=== PATIENT | female | born 1975 | race Caucasian/White ===

== ENCOUNTER 2019-02-28 07:06 | Emergency (ER) | payer BC ==
[2019-02-28 07:54] LABS: Urine Blood 1+ (NEG); Urine Glucose NEGATIVE (NEG); Urine Protein NEGATIVE (NEG); Urine Specific Gravity >1.030 (1.005-1.030); Urine pH 5.5 (5.0-7.0)
--- NOTE | 2019-02-28 08:46 | RAD REPORT ---
EXAM DESCRIPTION: RAD - Foot Left 3 View - 02/28/2019 8:09 am CLINICAL HISTORY: Left foot pain, left foot trauma, laceration or wound injury near the calcaneus COMPARISON: None. FINDINGS: No fracture, dislocation or periosteal reaction. No acute or destructive bony process. No air or foreign body in the soft tissues. IMPRESSION: Negative left foot examination.
--- NOTE | 2019-02-28 08:57 | EDPHYS ---
Physician Documentation [facility] Name: Verna Paredes Age: 43 yrs Sex: Female : 1975 Arrival Date: 02/28/2019 Time: 07:08 Bed 14 Private MD: ED Physician Charlie Zamora HPI: 02/28 07:27 This 43 yrs old Female presents to ER via Ambulatory with complaints of Foot jmm Injury. 07:27 The patient presents with an abrasion, an injury, pain. Onset: The symptoms/episode jmm began/occurred acutely, 2 day(s) ago. Modifying factors: The symptoms are alleviated by nothing. the symptoms are aggravated by nothing. Associated signs and symptoms: Pertinent negatives fever. 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 patient denies pain on weight bearing. patient states swelling and bruising has decreased since yesterday. . Historical: - Allergies: 07:22 Cipro; sv - PMHx: 07:22 None; sv - PSHx: 07:22 Tubal ligation; sv - Immunization history:: Adult Immunizations up to date. - Social history:: Smoking status: Patient/guardian denies using tobacco. - Ebola Screening: : No symptoms or risks identified at this time. ROS: 07:27 Constitutional: Negative for fever, chills, and weight loss, Cardiovascular: Negative jmm for chest pain, palpitations, and edema, Respiratory: Negative for shortness of breath, cough, wheezing, and pleuritic chest pain. 07:27 MS/extremity: Positive for injury or acute deformity, ecchymosis. 07:27 Skin: Positive for abrasion(s). 07:27 All other systems are negative. Exam: 07:27 Constitutional: This is a well developed, well nourished patient who is awake, alert, jmm and in no acute distress. Head/Face: atraumatic. Eyes: EOMI, no conjunctival erythema appreciated ENT: Moist Mucus Membranes Neck: Trachea midline, Supple Chest/axilla: Normal chest wall appearance and motion. Cardiovascular: Regular rate and rhythm. No edema appreciated Respiratory: Normal respirations, no respiratory distress appreciated Abdomen/GI: Non distended, soft Back: Normal ROM 07:27 Musculoskeletal/extremity: FROM appreciated to the left ankle, mild tenderness noted to the calcaneal region, compartments are soft, full dorsalis pulse, NVI. 07:27 Skin: abrasions noted to the back of the left heel along with ecchymosis. 07:27 Neuro: Orientation: is normal, Mentation: is normal, Memory: is normal. 07:27 Psych: Behavior/mood is pleasant, cooperative. Vital Signs: 07:22 BP 123 / 78; Pulse 76; Resp 18; Temp 97.9; Pulse Ox 99% ; Weight 103.42 kg; Height 5 sv ft. 6 in. (167.64 cm); 09:00 BP 118 / 77; Pulse 72; Resp 16; Pulse Ox 99% ; sv 07:22 Body Mass Index 36.80 (103.42 kg, 167.64 cm) sv MDM: 07:27 Patient medically screened. [facility] 08:55 Data reviewed: vital signs, nurses notes. Counseling: I had a detailed discussion with marcel the patient and/or guardian regarding: the historical points, exam findings, and any diagnostic results supporting the discharge/admit diagnosis, radiology results, the need for outpatient follow up, to return to the emergency department if symptoms worsen or persist or if there are any questions or concerns that arise at home. ED course: xray negative. patient is advised to follow up with pcp if pain continues and otherwise given strict return precautions. patient understood and agrees with the plan of care. . 02/28 07:27 Order name: Urine Dipstick--Ancillary (enter results); Complete Time: 08:05 md 02/28 07:27 Order name: Urine --Ancillary (enter results); Complete Time: 08:05 md 02/28 07:33 Order name: Foot Left 3 View XRAY; Complete Time: 08:50 [facility] 02/28 08:15 Order name: Wound Care; Complete Time: 08:26 [facility] Administered Medications: No medications were administered Disposition: 03/01 07:06 Co-signature as Attending Physician, Charlie Zamora MD I agree with the assessment and kdr plan of care. Disposition: 02/28/19 08:57 Discharged to Home. Impression: Contusion of left foot, Urinary tract infection, site not specified. - Condition is Stable. - Discharge Instructions: Foot Contusion, Urinary Tract Infection, Adult. - Prescriptions for Bactrim DS 800- 160 mg Oral Tablet - take 1 tablet by ORAL route every 12 hours for 7 days; 14 tablet. - Medication Reconciliation Form, Thank You Letter, Antibiotic Education, Prescription Opioid Use form. - Work release form (02/28/19 14:18). ms - Follow up: Private Physician; When: 2 - 3 days; Reason: Recheck today's complaints, Continuance of care, Re-evaluation by your physician. Signatures: Dispatcher [employer] EDIvon Baires, ALISSA RN sv Charlie Zamora MD MD kdr Mickail, Joel, PA PA [facility] Madeleine Berry ms Corrections: (The following items were deleted from the chart) 02/28 08:59 08:57 02/28/2019 08:57 Discharged to Home. Impression: Contusion of left foot. [facility] Condition is Stable. Forms are Medication Reconciliation Form, Thank You Letter, Antibiotic Education, Prescription Opioid Use. Follow up: Private Physician; When: 2 - 3 days; Reason: Recheck today's complaints, Continuance of care, Re-evaluation by your physician. [facility] 09:23 08:59 02/28/2019 08:57 Discharged to Home. Impression: Contusion of left foot; Urinary sv tract infection, site not specified. Condition is Stable. Discharge Instructions: Foot Contusion. Forms are Medication Reconciliation Form, Thank You Letter, Antibiotic Education, Prescription Opioid Use. Follow up: Private Physician; When: 2 - 3 days; Reason: Recheck today's complaints, Continuance of care, Re-evaluation by your physician. [facility]
--- NOTE | 2019-02-28 08:57 | ER ---
Nurse's Notes [facility] Name: Verna Paredes Age: 43 yrs Sex: Female : 1975 Arrival Date: 02/28/2019 Time: 07:08 Bed 14 Private MD: Diagnosis: Contusion of left foot;Urinary tract infection, site not specified Presentation: 02/28 07:19 Presenting complaint: Patient states: hit the back of her left heel with a metal object sv with her shoe on and it caused an open wound. Incident occurred on Friday. Transition of care: patient was not received from another setting of care. Onset of symptoms was February 26, 2019. Risk Assessment: Do you want to hurt yourself or someone else? Patient reports no desire to harm self or others. Initial Sepsis Screen: Does the patient meet any 2 criteria? No. Patient's initial sepsis screen is negative. Does the patient have a suspected source of infection? Yes: Skin breakdown/wound. Care prior to arrival: None. 07:19 Method Of Arrival: Ambulatory sv 07:19 Acuity: SERA 4 sv Triage Assessment: 07:24 General: Appears in no apparent distress. uncomfortable, well developed, Behavior is sv calm, cooperative, appropriate for age. Pain: Complains of pain in lateral side of left heel and left Achilles. Neuro: Level of Consciousness is awake, alert, obeys commands, Oriented to person, place, time, situation, Moves all extremities. Full function Gait is steady. Respiratory: Respiratory effort is even, unlabored, Respiratory pattern is regular, symmetrical. Derm: Skin is pink, warm \T\ dry. Bruising that is dark purple, on lateral side of left heel and left Achilles. Derm: Wound noted lateral side of left heel. Musculoskeletal: Range of motion: intact in all extremities. Historical: - Allergies: 07:22 Cipro; sv - PMHx: 07:22 None; sv - PSHx: 07:22 Tubal ligation; sv - Immunization history:: Adult Immunizations up to date. - Social history:: Smoking status: Patient/guardian denies using tobacco. - Ebola Screening: : No symptoms or risks identified at this time. Screenin:26 Abuse screen: Denies threats or abuse. Denies injuries from another. Nutritional sv screening: No deficits noted. Tuberculosis screening: No symptoms or risk factors identified. Fall Risk None identified. Assessment: 09:22 Reassessment: Patient appears in no apparent distress at this time. No changes from previously documented assessment. Patient and/or family updated on plan of care and expected duration. Pain level reassessed. Patient is alert, oriented x 3, equal unlabored respirations, skin warm/dry/pink. Vital Signs: 07:22 BP 123 / 78; Pulse 76; Resp 18; Temp 97.9; Pulse Ox 99% ; Weight 103.42 kg; Height 5 sv ft. 6 in. (167.64 cm); 09:00 BP 118 / 77; Pulse 72; Resp 16; Pulse Ox 99% ; sv 07:22 Body Mass Index 36.80 (103.42 kg, 167.64 cm) sv ED Course: 07:08 Patient arrived in ED. rg4 07:11 Ivon Almanzar, ALISSA is Primary Nurse. sv 07:12 Erich Lopez PA is PHCP. [facility] 07:12 Charlie Zamora MD is Attending Physician. [facility] 07:20 Triage completed. sv 07:24 Arm band placed on. sv 07:26 Patient has correct armband on for positive identification. Bed in low position. Call sv light in reach. Door closed. Head of bed elevated. 08:10 Foot Left 3 View XRAY In Process Unspecified. EDMS 08:33 Wound care: to abrasion, was cleaned with with saline and dressed with triple mh5 antibiotic and dressed with waldemar. 08:36 Pulse ox on. NIBP on. mh5 09:22 No provider procedures requiring assistance completed. Patient did not have IV access sv during this emergency room visit. Administered Medications: No medications were administered Outcome: 08:57 Discharge ordered by . [facility] 09:22 Discharged to home ambulatory. sv 09:22 Condition: stable 09:22 Discharge instructions given to patient, Instructed on discharge instructions, follow up and referral plans. medication usage, increase fluids Demonstrated understanding of instructions, follow-up care, medications, Prescriptions given X 1. 09:23 Patient left the ED. sv Signatures: Dispatcher [employer] EDIvon Baires RN RN Erich Lopez PA PA jmm Garcia, Rubi 4 Madeleine Anders [facility]
[2019-02-28 09:53] VITALS: BP 123/78; TEMP 97.9; O2SAT 99
== END 2019-02-28 09:23 | disposition home or self-care (01) ==
LOC: ER 07:06
DX: S90.32XA Contusion of left foot, initial encounter (principal); N39.0 Urinary tract infection, site not specified; W22.8XXA Striking against or struck by other objects, initial encounter; Y93.89 Activity, other specified; Y92.89 Other specified places as the place of occurrence of the external cause; Y99.8 Other external cause status; Z88.1 Allergy status to other antibiotic agents
CPT/HCPCS: 81003; 81025; 99284

== ENCOUNTER 2023-01-17 08:41 | Day surgery (SDC) | payer BC ==
[2023-01-16 14:47] LABS: Urine Specific Gravity/Preg 1.015 (1.005-1.030)
[2023-01-17] MEDS ORDERED: Ringers Lactate 1,000 ML IV ONE (09:11)
[2023-01-17] MEDS ORDERED: LIDOCAINE 1% MPF 5 ML VIAL ONE (10:14)
[2023-01-17] MEDS ORDERED: propofoL 200 MG/20 ML VIAL IV ONE ×2 (10:14)
[2023-01-17 10:50] VITALS: O2SAT 100
[2023-01-17 11:13] VITALS: BP 133/80; TEMP 97.7
--- NOTE | 2023-01-17 13:54 | EKG ---
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
== END 2023-01-17 11:31 | disposition home or self-care (01) ==
LOC: OR 08:41
PROVIDERS: ATTEND Surgery
PROC: 0DBK8ZX Excision of Ascending Colon, Via Natural or Artificial Opening Endoscopic, Diagnostic (ICD-10-PCS; 2023-01-17)
PROC: 0DBN8ZX Excision of Sigmoid Colon, Via Natural or Artificial Opening Endoscopic, Diagnostic (ICD-10-PCS; principal; 2023-01-17 09:45)
DX: Z12.11 Encounter for screening for malignant neoplasm of colon (principal); D12.5 Benign neoplasm of sigmoid colon; K52.9 Noninfective gastroenteritis and colitis, unspecified; K63.89 Other specified diseases of intestine; K64.8 Other hemorrhoids; E66.9 Obesity, unspecified; Z68.34 Body mass index [BMI] 34.0-34.9, adult; Z88.1 Allergy status to other antibiotic agents
CPT/HCPCS: 93005; 80048; 36415; 81025; 88305; 45380; J2704 ×2; J2001; J7120

== ENCOUNTER 2023-01-23 10:27 | Day surgery (SDC) | payer BC ==
[2023-01-23] MEDS ORDERED: Ringers Lactate 1,000 ML IV ONE (10:51)
[2023-01-23] MEDS ORDERED: BUPIVACAINE 0.25% PF 30 ML VIAL ONE (11:01)
[2023-01-23] MEDS ORDERED: LIDOCAINE 2% MPF 5 ML VIAL ONE (11:05)
[2023-01-23] MEDS ORDERED: propofoL 200 MG/20 ML VIAL IV ONE (11:05)
[2023-01-23] MEDS ORDERED: FENTANYL CITR 100 MCG/2 ML ONE ×2 (11:05→15:14)
[2023-01-23] MEDS ORDERED: MIDAZOLAM HCL 2 MG/2 ML INJ ONE (11:05)
[2023-01-23] MEDS ORDERED: ROCURONIUM 50 MG/5 ML VIAL IV ONE (11:05)
[2023-01-23] MEDS ORDERED: HYDROMORPHONE HCL 2 MG/ML inj ONE (11:57)
[2023-01-23] MEDS: CEFAZOLIN SODIUM 2 GM/VIAL ONE ×2 (12:18→12:29)
[2023-01-23] MEDS ORDERED: dexAMETHasone 10 MG/ML VIAL ONE (12:43)
[2023-01-23] MEDS ORDERED: ONDANSETRON 4 MG/2 ML VIAL ONE (12:43)
--- NOTE | 2023-01-23 13:29 | P.OP ---
Preoperative diagnosis: Incarcerated Umbilical Hernia Postoperative diagnosis: Incarcerated Umbilical Hernia Primary procedure: Laparoscopic Umbilical Hernia Repair with mesh Anesthesia: GETA + Local Estimated blood loss: <5cc Specimen: Hernia Contents Findings: ~ 2cm umbilical incarcerated hernia with adipose Complications: None Implants: Bard Ventralite ST mesh 11.4cm, Sorbafix tacks x 45 Transferred to: Recovery Room Condition: Good
[2023-01-23] MEDS ORDERED: GLYCOPYRROLATE 0.2 MG/ML SYR ONE (13:37)
[2023-01-23] MEDS ORDERED: KETOROLAC 30 MG/ML INJ ONE (13:39)
[2023-01-23] MEDS ORDERED: NEOSTIGMINE 1 MG/ML -10 ML VIAL ONE (13:39)
[2023-01-23] MEDS ORDERED: PROMETHAZINE INJ 25 MG/ML AMP ONE (15:14)
[2023-01-23] MEDS ORDERED: HYDROMORPHONE HCL 1 MG/ML INJ ONE (15:14)
[2023-01-23] MEDS ORDERED: HYDROCODONE/APAP 10/325 TAB ONE (15:26)
[2023-01-23 15:59] VITALS: TEMP 97; O2SAT 99
[2023-01-23 16:00] VITALS: BP 151/80
--- NOTE | 2023-01-23 22:17 | OP ---
Date of Procedure: 01/23/2023 Surgeon: Jason Stevens MD, Preoperative Diagnosis: Incarcerated umbilical hernia. Postoperative Diagnosis: Incarcerated umbilical hernia. Procedure Performed: Laparoscopic umbilical hernia repair with mesh. Anesthesia: General endotracheal plus local with 0.25% Marcaine. Estimated Blood Loss: Less than 5 cc. Specimens: Hernia contents which were preperitoneal and omental adipose tissue. Findings: Approximately 2 cm umbilical incarcerated hernia with adipose from the greater omentum. Complication: None. Implants: Bard Ventralight ST mesh with Echo positioning system 11.4 cm round mesh utilized, SorbaFi x absorbable fixation tacks, x45. Disposition: The patient was transferred to the recovery good in good condition. Procedure In Detail: After informed consent was obtained, the patient was brought to the operating r oom, prepped and draped in the usual sterile fashion after adequate anesthesia was achieved. I anest hetized an area of the left upper quadrant down to subcutaneous tissues. A 5 mm 0-degree optical tro car was introduced in the abdomen without evidence of complication. Insufflation was obtained to 15 mmHg at this time. There was no injury to vital structures upon entry into the abdomen. Additional trocar was placed in the left mid abdomen. This was a 12 mm trocar placed under direct vision withou t evidence of complication. At this point, I proceeded to take the omental attachments and hernia co ntents such as they are out of the umbilical incarcerated hernia at this point using a combination of blunt dissection with the LigaSure device. After the omentum was reduced in the preperitoneal posit ion, some additional adipose tissue over the preperitoneal fat remained in the abdominal hernia at th is point. This was removed using a LigaSure device and sent off for pathologic examination. At this point, I brought the Endo Stitch with a 0 V-Loc suture and secured the hernia defect in a running fa shion using the 0 V-Loc suture with good approximation of tissues imbricating the hernia sac. At thi s point, after the hernia defect was closed in its entirety, a 11.4 cm Bard Ventralight mesh was brou ght in, deployed and positioned in the supraumbilical position after a separate stab incision was mira vicki and the deployment balloon system was deployed. At this point, SorbaFix absorbable fixation tack s were used to secure the mesh to the anterior abdominal wall without evidence of complication. The balloon deployment system was then removed, found to be intact on the back table. At this point, a t otal of 45 SorbaFix absorbable fixation tacks were used to secure the mesh to the anterior abdominal wall with good approximation of mesh to the anterior abdominal wall at this point. No hemostatic ana sures were required. The 12 mm trocar site was then closed using a Veronique suture passer wit h 0 Vicryl in interrupted fashion with good approximation of tissues. The abdomen was desufflated un brett direct vision without evidence of complication. The remaining trocars were removed. All skin ed ges were then copiously irrigated and closed with a 4-0 Monocryl in running fashion. Dermabond was p laced over top. The patient tolerated the procedure well without evidence of complication and transf erred to PACU in good condition. All counts were correct at the end of the case. DORCAS/GLORIA Voice ID: [id number] Report ID: [id number]
== END 2023-01-23 16:11 | disposition home or self-care (01) ==
LOC: OR 10:27
PROVIDERS: ATTEND Surgery
PROC: 0WUF4JZ Supplement Abdominal Wall with Synthetic Substitute, Percutaneous Endoscopic Approach (ICD-10-PCS; principal; 2023-01-23 11:45)
DX: K42.0 Umbilical hernia with obstruction, without gangrene (principal)
CPT/HCPCS: 36415; 84703; 88302; C1781; J1100; J1170; J2001; J2250; J2405; J2550; J2704; J2710; J3010; J7120

== ENCOUNTER 2023-02-13 13:11 | Emergency (ER) | payer BC ==
--- OUTSIDE RECORDS SUMMARY | 2023-02-13 13:14 | XMS REPORT | Continuity of Care Document ---
:1975 Author Organization [facility] t Address [address] [place] [address] [address] [place] [address] Care Team Providers Name Role Phone PCP, PATIENT DOES NOT HAVE A Primary Care Physician Unavaila ble RADIOLOGY Attending Clinician Unavailable Radiology Attending Clinician Unavailable Doctor Unassigned, Arnold Attending Clinician Unavailable EDMUND_JUAN_[place]_G Attending Clinician Unavailable Rutledge_L Attending Clinician Unavailable RACHEL AGUILAR Admitting Clinician Unavailable [email or web address]_[place]_G Admitting Clinician Unavailable Rutledge_L Admitting Clinician Unavailable Payers Payer Name Policy Type Policy Number Effective Date Expiration Date S ource [facility] [id number] 2018 00:00:00 [place] [facility] [id number] 2018 00:00:00 [place] Problems This patient has no known problems. Allergies, Adverse Reactions, Alerts Allergy Allergy Status Severity Reaction(s) Onset Inactive Treating Comm ents Source Name Type Date Date Clinician NO KNOWN Drug Active [facility] ALLERGIE Class ity of [facility] Social History Social Habit Start Date Stop Date Quantity Comments Source Gender identity [facility] [place] Sexual orientation [facility] [place] Sex Assigned [birth year] Uni [facility] 00:00:00 00:00:00 Medical Branch Smoking Status Start Date Stop Date Source Tobacco smoking consumption [facility] Branch Medications This patient has no known medications. Procedures Procedure Date / Time Performed Performing Clinician Mary e ASSIGNMENT OF BENEFITS 2022-12-23 13:31:30 Doctor Unassigned, No [facility] Encounters Start End Encounter Admission Attending Care Care Encounter Source Date/Time Date/Time Type Type Clinicians Facility Department ID 2022-12-23 2022-12-23 Outpatient R RADIOLOGY [facility] [id number] Univers 08:32:37 23:59:[address] [facility] 2022-12-23 2022-12-23 Hospital Radiology [facility] [id number] Univers 08:00:00 23:59:00 Encounter [place] [id number] ity of [place] [id number] [place] [facility] [id number] [facility] 800 Branch 2022-12-23 2022-12-23 Orders Doctor KENNEDY [id number] Univers 00:00:00 00:00:00 Only Unassigned, NICOLE [id number] ity of [place] [facility] [id number] Charles [id number] [facility] 009 Branch 2022-08-08 2022-08-08 Outpatient GC_SWHAOMC_ PRIV PRIV [id number] [facility] 00:00:00 00:00:00 Shel[place]_G [id number] [facility] 2022-08-06 2022-08-06 Outpatient PRIV PRIV [id number] [facility] 00:00:00 00:00:00 [id number] Medica l 2022-08-05 2022-08-05 Outpatient PRIV PRIV [id number] [facility] 00:00:00 00:00:00 [id number] Medica l 2022-07-11 2022-07-11 Outpatient Rutledge_L MMG MMG [id number] [place] 00:00:00 00:00:00 [id number] 2022-07-11 2022-07-11 Outpatient PRIV PRIV [id number] [id number] [facility] 00:00:00 00:00:00 [id number] Medica l Results This patient has no known results.
[2023-02-13] MEDS ORDERED: D10W 250 ML IV ONE (13:24)
[2023-02-13 14:36] LABS: Absolute Lymphocytes (CBC) 1.5 K/uL (0.7-4.9); Hematocrit 40.4 % (36.0-45.0); Lymphocytes % 15.7 % (15.3-44.8); MCV 85.8 fL (80-100); Platelets 228 thou/uL (152-406); RBC Red Blood Cell Count 4.71 M/uL (3.86-4.86)
[2023-02-13 14:41] LABS: Specific Gravity 1.025 (1.005-1.030)
[2023-02-13 14:47] LABS: Albumin 3.7 g/dL (3.4-5.0); Potassium 3.7 mEq/L (3.5-5.1); Protein, Total 7.4 g/dL (6.4-8.2)
[2023-02-13 14:52] LABS: Specific Gravity 1.025 (1.005-1.030); Urine Bacteria 20-50 /HPF (<20); Urine Bilirubin NEGATIVE (Negative); Urine Blood Trace (Negative); Urine Clarity Extremely Turbid (Clear); Urine Color Yellow (Yellow); Urine Crystals Unidentified Few /HPF (None Seen); Urine Glucose NEGATIVE (Negative); Urine Mucus 2+ /HPF (None Seen); Urine Protein TRACE (Negative); Urine Urobilinogen Normal (Normal)
--- NOTE | 2023-02-13 15:34 | RAD REPORT ---
EXAM DESCRIPTION: US - Abdomen Exam Limited - 02/13/2023 2:45 pm CLINICAL HISTORY: ABD PAIN COMPARISON: No comparisons TECHNIQUE: Sonographic grayscale and color flow images of the right upper abdominal quadrant were obtained. FINDINGS: The gallbladder demonstrates multiple small layering shadowing stones. No pericholecystic fluid or gallbladder wall thickening. The common bile duct is normal measuring 4 mm. The liver demonstrates diffuse parenchymal hyper attenuation suggesting steatosis. No findings of int rahepatic biliary dilatation. IMPRESSION: Cholelithiasis. No sonographic findings to suggest acute cholecystitis. Diffuse hepatic steatosis.
--- NOTE | 2023-02-13 15:45 | ER ---
Nurse's Notes [facility] Name: Verna Paredes Age: 47 yrs Sex: Female : 1975 Arrival Date: 02/13/2023 Time: 13:11 Bed DIS4 Private MD: Diagnosis: Other cholelithiasis without obstruction;Upper abdominal pain, unspecified Presentation: 02/13 13:45 Coronavirus screen: Vaccine status: Patient reports receiving the 2nd dose of the covid kd3 vaccine. Ebola Screen: No symptoms or risks identified at this time. Initial Sepsis Screen: Does the patient meet any 2 criteria? No. Patient's initial sepsis screen is negative. Does the patient have a suspected source of infection? No. Patient's initial sepsis screen is negative. Risk Assessment: Do you want to hurt yourself or someone else? Patient reports no desire to harm self or others. Onset of symptoms was February 13, 2023. 13:45 Method Of Arrival: Ambulatory kd3 13:45 Acuity: SERA 3 kd3 13:46 Chief complaint: Patient states: I had hernia surgery 3 weeks ago on the and now kd3 my gall bladder is hurting. I feel nauseous, i was told to tell you to let Dr. cisneros know that i was here in the ER. I have pain in my right upper quadrant that started on the 2 of February and the pain has gotten worse since then. Triage Assessment: 13:45 General: Appears uncomfortable, Behavior is calm, cooperative. Pain: Complains of pain kd3 in left upper quadrant. GI: Abdomen is non-distended. Historical: - Allergies: 13:45 Cipro; kd3 - Immunization history:: Adult Immunizations up to date. - Social history:: Smoking status: Patient denies any tobacco usage or history of. Screenin:03 [facility] ED Fall Risk Assessment (Adult) History of falling in the last 3 months, kb3 including since admission No falls in past 3 months (0 pts) Confusion or Disorientation No (0 pts) Intoxicated or Sedated No (0 pts) Impaired Gait No (0 pts) Mobility Assist Device Used No (0 pt) Altered Elimination No (0 pt) Score/Fall Risk Level 0 - 2 = Low Risk Oriented to surroundings. Abuse screen: Denies threats or abuse. Denies injuries from another. Nutritional screening: No deficits noted. Tuberculosis screening: No symptoms or risk factors identified. Assessment: 16:03 General: Appears in no apparent distress. uncomfortable, Behavior is calm, cooperative. kb3 Pain: Complains of pain in right upper quadrant Pain does not radiate. Pain currently is 7 out of 10 on a pain scale. Quality of pain is described as burning, sharp, Also complains of nausea. GI: Bowel sounds present X 4 quads. Abd is soft Abdomen is tender to palpation. Vital Signs: 13:43 Pulse 99; Resp 17; Temp 98.4(O); Pulse Ox 100% ; Weight 96.16 kg; Height 5 ft. 6 in. ; kd3 Pain 7/10; 13:46 BP 134 / 72; kd3 16:06 BP 112 / 77; Pulse 80; Resp 20; Pulse Ox 100% ; Pain 7/10; kb3 13:43 Body Mass Index 34.22 (96.16 kg, 167.64 cm) kd3 13:43 Pain Scale: Adult kd3 16:06 Pain Scale: Adult kb3 ED Course: 13:14 Patient arrived in ED. mr 13:45 Triage completed. kd3 13:45 Arm band placed on right wrist. kd3 13:49 Channing Carballo DO is Attending Physician. ms3 14:30 Inserted saline lock: 20 gauge in left antecubital area, using aseptic technique. kb3 14:46 US Abdomen Limited In Process Unspecified. EDMS 15:44 Jason Stevens MD is Referral Physician. ms3 16:03 Patient has correct armband on for positive identification. Provided Education on: D/C kb3 and follow up. 16:03 No provider procedures requiring assistance completed. IV discontinued, intact, kb3 bleeding controlled, No redness/swelling at site. Pressure dressing applied. Administered Medications: No medications were administered Medication: 16:03 VIS not applicable for this client. kb3 Outcome: 15:45 Discharge ordered by . ms3 16:03 Discharged to home ambulatory, with family, kb3 16:03 Condition: good 16:03 Discharge instructions given to patient, Instructed on discharge instructions, Demonstrated understanding of instructions, follow-up care, medications, 16:07 Patient left the ED. kb3 Signatures: Dispatcher [employer] EDMS Elba Doty, Reg Reg mr Channing Carballo DO DO ms3 Trisha Swann, RN RN kd3 Juany Torres, RN RN kb3
--- NOTE | 2023-02-13 15:45 | EDPHYS ---
Physician Documentation [facility] Name: Verna Paredes Age: 47 yrs Sex: Female : 1975 Arrival Date: 02/13/2023 Time: 13:11 Bed DIS4 Private MD: ED Physician Channing Carballo HPI: 02/13 14:18 This 47 yrs old Female presents to ER via Ambulatory with complaints of Abdominal Pain. ms3 14:18 47-year-old female with no past medical history presents to the emergency department ms3 for right upper quadrant abdominal pain. Patient rates pain a 7/10 describes pain as burning. Patient states pain radiates to her back. Patient denies nausea, vomiting, fevers, chills. Historical: - Allergies: 13:45 Cipro; kd3 - Immunization history:: Adult Immunizations up to date. - Social history:: Smoking status: Patient denies any tobacco usage or history of. ROS: 14:18 Constitutional: Negative for fever, and chills. Neck: Negative for injury, pain, and ms3 swelling, Cardiovascular: Negative for chest pain, and palpitations. Respiratory: Negative for shortness of breath, cough, wheezing, and pleuritic chest pain, Abdomen/GI: Negative for abdominal pain, nausea, vomiting, diarrhea, and constipation, MS/Extremity: Negative for injury and deformity, Skin: Negative for injury, rash, and discoloration, 14:18 All other systems are negative, Exam: 14:18 Constitutional: This is a well developed, well nourished patient who is awake, alert, ms3 and in no acute distress. Head/Face: Normocephalic, atraumatic. Neck: Trachea midline, no cervical lymphadenopathy. Supple, full range of motion without nuchal rigidity, or vertebral point tenderness. No Meningismus. Chest/axilla: Normal chest wall appearance and motion. Nontender with no deformity. Cardiovascular: Regular rate and rhythm with a normal S1 and S2. No gallops, murmurs, or rubs. Normal PMI, no JVD. No pulse deficits. Respiratory: Lungs have equal breath sounds bilaterally, clear to auscultation and percussion. No rales, rhonchi or wheezes noted. No increased work of breathing, no retractions or nasal flaring. 14:18 Abdomen/GI: Inspection: abdomen appears normal, Bowel sounds: normal, Palpation: moderate abdominal tenderness, in the right upper quadrant, Vital Signs: 13:43 Pulse 99; Resp 17; Temp 98.4(O); Pulse Ox 100% ; Weight 96.16 kg; Height 5 ft. 6 in. ; kd3 Pain 7/10; 13:46 BP 134 / 72; kd3 16:06 BP 112 / 77; Pulse 80; Resp 20; Pulse Ox 100% ; Pain 7/10; kb3 13:43 Body Mass Index 34.22 (96.16 kg, 167.64 cm) kd3 13:43 Pain Scale: Adult kd3 16:06 Pain Scale: Adult kb3 MDM: 13:57 Patient medically screened. ms3 14:18 Differential diagnosis: cholecystitis, Cholelithiasis, non-specific abd pain, ms3 pancreatitis. 15:45 Data reviewed: vital signs, nurses notes, and as a result, I will discharge patient. ms3 Consideration of Admission/Observation Escalation of care including admission/observation considered. Ultrasound does not show acute cholecystitis. Management of patient was discussed with the following: Strap Sewer: Discussed case with Dr. Stevens and he will follow-up patient as an outpatient. Counseling: I had a detailed discussion with the patient and/or guardian regarding the historical points, exam findings, and any diagnostic results supporting the discharge/admit diagnosis, lab results, radiology results, the need for outpatient follow up, to return to the emergency department if symptoms worsen or persist or if there are any questions or concerns that arise at home. Special discussion: Based on the patient's Hx, exam, and Dx evaluation, there is no indication for emergent surgery or inpatient Tx. It is understood by the patient/guardian that if the Sx's persist or worsen they need to return immediately for re-evaluation. ED course: Discussed ultrasound, labs with patient. Patient to follow-up Dr. SHRESTHA 7 2 to 3 days. Patient understands and agrees with plan. All questions were answered. Return precautions discussed include worsening symptoms, or any other concerns. 02/13 13:56 Order name: CBC with Diff; Complete Time: 15:05 ms3 02/13 13:56 Order name: CMP; Complete Time: 15:05 ms3 02/13 13:56 Order name: Lipase; Complete Time: 15:05 ms3 02/13 13:56 Order name: Test, Urine; Complete Time: 15:05 ms3 02/13 13:56 Order name: Urinalysis w/ reflexes; Complete Time: 15:05 ms3 02/13 13:56 Order name: US Abdomen Limited; Complete Time: 15:35 ms3 02/13 13:56 Order name: IV Saline Lock; Complete Time: 15:53 ms3 02/13 13:56 Order name: Labs collected and sent; Complete Time: 15:53 ms3 Administered Medications: No medications were administered Disposition Summary: 02/13/23 15:45 Discharge Ordered Notes: Location: Home ms3 Condition: Stable ms3 Diagnosis - Other cholelithiasis without obstruction ms3 - Upper abdominal pain, unspecified ms3 Followup: ms3 - With: Jason Stevens MD - When: 2 - 3 days - Reason: Recheck today's complaints Discharge Instructions: - Discharge Summary Sheet ms3 - Abdominal Pain, Adult ms3 - Cholelithiasis ms3 Forms: - Medication Reconciliation Form ms3 - Thank You Letter ms3 - Antibiotic Education ms3 - Prescription Opioid Use ms3 - Patient Portal Instructions ms3 - Leadership Thank You Letter ms3 Signatures: Dispatcher [employer] Channing Fisher DO DO ms3 Trisha Swann, RN RN kd3
[2023-02-13 16:43] VITALS: BP 112/77; O2SAT 100
== END 2023-02-13 16:07 | disposition home or self-care (01) ==
LOC: ER 13:11
DX: K80.80 Other cholelithiasis without obstruction (principal); Z88.1 Allergy status to other antibiotic agents
CPT/HCPCS: 36415; 76705; 80053; 81001; 81025; 83690; 85025; 99283

== ENCOUNTER 2023-03-03 10:59 | Day surgery (SDC) | payer BC ==
[2023-03-03] MEDS ORDERED: CEFOXITIN SODIUM 1 GM/VIAL ONE (11:26)
[2023-03-03] MEDS ORDERED: Ringers Lactate 1,000 ML IV ONE (11:26)
[2023-03-03] MEDS ORDERED: BUPIVACAINE 0.25% PF 10 ML VIAL ONE (11:39)
[2023-03-03] MEDS ORDERED: MIDAZOLAM HCL 2 MG/2 ML INJ ONE (12:10)
[2023-03-03] MEDS ORDERED: propofoL 200 MG/20 ML VIAL IV ONE (12:17)
[2023-03-03] MEDS ORDERED: ROCURONIUM 50 MG/5 ML VIAL IV ONE (12:18)
[2023-03-03] MEDS ORDERED: FENTANYL CITR 100 MCG/2 ML ONE ×2 (12:18→12:53)
[2023-03-03] MEDS ORDERED: KETOROLAC 30 MG/ML INJ ONE (12:19)
[2023-03-03] MEDS ORDERED: ONDANSETRON 4 MG/2 ML VIAL ONE (12:20)
[2023-03-03] MEDS ORDERED: LIDOCAINE 2% MPF 5 ML VIAL ONE (12:20)
[2023-03-03] MEDS ORDERED: dexAMETHasone 4 MG/ML VIAL ONE (12:20)
--- NOTE | 2023-03-03 13:01 | P.OP ---
Preoperative diagnosis: Cholecystitis Postoperative diagnosis: Cholecystitis Primary procedure: Laparoscopic Cholecystectomy with ICG Anesthesia: GETA + Local Estimated blood loss: <5cc Specimen: Gallbladder Findings: Enlarged Gallbladder Complications: None Transferred to: Recovery Room Condition: Good
[2023-03-03] MEDS ORDERED: GLYCOPYRROLATE 0.2 MG/ML SYR ONE ×2 (13:21)
[2023-03-03] MEDS ORDERED: NEOSTIGMINE 1 MG/ML -10 ML VIAL ONE ×2 (13:21)
[2023-03-03 13:29] VITALS: O2SAT 100
[2023-03-03] MEDS: FENTANYL CITR 100 MCG/2 ML ONE ×5 (13:34→13:49)
[2023-03-03] MEDS: HYDROMORPHONE HCL 1 MG/ML INJ ONE ×4 (13:54→14:19)
[2023-03-03] MEDS ORDERED: HYDROMORPHONE HCL 1 MG/ML INJ ONE (14:39)
[2023-03-03] MEDS ORDERED: TRAMADOL HCL 50 MG TAB ONE (15:26)
[2023-03-03 16:00] VITALS: BP 125/70; TEMP 97
--- NOTE | 2023-03-03 19:39 | OP ---
Date of Procedure: 03/03/2023 Surgeon: Jason Stevens MD, Preoperative Diagnosis: Cholecystitis. Postoperative Diagnosis: Cholecystitis. Procedure Performed: Laparoscopic cholecystectomy with indocyanine green cholangiography. Anesthesia: General endotracheal plus local with 0.25% Marcaine. Estimated Blood Loss: 5 mL. Specimens: Gallbladder. Findings: Enlarged gallbladder. Complications: None. Disposition: The patient was transferred to the recovery room in good condition. Procedure In Detail: After informed consent was obtained, the patient was brought to the operating r oom, prepped and draped in the usual sterile fashion. After adequate anesthesia was achieved, I anes thetized the area in the supraumbilical position down to subcutaneous tissues. I then placed a 5 mm 0-degree optical trocar in the abdomen without evidence of complication. Insufflation was obtained t o 15 mmHg at this time. There was no injury to vital structures in the abdomen. Two additional troc ars were placed, 1 in the epigastrium, 1 in the right upper quadrant. Both of these were similarly a nesthetized and sharply incised. A 5 mm trocar was placed under direct visualization without evidenc e of complication. The umbilical trocar was then upsized to a 12 mm under direct visualization witho ut evidence of complication. The patient was positioned head up, right-side up position. Ratcheted grasper was used to grasp the patient's gallbladder, placed it toward the patient's right shoulder. Dissection continued down to the Veroinca pouch of the gallbladder. The gallbladder is quite large w ith a stone entrapped in the neck of the gallbladder and dissected it circumferentially down around t he cystic duct and skeletonized 2 structures and then identified both cystic duct and cystic artery. Critical view of safety was obtained at this point. Indocyanine green cholangiography was performed at this point confirming the cyst at common duct confluence to the safe distance away from the propo sed clips. I then placed double titanium clips on the proximal side and singly on the distal side of both cystic duct and cystic artery, ligated the 2 structures using Endo Isa. I then removed the gallbladder hepatic fossa using electrocautery without evidence of complication, placed the gallbladd er in EndoCatch bag, removed through the umbilical trocar and sent off for pathologic examination. A t this point, the abdomen was re-insufflated. At this point, I performed indocyanine green cholangio graphy one last time. There was no leakage of bile at this point, the clips were found to be in good anatomic position without any hemostatic measures required. At this point, the remaining effluent w as suctioned out after completely cleansing the abdomen in the right upper quadrant. The patient was positioned back in neutral position. The remaining effluent was suctioned out. I then closed the s upraumbilical site with a Abdi-Ayla suture passer with an 0 Vicryl in an interrupted fashion wi th good approximation of tissues. The abdomen was completely desufflated under direct vision without evidence of complication. All skin incisions were then copiously irrigated and closed with a 4-0 Mo nocryl fashion. Dermabond was placed over top. The patient tolerated the procedure without evidence of complication, and was transferred to PACU in good condition. All counts were correct at the end of the case. DORCAS/GLORIA Voice ID: [id number] Report ID: [id number]
== END 2023-03-03 15:41 | disposition home or self-care (01) ==
LOC: OR 10:59
PROVIDERS: ATTEND Surgery
PROC: BF50200 Other Imaging of Bile Ducts using Fluorescing Agent, Indocyanine Green Dye, Intraoperative (ICD-10-PCS; 2023-03-03)
PROC: 0FT44ZZ Resection of Gallbladder, Percutaneous Endoscopic Approach (ICD-10-PCS; principal; 2023-03-03 12:45)
DX: K80.10 Calculus of gallbladder with chronic cholecystitis without obstruction (principal); R10.84 Generalized abdominal pain; K63.89 Other specified diseases of intestine
CPT/HCPCS: 88304; 47563; J2704; J1100; J2710 ×2; J2001; J2250; J3010 ×3; J1170 ×3; J0694; J2405; J7120

== ENCOUNTER 2023-03-19 12:03 | Emergency (ER) | payer BC ==
--- OUTSIDE RECORDS SUMMARY | 2023-03-19 12:08 | XMS REPORT | Continuity of Care Document ---
Author Name Unknown Address [address] [facility] [address] [place] [id number] [facility] thconnect Address [address] [facility] [place] [address] Care Team Providers Care X Ray Developer Name Role Phone PCP, PATIENT DOES NOT HAVE A Primary Care Physic zeinab Unavailable RADIOLOGY Attending Clinician Unavailable Radiology Attending Clinician Unavailable Doctor Unassigned, [place] Attending Clinician U navailable [email or web address]_G Attending Clinician Unavail able Rutledge_L Attending Clinician Unavailable RACHEL AGUILAR Admitting Clinician Unavailabl e [email or web address]_G Admitting Clinician Unavail able Rutledge_L Admitting Clinician Unavailable Payers Payer Name Policy Type Policy Number Effective Date Expirati on Date Source [facility] [id number] 2018 00:00:00 [place] [id number] 2018 00:00:00 Allergies, Adverse Reactions, Alerts Allergy Name Allergy Type Status Severity Reaction(s) Onset Date Inactive Date Treating Clinician Comments Source NO KNOWN ALLERGIE S Drug Class Active [facility] Social History Social Habit Start Date Stop Date Quantity Comments Source Gender identity [facility] At 1975 00:00:00 1975 00:00:00 [facility] Smoking Status Start Date Stop Date Source Tobacco smoking consumption unknown [facility] Procedures Procedure Date / Time Performed Performing Clinicia n Source ASSIGNMENT OF BENEFITS 2022-12-23 13:31:30 Docto r Unassigned, Haynes [facility] Encounters Start Date/Time End Date/Time Encounter Type Admission Type Attending [facility] Care Facility Care Department Encounter ID Source 2022-12-23 08:32:37 2022-12-23 23:59:00 Outpatient R RADIOLOGY [facility] [id number] [facility] 2022-12-23 08:00:00 2022-12-23 23:59:00 Hospital Encounter Radiology [facility] [id number] [facility] 2022-12-23 00:00:00 2022-12-23 00:00:00 Orders Only Doctor Unassigned, Haynes [facility] [id number] [facility] 2022-08-08 00:00:00 2022-08-08 00:00:00 Outpatient [facility] [place]_G PRIV PRIV [id number] [facility] 2022-08-06 00:00:00 2022-08-06 00:00:00 Outpatient PRIV PRIV [id number] [facility] 2022-08-05 00:00:00 2022-08-05 00:00:00 Outpatient PRIV PRIV [id number] [facility] 2022-07-11 00:00:00 2022-07-11 00:00:00 Outpatient Rutledge_L MMG MMG [id number] [facility] 2022-07-11 00:00:00 2022-07-11 00:00:00 Outpatient PRIV PRIV [id number] [facility]
--- NOTE | 2023-03-19 13:45 | ER ---
Nurse's Notes [facility] Name: Verna Paredes Age: 47 yrs Sex: Female : 1975 Arrival Date: 03/19/2023 Time: 12:03 Bed 11 Private MD: Diagnosis: Constipation Presentation: 03/19 12:09 Chief complaint: Patient states: No BM for 6 days. Miralax and benefiber not helping. ll1 N/V this AM. No fever. Had gallbladder removed 03/03 here. Coronavirus screen: Vaccine status: Patient reports receiving the 2nd dose of the covid vaccine. Client denies travel out of the [place] in the last 14 days. At this time, the client does not indicate any symptoms associated with coronavirus-19. Ebola Screen: Patient denies travel to an Ebola-affected area in the 21 days before illness onset. Initial Sepsis Screen: Does the patient meet any 2 criteria? No. Patient's initial sepsis screen is negative. Does the patient have a suspected source of infection? Yes: Acute abdominal pain. Risk Assessment: Do you want to hurt yourself or someone else? Patient reports no desire to harm self or others. Onset of symptoms was March 13, 2023. 12:09 Method Of Arrival: Ambulatory ll1 12:09 Acuity: SERA 3 ll1 Triage Assessment: 12:11 General: Appears uncomfortable, Behavior is calm, cooperative, appropriate for age. ll1 Pain: Complains of pain in abdomen. GI: Abdomen is round distended, Reports lower abdominal pain, upper abdominal pain, bloating, constipation, nausea, vomiting. 12:26 EENT: No deficits noted. No signs and/or symptoms were reported regarding the EENT tl4 system. Neuro: No deficits noted. Cardiovascular: No deficits noted. Respiratory: No deficits noted. : No deficits noted. No signs and/or symptoms were reported regarding the genitourinary system. 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 - Social history:: Smoking status: Patient denies any tobacco usage or history of. Screenin:34 [facility] ED Fall Risk Assessment (Adult) History of falling in the last 3 months, tl4 including since admission No falls in past 3 months (0 pts) Confusion or Disorientation No (0 pts) Intoxicated or Sedated No (0 pts) Impaired Gait No (0 pts) Mobility Assist Device Used No (0 pt) Altered Elimination Yes (1 pt) Score/Fall Risk Level 0 - 2 = Low Risk Oriented to surroundings, Maintained a safe environment, Hourly rounding (assess needs \T\ fall precautionary measures) done, Used ambulatory aids as needed (educated on \T\ assisted with), Used gait belt as appropriate. Abuse screen: Denies threats or abuse. Denies injuries from another. Nutritional screening: No deficits noted. Tuberculosis screening: No symptoms or risk factors identified. Assessment: 12:33 Reassessment: No changes from previously documented assessment. Patient and/or family tl4 updated on plan of care and expected duration. Pain level reassessed. 12:35 GI: Bowel sounds hypoactive in right upper quadrant, left upper quadrant, right lower tl4 quadrant and left lower quadrant Firm, non-tender. 13:45 Reassessment: Pt had large bowel movement. Dr Carballo aware. Patient states feeling tl4 better. Patient states symptoms have improved. Vital Signs: 12:09 BP 144 / 82; Pulse 77; Resp 16; Temp 97.8; Pulse Ox 100% ; Weight 97.52 kg; Height 5 ll1 ft. 6 in. ; Pain 6/10; 12:33 BP 158 / 83; Pulse 83; Resp 18; Pulse Ox 99% on R/A; Pain 8/10; tl4 13:01 BP 136 / 82; Pulse 71; Resp 18; Pulse Ox 100% on R/A; tl4 13:59 BP 135 / 95; Pulse 71; Resp 18; Pulse Ox 100% ; Pain 3/10; tl4 12:09 Body Mass Index 34.70 (97.52 kg, 167.64 cm) ll1 12:09 Pain Scale: Adult ll1 12:33 Pain Scale: Adult tl4 13:59 Pain Scale: Adult tl4 Jose Coma Score: 12:33 Eye Response: spontaneous(4). Motor Response: obeys commands(6). Verbal Response: tl4 oriented(5). Total: 15. ED Course: 12:05 Patient arrived in ED. mg5 12:11 Triage completed. ll1 12:11 Arm band placed on. ll1 12:15 Patient placed in an exam room, on a stretcher. ll1 12:18 Channing Carballo DO is Attending Physician. ms3 12:25 Jas Swanson is Primary Nurse. tl4 12:35 No provider procedures requiring assistance completed. tl4 12:36 Patient has correct armband on for positive identification. Bed in low position. Call tl4 light in reach. Side rails up X 1. Adult w/ patient. Provided Education on: ED process. Door closed. Moved to private room. Verbal reassurance given. 13:43 Jason Stevens MD is Referral Physician. ms3 14:00 Patient did not have IV access during this emergency room visit. tl4 Administered Medications: 13:10 Drug: soap suds darwin 1 units [place] once Route: [place]; tl4 13:47 Follow up: Response: Marked relief of symptoms tl4 Medication: 12:37 VIS not applicable for this client. tl4 Outcome: 13:44 Discharge ordered by . ms3 14:00 Discharged to home ambulatory, with significant other, tl4 14:00 Condition: good 14:00 Discharge instructions given to patient, Instructed on discharge instructions, follow up and referral plans. 14:01 Patient left the ED. tl4 Signatures: Darby Shi RN RN ll1 Channing Carballo DO DO ms3 Farida Nice mg5 Jas Swanson tl4 Corrections: (The following items were deleted from the chart) 13:59 12:33 BP 158 / 83; Pulse 83bpm; Resp 18bpm; Pulse Ox 99% RA; Pain 5/10, Adult; tl4 tl4
--- NOTE | 2023-03-19 13:45 | EDPHYS ---
Physician Documentation [facility] Name: Verna Paredes Age: 47 yrs Sex: Female : 1975 Arrival Date: 03/19/2023 Time: 12:03 Bed 11 Private MD: ED Physician Channing Carballo HPI: 03/19 12:39 This 47 yrs old Female presents to ER via Ambulatory with complaints of Constipation. ms3 12:39 47-year-old female with no past medical history presents to the emergency department ms3 for constipation for 6 days. Patient states she has been taking MiraLAX and Benefiber without relief. Patient states her lower abdomen is a 6/10 and a pressure feeling as if she needs to go the restroom. Patient denies fevers or chills. Patient endorses nausea and vomiting this morning.. 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 - Social history:: Smoking status: Patient denies any tobacco usage or history of. ROS: 12:39 Constitutional: Negative for fever, and chills. Neck: Negative for injury, pain, and ms3 swelling, Cardiovascular: Negative for chest pain, and palpitations. Respiratory: Negative for shortness of breath, cough, wheezing, and pleuritic chest pain, 12:39 Abdomen/GI: Positive for abdominal pain, nausea and vomiting, constipation, Negative for diarrhea, 12:39 All other systems are negative, Exam: 12:39 Constitutional: This is a well developed, well nourished patient who is awake, alert, ms3 and in no acute distress. Head/Face: Normocephalic, atraumatic. Chest/axilla: Normal chest wall appearance and motion. Nontender with no deformity. Cardiovascular: Regular rate and rhythm with a normal S1 and S2. No gallops, murmurs, or rubs. Normal PMI, no JVD. No pulse deficits. Respiratory: Lungs have equal breath sounds bilaterally, clear to auscultation and percussion. No rales, rhonchi or wheezes noted. No increased work of breathing, no retractions or nasal flaring. 12:39 Respiratory: 12:39 Abdomen/GI: Inspection: abdomen appears normal, Bowel sounds: normal, Palpation: abdomen is soft and non-tender, Vital Signs: 12:09 BP 144 / 82; Pulse 77; Resp 16; Temp 97.8; Pulse Ox 100% ; Weight 97.52 kg; Height 5 ll1 ft. 6 in. ; Pain 6/10; 12:33 BP 158 / 83; Pulse 83; Resp 18; Pulse Ox 99% on R/A; Pain 8/10; tl4 13:01 BP 136 / 82; Pulse 71; Resp 18; Pulse Ox 100% on R/A; tl4 13:59 BP 135 / 95; Pulse 71; Resp 18; Pulse Ox 100% ; Pain 3/10; tl4 12:09 Body Mass Index 34.70 (97.52 kg, 167.64 cm) ll1 12:09 Pain Scale: Adult ll1 12:33 Pain Scale: Adult tl4 13:59 Pain Scale: Adult tl4 [place] Coma Score: 12:33 Eye Response: spontaneous(4). Motor Response: obeys commands(6). Verbal Response: tl4 oriented(5). Total: 15. MDM: 12:38 Patient medically screened. ms3 12:39 Differential diagnosis: Nonspecific abd pain, Constipation. ms3 13:44 Data reviewed: vital signs, nurses notes, and as a result, I will discharge patient. ms3 Historians other than the Patient: Spouse/Significant Other: Patient's . Counseling: I had a detailed discussion with the patient and/or guardian regarding the historical points, exam findings, and any diagnostic results supporting the discharge/admit diagnosis, the need for outpatient follow up, to return to the emergency department if symptoms worsen or persist or if there are any questions or concerns that arise at home. Special discussion: I discussed with the patient/guardian in detail that at this point there is no indication for admission to the hospital. It is understood, however, that if the symptoms persist or worsen the patient needs to return immediately for re-evaluation. ED course: Patient improved after large bowel movement. Patient to follow-up with Dr. Stevens of in 2 to 3 days. Patient understands and agrees with plan. All questions were answered. Return precautions discussed include worsening symptoms, or any other concerns.. Administered Medications: 13:10 Drug: soap suds darwin 1 units [place] once Route: [place]; tl4 13:47 Follow up: Response: Marked relief of symptoms tl4 Disposition Summary: 03/19/23 13:44 Discharge Ordered Notes: Location: Home ms3 Condition: Stable ms3 Diagnosis - Constipation ms3 Followup: ms3 - With: Jason Stevens MD - When: 2 - 3 days - Reason: Recheck today's complaints Discharge Instructions: - Discharge Summary Sheet ms3 - Constipation, Adult ms3 - Constipation, Adult, [id number] ms3 - How to Prevent Constipation After Surgery ms3 Forms: - Medication Reconciliation Form ms3 - Thank You Letter ms3 - Antibiotic Education ms3 - Prescription Opioid Use ms3 - Patient Portal Instructions ms3 - Leadership Thank You Letter ms3 Signatures: Darby Shi RN RN ll1 Channing Carballo DO DO ms3 Jas Swanson tl4
[2023-03-19 15:57] VITALS: TEMP 97.8
[2023-03-19 16:04] VITALS: O2SAT 100
[2023-03-19 16:10] VITALS: BP 135/95
== END 2023-03-19 14:01 | disposition home or self-care (01) ==
LOC: ER 12:03
DX: K59.00 Constipation, unspecified (principal); Z88.1 Allergy status to other antibiotic agents; Z88.5 Allergy status to narcotic agent

== ENCOUNTER 2023-03-21 18:11 | Emergency (ER) | payer BC ==
--- OUTSIDE RECORDS SUMMARY | 2023-03-21 18:14 | XMS REPORT | Continuity of Care Document ---
Author Name Unknown Address [address] [facility] [address]. [address] [id number] [facility] thconnect Address 1200 [facility]. [address] [place] [address] Care Team Providers Care Programming Director Name Role Phone PCP, PATIENT DOES NOT HAVE A Primary Care Physic zeinab Unavailable RADIOLOGY Attending Clinician Unavailable Radiology Attending Clinician Unavailable Doctor Unassigned, [place] Attending Clinician U navailable [facility]G Attending Clinician Unavail able [place]_L Attending Clinician Unavailable RACHEL AGUILAR Admitting Clinician Unavailabl e [facility]G Admitting Clinician Unavail able [place]_L Admitting Clinician Unavailable Payers Payer Name Policy Type Policy Number Effective Date Expirati on Date Source [facility] [id number] 2018 00:00:00 [place] [id number] 2018 00:00:00 Allergies, Adverse Reactions, Alerts Allergy Name Allergy Type Status Severity Reaction(s) Onset Date Inactive Date Treating Clinician Comments Source NO KNOWN ALLERGIE S Drug Class Active [facility] Social History Social Habit Start Date Stop Date Quantity Comments Source Gender identity [facility] Sexual orientation [facility] Sex Assigned At 1975 00:00:00 1975 00[birth year]00:00 [facility] Smoking Status Start Date Stop Date Source Tobacco smoking consumption unknown [facility] Procedures Procedure Date / Time Performed Performing Clinicia n Source ASSIGNMENT OF BENEFITS 2022-12-23 13:31:30 Docto r Unassigned, [facility] Encounters Start Date/Time End Date/Time Encounter Type Admission Type Attending [facility] Care Facility Care Department Encounter ID Source 2022-12-23 08:32:37 2022-12-23 23:59:00 Outpatient R RADIOLOGY [facility] [id number] [facility] 2022-12-23 08:00:00 2022-12-23 23:59:00 Hospital Encounter Radiology [facility] [id number] [facility] 2022-12-23 00:00:00 2022-12-23 00:00:00 Orders Only Doctor Unassigned, [facility] [id number] [facility] 2022-08-08 00:00:00 2022-08-08 00:00:00 Outpatient [facility] [place]G PRIV PRIV [id number] [facility] 2022-08-06 00:00:00 2022-08-06 00:00:00 Outpatient PRIV PRIV [id number] [facility] 2022-08-05 00:00:00 2022-08-05 00:00:00 Outpatient PRIV PRIV [id number] [facility] 2022-07-11 00:00:00 2022-07-11 00:00:00 Outpatient PRIV PRIV [id number] [facility] 2022-07-11 00:00:00 2022-07-11 00:00:00 Outpatient [place]_L MMG MMG [id number] [facility]
[2023-03-21] MEDS ORDERED: NA CHLORIDE 0.9% 1,000 ML ONE (18:50)
[2023-03-21] MEDS ORDERED: KETOROLAC 30 MG/ML INJ ONE (18:50)
[2023-03-21] MEDS ORDERED: FAMOTIDINE 20 MG/2 ML VIAL IV ONE (18:50)
[2023-03-21] MEDS ORDERED: ONDANSETRON 4 MG/2 ML VIAL ONE (18:50)
[2023-03-21 19:21] LABS: Specific Gravity 1.013 (1.005-1.030)
[2023-03-21 19:25] LABS: Specific Gravity 1.013 (1.005-1.030); Urine Bacteria <20 /HPF (<20); Urine Bilirubin NEGATIVE (Negative); Urine Blood 3+ (OVER) (Negative); Urine Clarity Extremely Turbid (Clear); Urine Color Light-Brown (Yellow); Urine Glucose NEGATIVE (Negative); Urine Protein TRACE (Negative); Urine RBC >50 /HPF (None Seen); Urine Urobilinogen Normal (Normal)
[2023-03-21 19:36] LABS: Albumin 3.4 g/dL (3.4-5.0); Bilirubin Total 0.6 mg/dL (0.2-1.0); Potassium 3.7 mEq/L (3.5-5.1); Protein, Total 7.4 g/dL (6.4-8.2)
[2023-03-21 19:53] LABS: Absolute Lymphocytes (CBC) 2.3 K/uL (0.7-4.9); Hematocrit 35.8 % (36.0-45.0); Lymphocytes % 23.5 % (15.3-44.8); MCV 86.7 fL (80-100); Platelets 192 thou/uL (152-406); RBC Red Blood Cell Count 4.13 M/uL (3.86-4.86)
--- NOTE | 2023-03-21 20:36 | RAD REPORT ---
EXAM DESCRIPTION: CT - Abdomen Pelvis W Contrast - 03/21/2023 7:52 pm CLINICAL HISTORY: Abdominal pain COMPARISON: none. TECHNIQUE: Computed axial tomography of the abdomen pelvis was obtained. 100 cc Isovue-300 was admin istered intravenously. Oral contrast was not requested which limits evaluation of bowel and appendix All CT scans are performed using dose optimization technique as appropriate and may include automated exposure control or mA/KV adjustment according to patient size. FINDINGS: The liver, spleen, pancreas, adrenal and kidneys appear unremarkable. There is no evidence of diverticulitis. Cholecystectomy. No fluid collection within the gallbladder fossa. Abnormal appendix is not seen. No adnexal mass IMPRESSION: No acute abnormality is displayed.
[2023-03-21] MEDS ORDERED: CEFTRIAXONE 1000 MG/VIAL ONE (21:02)
[2023-03-21] MEDS ORDERED: NA CHLORIDE 0.9% 100 ML ONE (21:02)
--- NOTE | 2023-03-21 21:21 | ER ---
Nurse's Notes [facility] Name: Verna Paredes Age: 47 yrs Sex: Female : 1975 Arrival Date: 03/21/2023 Time: 18:11 Bed 9 Private MD: Diagnosis: Abdominal pain, unspecified;UTI/ Urinary tract infection, site not specified Presentation: 03/21 18:30 Chief complaint: Intermittent sharp right sided abdominal pain x 5 days. Had hb cholecystectomy on 03/[address] Stevens. Coronavirus screen: At this time, the client does not indicate any symptoms associated with coronavirus-19. Ebola Screen: No symptoms or risks identified at this time. Initial Sepsis Screen: Does the patient meet any 2 criteria? No. Patient's initial sepsis screen is negative. Does the patient have a suspected source of infection? No. Patient's initial sepsis screen is negative. Risk Assessment: Do you want to hurt yourself or someone else? Patient reports no desire to harm self or others. Onset of symptoms was March 17, 2023. 18:30 Method Of Arrival: Ambulatory 18:30 Acuity: SERA 3 hb Triage Assessment: 21:27 General: Appears in no apparent distress. comfortable, Behavior is calm, cooperative, bp appropriate for age. Pain: Denies pain. GI: Abdomen is obese. Historical: - Allergies: 18:32 Cipro; hb 18:32 HYDROCODONE; hb - PSHx: 18:32 Cholecystectomy; hernia repair; hb - Immunization history:: Adult Immunizations up to date. - Social history:: Smoking status: Patient denies any tobacco usage or history of. Screenin:26 [facility] ED Fall Risk Assessment (Adult) History of falling in the last 3 months, bp including since admission No falls in past 3 months (0 pts). Abuse screen: Denies threats or abuse. Denies injuries from another. Nutritional screening: No deficits noted. Tuberculosis screening: No symptoms or risk factors identified. Vital Signs: 18:30 BP 152 / 73; Pulse 65; Resp 16; Temp 97.2; Pulse Ox 100% on R/A; Weight 97.07 kg; hb Height 5 ft. 6 in. ; Pain 8/10; 18:30 Body Mass Index 34.54 (97.07 kg, 167.64 cm) hb 18:30 Pain Scale: Adult ED Course: 18:14 Patient arrived in ED. ts1 18:15 Eric Arauz PA is PHCP. cp 18:15 Corey Dickey MD is Attending Physician. cp 18:32 Triage completed. hb 18:32 Arm band placed on. hb 18:37 Tom Acosta, RN is Primary Nurse. bp 19:09 Inserted saline lock: 22 gauge in right antecubital area, using aseptic technique. bp Blood collected. 19:54 CT Abd/Pelvis - IV Contrast Only In Process Unspecified. EDMS 21:26 Patient has correct armband on for positive identification. bp 21:26 No provider procedures requiring assistance completed. IV discontinued, intact, bp bleeding controlled, No redness/swelling at site. Pressure dressing applied. Administered Medications: 19:09 Drug: NS 0.9% IV 1000 ml IV at 1 bolus Per protocol; 1000 mL bolus Route: IV; Rate: 1 bp bolus; Site: right antecubital; 21:28 Follow up: IV Status: Completed infusion; IV Intake: 1000ml bp 19:09 Drug: Famotidine IVP 20 mg IVP once; dilute with 10 mL 0.9% NaCl; give over 2 minutes bp Route: IVP; Site: right antecubital; 21:28 Follow up: Response: No adverse reaction bp 19:09 Drug: TORadol - Ketorolac IVP 15 mg IVP once Route: IVP; Site: right antecubital; bp 21:28 Follow up: Response: No adverse reaction bp 19:09 Drug: Ondansetron IVP 4 mg IVP once; over 2 minutes Route: IVP; Site: right antecubital;bp 21:28 Follow up: Response: No adverse reaction bp 21:10 Drug: Rocephin IV 1 grams IV at calculated rate once; Given slow IV push per pharmacy bp instructions Route: IV; Rate: calculated rate; Site: right antecubital; 21:27 Follow up: IV Status: Completed infusion; IV Intake: 1000ml bp Intake: 21:27 IV: 1000ml; Total: 1000ml. bp 21:28 IV: 1000ml; Total: 2000ml. bp Outcome: 21:21 Discharge ordered by MD. cp 21:26 Discharged to home ambulatory, with family, bp 21:26 Condition: good 21:26 Discharge instructions given to patient, Instructed on discharge instructions, follow up and referral plans. medication usage, Demonstrated understanding of instructions, follow-up care, medications, Prescriptions given X 3, 21:28 Patient left the ED. bp Signatures: Dispatcher [employer] EDMS Eric Arauz PA PA cp Baxter, Heather, RN RN Tom Fletcher RN RN bp Bethanie Jimenez, PAS PAS ts1
--- NOTE | 2023-03-21 21:21 | EDPHYS ---
Physician Documentation [facility] Name: Verna Paredes Age: 47 yrs Sex: Female : 1975 Arrival Date: 03/21/2023 Time: 18:11 Bed 9 Private MD: ED Physician Corey Dickey HPI: 03/21 19:00 This 47 yrs old Female presents to ER via Ambulatory with complaints of Abdominal Pain. cp 19:00 The patient presents with abdominal pain right mid abdomen. Onset: The symptoms/episode cp began/occurred this past Friday. Associated signs and symptoms: Pertinent positives: nausea, Pertinent negatives: chest pain, constipation, diarrhea, fever, vomiting. The symptoms are described as waxing/waning. Severity of pain: in the emergency department the pain is unchanged. 19:00 Patient reports cholecystectomy performed 03-03-[address]. cp Historical: - Allergies: 18:32 Cipro; hb 18:32 HYDROCODONE; hb - PSHx: 18:32 Cholecystectomy; hernia repair; hb - Immunization history:: Adult Immunizations up to date. - Social history:: Smoking status: Patient denies any tobacco usage or history of. ROS: 19:05 Constitutional: Negative for body aches, chills, fever, poor PO intake, cp 19:05 Eyes: Negative for injury, pain, redness, and discharge, cp 19:05 ENT: Negative for drainage from ear(s), ear pain, sore throat, difficulty swallowing, difficulty handling secretions, 19:05 Cardiovascular: Negative for chest pain, palpitations, 19:05 Respiratory: Negative for cough, shortness of breath, wheezing, 19:05 Abdomen/GI: Positive for abdominal pain, nausea, Negative for vomiting, diarrhea, constipation, 19:05 Neuro: Negative for altered mental status, dizziness, headache, weakness, 19:05 All other systems are negative, Exam: 19:15 Head/Face: Normocephalic, atraumatic. cp 19:15 Constitutional: The patient appears in no acute distress, alert, awake, non-diaphoretic, non-toxic, well developed, well nourished, uncomfortable, overweight 19:15 Eyes: Periorbital structures: appear normal, Conjunctiva: normal, no exudate, no injection, Sclera: no appreciated abnormality, Lids and lashes: appear normal, bilaterally, 19:15 ENT: External ear(s): are unremarkable, Nose: is normal, Mouth: Lips: moist, Oral mucosa: pink and intact, moist, Posterior pharynx: is normal, airway is patent, no erythema, no exudate, 19:15 Chest/axilla: Inspection: normal, 19:15 Cardiovascular: Rate: normal, Rhythm: regular, 19:15 Respiratory: the patient does not display signs of respiratory distress, Respirations: normal, no use of accessory muscles, no retractions, labored breathing, is not present, Breath sounds: are clear throughout, no decreased breath sounds, no stridor, no wheezing, 19:15 Abdomen/GI: Inspection: abdomen appears normal, Bowel sounds: active, all quadrants, Palpation: soft, in all quadrants, moderate abdominal tenderness, in the mid right side of abdomen, rebound tenderness, is not appreciated, involuntary guarding, is not appreciated, 19:15 Back: CVA tenderness, is absent, 19:15 Skin: cellulitis, is not appreciated, no rash present. Vital Signs: 18:30 BP 152 / 73; Pulse 65; Resp 16; Temp 97.2; Pulse Ox 100% on R/A; Weight 97.07 kg; hb Height 5 ft. 6 in. ; Pain 8/10; 18:30 Body Mass Index 34.54 (97.07 kg, 167.64 cm) hb 18:30 Pain Scale: Adult hb MDM: 18:41 Patient medically screened. 19:20 Differential diagnosis: appendicitis, bowel obstruction, gastritis, non-specific abd cp pain, pancreatitis, Pyelonephritis, Ureterolithiasis, urinary tract infection. 21:20 Data reviewed: vital signs, nurses notes, lab test result(s), radiologic studies, CT cp scan. 21:20 I considered the following discharge prescriptions or medication management in the emergency department Medications were administered in the Emergency Department. See MAR. Counseling: I had a detailed discussion with the patient and/or guardian regarding the historical points, exam findings, and any diagnostic results supporting the discharge/admit diagnosis, lab results, radiology results, to return to the emergency department if symptoms worsen or persist or if there are any questions or concerns that arise at home. Response to treatment: the patient's symptoms have mildly improved after treatment, and as a result, I will discharge patient. Special discussion: Based on the patient's Hx, exam, and Dx evaluation, there is no indication for emergent surgery or inpatient Tx. It is understood by the patient/guardian that if the Sx's persist or worsen they need to return immediately for re-evaluation. 03/21 18:44 Order name: CBC with Diff; Complete Time: 20:47 cp 03/21 20:48 Interpretation: Normal except: HCT 35.8. cp 03/21 18:44 Order name: CMP; Complete Time: 20:47 cp 03/21 18:44 Order name: Lipase; Complete Time: 20:48 cp 03/21 18:44 Order name: Test, Urine; Complete Time: 20:48 cp 03/21 18:44 Order name: Urinalysis w/ reflexes; Complete Time: 20:48 cp 03/21 19:29 Order name: Urine Culture EDMS 03/21 19:27 Order name: CT Abd/Pelvis - IV Contrast Only; Complete Time: 20:48 cp 03/21 18:44 Order name: IV Saline Lock; Complete Time: 19:09 cp 03/21 18:44 Order name: Labs collected and sent; Complete Time: 19:09 cp 03/21 19:33 Order name: Misc. Order: recollect CBC; Complete Time: 19:37 km8 Administered Medications: 19:09 Drug: NS 0.9% IV 1000 ml IV at 1 bolus Per protocol; 1000 mL bolus Route: IV; Rate: 1 bp bolus; Site: right antecubital; 21:28 Follow up: IV Status: Completed infusion; IV Intake: 1000ml bp 19:09 Drug: Famotidine IVP 20 mg IVP once; dilute with 10 mL 0.9% NaCl; give over 2 minutes bp Route: IVP; Site: right antecubital; 21:28 Follow up: Response: No adverse reaction bp 19:09 Drug: TORadol - Ketorolac IVP 15 mg IVP once Route: IVP; Site: right antecubital; bp 21:28 Follow up: Response: No adverse reaction bp 19:09 Drug: Ondansetron IVP 4 mg IVP once; over 2 minutes Route: IVP; Site: right antecubital;bp 21:28 Follow up: Response: No adverse reaction bp 21:10 Drug: Rocephin IV 1 grams IV at calculated rate once; Given slow IV push per pharmacy bp instructions Route: IV; Rate: calculated rate; Site: right antecubital; 21:27 Follow up: IV Status: Completed infusion; IV Intake: 1000ml bp Disposition Summary: 03/21/23 21:21 Discharge Ordered Notes: Location: Home cp Problem: new cp Symptoms: have improved cp Condition: Stable cp Diagnosis - Abdominal pain, unspecified cp - UTI/ Urinary tract infection, site not specified cp Followup: cp - With: Private Physician - When: 2 - 3 days - Reason: Recheck today's complaints Discharge Instructions: - Discharge Summary Sheet cp - Abdominal Pain, Adult cp - Urinary Tract Infection, Adult cp Forms: - Medication Reconciliation Form cp - Thank You Letter cp - Antibiotic Education cp - Prescription Opioid Use cp - Patient Portal Instructions cp - Leadership Thank You Letter cp Prescriptions: - Ibuprofen 800 mg Oral Tablet - take 1 tablet ORAL route every 8 hours As needed take with food; 30 tablet; cp Refills: 0, Product Selection Permitted - Zofran 4 mg Oral Tablet - take 1 tablet ORAL route every 12 hours As needed; 20 tablet; Refills: 0, cp Product Selection Permitted - Macrobid 100 mg Oral Capsule - take 1 capsule ORAL route every 12 hours for 7 days; 14 capsule; Refills: 0, cp Product Selection Permitted Signatures: Dispatcher [employer] EDEric Funez PA PA cp Joan Menendez, RN RN Tom Fletcher, RN RN bp Glo Cameron RN RN km8
[2023-03-22 00:36] VITALS: BP 152/73; TEMP 97.2; O2SAT 100
== END 2023-03-21 21:28 | disposition home or self-care (01) ==
LOC: ER 18:11
DX: N39.0 Urinary tract infection, site not specified (principal); Z88.1 Allergy status to other antibiotic agents; Z88.5 Allergy status to narcotic agent
CPT/HCPCS: 96365; 96361; 87088; 85025; 81001; 87086; 36415; 81025; 83690; 80053; 74177; 96375; 99284; Q9967; J2405; J7030; J0696

== ENCOUNTER → 2023-03-30 | Emergency (ER) | payer BC ==
[~2023-03-30] MED LIST: DIPHENHYDRAMINE 50 MG/ML VIAL ONE; FAMOTIDINE 20 MG/2 ML VIAL IV ONE; NA CHLORIDE 0.9% 1,000 ML ONE
--- OUTSIDE RECORDS SUMMARY | 2023-03-30 17:25 | XMS REPORT | Continuity of Care Document ---
Author Name Unknown Address 1200 [facility] [address]. [address] [id number] [facility] thconnect Address 1200 [facility]. 1 [address] [place] [address] Care Team Providers Care Rn Clinical Resource Name Role Phone PCP, PATIENT DOES NOT HAVE A Primary Care Physic zeinab Unavailable RADIOLOGY Attending Clinician Unavailable Radiology Attending Clinician Unavailable Doctor Unassigned, [place] Attending Clinician U navailable [facility]G Attending Clinician Unavail able [place]_L Attending Clinician Unavailable RACHEL AGUILAR Admitting Clinician Unavailabl e [facility]_G Admitting Clinician Unavail able [place]_L Admitting Clinician Unavailable Payers Payer Name Policy Type Policy Number Effective Date Expirati on Date Source [facility] [id number] 2018 00:00:00 [place] [id number] 2018 00:00:00 Allergies, Adverse Reactions, Alerts Allergy Name Allergy Type Status Severity Reaction(s) Onset Date Inactive Date Treating Clinician Comments Source NO KNOWN ALLERGIE S Drug Class Active [facility] Social History Social Habit Start Date Stop Date Quantity Comments Source Gender identity [facility] Sex Assigned At 1975 00:00:00 1975 00[birth year]00:00 [facility] Smoking Status Start Date Stop Date Source Tobacco smoking consumption unknown [facility] Procedures Procedure Date / Time Performed Performing Clinicia n Source ASSIGNMENT OF BENEFITS 2022-12-23 13:31:30 Docto r Unassigned, Jean Lafitte [facility] Encounters Start Date/Time End Date/Time Encounter Type Admission Type Attending [facility] Care Department Encounter ID Source 2022-12-23 08:32:37 2022-12-23 23:59:00 Outpatient R RADIOLOGY [facility] [id number] [facility] 2022-12-23 08:00:00 2022-12-23 23:59:00 Hospital Encounter Radiology [facility] [id number] [facility] 2022-12-23 00:00:00 2022-12-23 00:00:00 Orders Only Doctor Unassigned, Jean Lafitte [facility] [id number] [facility] 2022-08-08 00:00:00 2022-08-08 00:00:00 Outpatient [facility]_ [place]_G PRIV PRIV [id number] [facility] 2022-08-06 00:00:00 2022-08-06 00:00:00 Outpatient PRIV PRIV [id number] [facility] 2022-08-05 00:00:00 2022-08-05 00:00:00 Outpatient PRIV PRIV [id number] [facility] 2022-07-11 00:00:00 2022-07-11 00:00:00 Outpatient [place]_L MMG MMG [id number] [facility] 2022-07-11 00:00:00 2022-07-11 00:00:00 Outpatient PRIV PRIV [id number] [facility]
[2023-03-30 20:04] LABS: SARS-CoV-2 Antigen Rapid Res Negative (Negative)
--- NOTE | 2023-03-30 20:15 | ER ---
Nurse's Notes [facility] Name: Verna Paredes Age: 47 yrs Sex: Female : 1975 Arrival Date: 03/30/2023 Time: 17:23 Bed 11 Private MD: Diagnosis: Drug rash Presentation: 03/30 17:45 Chief complaint: Patient states: STATES THINKS IS HAVING AN ALLERGIC REACTION TO db PREDNISONE. STARTED MEDICATION ON FRIDAY. FEELS HOT AND HAS REDNESS ON TORSO AND FACE. DENIES DIFFICULTY BREATHING. Coronavirus screen: Vaccine status: Patient reports receiving the 2nd dose of the covid vaccine. Client denies travel out of the [place] in the last 14 days. At this time, the client does not indicate any symptoms associated with coronavirus-19. Ebola Screen: Patient negative for fever greater than or equal to 101.5 degrees Fahrenheit, and additional compatible Ebola Virus Disease symptoms Patient denies exposure to infectious person. Patient denies travel to an Ebola-affected area in the 21 days before illness onset. No symptoms or risks identified at this time. Onset: The symptoms/episode began/occurred gradually, yesterday. Anaphylaxis evaluation, no signs or symptoms of anaphylaxis were noted. Initial Sepsis Screen: Does the patient meet any 2 criteria? No. Patient's initial sepsis screen is negative. Does the patient have a suspected source of infection? No. Patient's initial sepsis screen is negative. Risk Assessment: Do you want to hurt yourself or someone else? Patient reports no desire to harm self or others. Onset of symptoms was March 29, 2023. 17:45 Method Of Arrival: Ambulatory db 17:45 Acuity: SERA 3 db Triage Assessment: 17:47 General: Appears in no apparent distress. comfortable, Behavior is calm, cooperative. db Pain: Complains of pain in face, back, chest and abdomen. Neuro: Level of Consciousness is awake, alert, obeys commands, Oriented to person, place, time, situation. Respiratory: Airway is patent Respiratory effort is even, unlabored, Respiratory pattern is regular, symmetrical. Derm: Rash noted that is red. Historical: - Allergies: 17:47 Cipro; db 17:47 HYDROCODONE; db - PSHx: 17:47 Cholecystectomy; hernia repair; db - Immunization history:: Client reports receiving the 2nd dose of the Covid vaccine. - Social history:: Smoking status: Patient denies any tobacco usage or history of. Screenin:25 [facility] ED Fall Risk Assessment (Adult) History of falling in the last 3 months, ko1 including since admission No falls in past 3 months (0 pts). Abuse screen: Denies threats or abuse. Denies injuries from another. Nutritional screening: No deficits noted. Tuberculosis screening: No symptoms or risk factors identified. Assessment: 20:25 Respiratory: Airway is patent Breath sounds are clear bilaterally. ko1 Vital Signs: 17:45 BP 141 / 94; Pulse 71; Resp 16; Temp 97.7; Pulse Ox 100% ; Weight 94.8 kg; Height 5 ft. db 6 in. ; Pain 8/10; 17:45 Body Mass Index 33.73 (94.80 kg, 167.64 cm) db 17:45 Pain Scale: Adult db ED Course: 17:25 Patient arrived in ED. mr 17:27 Chyna Narayanan PA-C is PHCP. sb4 17:[address] MD is Attending Physician. sb4 17:47 Triage completed. db 17:48 Arm band placed on Patient placed in an exam room. db 20:25 Patient has correct armband on for positive identification. Provided Education on: na. ko1 20:25 No provider procedures requiring assistance completed. IV discontinued, intact, ko1 bleeding controlled, No redness/swelling at site. Pressure dressing applied. Administered Medications: 19:46 Drug: diphenhydrAMINE IVP 25 mg IVP once Route: IVP; Site: right antecubital; jb4 19:46 Drug: Famotidine IVP 20 mg IVP once; dilute with 10 mL 0.9% NaCl; give over 2 minutes jb4 Route: IVP; Site: right antecubital; 19:46 Drug: NS 0.9% IV 1000 ml IV at 1 bolus Per protocol; 1000 mL bolus Route: IV; Rate: 1 jb4 bolus; Site: right antecubital; Medication: 20:25 VIS not applicable for this client. ko1 Outcome: 20:15 Discharge ordered by . sb4 20:25 Discharged to home ambulatory, ko1 20:25 Condition: stable 20:25 Discharge instructions given to patient, Instructed on discharge instructions, follow up and referral plans. medication usage, Demonstrated understanding of instructions, follow-up care, medications, Prescriptions given X 2, 20:27 Patient left the ED. ko1 Signatures: Elba Doty, Jose Garcia mr Brody García RN RN jb4 Waleska Medina RN RN ko1 Alice Carpenter, RN RN Chyna Osuna, PA-C PA-Curtis sb4
--- NOTE | 2023-03-30 20:15 | EDPHYS ---
Physician Documentation [facility] Name: Verna Paredes Age: 47 yrs Sex: Female : 1975 Arrival Date: 03/30/2023 Time: 17:23 Bed 11 Private MD: ED Physician Alexis Street HPI: 03/30 18:18 This 47 yrs old Female presents to ER via Ambulatory with complaints of Allergic sb4 Reaction, Rash. 18:18 patient states that she was started on prednisone 3 days ago to help with intestinal sb4 inflammation. states that she has had prednisone in the past without any issues. states that since she started on it, she has been feeling a little ill. says today she developed a rash on her face and torso, feels like her body is on fire. denies any throat swelling, shortness of breath, fevers. Historical: - Allergies: 17:47 Cipro; db 17:47 HYDROCODONE; db - PSHx: 17:47 Cholecystectomy; hernia repair; db - Immunization history:: Client reports receiving the 2nd dose of the Covid vaccine. - Social history:: Smoking status: Patient denies any tobacco usage or history of. ROS: 18:18 Constitutional: Negative for fever, chills, and weight loss, sb4 18:18 Skin: Positive for rash, 18:18 All other systems are negative, Exam: 18:18 Constitutional: This is a well developed, well nourished patient who is awake, alert, sb4 and in no acute distress. Head/Face: Normocephalic, atraumatic. Eyes: Extra-ocular motions intact. Periorbital areas with no swelling, redness, or edema. ENT: Mucous membranes moist. Cardiovascular: Regular rate and rhythm with a normal S1 and S2. Respiratory: Lungs have equal breath sounds bilaterally, clear to auscultation and percussion. No rales, rhonchi or wheezes noted. No increased work of breathing, no retractions or nasal flaring. Abdomen/GI: Soft, non-tender, no distension. MS/ Extremity: Pulses equal, no cyanosis. Neurovascular intact. Full, normal range of motion. Neuro: Awake and alert, GCS 15, oriented to person, place, time, and situation. Motor strength 5/5 in all extremities. Sensory grossly intact. 18:18 Skin: Appearance: Temperature: warm, drug rash, on the chest and face, Vital Signs: 17:45 BP 141 / 94; Pulse 71; Resp 16; Temp 97.7; Pulse Ox 100% ; Weight 94.8 kg; Height 5 ft. db 6 in. ; Pain 8/10; 17:45 Body Mass Index 33.73 (94.80 kg, 167.64 cm) db 17:45 Pain Scale: Adult db MDM: 17:30 Patient medically screened. sb4 18:18 Differential diagnosis: urticaria, drug reaction, covid, flu, dermatitis. sb4 20:14 Data reviewed: vital signs, nurses notes, lab test result(s), and as a result, I will sb4 discharge patient. Counseling: I had a detailed discussion with the patient and/or guardian regarding the historical points, exam findings, and any diagnostic results supporting the discharge/admit diagnosis, lab results, to return to the emergency department if symptoms worsen or persist or if there are any questions or concerns that arise at home. 03/30 18:05 Order name: SARS RAPID; Complete Time: 20:06 sb4 03/30 18:05 Order name: Flu; Complete Time: 20:06 sb4 03/30 18:05 Order name: IV Start; Complete Time: 19:56 sb4 Administered Medications: 19:46 Drug: diphenhydrAMINE IVP 25 mg IVP once Route: IVP; Site: right antecubital; jb4 19:46 Drug: Famotidine IVP 20 mg IVP once; dilute with 10 mL 0.9% NaCl; give over 2 minutes jb4 Route: IVP; Site: right antecubital; 19:46 Drug: NS 0.9% IV 1000 ml IV at 1 bolus Per protocol; 1000 mL bolus Route: IV; Rate: 1 jb4 bolus; Site: right antecubital; Disposition: 03/31 07:07 Co-signature as Attending Physician, Alexis Street MD I reviewed the patient's care rt provided by the Advanced Practice Provider and agree with the diagnosis and treatment plan. Disposition Summary: 03/30/23 20:15 Discharge Ordered Notes: Location: Home sb4 Problem: new sb4 Symptoms: have improved sb4 Condition: Stable sb4 Diagnosis - Drug rash sb4 Followup: sb4 - With: Emergency Department - When: As needed - Reason: Trouble breathing, Worsening of condition Discharge Instructions: - Discharge Summary Sheet sb4 - Drug Rash sb4 Forms: - Medication Reconciliation Form sb4 - Thank You Letter sb4 - Antibiotic Education sb4 - Prescription Opioid Use sb4 - Patient Portal Instructions sb4 - Leadership Thank You Letter sb4 Prescriptions: - diphenhydramine HCl 25 mg Oral capsule - take 1 capsule ORAL route every 4 to 6 hours as needed for allergy symptoms; 15 sb4 capsule; Refills: 0, Product Selection Permitted - Pepcid 20 mg Oral Tablet - take 1 tablet ORAL route every 12 hours for 5 days; 10 tablet; Refills: 0, sb4 Product Selection Permitted Signatures: Dispatcher [employer] EDBrody Downs RN RN jb4 Alice Carpenter RN RN Chyna Osuna PA-C PA-C sb4 Alexis Street MD MD rt
[2023-03-30 22:02] VITALS: BP 141/94; TEMP 97.7; O2SAT 100
== END ==
LOC: ER 17:23
DX: L27.0 Generalized skin eruption due to drugs and medicaments taken internally (principal); Z11.52 Encounter for screening for COVID-19; Z88.1 Allergy status to other antibiotic agents; Z88.5 Allergy status to narcotic agent
CPT/HCPCS: 36415; 87804 ×2; 96375; 96374; 99284; 87811; J1200; J7030

== ENCOUNTER → 2023-04-03 | Emergency (ER) | payer BC ==
[~2023-04-03] MED LIST changes: -DIPHENHYDRAMINE 50 MG/ML VIAL ONE; -FAMOTIDINE 20 MG/2 ML VIAL IV ONE; -NA CHLORIDE 0.9% 1,000 ML ONE; +ONDANSETRON 4 MG/2 ML VIAL ONE
--- OUTSIDE RECORDS SUMMARY | 2023-04-03 16:27 | XMS REPORT | Continuity of Care Document ---
Author Name Unknown Address [address] [facility] [address] [id number] [facility] thconnect Address [address] [facility]. [address] [place] [address] Care Team Providers Care Finish Filer Name Role Phone PCP, PATIENT DOES NOT HAVE A Primary Care Physic zeinab Unavailable RADIOLOGY Attending Clinician Unavailable Radiology Attending Clinician Unavailable Doctor Unassigned, [place] Attending Clinician U navailable [facility]G Attending Clinician Unavail able [place]_L Attending Clinician Unavailable RACHEL AGUILAR Admitting Clinician Unavailabl e [facility]G Admitting Clinician Unavail able [place]_L Admitting Clinician Unavailable Payers Payer Name Policy Type Policy Number Effective Date Expirati on Date Source [facility] [id number] 2018 00:00:00 [place] [id number] 2018 00:00:00 Allergies, Adverse Reactions, Alerts Allergy Name Allergy Type Status Severity Reaction(s) Onset Date Inactive Date Treating Clinician Comments Source NO KNOWN ALLERGIE S Drug Class Active [facility] Social History Social Habit Start Date Stop Date Quantity Comments Source Gender identity [facility] Sex Ass[facility] At 1975 00:[facility]:00 1975 00:00:00 [facility] Smoking Status Start Date Stop Date Source Tobacco smoking consumption unknown [facility] Procedures Procedure Date / Time Performed Performing Clinicia n Source ASSIGNMENT OF BENEFITS 2022-12-23 13:31:30 Docto r Unassigned, [place] [facility] Encounters Start Date/Time End Date/Time Encounter Type Admission Type Attending [facility] Care Facility Care Department Encounter ID Source 2022-12-23 08:32:37 2022-12-23 23:59:00 Outpatient R RADIOLOGY [facility] [id number] [facility] 2022-12-23 08:00:00 2022-12-23 23:59:00 Hospital Encounter Radiology [facility] [id number] [facility] 2022-12-23 00:00:00 2022-12-23 00:00:00 Orders Only Doctor Unassigned, [place] [facility] [id number] [facility] 2022-08-08 00:00:00 2022-08-08 00:00:00 Outpatient [facility]_ Dianaton_G PRIV PRIV [id number] [facility] 2022-08-06 00:00:00 2022-08-06 00:00:00 Outpatient PRIV PRIV [id number] [facility] 2022-08-05 00:00:00 2022-08-05 00:00:00 Outpatient PRIV PRIV [id number] [facility] 2022-07-11 00:00:00 2022-07-11 00:00:00 Outpatient Rutledge_L MMG MMG [id number] [facility] 2022-07-11 00:00:00 2022-07-11 00:00:00 Outpatient PRIV PRIV [id number] [facility]
[2023-04-03 17:13] LABS: Absolute Lymphocytes (CBC) 2.3 K/uL (0.7-4.9); Hematocrit 41.9 % (36.0-45.0); Lymphocytes % 20.5 % (15.3-44.8); MCV 87.1 fL (80-100); Platelets 222 thou/uL (152-406); RBC Red Blood Cell Count 4.81 M/uL (3.86-4.86)
[2023-04-03 17:31] LABS: Albumin 3.4 g/dL (3.4-5.0); Bilirubin Total 0.9 mg/dL (0.2-1.0); Potassium 3.9 mEq/L (3.5-5.1); Protein, Total 6.9 g/dL (6.4-8.2)
[2023-04-03 18:31] LABS: SARS-CoV-2 Antigen Rapid Res Negative (Negative)
--- NOTE | 2023-04-03 18:31 | RAD REPORT ---
EXAM DESCRIPTION: CTAbdomen Pelvis W Contrast - 04/03/2023 6:22 pm CLINICAL HISTORY: ABD PAIN COMPARISON: Abdomen Pelvis W Contrast dated 03/21/2023 TECHNIQUE: CT of the abdomen and pelvis was performed. All CT scans are performed using dose optimization technique as appropriate and may include automated exposure control or mA/KV adjustment according to patient size. FINDINGS: Lower chest: No acute abnormality. Liver: Hepatic steatosis Biliary: No biliary ductal dilatation. Cholecystectomy. Stomach: No significant focal abnormality. Duodenum: No significant focal abnormality. Pancreas: No significant abnormality. Spleen: No significant abnormality. Adrenal: No suspicious lesions. Kidney/ureter: No hydronephrosis. No renal calculi. Retroperitoneum: No retroperitoneal adenopathy. Vascular: No aneurysm. Bowel: No significant focal abnormality. Normal appendix. Peritoneum: No ascites or free air. Bladder: Grossly unremarkable. Reproductive: No adnexal masses. Bones: No acute fracture. Moderate disc height loss at L4-5 and L5-S1. Other: n/a IMPRESSION: No acute intra-abdominal or pelvic finding. Normal appendix.
--- NOTE | 2023-04-03 19:12 | ER ---
Nurse's Notes [facility] Name: Verna Paredes Age: 47 yrs Sex: Female : 1975 Arrival Date: 04/03/2023 Time: 16:24 Bed 11 Private MD: Diagnosis: Abdominal pain, Generalized Presentation: 04/03 16:42 Chief complaint: Patient states: ABDOMINAL PAIN ONSET 03/16. PT STATES THAT THE PAIN IS cm10 INTERMITTENT. PT REPORTS VOMITING YESTERDAY AND FEVER. Coronavirus screen: Vaccine status: Patient reports receiving the 2nd dose of the covid vaccine. Client denies travel out of the [place] in the last 14 days. Ebola Screen: Patient denies travel to an Ebola-affected area in the 21 days before illness onset. No symptoms or risks identified at this time. Initial Sepsis Screen: Does the patient meet any 2 criteria? No. Patient's initial sepsis screen is negative. Does the patient have a suspected source of infection? No. Patient's initial sepsis screen is negative. Risk Assessment: Do you want to hurt yourself or someone else? Patient reports no desire to harm self or others. Onset of symptoms was April 03, 2023. 16:42 Method Of Arrival: Ambulatory cm10 16:42 Acuity: SERA 3 cm10 Historical: - Allergies: 16:41 Cipro; cm10 16:41 HYDROCODONE; cm10 16:41 Prednisone; cm10 - PMHx: 16:41 None; cm10 - PSHx: 16:41 Cholecystectomy; hernia repair; cm10 - Immunization history:: Adult Immunizations unknown. - Social history:: Smoking status: Patient denies any tobacco usage or history of. Screenin:22 [facility] ED Fall Risk Assessment (Adult) Score/Fall Risk Level 0 - 2 = Low Risk hb Oriented to surroundings, Maintained a safe environment, Educated pt \T\ family on fall prevention, incl call for assistance when getting out of bed. Abuse screen: Denies threats or abuse. Denies injuries from another. Nutritional screening: No deficits noted. Tuberculosis screening: No symptoms or risk factors identified. Assessment: 16:50 General: Appears in no apparent distress. uncomfortable, Behavior is calm, cooperative. hb Pain: Pain currently is 8 out of 10 on a pain scale. Neuro: Level of Consciousness is awake, alert, obeys commands, Oriented to person, place, time, situation. Cardiovascular: Patient's skin is warm and dry. Respiratory: Respiratory effort is even, unlabored, Respiratory pattern is regular, symmetrical. GI: Reports lower abdominal pain, upper abdominal pain, nausea. : No signs and/or symptoms were reported regarding the genitourinary system. EENT: No signs and/or symptoms were reported regarding the EENT system. Derm: Skin is pink, warm \T\ dry. Musculoskeletal: No signs and/or symptoms reported regarding the musculoskeletal system. Vital Signs: 16:42 BP 104 / 83; Pulse 91; Resp 18; Temp 97.9; Pulse Ox 100% on R/A; Weight 95.71 kg (R); cm10 Height 5 ft. 6 in. (R); Pain 8/10; 18:05 BP 122 / 83; Pulse 90; Resp 18; Pulse Ox 100% on R/A; tl4 19:33 BP 123 / 63; Pulse 88; Resp 18; Pulse Ox 98% ; Pain 1/10; tl4 16:42 Body Mass Index 34.06 (95.71 kg, 167.64 cm) cm10 16:42 Pain Scale: Adult cm10 19:33 Pain Scale: Adult tl4 ED Course: 16:28 Patient arrived in ED. ae5 16:30 Charlie Zamora MD is Attending Physician. kdr 16:41 Maria Isabel Anders, ALISSA is Primary Nurse. cm10 16:43 Triage completed. cm10 16:43 Arm band placed on Patient placed in an exam room, on a stretcher. cm10 17:02 Patient has correct armband on for positive identification. Provided Education on: hb tests, result times. 17:02 No provider procedures requiring assistance completed. hb 17:04 Inserted saline lock: 20 gauge in right antecubital area, using aseptic technique. hb Blood collected. 17:05 CBC with Diff Sent. hb 17:05 CMP Sent. hb 17:05 Lipase Sent. hb 17:54 Jas Swanson is Primary Nurse. tl4 18:07 Chyna Narayanan PA-C is PHCP. sb4 18:16 Flu Sent. tl4 18:16 SARS RAPID Sent. tl4 18:24 CT Abd/Pelvis - IV Contrast Only In Process Unspecified. EDMS 19:10 Jason Stevens MD is Referral Physician. sb4 19:25 IV discontinued, intact, bleeding controlled, No redness/swelling at site. Pressure tl4 dressing applied. Administered Medications: 17:11 Drug: Ondansetron IVP 4 mg IVP once; over 2 minutes Route: IVP; Site: right antecubital;hb 17:54 Follow up: Response: Nausea is decreased tl4 Medication: 17:23 VIS not applicable for this client. hb Outcome: 19:11 Discharge ordered by . sb4 19:25 Discharged to home ambulatory, tl4 19:25 Condition: stable 19:25 Discharge instructions given to patient, Instructed on discharge instructions, follow up and referral plans. medication usage, Demonstrated understanding of instructions, follow-up care, medications, 19:34 Patient left the ED. tl4 Signatures: Dispatcher [employer] EDMS Charlie Zamora MD MD kdr Baxter, Heather RN RN Chyna Alexander, PA-C PA-C sb4 Maria Isabel Anders RN RN cm10 Logluis, Jas tl4 Lori Berrios ae5
--- NOTE | 2023-04-03 19:12 | EDPHYS ---
Physician Documentation [facility] Name: Verna Paredes Age: 47 yrs Sex: Female : 1975 Arrival Date: 04/03/2023 Time: 16:24 Bed 11 Private MD: ED Physician Charlie Zamora HPI: 04/04 00:09 This 47 yrs old Female presents to ER via Ambulatory with complaints of Abdominal Pain. sb4 00:09 The patient presents with abdominal pain in the epigastric area. Onset: The sb4 symptoms/episode began/occurred today. The symptoms do not radiate. Associated signs and symptoms: Pertinent positives: nausea and vomiting. The patient has experienced similar episodes in the past, a few times. The patient has been recently seen at the [facility] Emergency Department, this week. Historical: - Allergies: 04/03 16:41 Cipro; cm10 16:41 HYDROCODONE; cm10 16:41 Prednisone; cm10 - PMHx: 16:41 None; cm10 - PSHx: 16:41 Cholecystectomy; hernia repair; cm10 - Immunization history:: Adult Immunizations unknown. - Social history:: Smoking status: Patient denies any tobacco usage or history of. ROS: 04/04 00:09 Constitutional: Negative for fever, chills, and weight loss, sb4 Abdomen/GI: Positive for abdominal pain, nausea and vomiting, All other systems are negative, Exam: 00:09 Constitutional: This is a well developed, well nourished patient who is awake, alert, sb4 and in no acute distress. Head/Face: Normocephalic, atraumatic. Eyes: Extra-ocular motions intact. Periorbital areas with no swelling, redness, or edema. ENT: Mucous membranes moist. Cardiovascular: Regular rate and rhythm with a normal S1 and S2. Respiratory: Lungs have equal breath sounds bilaterally, clear to auscultation and percussion. No rales, rhonchi or wheezes noted. No increased work of breathing, no retractions or nasal flaring. Abdomen/GI: Soft, non-tender, no distension. Skin: Warm, dry with normal turgor. Normal color with no rashes, no lesions, and no evidence of cellulitis. MS/ Extremity: Pulses equal, no cyanosis. Neurovascular intact. Full, normal range of motion. Neuro: Awake and alert, GCS 15, oriented to person, place, time, and situation. Motor strength 5/5 in all extremities. Sensory grossly intact. Vital Signs: 04/03 16:42 BP 104 / 83; Pulse 91; Resp 18; Temp 97.9; Pulse Ox 100% on R/A; Weight 95.71 kg (R); cm10 Height 5 ft. 6 in. (R); Pain 8/10; 18:05 BP 122 / 83; Pulse 90; Resp 18; Pulse Ox 100% on R/A; tl4 19:33 BP 123 / 63; Pulse 88; Resp 18; Pulse Ox 98% ; Pain 1/10; tl4 16:42 Body Mass Index 34.06 (95.71 kg, 167.64 cm) cm10 16:42 Pain Scale: Adult cm10 19:33 Pain Scale: Adult tl4 MDM: 18:07 Patient medically screened. sb4 04/04 00:09 Differential diagnosis: covid, flu, SBO, pancreatitis, gastritis, gastroenteritis. Data sb4 reviewed: vital signs, nurses notes, lab test result(s), radiologic studies, I have discussed the patient's presentation/case with the attending Emergency Department Physician; and as a result, I will discharge patient. Counseling: I had a detailed discussion with the patient and/or guardian regarding the historical points, exam findings, and any diagnostic results supporting the discharge/admit diagnosis, lab results, radiology results, the need for outpatient follow up, a flight dynamicist, to return to the emergency department if symptoms worsen or persist or if there are any questions or concerns that arise at home. 04/03 16:48 Order name: CBC with Diff; Complete Time: 17:56 [facility] 04/03 16:48 Order name: CMP; Complete Time: 17:56 [facility] 04/03 16:48 Order name: Lipase; Complete Time: 17:56 [facility] 04/03 18:07 Order name: SARS RAPID; Complete Time: 18:35 [facility] 04/03 18:07 Order name: Flu; Complete Time: 18:50 [facility] 04/03 17:56 Order name: CT Abd/Pelvis - IV Contrast Only; Complete Time: 18:35 [facility] 04/03 16:48 Order name: IV Saline Lock; Complete Time: 17:05 [facility] 04/03 16:48 Order name: Labs collected and sent; Complete Time: 17:05 kdr Administered Medications: 04/03 17:11 Drug: Ondansetron IVP 4 mg IVP once; over 2 minutes Route: IVP; Site: right antecubital;hb 17:54 Follow up: Response: Nausea is decreased tl4 Disposition: 04/04 09:09 Co-signature as Attending Physician, Charlie Zamora MD I agree with the assessment and kdr plan of care. Disposition Summary: 04/03/23 19:11 Discharge Ordered Notes: Location: Home sb4 Problem: an ongoing problem sb4 Symptoms: have improved sb4 Condition: Stable sb4 Diagnosis - Abdominal pain, Generalized sb4 Followup: sb4 - With: Jason Stevens MD - When: As needed - Reason: Further diagnostic work-up, Recheck today's complaints, Re-evaluation by your physician Discharge Instructions: - Discharge Summary Sheet sb4 - Abdominal Pain, Adult sb4 Forms: - Medication Reconciliation Form sb4 - Thank You Letter sb4 - Antibiotic Education sb4 - Prescription Opioid Use sb4 - Patient Portal Instructions sb4 - Leadership Thank You Letter sb4 Prescriptions: - Reglan 10 mg Oral Tablet - take 1 tablet ORAL route every 6 hours take 30 minutes before meals and at sb4 bedtime; 20 tablet; Refills: 0, Product Selection Permitted - dicyclomine 20 mg Oral tablet - take 1 tablet ORAL route 3 times per day; 20 tablet; Refills: 0, Product sb4 Selection Permitted Signatures: Dispatcher [employer] Charlie Reid MD MD kdr Joan Menendez RN RN hb Brown, Sophia, PA-C PA-C sb4 Maria Isabel Anders RN RN cm10 Jas Swanson tl4
[2023-04-03 21:47] VITALS: TEMP 97.9
[2023-04-03 22:07] VITALS: BP 123/63; O2SAT 98
== END ==
LOC: ER 16:24
DX: R10.84 Generalized abdominal pain (principal); R11.2 Nausea with vomiting, unspecified; Z11.52 Encounter for screening for COVID-19; Z88.1 Allergy status to other antibiotic agents; Z88.5 Allergy status to narcotic agent; Z88.8 Allergy status to other drugs, medicaments and biological substances
CPT/HCPCS: 85025; 36415; 83690; 80053; 87804 ×2; 74177; 96374; 99284; 87811; Q9967; J2405

== ENCOUNTER 2023-04-18 09:58 | Day surgery (SDC) | payer BC ==
[2023-04-17 15:09] LABS: Specific Gravity 1.026 (1.005-1.030)
[2023-04-18] MEDS ORDERED: Ringers Lactate 1,000 ML IV ONE (10:09)
[2023-04-18] MEDS ORDERED: EPINEPHRINE 1 MG/ML VIAL ONE (11:14)
[2023-04-18] MEDS ORDERED: propofoL 200 MG/20 ML VIAL IV ONE (13:57)
[2023-04-18] MEDS ORDERED: LIDOCAINE 1% MPF 5 ML VIAL ONE (13:57)
[2023-04-18] MEDS ORDERED: EPHEDRINE SULF 50 MG/ML VIAL ONE (13:58)
[2023-04-18 15:18] VITALS: BP 113/80; TEMP 98.1; O2SAT 98
== END 2023-04-18 15:00 | disposition home or self-care (01) ==
LOC: OR 09:58
PROVIDERS: ATTEND Surgery
PROC: 0DB68ZX Excision of Stomach, Via Natural or Artificial Opening Endoscopic, Diagnostic (ICD-10-PCS; 2023-04-18)
PROC: 0DB98ZX Excision of Duodenum, Via Natural or Artificial Opening Endoscopic, Diagnostic (ICD-10-PCS; principal; 2023-04-18 11:15)
DX: R10.13 Epigastric pain (principal); R11.2 Nausea with vomiting, unspecified; K29.50 Unspecified chronic gastritis without bleeding
CPT/HCPCS: 81025; 88305; 43239; J2704; J2001; J7120; J0171

== ENCOUNTER → 2023-04-20 | Emergency (ER) | payer BC ==
[~2023-04-20] MED LIST changes: +FAMOTIDINE 20 MG/2 ML VIAL IV ONE; +KETOROLAC 30 MG/ML INJ ONE; +NA CHLORIDE 0.9% 1,000 ML ONE
--- OUTSIDE RECORDS SUMMARY | 2023-04-20 17:32 | XMS REPORT | Continuity of Care Document ---
Author Name Unknown Address [address] [facility] [address] [id number] [facility] thconnect Address [address] [facility] [address] [place] [address] Care Team Providers Care Business Strategist Name Role Phone PCP, PATIENT DOES NOT HAVE A Primary Care Physic zeinab Unavailable RADIOLOGY Attending Clinician Unavailable Radiology Attending Clinician Unavailable Doctor Unassigned, [place] Attending Clinician U navailable [facility]G Attending Clinician Unavail able [place]_L Attending Clinician Unavailable RACHEL AGUILAR Admitting Clinician Unavailabl e [facility]_G Admitting Clinician Unavail able [place]_L Admitting Clinician Unavailable Payers Payer Name Policy Type Policy Number Effective Date Expirati on Date Source [facility] [id number] 2018 00:00:00 [place] [id number] 2018 00:00:00 Allergies, Adverse Reactions, Alerts Allergy Name Allergy Type Status Severity Reaction(s) Onset Date Inactive Date Treating Clinician Comments Source NO KNOWN ALLERGIE S Drug Class Active [facility] Social History Social Habit Start Date Stop Date Quantity Comments Source Gender identity [facility] Sex Ass[facility] At 1975 00:00:00 1975 00[birth year]00:00 [facility] Smoking Status Start Date Stop Date Source Tobacco smoking consumption unknown [facility] Procedures Procedure Date / Time Performed Performing Clinicia n Source ASSIGNMENT OF BENEFITS 2022-12-23 13:31:30 Docto r Unassigned, [place] [facility] Encounters Start Date/Time End Date/Time Encounter Type Admission Type Attending [facility] Care Facility Care Department Encounter ID Source 2022-12-23 08:32:37 2022-12-23 23:59:00 Outpatient R RADIOLOGY [facility] [id number] [facility] 2022-12-23 08:00:00 2022-12-23 23:59:00 Hospital Encounter Radiology [facility] [id number] [facility] 2022-12-23 00:00:00 2022-12-23 00:00:00 Orders Only Doctor Unassigned, [facility] [facility] [id number] [facility] 2022-08-08 00:00:00 2022-08-08 00:00:00 Outpatient [facility]_ Dianaton_G PRIV PRIV [id number] [facility] 2022-08-06 00:00:00 2022-08-06 00:00:00 Outpatient PRIV PRIV [id number] [facility] 2022-08-05 00:00:00 2022-08-05 00:00:00 Outpatient PRIV PRIV [id number] [facility] 2022-07-11 00:00:00 2022-07-11 00:00:00 Outpatient Rutledge_L MMG MMG [id number] [facility] 2022-07-11 00:00:00 2022-07-11 00:00:00 Outpatient PRIV PRIV [id number] [facility]
[2023-04-20 18:39] LABS: Absolute Lymphocytes (CBC) 1.9 K/uL (0.7-4.9); Hematocrit 39.2 % (36.0-45.0); Lymphocytes % 21.9 % (15.3-44.8); MCV 86.5 fL (80-100); MPV 9.9 fL (7.6-11.3); Platelets 234 thou/uL (152-406); RBC Red Blood Cell Count 4.53 M/uL (3.86-4.86)
[2023-04-20 18:42] LABS: Specific Gravity 1.014 (1.005-1.030)
[2023-04-20 18:43] LABS: Specific Gravity 1.014 (1.005-1.030); Urine Bacteria <20 /HPF (<20); Urine Bilirubin NEGATIVE (Negative); Urine Blood 3+ (OVER) (Negative); Urine Clarity Turbid (Clear); Urine Color Light-Yellow (Yellow); Urine Glucose NEGATIVE (Negative); Urine Mucus Slight /HPF (None Seen); Urine Protein NEGATIVE (Negative); Urine RBC >50 /HPF (None Seen); Urine Urobilinogen Normal (Normal)
[2023-04-20 18:57] LABS: Albumin 3.6 g/dL (3.4-5.0); Bilirubin Total 0.8 mg/dL (0.2-1.0); Potassium 3.5 mEq/L (3.5-5.1); Protein, Total 7.5 g/dL (6.4-8.2)
--- NOTE | 2023-04-20 19:56 | RAD REPORT ---
EXAM DESCRIPTION: CTAbdomen Pelvis W Contrast - 04/20/2023 7:29 pm CLINICAL HISTORY: Abdominal pain. ABD PAIN COMPARISON: <Comparisons> TECHNIQUE: Biphasic CT imaging of the abdomen and pelvis was performed with 100 ml non-ionic IV cont rast. All CT scans are performed using dose optimization technique as appropriate and may include automated exposure control or mA/KV adjustment according to patient size. FINDINGS: The lung bases are clear.Cholecystectomy clips. The liver, spleen, pancreas, adrenal glands and kidneys are within normal limits. No bowel obstruction, free air, free fluid or abscess. The appendix is normal. No evidence of signi ficant lymphadenopathy. No suspicious bony findings. IMPRESSION: No acute intra-abdominal or pelvic finding.
--- NOTE | 2023-04-20 20:51 | EDPHYS ---
Physician Documentation [facility] Name: Verna Paredes Age: 47 yrs Sex: Female : 1975 Arrival Date: 04/20/2023 Time: 17:30 Bed 15 Private MD: Eric Maher HPI: 04/20 17:55 This 47 yrs old Female presents to ER via Ambulatory with complaints of Abdominal Pain, cp Bloody Stools, Nausea. 17:55 The patient presents with abdominal pain mid abdomen. cp 17:55 Onset: The symptoms/episode began/occurred 6 week(s) ago, and became worse today. cp 17:55 The symptoms do not radiate. Associated signs and symptoms: Pertinent negatives: chest cp pain, constipation, fever, shortness of breath, vomiting. The symptoms are described as stabbing. Severity of pain: in the emergency department the pain is unchanged despite home interventions. 17:55 Patient reports endoscopy done by DR Stevens on 04-18-2023 with biopsies, awaiting cp results. Noticed small amount red blood in stool with bowel movement today. Historical: - Allergies: 17:45 Cipro; hb 17:45 HYDROCODONE; hb 17:45 Prednisone; hb - Home Meds: 17:45 Pepcid AC Oral [Active]; hb - PSHx: 17:45 Cholecystectomy; hernia repair; hb - Immunization history:: Adult Immunizations up to date, Client reports receiving the 2nd dose of the Covid vaccine, Flu vaccine is not up to date. - Social history:: Smoking status: Patient denies any tobacco usage or history of. ROS: 18:00 Constitutional: Negative for body aches, chills, fever, poor PO intake, cp 18:00 Eyes: Negative for injury, pain, redness, and discharge, cp 18:00 ENT: Negative for drainage from ear(s), ear pain, sore throat, difficulty swallowing, difficulty handling secretions, 18:00 Cardiovascular: Negative for chest pain, palpitations, 18:00 Respiratory: Negative for cough, shortness of breath, wheezing, 18:00 Abdomen/GI: Positive for abdominal pain, nausea, rectal bleeding, Negative for vomiting, diarrhea, 18:00 Neuro: Negative for altered mental status, dizziness, headache, syncope, weakness, 18:00 All other systems are negative, Exam: 18:05 Constitutional: The patient appears in no acute distress, alert, awake, cp non-diaphoretic, non-toxic, well developed, well nourished, obese, 18:05 Head/Face: Normocephalic, atraumatic. cp 18:05 Eyes: Periorbital structures: appear normal, Conjunctiva: normal, no exudate, no injection, Sclera: no appreciated abnormality, Lids and lashes: appear normal, bilaterally, 18:05 ENT: External ear(s): are unremarkable, Nose: is normal, Mouth: Lips: moist, Oral mucosa: pink and intact, moist, Posterior pharynx: is normal, airway is patent, no erythema, no exudate, 18:05 Chest/axilla: Inspection: normal, 18:05 Cardiovascular: Rate: normal, Rhythm: regular, 18:05 Respiratory: the patient does not display signs of respiratory distress, Respirations: normal, no use of accessory muscles, no retractions, labored breathing, is not present, Breath sounds: are clear throughout, no decreased breath sounds, rhonchi, no stridor, no wheezing, 18:05 Abdomen/GI: Inspection: abdomen appears normal, Bowel sounds: active, all quadrants, Palpation: soft, in all quadrants, moderate abdominal tenderness, in the mid abdomen, rebound tenderness, is not appreciated, involuntary guarding, is not appreciated, 18:05 Back: CVA tenderness, is absent, Vital Signs: 17:43 BP 150 / 77; Pulse 66; Resp 16; Temp 98.2(O); Pulse Ox 100% on R/A; Weight 92.99 kg; hb Height 5 ft. 6 in. ; Pain 8/10; 20:41 BP 146 / 86; Pulse 70; Resp 17; Temp 98; Pulse Ox 98% ; rv 17:43 Body Mass Index 33.09 (92.99 kg, 167.64 cm) hb 17:43 Pain Scale: Adult hb Edgar Coma Score: 20:41 Eye Response: spontaneous(4). Motor Response: obeys commands(6). Verbal Response: rv oriented(5). Total: 15. MDM: 17:39 Patient medically screened. cp 18:00 Differential diagnosis: bowel obstruction, diverticulitis, gastritis, non-specific abd cp pain, Peptic Ulcer Disease, Perf. Duodenal Ulcer, Perf. Gastric Ulcer, Peritonitis, Pyelonephritis, Ureterolithiasis, urinary tract infection. 20:50 Data reviewed: vital signs, nurses notes, lab test result(s), radiologic studies, CT cp scan, and as a result, I will discharge patient. 20:50 I considered the following discharge prescriptions or medication management in the emergency department Medications were administered in the Emergency Department. See MAR. Counseling: I had a detailed discussion with the patient and/or guardian regarding the historical points, exam findings, and any diagnostic results supporting the discharge/admit diagnosis, lab results, radiology results, the need for outpatient follow up, a resource paraprofessional, to return to the emergency department if symptoms worsen or persist or if there are any questions or concerns that arise at home. Special discussion: Based on the patient's history, exam, and Dx evaluation, there is no indication for emergent intervention or inpatient Tx. It is understood by the patient/guardian that if the Sx's persist or worsen they need to return immediately for re-evaluation. 04/20 17:50 Order name: CBC with Diff; Complete Time: 19:03 cp 04/20 17:50 Order name: CMP; Complete Time: 19:03 cp 04/20 17:50 Order name: Lipase; Complete Time: 19:03 cp 04/20 17:50 Order name: Test, Urine; Complete Time: 19:03 cp 04/20 17:50 Order name: Urinalysis w/ reflexes; Complete Time: 19:03 cp 04/20 19:03 Order name: CT Abd/Pelvis - IV Contrast Only; Complete Time: 20:28 cp 04/20 17:50 Order name: IV Saline Lock; Complete Time: 18:25 cp 04/20 17:50 Order name: Labs collected and sent; Complete Time: 18:25 cp Administered Medications: 18:30 Drug: NS 0.9% IV 1000 ml IV at 1 bolus Per protocol; 1000 mL bolus Route: IV; Rate: 1 bp bolus; Site: right antecubital; 20:42 Follow up: IV Status: Completed infusion; IV Intake: 1000ml rv 18:30 Drug: Famotidine IVP 20 mg IVP once; dilute with 10 mL 0.9% NaCl; give over 2 minutes bp Route: IVP; Site: right antecubital; 20:42 Follow up: Response: No adverse reaction rv 18:30 Drug: TORadol - Ketorolac IVP 15 mg IVP once Route: IVP; Site: right antecubital; bp 20:43 Follow up: Response: No adverse reaction rv 18:30 Drug: Ondansetron IVP 4 mg IVP once; over 2 minutes Route: IVP; Site: right antecubital;bp 20:42 Follow up: Response: No adverse reaction rv 20:30 Not Given (Patient Refused): [id number] mg IM once rv Disposition Summary: 04/20/23 20:50 Discharge Ordered Notes: Location: Home cp Problem: an ongoing problem cp Symptoms: have improved cp Condition: Stable cp Diagnosis - Abdominal pain, unspecified cp - Nausea cp - Diarrhea, unspecified cp Followup: cp - With: Private Physician - When: 2 - 3 days - Reason: Worsening of condition Discharge Instructions: - Discharge Summary Sheet cp - Abdominal Pain, Adult cp - Food Choices to Help Relieve Diarrhea, Adult cp - Diarrhea, Adult cp - Nausea, Adult cp Forms: - Medication Reconciliation Form cp - Thank You Letter cp - Antibiotic Education cp - Prescription Opioid Use cp - Patient Portal Instructions cp - Leadership Thank You Letter cp Prescriptions: - dicyclomine 20 mg Oral tablet - take 1 tablet ORAL route 4 times per day; 30 tablet; Refills: 0, Product cp Selection Permitted Signatures: Dispatcher [employer] EDMS Eric Arauz PA PA cp Joan Menendez, RN RN Tom Acosta RN RN bp Davonte Cali RN rv Corrections: (The following items were deleted from the chart) 04/21 19:32 04/20 17:55 Onset: The symptoms/episode began/occurred today, cp cp
--- NOTE | 2023-04-20 20:51 | ER ---
Nurse's Notes [facility] Name: Verna Paredes Age: 47 yrs Sex: Female : 1975 Arrival Date: 04/20/2023 Time: 17:30 Bed 15 Private MD: Diagnosis: Abdominal pain, unspecified;Nausea;Diarrhea, unspecified Presentation: 04/20 17:43 Chief complaint: Upper abdominal pain and nausea x 6 weeks. Had endoscopy by Dr. dahlia Stevens 04/18, diagnosed with gastritis and started on Pepcid AC, feeling worse today. Also reports blood in stool since yesterday, not sure if from her menses or actually in the stool. Coronavirus screen: At this time, the client does not indicate any symptoms associated with coronavirus-19. Ebola Screen: No symptoms or risks identified at this time. Initial Sepsis Screen: Does the patient meet any 2 criteria? No. Patient's initial sepsis screen is negative. Does the patient have a suspected source of infection? No. Patient's initial sepsis screen is negative. Risk Assessment: Do you want to hurt yourself or someone else? Patient reports no desire to harm self or others. Onset of symptoms was March 2024. 17:43 Method Of Arrival: Ambulatory 17:43 Acuity: SERA 3 hb Triage Assessment: 18:00 General: Appears in no apparent distress. Behavior is calm, cooperative, appropriate bp for age. Pain: Complains of pain in abdomen. GI: Reports upper abdominal pain, nausea. Historical: - Allergies: 17:45 Cipro; hb 17:45 HYDROCODONE; hb 17:45 Prednisone; hb - Home Meds: 17:45 Pepcid AC Oral [Active]; hb - PSHx: 17:45 Cholecystectomy; hernia repair; hb - Immunization history:: Adult Immunizations up to date, Client reports receiving the 2nd dose of the Covid vaccine, Flu vaccine is not up to date. - Social history:: Smoking status: Patient denies any tobacco usage or history of. Screenin:37 [facility] ED Fall Risk Assessment (Adult) History of falling in the last 3 months, bp including since admission No falls in past 3 months (0 pts). Abuse screen: Denies threats or abuse. Denies injuries from another. Nutritional screening: No deficits noted. Tuberculosis screening: No symptoms or risk factors identified. Assessment: 18:00 General: SEE TRIAGE NOTE. bp 20:42 GI: Bowel sounds present X 4 quads. Abd is soft and non tender X 4 quads. rv Vital Signs: 17:43 BP 150 / 77; Pulse 66; Resp 16; Temp 98.2(O); Pulse Ox 100% on R/A; Weight 92.99 kg; hb Height 5 ft. 6 in. ; Pain 8/10; 20:41 BP 146 / 86; Pulse 70; Resp 17; Temp 98; Pulse Ox 98% ; rv 17:43 Body Mass Index 33.09 (92.99 kg, 167.64 cm) hb 17:43 Pain Scale: Adult hb Jose Coma Score: 20:41 Eye Response: spontaneous(4). Motor Response: obeys commands(6). Verbal Response: rv oriented(5). Total: 15. ED Course: 17:32 Patient arrived in ED. ts1 17:38 Eric Arauz PA is PHCP. cp 17:38 Eric Varela MD is Attending Physician. cp 17:41 Tom Acosta, ALISSA is Primary Nurse. bp 17:45 Triage completed. hb 17:46 Arm band placed on. hb 18:30 Inserted saline lock: 20 gauge in right antecubital area, using aseptic technique. bp Blood collected. 18:37 Patient has correct armband on for positive identification. bp 19:31 CT Abd/Pelvis - IV Contrast Only In Process Unspecified. EDMS 20:42 No provider procedures requiring assistance completed. IV discontinued, intact, rv bleeding controlled, No redness/swelling at site. Pressure dressing applied. Administered Medications: 18:30 Drug: NS 0.9% IV 1000 ml IV at 1 bolus Per protocol; 1000 mL bolus Route: IV; Rate: 1 bp bolus; Site: right antecubital; 20:42 Follow up: IV Status: Completed infusion; IV Intake: 1000ml rv 18:30 Drug: Famotidine IVP 20 mg IVP once; dilute with 10 mL 0.9% NaCl; give over 2 minutes bp Route: IVP; Site: right antecubital; 20:42 Follow up: Response: No adverse reaction rv 18:30 Drug: TORadol - Ketorolac IVP 15 mg IVP once Route: IVP; Site: right antecubital; bp 20:43 Follow up: Response: No adverse reaction rv 18:30 Drug: Ondansetron IVP 4 mg IVP once; over 2 minutes Route: IVP; Site: right antecubital;bp 20:42 Follow up: Response: No adverse reaction rv 20:30 Not Given (Patient Refused): [id number] mg IM once rv Medication: 20:42 VIS not applicable for this client. rv Intake: 20:42 IV: 1000ml; Total: 1000ml. rv Outcome: 20:50 Discharge ordered by MD. cp 20:59 Discharged to home ambulatory, rv 20:59 Condition: good 20:59 Discharge instructions given to patient, Instructed on discharge instructions, follow up and referral plans. medication usage, Demonstrated understanding of instructions, follow-up care, medications, Prescriptions given X 1, 21:00 Patient left the ED. rv Signatures: Dispatcher [employer] EDMS Eric Arauz PA PA cp Baxter, Heather, RN RN hb Peltier, Brian, RN RN Davonte Zamarripa RN RN rv Bethanie Jimenez PAS PAS ts1 Corrections: (The following items were deleted from the chart) 18:37 18:37 Inserted saline lock: 20 gauge in right antecubital area, using aseptic bp technique. Blood collected. bp
[2023-04-20 22:04] VITALS: BP 146/86; TEMP 98; O2SAT 98
== END ==
LOC: ER 17:30
DX: R10.9 Unspecified abdominal pain (principal); R11.0 Nausea; R19.7 Diarrhea, unspecified; Z98.890 Other specified postprocedural states; Z88.1 Allergy status to other antibiotic agents; Z88.5 Allergy status to narcotic agent; Z88.8 Allergy status to other drugs, medicaments and biological substances
CPT/HCPCS: 96361; 85025; 81001; 36415; 81025; 83690; 80053; 74177; 96375; 96374; 99284; Q9967; J2405; J7030

== ENCOUNTER → 2023-05-06 | Emergency (ER) | payer BC ==
[~2023-05-06] MED LIST changes: -FAMOTIDINE 20 MG/2 ML VIAL IV ONE
--- OUTSIDE RECORDS SUMMARY | 2023-05-06 17:28 | XMS REPORT | Continuity of Care Document ---
Author Name Unknown Address [address] [facility] [address] [place] [id number] [facility] thconnect Address [address] [facility] [place] [address] Care Team Providers Care Electronic Science Teacher Name Role Phone PCP, PATIENT DOES NOT HAVE A Primary Care Physic zeinab Unavailable RADIOLOGY Attending Clinician Unavailable Radiology Attending Clinician Unavailable Doctor Unassigned, Artesian Attending Clinician U navailable [facility] Attending Clinician Unavail able [place]_L Attending Clinician Unavailable RACHEL AGUILAR Admitting Clinician Unavailabl e [facility] Admitting Clinician Unavail able [place]_L Admitting Clinician Unavailable Payers Payer Name Policy Type Policy Number Effective Date Expirati on Date Source [facility] [id number] 2018 00:00:00 [place] [id number] 2018 00:00:00 Allergies, Adverse Reactions, Alerts Allergy Name Allergy Type Status Severity Reaction(s) Onset Date Inactive Date Treating Clinician Comments Source NO KNOWN ALLERGIE S Drug Class Active [facility] Social History Social Habit Start Date Stop Date Quantity Comments Source Gender identity [facility] Sexual [facility] Sex Assigned At 1975 00:00:00 1975 00:00:00 [facility] Smoking Status Start Date Stop Date Source Tobacco smoking consumption unknown [facility] Procedures Procedure Date / Time Performed Performing Clinicia n Source ASSIGNMENT OF BENEFITS 2022-12-23 13:31:30 Docto r Unassigned, Artesian [facility] Encounters Start Date/Time End Date/Time Encounter Type Admission Type Attending [facility] Care Facility Care Department Encounter ID Source 2022-12-23 08:32:37 2022-12-23 23:59:00 Outpatient R RADIOLOGY [facility] [id number] [facility] 2022-12-23 08:00:00 2022-12-23 23:59:[address] [facility] [id number] [facility] 2022-12-23 00:00:00 2022-12-23 00:00:00 Orders Only Doctor Unassigned, Artesian [facility] [id number] [facility] 2022-08-08 00:00:00 2022-08-08 00:00:00 Outpatient [facility] [place] PRIV PRIV [id number] [facility] 2022-08-06 00:00:00 2022-08-06 00:00:00 Outpatient PRIV PRIV [id number] [facility] 2022-08-05 00:00:00 2022-08-05 00:00:00 Outpatient PRIV PRIV [id number] [facility] 2022-07-11 00:00:00 2022-07-11 00:00:00 Outpatient PRIV PRIV [id number] [facility] 2022-07-11 00:00:00 2022-07-11 00:00:00 Outpatient [place] MMG [id number] [facility]
[2023-05-06 19:25] LABS: Absolute Lymphocytes (CBC) 2.2 K/uL (0.7-4.9); Hematocrit 39.5 % (36.0-45.0); Lymphocytes % 23.3 % (15.3-44.8); MCV 86.6 fL (80-100); MPV 9.4 fL (7.6-11.3); Platelets 248 thou/uL (152-406); RBC Red Blood Cell Count 4.56 M/uL (3.86-4.86)
[2023-05-06 19:41] LABS: Albumin 3.7 g/dL (3.4-5.0); Bilirubin Total 0.8 mg/dL (0.2-1.0); Protein, Total 7.5 g/dL (6.4-8.2)
[2023-05-06 19:43] LABS: Potassium 4.2 mEq/L (3.5-5.1)
--- NOTE | 2023-05-06 20:40 | RAD REPORT ---
EXAM DESCRIPTION: CTAbdomen Pelvis W Contrast - 05/06/2023 8:27 pm CLINICAL HISTORY: Abdominal pain. ABD PAIN COMPARISON: Abdomen Pelvis W Contrast dated 04/20/2023; Abdomen Pelvis W Contrast dated 3; Abdomen Pelvis W Contrast dated 03/21/2023 TECHNIQUE: Biphasic CT imaging of the abdomen and pelvis was performed with 100 ml non-ionic IV cont rast. All CT scans are performed using dose optimization technique as appropriate and may include automated exposure control or mA/KV adjustment according to patient size. FINDINGS: The lung bases are clear. The liver demonstrates diffuse fatty infiltration. Cholecystectomy. Spleen, pancreas, adrenal glands and kidneys are within normal limits. No bowel obstruction, free air, free fluid or abscess. Mild sigmoid diverticulosis coli without diver ticulitis. The appendix is normal. No evidence of significant lymphadenopathy. No suspicious bony findings. IMPRESSION: No acute intra-abdominal or pelvic finding.
--- NOTE | 2023-05-06 21:16 | ER ---
Nurse's Notes [facility] Name: Verna Paredes Age: 47 yrs Sex: Female : 1975 Arrival Date: 05/06/2023 Time: 17:26 Bed 6 Private MD: Diagnosis: Abdominal pain, Generalized Presentation: 05/06 17:53 Chief complaint: Patient states: Pt c/o "bad flare up" of ulcerative colitis from tl4 approx 1 hour after eating cashews yesterday. Pt c/o diffuse abdominal pain, nausea. Coronavirus screen: At this time, the client does not indicate any symptoms associated with coronavirus-19. Ebola Screen: No symptoms or risks identified at this time. Initial Sepsis Screen: Does the patient meet any 2 criteria? No. Patient's initial sepsis screen is negative. Does the patient have a suspected source of infection? No. Patient's initial sepsis screen is negative. Risk Assessment: Do you want to hurt yourself or someone else? Patient reports no desire to harm self or others. Onset of symptoms was May 05, 2023. 17:53 Method Of Arrival: Ambulatory tl4 17:53 Acuity: SERA 3 tl4 Triage Assessment: 17:57 General: Appears uncomfortable, Behavior is calm, cooperative. Pain: Complains of pain tl4 in abdomen. EENT: No deficits noted. No signs and/or symptoms were reported regarding the EENT system. Neuro: No deficits noted. Cardiovascular: No deficits noted. Denies chest pain, diaphoresis, fatigue, lightheadedness, palpitations. Respiratory: No deficits noted. Denies cough, shortness of breath. GI: Reports lower abdominal pain, upper abdominal pain. : No deficits noted. No signs and/or symptoms were reported regarding the genitourinary system. Derm: No deficits noted. No signs and/or symptoms reported regarding the dermatologic system. Historical: - Allergies: 17:56 Cipro; tl4 17:56 HYDROCODONE; tl4 17:56 Prednisone; tl4 - Home Meds: 17:56 Pepcid AC Oral [Active]; tl4 - PMHx: 17:56 Ulcertive colitis; tl4 - PSHx: 17:56 Cholecystectomy; hernia repair; tl4 - Immunization history:: Adult Immunizations unknown. - Social history:: Smoking status: Patient denies any tobacco usage or history of. Screenin:20 [facility] ED Fall Risk Assessment (Adult) History of falling in the last 3 months, tm6 including since admission No falls in past 3 months (0 pts). Abuse screen: Denies threats or abuse. Denies injuries from another. Abuse screen: Denies threats or abuse. Denies injuries from another. Nutritional screening: No deficits noted. Tuberculosis screening: No symptoms or risk factors identified. Assessment: 19:20 General: Appears in no apparent distress. Behavior is calm, cooperative. Pain: tm6 Complains of pain in abdomen Pain currently is 7 out of 10 on a pain scale. Neuro: Level of Consciousness is awake, alert, obeys commands, Oriented to person, place, time, situation. GI: Bowel sounds present X 4 quads. Abdomen is tender to palpation X 4 quads. 20:46 Reassessment: Patient appears in no apparent distress at this time. tm6 Vital Signs: 17:53 BP 129 / 87; Pulse 82; Resp 16; Temp 98(O); Pulse Ox 100% on R/A; Weight 94.35 kg; tl4 Height 5 ft. 6 in. ; Pain 10/10; 19:19 BP 127 / 71; Pulse 74; Pulse Ox 100% on R/A; Pain 7/10; tm6 20:46 BP 125 / 70; Pulse 89; Pulse Ox 100% on R/A; tm6 20:50 BP 125 / 70; Pulse 85; Resp 16 S; Pulse Ox 99% on R/A; as6 17:53 Body Mass Index 33.57 (94.35 kg, 167.64 cm) tl4 17:53 Pain Scale: Adult tl4 19:19 Pain Scale: Adult tm6 ED Course: 17:27 Patient arrived in ED. ra3 17:46 Azra Salguero FNP-C is PHCP. kb 17:46 Eric Varela MD is Attending Physician. kb 17:56 Triage completed. tl4 17:58 Arm band placed on right wrist. tl4 19:20 Patient has correct armband on for positive identification. Bed in low position. Call tm6 light in reach. Provided Education on: plan of care. Client placed on continuous cardiac and pulse oximetry monitoring. NIBP monitoring applied. 19:20 No provider procedures requiring assistance completed. Missed attempt(s): 22 gauge in tm6 left antecubital area. 19:29 Raul Cronin, RN is Primary Nurse. as6 19:30 Inserted saline lock: 20 gauge in right antecubital area, using aseptic technique. as6 Blood collected. 20:28 CT Abd/Pelvis - IV Contrast Only In Process Unspecified. EDMS 21:21 IV discontinued, intact, bleeding controlled, No redness/swelling at site. Pressure as6 dressing applied. Administered Medications: 20:47 Drug: Ondansetron IVP 4 mg IVP once; over 2 minutes Route: IVP; Site: right antecubital;as6 21:20 Follow up: Response: No adverse reaction as6 20:47 Not Given (Patient Refused): [id number] mg IVP once as6 20:48 Drug: NS 0.9% IV 1000 ml IV at 1000 ml once Route: IV; Rate: 1000 ml; Site: right as6 antecubital; 21:19 Follow up: Response: No adverse reaction; IV Status: Completed infusion; IV Intake: as6 1000ml Medication: 19:20 VIS not applicable for this client. tm6 Intake: 21:19 IV: 1000ml; Total: 1000ml. as6 Outcome: 21:15 Discharge ordered by . kb 21:20 Discharged to home ambulatory, as6 21:20 Condition: stable 21:21 Discharge instructions given to patient, Instructed on discharge instructions, follow as6 up and referral plans. Demonstrated understanding of instructions, follow-up care, 21:21 Patient left the ED. as6 Signatures: Dispatcher [employer] EDSD Azra Salguero, TERRITORY SALES EXECUTIVE-C TERRITORY SALES EXECUTIVE-Ckb Raul Cronin RN RN as6 Yobani French RN RN tm6 Logluis, Jas tl4 Maribel Siddiqui ra3 Corrections: (The following items were deleted from the chart) 17:57 17:56 PMHx: Ulcerative colitis (hernia repair); tl4 tl4
--- NOTE | 2023-05-06 21:16 | EDPHYS ---
Physician Documentation [facility] Name: Verna Paredes Age: 47 yrs Sex: Female : 1975 Arrival Date: 05/06/2023 Time: 17:26 Bed 6 Private MD: TANI Physician Eric Varela HPI: 05/06 22:11 This 47 yrs old Female presents to ER via Ambulatory with complaints of Abdominal Pain, kb Nausea. 22:11 Patient is a 47-year-old female with a history of ulcerative colitis who reports kb abdominal pain that started yesterday and has not had any better. Reports nausea. Denies vomiting, diarrhea, constipation, fever.. Historical: - Allergies: 17:56 Cipro; tl4 17:56 HYDROCODONE; tl4 17:56 Prednisone; tl4 - Home Meds: 17:56 Pepcid AC Oral [Active]; tl4 - PMHx: 17:56 Ulcertive colitis; tl4 - PSHx: 17:56 Cholecystectomy; hernia repair; tl4 - Immunization history:: Adult Immunizations unknown. - Social history:: Smoking status: Patient denies any tobacco usage or history of. ROS: 22:12 Constitutional: Negative for fever, chills, and weight loss, kb 22:12 Abdomen/GI: Positive for abdominal pain, nausea, 22:12 All other systems are negative, Exam: 22:12 Constitutional: This is a well developed, well nourished patient who is awake, alert, kb and in no acute distress. Head/Face: Normocephalic, atraumatic. ENT: Moist Mucous membranes Cardiovascular: Regular rate Respiratory: Respirations even and unlabored. No increased work of breathing. Talking in full sentences Skin: Warm, dry with normal turgor. Normal color. MS/ Extremity: Pulses equal, no cyanosis. Neurovascular intact. Full, normal range of motion. Neuro: Awake and alert, GCS 15, oriented to person, place, time, and situation. Moves all extremities. Normal gait. 22:12 Abdomen/GI: Inspection: abdomen appears normal, Bowel sounds: normal, Palpation: soft, in all quadrants, mild abdominal tenderness, in all quadrants, Vital Signs: 17:53 BP 129 / 87; Pulse 82; Resp 16; Temp 98(O); Pulse Ox 100% on R/A; Weight 94.35 kg; tl4 Height 5 ft. 6 in. ; Pain 10/10; 19:19 BP 127 / 71; Pulse 74; Pulse Ox 100% on R/A; Pain 7/10; tm6 20:46 BP 125 / 70; Pulse 89; Pulse Ox 100% on R/A; tm6 20:50 BP 125 / 70; Pulse 85; Resp 16 S; Pulse Ox 99% on R/A; as6 17:53 Body Mass Index 33.57 (94.35 kg, 167.64 cm) tl4 17:53 Pain Scale: Adult tl4 19:19 Pain Scale: Adult tm6 MDM: 17:46 Patient medically screened. kb 22:11 Differential diagnosis: bowel obstruction, diverticulitis, gastritis, non-specific abd kb pain. Data reviewed: vital signs, nurses notes. Counseling: I had a detailed discussion with the patient and/or guardian regarding the historical points, exam findings, and any diagnostic results supporting the discharge/admit diagnosis, lab results, radiology results, the need for outpatient follow up, a associate technician, to return to the emergency department if symptoms worsen or persist or if there are any questions or concerns that arise at home. 05/06 17:55 Order name: CBC with Diff; Complete Time: 19:32 kb 05/06 17:55 Order name: CMP; Complete Time: 19:44 kb 05/06 17:55 Order name: Lipase; Complete Time: 19:44 kb 05/06 17:55 Order name: CT Abd/Pelvis - IV Contrast Only; Complete Time: 20:42 kb 05/06 17:55 Order name: IV Saline Lock; Complete Time: 19:30 kb 05/06 17:55 Order name: Labs collected and sent; Complete Time: 19:19 kb Administered Medications: 20:47 Drug: Ondansetron IVP 4 mg IVP once; over 2 minutes Route: IVP; Site: right antecubital;as6 21:20 Follow up: Response: No adverse reaction as6 20:47 Not Given (Patient Refused): [id number] mg IVP once as6 20:48 Drug: NS 0.9% IV 1000 ml IV at 1000 ml once Route: IV; Rate: 1000 ml; Site: right as6 antecubital; 21:19 Follow up: Response: No adverse reaction; IV Status: Completed infusion; IV Intake: as6 1000ml Disposition Summary: 05/06/23 21:15 Discharge Ordered Notes: Location: Home kb Condition: Stable kb Diagnosis - Abdominal pain, Generalized kb Followup: kb - With: Emergency Department - When: As needed - Reason: Worsening of condition Followup: kb - With: Private Physician - When: 2 - 3 days - Reason: Recheck today's complaints, Continuance of care, Re-evaluation by your physician Discharge Instructions: - Discharge Summary Sheet kb - Abdominal Pain, Adult, [id number] kb Forms: - Medication Reconciliation Form kb - Thank You Letter kb - Antibiotic Education kb - Prescription Opioid Use kb - Patient Portal Instructions kb - Leadership Thank You Letter kb Signatures: Dispatcher [employer] Azra Regalado, PRESS BRAKE OPERATOR-C ANGELICA-Raul Montes RN RN as6 Jas Swanson tl4 Corrections: (The following items were deleted from the chart) 17:57 17:56 PMHx: Ulcerative colitis (hernia repair); tl4 tl4
[2023-05-07 09:12] VITALS: TEMP 98
[2023-05-07 09:30] VITALS: BP 125/70; O2SAT 99
== END ==
LOC: ER 17:26
DX: R10.84 Generalized abdominal pain (principal); Z88.1 Allergy status to other antibiotic agents; Z88.5 Allergy status to narcotic agent; Z88.8 Allergy status to other drugs, medicaments and biological substances
CPT/HCPCS: 85025; 36415; 83690; 80053; 74177; Q9967; J2405; J7030

== ENCOUNTER → 2023-05-13 | Emergency (ER) | payer BC ==
--- OUTSIDE RECORDS SUMMARY | 2023-05-13 21:45 | XMS REPORT | Continuity of Care Document ---
Author Name Unknown Address [address] [place] [address] [facility] thconnect Address [address] [place] [address] Care Team Providers Care Employee Health Nurse Name Role Phone PCP, PATIENT DOES NOT HAVE A Primary Care Physic zeinab Unavailable Ferguson_Robin Attending Clinician Unavailable RADIOLOGY Attending Clinician Unavailable Radiology Attending Clinician Unavailable Doctor Unassigned, [place] Attending Clinician U navailable [facility]_G Attending Clinician Unavail able [place]_L Attending Clinician Unavailable Ferguson_Robin Admitting Clinician Unavailable RACHEL AGUILAR Admitting Clinician Unavailabl e [facility]_G Admitting Clinician Unavail able Rutledge_L Admitting Clinician Unavailable Payers Payer Name Policy Type Policy Number Effective Date Expirati on Date Source [place] [id number] 2018 00:00:00 [facility] [id number] 2018 00:00:00 [facility] [facility] [id number] 2018 00:00:00 Allergies, Adverse Reactions, Alerts Allergy Name Allergy Type Status Severity Reaction(s) Onset Date Inactive Date Treating Clinician Comments Source NO KNOWN ALLERGIE S Drug Class Active [facility] Social History Social Habit Start Date Stop Date Quantity Comments Source Gender identity [facility] 1975 [facility] 1975 [facility]00 [facility] Smoking Status Start Date Stop Date Source Tobacco smoking consumption unknown [facility] Procedures Procedure Date / Time Performed Performing Clinicia n Source ASSIGNMENT OF BENEFITS 2022-12-23 13:31:30 Docto r Unassigned, [place] [facility] Encounters Start Date/Time End Date/Time Encounter Type Admission Type Attending Clinicians Care Facility Care Department Encounter ID Source 2023-05-12 14:02:02 Outpatient [facility] [id number] [facility] 2023-05-13 00:00:00 2023-05-13 00:00:00 Outpatient Ferguson_Ro dali [facility] [id number] [facility] 2022-12-23 08:32:37 2022-12-23 23:59:00 Outpatient R RADIOLOGY [facility] [id number] [facility] 2022-12-23 08:00:00 2022-12-23 23:59:00 Hospital Encounter Radiology [facility] [id number] [facility] 2022-12-23 00:00:00 2022-12-23 00:00:00 Orders Only Doctor Unassigned, [place] [facility] [id number] [facility] 2022-08-08 00:00:00 2022-08-08 00:00:00 Outpatient [facility]_ Tej_G PRIV PRIV [id number] [facility] 2022-08-06 00:00:00 2022-08-06 00:00:00 Outpatient PRIV PRIV [id number] [facility] 2022-08-05 00:00:00 2022-08-05 00:00:00 Outpatient PRIV PRIV [id number] [facility] 2022-07-11 00:00:00 2022-07-11 00:00:00 [place] [id number] [facility] 2022-07-11 00:00:00 2022-07-11 00:00:00 Outpatient [facility] [id number] [facility]
--- NOTE | 2023-05-13 22:29 | RAD REPORT ---
EXAM DESCRIPTION: CT - Abdomen Pelvis Wo Contrast - 05/13/2023 10:20 pm CLINICAL HISTORY: Abdominal pain. ABD PAIN COMPARISON: Abdomen Pelvis W Contrast dated 05/06/2023 TECHNIQUE: CT imaging of the abdomen and pelvis was performed without contrast. Solid organ, bowel a nd vascular assessment is limited due to lack of IV and oral contrast. All CT scans are performed using dose optimization technique as appropriate and may include automated exposure control or mA/KV adjustment according to patient size. FINDINGS: The lower lung buenrostro are clear.Cholecystectomy clips. The liver, spleen, pancreas, adrenal glands and kidneys are within normal limits for a limited non-co ntrast examination. No bowel obstruction, free air, free fluid or abscess. Normal appendix. Mild lower lumbar spondylosis. IMPRESSION: No acute intra-abdominal or pelvic findings. A limited non-contrast examination was performed as detailed.
--- NOTE | 2023-05-14 00:59 | EDPHYS ---
Physician Documentation [facility] Name: Verna Paredes Age: 47 yrs Sex: Female : 1975 Arrival Date: 05/13/2023 Time: 21:43 Bed IW10 Private MD: ED Physician Jose Peterson HPI: 05/13 23:06 This 47 yrs old Female presents to ER via Ambulatory with complaints of Abdominal Pain. kb 23:06 Pt is a 47 year old female who presents for abd pain that started a week ago, but has kb worsened over the last 2 days and has localized to umbilical area. Reports nausea. Denies vomiting, diarrhea and fever. SERVICE WRITER: 21:56 LMP 04/18/2023, unknown ap3 Historical: - Allergies: 21:55 Cipro; ap3 21:55 HYDROCODONE; ap3 21:55 Prednisone; ap3 - PMHx: 21:55 ulcertive colitis; ap3 - PSHx: 21:55 Cholecystectomy; hernia repair; ap3 - Immunization history:: Client reports receiving the 2nd dose of the Covid vaccine, Flu vaccine is not up to date. - Social history:: Smoking status: Patient denies any tobacco usage or history of. ROS: 23:06 Constitutional: Negative for fever, chills, and weight loss, kb 23:06 Abdomen/GI: Positive for abdominal pain, nausea, 23:06 All other systems are negative, Exam: 23:06 Constitutional: This is a well developed, well nourished patient who is awake, alert, kb and in no acute distress. Head/Face: Normocephalic, atraumatic. ENT: Moist Mucous membranes Cardiovascular: Regular rate Respiratory: Respirations even and unlabored. No increased work of breathing. Talking in full sentences Skin: Warm, dry with normal turgor. Normal color. MS/ Extremity: Pulses equal, no cyanosis. Neurovascular intact. Full, normal range of motion. Neuro: Awake and alert, GCS 15, oriented to person, place, time, and situation. Moves all extremities. Normal gait. 23:06 Abdomen/GI: Inspection: abdomen appears normal, Bowel sounds: normal, Palpation: soft, in all quadrants, mild abdominal tenderness, in the umbilical area, Vital Signs: 21:55 Pulse 74; Resp 17; Temp 97.8; Pulse Ox 100% ; Weight 94.35 kg; Height 5 ft. 6 in. ; ap3 Pain 9/10; 21:55 Body Mass Index 33.57 (94.35 kg, 167.64 cm) ap3 21:55 Pain Scale: Adult ap3 MDM: 21:49 Patient medically screened. 23:07 Data reviewed: vital signs, nurses notes. 05/14 00:58 Differential diagnosis: bowel obstruction, non-specific abd pain. ED course: pt elected kb to leave from lobby prior to labs being drawn. . 05/13 21:54 Order name: CBC with Diff 05/13 21:54 Order name: CMP 05/13 21:54 Order name: Lipase kb 05/13 21:54 Order name: Urinalysis w/ reflexes kb 05/13 21:57 Order name: CT Abd/Pelvis - Without Contrast; Complete Time: 22:32 kb 05/13 21:54 Order name: IV Saline Lock 05/13 21:54 Order name: Labs collected and sent Administered Medications: 03:41 Not Given (patient discharged): ns 0.9% 1000 ml IV at 1000 ml once pf1 03:41 Not Given (discharge): ondansetron 4 mg IVP once; over 2 minutes pf1 Disposition: 03:28 Co-signature as Attending Physician, Jose Peterson MD I agree with the assessment sp4 and plan of care. I reviewed the patient's care provided by the Advanced Practice Provider and agree with the diagnosis and treatment plan. Disposition Summary: 05/14/23 00:59 Discharge Ordered Notes: Location: Home Condition: Stable Diagnosis - Abdominal pain, Generalized kb Followup: kb - With: Emergency Department - When: As needed - Reason: Worsening of condition Followup: kb - With: Private Physician - When: 2 - 3 days - Reason: Recheck today's complaints, Continuance of care, Re-evaluation by your physician Forms: - Medication Reconciliation Form kb - Thank You Letter kb - Antibiotic Education kb - Prescription Opioid Use kb - Patient Portal Instructions kb - Leadership Thank You Letter kb Signatures: Dispatcher [employer] EDAzra Hanks FNP-C FNP-Ckb Prokisch, Amanda, RN RN ap3 Jose Peterson MD MD sp4 Villela, Emely RN pf1
--- NOTE | 2023-05-14 00:59 | ER ---
Nurse's Notes [facility] Name: Verna Paredes Age: 47 yrs Sex: Female : 1975 Arrival Date: 05/13/2023 Time: 21:43 Bed IW10 Private MD: Diagnosis: Abdominal pain, Generalized Presentation: 05/13 21:55 Chief complaint: Patient states: she has abdominal pain that started a few days ago. ap3 patient rates her pain as a 9/10 on the pain scale at this time. Coronavirus screen: At this time, the client does not indicate any symptoms associated with coronavirus-19. Ebola Screen: No symptoms or risks identified at this time. Initial Sepsis Screen: Does the patient meet any 2 criteria? No. Patient's initial sepsis screen is negative. Does the patient have a suspected source of infection? No. Patient's initial sepsis screen is negative. Risk Assessment: Do you want to hurt yourself or someone else? Patient reports no desire to harm self or others. Onset of symptoms is unknown. 21:55 Method Of Arrival: Ambulatory ap3 21:55 Acuity: SERA 3 ap3 Triage Assessment: 21:56 General: Appears uncomfortable, Behavior is calm, cooperative, appropriate for age. ap3 Pain: Complains of pain in umbilical area. Neuro: Level of Consciousness is awake, alert, obeys commands, Oriented to person, place, time, situation, Appropriate for age. Cardiovascular: Patient's skin is warm and dry. Respiratory: Airway is patent Respiratory effort is even, unlabored, Respiratory pattern is regular, symmetrical. GI: Reports upper abdominal pain, nausea. VP: 21:56 LMP 04/18/2023, unknown ap3 Historical: - Allergies: 21:55 Cipro; ap3 21:55 HYDROCODONE; ap3 21:55 Prednisone; ap3 - PMHx: 21:55 ulcertive colitis; ap3 - PSHx: 21:55 Cholecystectomy; hernia repair; ap3 - Immunization history:: Client reports receiving the 2nd dose of the Covid vaccine, Flu vaccine is not up to date. - Social history:: Smoking status: Patient denies any tobacco usage or history of. Screenin:56 [facility] ED Fall Risk Assessment (Adult) History of falling in the last 3 months, ap3 including since admission No falls in past 3 months (0 pts). Abuse screen: Denies threats or abuse. Nutritional screening: No deficits noted. Tuberculosis screening: No symptoms or risk factors identified. Vital Signs: 21:55 Pulse 74; Resp 17; Temp 97.8; Pulse Ox 100% ; Weight 94.35 kg; Height 5 ft. 6 in. ; ap3 Pain 9/10; 21:55 Body Mass Index 33.57 (94.35 kg, 167.64 cm) ap3 21:55 Pain Scale: Adult ap3 ED Course: 21:46 Patient arrived in ED. jj6 21:48 Azra Salguero FNP-C is PHCP. kb 21:48 Jose Peterson MD is Attending Physician. kb 21:55 Triage completed. ap3 21:56 Arm band placed on right wrist. ap3 22:21 CT Abd/Pelvis - Without Contrast In Process Unspecified. EDMS Administered Medications: 0207 03:41 Not Given (patient discharged): ns 0.9% 1000 ml IV at 1000 ml once pf1 03:41 Not Given (discharge): ondansetron 4 mg IVP once; over 2 minutes pf1 Outcome: 00:59 Discharge ordered by MD. kb 01:10 Discharged to home ambulatory, pf1 01:10 Condition: improved pf1 01:10 Discharge instructions given to patient, Instructed on discharge instructions, follow up and referral plans. Demonstrated understanding of instructions, follow-up care, 03:43 Patient left the ED. pf1 Signatures: Dispatcher [employer] EDMS Azra Salguero FNP-C FNP-Ckb Prokisch, Amanda RN RN ap3 Shannan Farooq jj6 Emely Villela, RN RN pf1
== END ==
LOC: ER 21:43
DX: R10.84 Generalized abdominal pain (principal); Z88.1 Allergy status to other antibiotic agents; Z88.5 Allergy status to narcotic agent; Z88.8 Allergy status to other drugs, medicaments and biological substances
CPT/HCPCS: 74176

== ENCOUNTER → 2023-05-25 | Emergency (ER) | payer BC ==
--- OUTSIDE RECORDS SUMMARY | 2023-05-25 16:32 | XMS REPORT | Continuity of Care Document ---
Author Name Unknown Address [address] [facility] [place] [address] [facility] Address [address] [facility] [address] [place] [address] Care Team Providers Care [address] Magistrate Name Role Phone PCP, PATIENT DOES NOT HAVE A Primary Care Physic zeinab Unavailable Ferguson_Renatoin Attending Clinician Unavailable RADIOLOGY Attending Clinician Unavailable Radiology Attending Clinician Unavailable Doctor Unassigned, [place] Attending Clinician U navailable GC_[facility]_[place]_G Attending Clinician Unavail able Rutledge_L Attending Clinician Unavailable Ferpaton_Robin Admitting Clinician Unavailable RACHEL AGUILAR Admitting Clinician Unavailabl e GC_[facility]_[place]_G Admitting Clinician Unavail able Rutledge_L Admitting Clinician Unavailable Payers Payer Name Policy Type Policy Number Effective Date Expirati on Date Source [place] [id number] 2018 00:00:00 [facility] [id number] 2018 00:00:00 [facility] ([facility] [id number] 2018 00:00:00 Problems Condition Name Condition Details Condition Category Status Onset Date Resolution Date Last Treatment Date Treating Clinician Comments Source [id number] Microscopi c hematuria Problem [facility] [id number] Umbilical pain Problem [facility] [id number] Medical history non-contri butory Problem [facility] Allergies, Adverse Reactions, Alerts Allergy Name Allergy Type Status Severity Reaction(s) Onset Date Inactive Date Treating Clinician Comments Source ciproflo xacin ciproflo xacin Active rash [facility] 67 Drug allergy Active Unknown [facility] 7309 Drug allergy Active Unknown [facility] Cipro Allergy to substanc e Active [facility] Hydrocod one Allergy to substanc e Active [facility] NO KNOWN ALLERGIE S Drug Class Active [facility] Predniso ne Allergy to substanc e Active [facility] Social History Social Habit Start Date Stop Date Quantity Comments Source History of Tobacco Use [facility] Sex Assigned At [facility] Gender identity [facility] Sexual orientation U [facility] Smoking Status Start Date Stop Date Source Tobacco smoking consumption unknown [facility] Never Smoker [facility] Medications Ordered Medication Name Filled Medication Name Start Date Stop Date Current Medication? Ordering Clinician Indication Dosage Frequency Signature (SIG) Comments Components Source dicyclomine 20 mg tablet Take 1 tablet 4 times a day by oral route as needed. dicyclomine 20 mg tablet Take 1 tablet 4 times a day by oral route as needed. No 1 QID dicyclomin e 20 mg tablet Take 1 tablet 4 times a day by oral route as needed. [facility] mesalamine 1.2 gram tablet,dorita yed release Take 4 tablets every day by oral route for 30 days. mesalamine 1.2 gram tablet,dorita yed release Take 4 tablets every day by oral route for 30 days. No 4 Q1D mesalamine 1.2 gram tablet,del ayed release Take 4 tablets every day by oral route for 30 days. [facility] Mesalamine 1.2 GM Mesalamine 1.2 GM No 2{table ts_with _a_meal } QD Mesalamine 1.2 GM Probiotic 250 MG Probiotic 250 MG No Probiotic 250 MG Mesalamine 1.2 GM Mesalamine 1.2 GM No 2{table ts_with _a_meal } QD Mesalamine 1.2 GM Probiotic 250 MG Probiotic 250 MG No Probiotic 250 MG Vital Signs Vital Name Observation Time Observation Value Comments S ource BP Diastolic 2023-05-16 00:00:00 81 mm[Hg] [facility] Body Weight 2023-05-16 00:00:00 207 [lb_av] [facility] Height 2023-05-16 00:00:00 66 [facility]in_i] [facility] BP Systolic 2023-05-16 00:00:00 142 mm[Hg] Segalbrea petersen [facility] BMI (Body Mass Index) 2023-05-16 00:00:00 33.4 kg/m2 [facility] height 2023-05-12 14:15:00 66 [in_i] [facility] weight 2023-05-12 14:15:00 211.6 [lb_av] Co mmon [facility] temperature 2023-05-12 14:15:00 97.6 [degF] Com mon [facility] bmi 2023-05-12 14:15:00 34.15 kg/m2 Comm on [facility] oximetry 2023-05-12 14:15:00 99 % [facility] respiratory rate 2023-05-12 14:15:00 18 /min [facility] blood pressure systolic 2023-05-12 14:15:00 134 mm[Hg] [facility] blood pressure diastolic 2023-05-12 14:15:00 63 mm[Hg] [facility] Procedures Procedure Date / Time Performed Performing Clinician Source PVR 2023-05-12 00:00:00 [facility] Esophagogastroduodenoscopy 2023-04-07 00:00:00 [place] [facility] Cholecystectomy 2023-03-03 00:00:00 [facility] alessandro [facility] Repair of Umbilical Hernia 2023-01-23 00:00:00 [facility] Colonoscopy 2023-01-17 00:00:00 Dharagamaliel guidry [facility] ASSIGNMENT OF BENEFITS 2022-12-23 13:31:30 Docto r Unassigned, [place] [facility] Plan of Care Planned Activity Planned Date Details Comments Source Diagnostic Test Pending 2023-05-16 00:00:00 calprotectin, stool [code = calprotectin, stool] [facility] Diagnostic Test Pending 2023-05-16 00:00:00 inflammatory bowel disease Ab panel, serum [code = inflammatory bowel disease Ab panel, serum] [facility] Diagnostic Test Pending 2023-05-16 00:00:00 urinalysis, dipstick, reflex micro [code = urinalysis, dipstick, reflex micro] [facility] Future Appointment 2023-06-13 09:00:00 Mendoza Shepherd, [address]; , [place] [address] [facility] Program Encounters Start Date/Time End Date/Time Encounter Type Admission Type Attending [facility] Care Department Encounter ID Source 2023-05-12 14:02:02 [facility] [id number] [facility] 2023-05-16 00:00:00 2023-05-16 00:00:00 Outpatient Philly mcnally [facility] [id number] [facility] 2023-05-16 00:00:00 2023-05-16 00:00:00 Mendoza Shepherd MD: [address], [place] [address] , Ph. [facility] [id number] [facility] 2023-05-14 00:00:00 2023-05-14 00:00:00 (TEL) [facility] [id number] [facility] 2023-05-13 00:00:00 2023-05-13 00:00:00 Outpatient Ferguson_Ro dali [facility] [id number] [facility] Program 2023-05-12 00:00:00 2023-05-12 00:00:00 OFFICE VISIT NEW PT LEVEL 3 STLMLC STLMLC [id number] [facility] 2022-12-23 08:32:37 2022-12-23 23:59:00 Outpatient R RADIOLOGY [facility] [id number] [facility] 2022-12-23 08:00:00 2022-12-23 23:59:00 Hospital Encounter Radiology [facility] [id number] [facility] 2022-12-23 00:00:00 2022-12-23 00:00:00 Orders Only Doctor Unassigned, [place] [facility] [id number]..[id number] [facility] 2022-08-08 00:00:00 2022-08-08 00:00:00 Outpatient GC_[facility]_ Tej_G PRIV PRIV [id number] [facility] 2022-08-06 00:00:00 2022-08-06 00:00:00 Outpatient PRIV PRIV [id number] [facility] 2022-08-05 00:00:00 2022-08-05 00:00:00 Outpatient PRIV PRIV [id number] [facility] 2022-07-11 00:00:00 2022-07-11 00:00:00 Outpatient PRIV PRIV [id number] [facility] 2022-07-11 00:00:00 2022-07-11 00:00:00 Outpatient Rutledge_L MMG MMG [id number]
--- NOTE | 2023-05-25 17:51 | RAD REPORT ---
EXAM DESCRIPTION: US - Extremity Nonvascular Complete - 05/25/2023 5:41 pm CLINICAL HISTORY: breast lump, r/o abscess;Pain COMPARISON: Follow Up [facility] dated 05/21/2023 FINDINGS: Focused ultrasound in the left upper chest wall. A small anechoic lesion measuring 5 x 4 m illimeters is noted consistent with a small cyst. No abscess identified. IMPRESSION: No abscess identified at the area of concern.
--- NOTE | 2023-05-25 17:55 | ER ---
Nurse's Notes [facility] Name: Verna Paredes Age: 47 yrs Sex: Female : 1975 Arrival Date: 05/25/2023 Time: 16:29 Bed IW1 Private MD: Diagnosis: Localized swelling, mass and lump, trunk-Left breast Presentation: 05/25 16:41 Chief complaint: Patient states: breast lump on left that is painful. Coronavirus ko1 screen: At this time, the client does not indicate any symptoms associated with coronavirus-19. Ebola Screen: No symptoms or risks identified at this time. Initial Sepsis Screen: Does the patient meet any 2 criteria? No. Patient's initial sepsis screen is negative. Does the patient have a suspected source of infection? No. Patient's initial sepsis screen is negative. Risk Assessment: Do you want to hurt yourself or someone else? Patient reports no desire to harm self or others. Onset of symptoms is unknown. 16:41 Method Of Arrival: Ambulatory ko1 16:41 Acuity: SERA 4 ko1 Triage Assessment: 16:42 General: Appears in no apparent distress. Behavior is calm, cooperative, appropriate ko1 for age. Pain: Complains of pain in anterior aspect of left upper chest. Historical: - Allergies: 16:42 Cipro; ko1 16:42 HYDROCODONE; ko1 16:42 Prednisone; ko1 - PMHx: 16:42 ulcertive colitis; ko1 - PSHx: 16:42 Cholecystectomy; hernia repair; ko1 - Immunization history:: Adult Immunizations unknown. - Social history:: Smoking status: Patient denies any tobacco usage or history of. Screenin:34 [facility] ED Fall Risk Assessment (Adult) History of falling in the last 3 months, ko1 including since admission No falls in past 3 months (0 pts). Abuse screen: Denies threats or abuse. Denies injuries from another. Nutritional screening: No deficits noted. Tuberculosis screening: No symptoms or risk factors identified. Assessment: 17:00 Reassessment: No changes from previously documented assessment. ko1 Vital Signs: 16:41 BP 112 / 89; Pulse 90; Resp 16; Temp 99.3; Pulse Ox 100% on R/A; ko1 ED Course: 16:34 Patient arrived in ED. ra3 16:37 [facility] Salguero [facility]C [facility] kb 16:[address] MD is Attending Physician. kb 16:42 Triage completed. ko1 16:42 Arm band placed on right wrist. Patient placed in waiting room, Patient notified of ko1 wait time. 17:42 Extremity Nonvascular Complete In Process Unspecified. EDMS 18:33 Waleska Medina, RN is Primary Nurse. ko1 18:34 Patient has correct armband on for positive identification. Provided Education on: na. ko1 18:34 No provider procedures requiring assistance completed. Patient did not have IV access ko1 during this emergency room visit. Administered Medications: No medications were administered Medication: 18:34 VIS not applicable for this client. ko1 Outcome: 17:55 Discharge ordered by MD. kb 18:34 Discharged to home ambulatory, ko1 18:34 Condition: stable 18:34 Discharge instructions given to patient, Instructed on discharge instructions, follow up and referral plans. Demonstrated understanding of instructions, follow-up care, 18:35 Patient left the ED. ko1 Signatures: Dispatcher [employer] EDTN Azra Salguero FNP-C ACREAGE REPORTER-Ckb Waleska Medina, RN RN ko1 Maribel Siddiqui ra3
--- NOTE | 2023-05-25 17:55 | EDPHYS ---
Physician Documentation [facility] Name: Verna Paredes Age: 47 yrs Sex: Female : 1975 Arrival Date: 05/25/2023 Time: 16:29 Bed IW1 Private MD: ED Physician Alexis Street HPI: 05/25 17:56 This 47 yrs old Female presents to ER via Ambulatory with complaints of Breast Lump. kb 17:56 Patient is a 47-year-old female who presents for painful lump to left breast that she kb noticed on Friday, 3 days ago. States she recently had a mammogram and ultrasound of the left breast for a lump at 9:00 but this lump is new so she was concerned and wanted to get it evaluated. Denies redness, swelling, fever. Historical: - Allergies: 16:42 Cipro; ko1 16:42 HYDROCODONE; ko1 16:42 Prednisone; ko1 - PMHx: 16:42 ulcertive colitis; ko1 - PSHx: 16:42 Cholecystectomy; hernia repair; ko1 - Immunization history:: Adult Immunizations unknown. - Social history:: Smoking status: Patient denies any tobacco usage or history of. ROS: 17:55 Constitutional: Negative for fever, chills, and weight loss, kb 17:55 Skin: Positive for Painful lump at 12:00 on left breast, 17:55 All other systems are negative, Exam: 17:55 Constitutional: This is a well developed, well nourished patient who is awake, alert, kb and in no acute distress. Head/Face: Normocephalic, atraumatic. ENT: Moist Mucous membranes Cardiovascular: Regular rate Respiratory: Respirations even and unlabored. No increased work of breathing. Talking in full sentences Abdomen/GI: Soft, non-tender. No distention Skin: Warm, dry with normal turgor. Normal color. MS/ Extremity: Pulses equal, no cyanosis. Neurovascular intact. Full, normal range of motion. Neuro: Awake and alert, GCS 15, oriented to person, place, time, and situation. Moves all extremities. Normal gait. 17:55 Chest/axilla: Breasts: abscess, not appreciated, cellulitis, is not appreciated, mass(es), that is small, in the left breast, that is tender, Vital Signs: 16:41 BP 112 / 89; Pulse 90; Resp 16; Temp 99.3; Pulse Ox 100% on R/A; ko1 MDM: 16:37 Patient medically screened. kb 17:56 Differential diagnosis: Carcinoma, cellulitis, abscess, cyst. Data reviewed: vital kb signs, nurses notes. Counseling: I had a detailed discussion with the patient and/or guardian regarding the historical points, exam findings, and any diagnostic results supporting the discharge/admit diagnosis, radiology results, the need for outpatient follow up, an OB/Gyne specialist, to return to the emergency department if symptoms worsen or persist or if there are any questions or concerns that arise at home. 05/25 16:52 Order name: Extremity Nonvascular Complete; Complete Time: 17:54 EDMS Administered Medications: No medications were administered Disposition: 19:09 Co-signature as Attending Physician, Alexis Street MD I reviewed the patient's care rt provided by the Advanced Practice Provider and agree with the diagnosis and treatment plan. Disposition Summary: 05/25/23 17:55 Discharge Ordered Notes: Location: Home kb Condition: Stable kb Diagnosis - Localized swelling, mass and lump, trunk - Left breast kb Followup: kb - With: Emergency Department - When: As needed - Reason: Worsening of condition Followup: kb - With: Private Physician - When: 2 - 3 days - Reason: Recheck today's complaints, Continuance of care, Re-evaluation by your physician Discharge Instructions: - Discharge Summary Sheet kb - Breast Cyst kb Forms: - Medication Reconciliation Form kb - Thank You Letter kb - Antibiotic Education kb - Prescription Opioid Use kb - Patient Portal Instructions kb - Leadership Thank You Letter kb Signatures: Dispatcher [employer] EDNH Azra Salguero, ANGELICA-C TACK CUTTER-Waleska Mercado, RN RN ko1 Alexis Street MD MD rt Corrections: (The following items were deleted from the chart) 16:52 16:43 Extrmty Nonvasular Limited+US.RAD.BRZ ordered. EDNH EDMS 17:56 17:55 Chest/axilla: Breasts: mass(es), that is small, in the left breast, that is kb tender, kb
[2023-05-25 18:47] VITALS: BP 112/89; TEMP 99.3; O2SAT 100
== END ==
LOC: ER 16:29
DX: N63.20 Unspecified lump in the left breast, unspecified quadrant (principal); Z88.1 Allergy status to other antibiotic agents; Z88.5 Allergy status to narcotic agent; Z88.8 Allergy status to other drugs, medicaments and biological substances
CPT/HCPCS: 76881

== ENCOUNTER → 2023-05-27 | Emergency (ER) | payer BC ==
--- OUTSIDE RECORDS SUMMARY | 2023-05-27 07:37 | XMS REPORT | Continuity of Care Document ---
Author Name Unknown Address [address] [facility]. [address] [place] [address] [facility] Address [address] [facility] [address] [place] [address] Care Team Providers Care Tobacco Classer Name Role Phone PCP, PATIENT DOES NOT HAVE A Primary Care Physic zeinab Unavailable Ferguson_Robin Attending Clinician Unavailable RADIOLOGY Attending Clinician Unavailable Radiology Attending Clinician Unavailable Doctor Unassigned, [place] Attending Clinician U navailable GC_[facility]_[place]_G Attending Clinician Unavail able Rutledge_L Attending Clinician Unavailable Ferguson_Robin Admitting Clinician Unavailable RACHEL AGUILAR Admitting Clinician Unavailabl e GC_[facility]_[place]_G Admitting Clinician Unavail able Rutledge_L Admitting Clinician Unavailable Payers Payer Name Policy Type Policy Number Effective Date Expirati on Date Source [place] [id number] 2018 00:00:00 [place] [id number] 2018 00:00:[place] [facility] ([facility]) [id number] 2018 00:00:00 Problems Condition Name Condition Details Condition Category Status Onset Date Resolution Date Last Treatment Date Treating Clinician Comments Source [id number] Microscopi c hematuria Problem [facility] [id number] Umbilical pain Problem [facility] [id number] Medical history non-contri butory Problem [facility] Allergies, Adverse Reactions, Alerts Allergy Name Allergy Type Status Severity Reaction(s) Onset Date Inactive Date Treating Clinician Comments Source Cipro Allergy to substanc e Active [facility] Hydrocod one Allergy to substanc e Active [facility] Predniso ne Allergy to substanc e Active [facility] ciproflo xacin ciproflo xacin Active rash [facility] 67 Drug allergy Active Unknown [facility] 7309 Drug allergy Active Unknown [facility] NO KNOWN ALLERGIE S Drug Class Active [facility] Social History Social Habit Start Date Stop Date Quantity Comments Source Gender identity [facility] Sexual orientation U [facility] History of Tobacco Use [facility] Sex Assigned At [facility] Smoking Status Start Date Stop Date Source Tobacco smoking consumption unknown [facility] Never Smoker [facility] Medications Ordered Medication Name Filled Medication [...] day by oral route as needed. [facility] mesalamine 1.2 gram tablet,dorita yed release Take 4 tablets every day by oral route for 30 days. mesalamine 1.2 gram tablet,dorita yed release Take 4 tablets every day by oral route for 30 days. No 4 Q1D mesalamine 1.2 gram tablet,del ayed release Take 4 tablets every day by oral route for 30 days. [facility] Mesalamine 1.2 GM [...] ource BP Diastolic 2023-05-16 00:00:00 81 mm[Hg] [facility] Body Weight 2023-05-16 00:00:00 207 [lb_av] [facility] Height 2023-05-16 00:00:00 66 [facility]in_i[facility] BP Systolic 2023-05-16 00:00:00 142 mm[Hg] Philipp floriana [facility] BMI (Body Mass Index) 2023-05-16 00:00:00 33.4 kg/m2 [facility] Program height 2023-05-12 14:15:00 66 [in_i] [facility] weight 2023-05-12 14:15:00 211.6 [lb_av] [facility] temperature 2023-05-12 14:15:00 97.6 [degF] [facility] bmi 2023-05-12 14:15:00 34.15 kg/m2 [facility] oximetry 2023-05-12 14:15:00 99 % [facility] respiratory rate 2023-05-12 14:15:00 18 /min [facility] blood pressure systolic 2023-05-12 14:15:00 134 mm[Hg] [facility] blood pressure diastolic 2023-05-12 14:15:00 63 mm[Hg] [facility] Procedures Procedure Date / Time Performed Performing Clinician Source PVR 2023-05-12 00:00:00 [facility] Esophagogastroduodenoscopy 2023-04-07 00:00:00 [facility] Cholecystectomy 2023-03-03 00:00:00 [facility] Repair of Umbilical Hernia 2023-01-23 00:00:00 [place] [facility] Colonoscopy 2023-01-17 [facility] ASSIGNMENT OF BENEFITS 2022-12-23 13:31:30 Docto r Unassigned, [place] [facility] Plan of Care Planned Activity Planned Date Details Comments Source Diagnostic Test Pending 2023-05-16 00:00:00 calprotectin, stool [code = calprotectin, stool] [facility] Diagnostic Test Pending 2023-05-16 00:00:00 inflammatory bowel disease Ab panel, serum [code = inflammatory bowel disease Ab panel, serum] [facility] Diagnostic Test Pending 2023-05-16 00:00:00 urinalysis, dipstick, reflex micro [code = urinalysis, dipstick, reflex micro] [facility] Future Appointment 2023-06-13 09:00:00 Mendoza Shepherd, [address]; , [place] [address] [facility] Encounters Start Date/Time End Date/Time Encounter Type Admission Type Attending [facility] Care Facility Care Department Encounter ID Source 2023-05-12 14:02:02 Outpatient [facility] [id number] [facility] 2023-05-16 00:00:00 2023-05-16 00:00:00 Outpatient Philly mcnally [facility] [id number] [facility] 2023-05-16 00:00:00 2023-05-16 00:00:00 Mendoza Shepherd MD: [address], [place] [address] , [facility] [facility] [id number] [facility] 2023-05-14 00:00:00 2023-05-14 00:00:00 [facility] [id number] [facility] 2023-05-13 00:00:00 2023-05-13 00:00:00 Outpatient Ferguson_Ro bin MEHOP MEHOP [id number] [facility] 2023-05-12 00:00:00 2023-05-12 00:00:00 OFFICE VISIT NEW PT LEVEL 3 STLMLC STLMLC [id number] [facility] 2022-12-23 08:32:37 2022-12-23 23:59:00 Outpatient R RADIOLOGY [facility] [id number] [facility] 2022-12-23 08:00:00 2022-12-23 23:59:00 Hospital Encounter Radiology [place] [id number] [facility] 2022-12-23 00:00:00 2022-12-23 00:00:00 Orders Only Doctor Unassigned, [place] [facility] [id number] [facility] 2022-08-08 00:00:00 2022-08-08 00:00:00 Outpatient [facility]_ Tej_G PRIV PRIV [id number] [facility] 2022-08-06 00:00:00 2022-08-06 00:00:00 Outpatient PRIV PRIV [id number] [facility] 2022-08-05 00:00:00 2022-08-05 00:00:00 Outpatient PRIV PRIV [id number] [facility] 2022-07-11 00:00:00 2022-07-11 00:00:00 Outpatient Rutledge_L MMG MMG [id number] [facility] 2022-07-11 00:00:00 2022-07-11 00:00:00 Outpatient PRIV PRIV [id number] [facility]
--- NOTE | 2023-05-27 07:47 | ER ---
Nurse's Notes [facility] Name: Verna Paredes Age: 47 yrs Sex: Female : 1975 Arrival Date: 05/27/2023 Time: 07:34 Bed 19 Private MD: JESUS MEDINA Diagnosis: Breast Mass Presentation: 05/27 07:45 Chief complaint: Patient states: Lump in L breast has changed since last visit. 2 new ll1 lumps in R breast that are tender. No fever. Coronavirus screen: Client denies travel out of the [place] in the last 14 days. At this time, the client does not indicate any symptoms associated with coronavirus-19. Ebola Screen: Patient denies travel to an Ebola-affected area in the 21 days before illness onset. Initial Sepsis Screen: Does the patient meet any 2 criteria? No. Patient's initial sepsis screen is negative. Does the patient have a suspected source of infection? No. Patient's initial sepsis screen is negative. Risk Assessment: Do you want to hurt yourself or someone else? Patient reports no desire to harm self or others. Onset of symptoms was May 22, 2023. 07:45 Method Of Arrival: Ambulatory ll1 07:45 Acuity: SERA 5 ll1 Historical: - Allergies: 07:42 Cipro; mb9 07:42 HYDROCODONE; mb9 07:42 Prednisone; mb9 - PMHx: 07:42 ulcertive colitis; mb9 - PSHx: 07:42 Cholecystectomy; hernia repair; mb9 - Immunization history:: Adult Immunizations up to date. - Social history:: Smoking status: Patient denies any tobacco usage or history of. Screenin:43 [facility] ED Fall Risk Assessment (Adult) History of falling in the last 3 months, mb9 including since admission No falls in past 3 months (0 pts) Confusion or Disorientation No (0 pts) Intoxicated or Sedated No (0 pts) Impaired Gait No (0 pts) Mobility Assist Device Used No (0 pt) Altered Elimination No (0 pt) Score/Fall Risk Level 0 - 2 = Low Risk Oriented to surroundings, Maintained a safe environment, Educated pt \T\ family on fall prevention, incl call for assistance when getting out of bed. Abuse screen: Denies threats or abuse. Nutritional screening: No deficits noted. Tuberculosis screening: No symptoms or risk factors identified. Assessment: 07:49 General: Appears in no apparent distress. Behavior is calm, cooperative. Pain: mb9 Complains of pain in right breast Pain does not radiate. Quality of pain is described as throbbing, Pain began suddenly. Neuro: Tsein Agitation-Sedation Scale (RASS): 0 - Alert and Calm Level of Consciousness is awake, alert, obeys commands, Oriented to person, place, time, situation, Appropriate for age. Cardiovascular: Patient's skin is warm and dry. Respiratory: Airway is patent Respiratory effort is even, unlabored, Respiratory pattern is regular, symmetrical. GI: No signs and/or symptoms were reported involving the gastrointestinal system. : No signs and/or symptoms were reported regarding the genitourinary system. EENT: No signs and/or symptoms were reported regarding the EENT system. Derm: Skin is pink, warm \T\ dry. Musculoskeletal: Range of motion: intact in all extremities. Vital Signs: 07:45 BP 144 / 83; Pulse 72; Resp 16; Temp 97.9; Pulse Ox 97% on R/A; Weight 93.44 kg; Height ll1 5 ft. 6 in. ; Pain 6/10; 07:45 Body Mass Index 33.25 (93.44 kg, 167.64 cm) ll1 07:45 Pain Scale: Adult ll1 ED Course: 07:36 Patient arrived in ED. rg4 07:37 JESUS MEDINA is Private Physician. rg4 07:37 Channing Carballo DO is Attending Physician. ms3 07:41 Elba Umana RN is Primary Nurse. mb9 07:42 Arm band placed on. mb9 07:42 Placed in gown. Bed in low position. Call light in reach. Side rails up X 1. mb9 07:45 Jason Stevens MD is Referral Physician. ms3 07:46 Triage completed. ll1 07:50 No provider procedures requiring assistance completed. Patient did not have IV access mb9 during this emergency room visit. Administered Medications: No medications were administered Medication: 07:50 VIS not applicable for this client. mb9 Outcome: 07:46 Discharge ordered by . ms3 07:50 Discharged to home ambulatory, mb9 07:50 Condition: stable 07:50 Discharge instructions given to patient, Instructed on discharge instructions, follow up and referral plans. Demonstrated understanding of instructions, follow-up care, 07:51 Patient left the ED. mb9 Signatures: Kathy Paredes rg4 Darby Shi RN RN ll1 Channing Carballo DO DO ms3 Elba Umana RN RN mb9
--- NOTE | 2023-05-27 07:52 | EDPHYS ---
Physician Documentation [facility] Name: Verna Paredes Age: 47 yrs Sex: Female : 1975 Arrival Date: 05/27/2023 Time: 07:34 Bed 19 Private MD: JESUS MEDINA ED Physician Channing Carballo HPI: 05/27 07:47 This 47 yrs old Female presents to ER via Ambulatory with complaints of Breast Problem. wi3 07:47 47-year-old female with past medical history of ulcerative colitis presents to the [facility] emergency department for right breast mass x 2 that she noticed yesterday. Patient states she was seen in the emergency department on Friday for cystic changes in her left breast. Patient states her right breast masses are tender. Patient states her discomfort is a 6/10. Patient denies any alleviating or inciting factors.. Historical: - Allergies: 07:42 Cipro; mb9 07:42 HYDROCODONE; mb9 07:42 Prednisone; mb9 - PMHx: 07:42 ulcertive colitis; mb9 - PSHx: 07:42 Cholecystectomy; hernia repair; mb9 - Immunization history:: Adult Immunizations up to date. - Social history:: Smoking status: Patient denies any tobacco usage or history of. ROS: 07:47 Constitutional: Negative for fever, and chills. Neck: Negative for injury, pain, and ms3 swelling, Cardiovascular: Negative for chest pain, and palpitations. Respiratory: Negative for shortness of breath, cough, wheezing, and pleuritic chest pain, Abdomen/GI: Negative for abdominal pain, nausea, vomiting, diarrhea, and constipation, MS/Extremity: Negative for injury and deformity, Skin: Negative for injury, rash, and discoloration, 07:47 All other systems are negative, Exam: 07:47 Constitutional: This is a well developed, well nourished patient who is awake, alert, ms3 and in no acute distress. Head/Face: Normocephalic, atraumatic. Neck: Trachea midline, no cervical lymphadenopathy. Supple, full range of motion without nuchal rigidity, or vertebral point tenderness. No Meningismus. Cardiovascular: Regular rate and rhythm with a normal S1 and S2. No gallops, murmurs, or rubs. Normal PMI, no JVD. No pulse deficits. Respiratory: Lungs have equal breath sounds bilaterally, clear to auscultation and percussion. No rales, rhonchi or wheezes noted. No increased work of breathing, no retractions or nasal flaring. Abdomen/GI: Soft, non-tender, with normal bowel sounds. No distension or tympany. No guarding or rebound. No evidence of tenderness throughout. 07:47 Chest/axilla: Inspection: normal, Palpation: tenderness, that is mild, of the right breast, Breasts: abscess, not appreciated, cellulitis, is not appreciated, mass(es), that is small, in the right breast, that is tender, that is freely movable, Vital Signs: 07:45 BP 144 / 83; Pulse 72; Resp 16; Temp 97.9; Pulse Ox 97% on R/A; Weight 93.44 kg; Height ll1 5 ft. 6 in. ; Pain 6/10; 07:45 Body Mass Index 33.25 (93.44 kg, 167.64 cm) ll1 07:45 Pain Scale: Adult ll1 MDM: 07:46 Patient medically screened. ms3 07:47 Differential Diagnosis Fibrocystic changes versus breast cancer. Data reviewed: vital ms3 signs, nurses notes, and as a result, I will discharge patient. Counseling: I had a detailed discussion with the patient and/or guardian regarding the historical points, exam findings, and any diagnostic results supporting the discharge/admit diagnosis, the need for outpatient follow up, to return to the emergency department if symptoms worsen or persist or if there are any questions or concerns that arise at home. Special discussion: I discussed with the patient/guardian in detail that at this point there is no indication for admission to the hospital. It is understood, however, that if the symptoms persist or worsen the patient needs to return immediately for re-evaluation. ED course: Discussed physical exam findings with patient. Patient to follow-up with Dr. 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 Patient understands and agrees with plan. All questions were answered. Return precautions discussed include worsening symptoms, or any other concerns.. Administered Medications: No medications were administered Disposition: 14:59 Chart complete. ms3 Disposition Summary: 05/27/23 07:46 Discharge Ordered Notes: Location: Home ms3 Condition: Stable ms3 Diagnosis - Breast Mass ms3 Followup: ms3 - With: Jason Stevens MD - When: 2 - 3 days - Reason: Recheck today's complaints Discharge Instructions: - Discharge Summary Sheet ms3 - Breast Cyst ms3 - Breast Cancer, Female ms3 Forms: - Medication Reconciliation Form ms3 - Thank You Letter ms3 - Antibiotic Education ms3 - Prescription Opioid Use ms3 - Patient Portal Instructions ms3 - Leadership Thank You Letter ms3 Signatures: Darby Shi RN RN ll1 Channing Carballo DO DO ms3 Elba Umana RN RN mb9
[2023-05-27 08:02] VITALS: BP 144/83; TEMP 97.9; O2SAT 97
== END ==
LOC: ER 07:34
DX: N63.10 Unspecified lump in the right breast, unspecified quadrant (principal); Z88.1 Allergy status to other antibiotic agents; Z88.5 Allergy status to narcotic agent; Z88.8 Allergy status to other drugs, medicaments and biological substances

== ENCOUNTER → 2023-05-31 | Emergency (ER) | payer BC ==
[~2023-05-31] MED LIST changes: +AMOX/K CLAV 875 MG TAB ONE; +DICYCLOMINE HCL 20 MG/2 ML AMP IM ONE; +FAMOTIDINE 20 MG/2 ML VIAL IV ONE; +dexAMETHasone 10 MG/ML VIAL ONE
--- OUTSIDE RECORDS SUMMARY | 2023-05-31 16:46 | XMS REPORT | Continuity of Care Document ---
Author Name Unknown Address [address] [facility] [address] [place] [address] [facility] thconnect Address [address] [facility] [address] [place] [address] Care Team Providers Care Scoop Machine Operator Name Role Phone PCP, PATIENT DOES NOT HAVE A Primary Care Physic zeinab Unavailable Ferguson_Robin Attending Clinician Unavailable RADIOLOGY Attending Clinician Unavailable Radiology Attending Clinician Unavailable Doctor Unassigned, [place] Attending Clinician U navailable GC_SWHAOMC_[place]_G Attending Clinician Unavail able Rutledge_L Attending Clinician Unavailable Ferguson_Robin Admitting Clinician Unavailable RACHEL AGUILAR Admitting Clinician Unavailabl e GC_[facility]_[place]_G Admitting Clinician Unavail able Rutledge_L Admitting Clinician Unavailable Payers Payer Name Policy Type Policy Number Effective Date Expirati on Date Source [place] [id number] 2018 00:00:00 [place] [facility] [id number] 2018 00:00:00 [facility] [facility] [id number] 2018 00:00:00 Problems Condition Name Condition Details Condition Category Status Onset Date Resolution Date Last Treatment Date Treating Clinician Comments Source [id number] Microscopi c hematuria Problem [facility] [id number] Umbilical pain Problem [facility] [id number] Medical history non-contri butory Problem [facility] Allergies, Adverse Reactions, Alerts Allergy Name Allergy Type Status Severity Reaction(s) Onset Date Inactive Date Treating Clinician Comments Source Hydrocod one Allergy to substanc e Active [facility] Predniso ne Allergy to substanc e Active [facility] NO KNOWN ALLERGIE S Drug Class Active [facility] ciproflo xacin ciproflo xacin Active rash [facility] 67 Drug allergy Active Unknown [facility] 7309 Drug allergy Active Unknown [facility] Cipro Allergy to substanc e Active [facility] Social History Social Habit Start Date Stop Date Quantity Comments Source Gender identity [facility] Sexual orientation [facility] History of Tobacco Use [facility] Sex Assigned At [facility] Smoking Status Start Date Stop Date Source Tobacco smoking consumption unknown [facility] Never Smoker [facility] Medications Ordered Medication Name Filled Medication [...] day by oral route as needed. [facility] mesalamine 1.2 gram tablet,dorita yed release Take 4 tablets every day by oral route for 30 days. mesalamine 1.2 gram tablet,dorita yed release Take 4 tablets every day by oral route for 30 days. No 4 Q1D mesalamine 1.2 gram tablet,del ayed release Take 4 tablets every day by oral route for 30 days. [facility] Mesalamine 1.2 GM [...] ource BP Diastolic 2023-05-16 00:00:00 81 mm[Hg] [facility] Body Weight 2023-05-16 00:00:00 207 [lb_av] [facility] Height 2023-05-16 00:00:00 66 [in_i[facility] BP Systolic 2023-05-16 00:00:00 142 mm[Hg] Philipp petersen [facility] BMI (Body Mass Index) 2023-05-16 00:00:00 33.4 kg/m2 [facility] height 2023-05-12 14:15:00 66 [in_i] [facility] weight 2023-05-12 14:15:00 211.6 [lb_av] Co mmon [facility] temperature 2023-05-12 14:15:00 97.6 [degF] Com mon [facility] bmi 2023-05-12 14:15:00 34.15 kg/m2 Comm on [facility] oximetry 2023-05-12 14:15:00 99 % Commo n [facility] respiratory rate 2023-05-12 14:15:00 18 /min [facility] blood pressure systolic 2023-05-12 14:15:00 134 mm[Hg] [facility] blood pressure diastolic 2023-05-12 14:15:00 63 mm[Hg] [facility] Procedures Procedure Date / Time Performed Performing Clinician Source PVR 2023-05-12 00:00:00 [facility] Esophagogastroduodenoscopy 2023-04-07 00:00:00 [facility] Cholecystectomy 2023-03-03 00:00:00 [facility] Repair of Umbilical Hernia 2023-01-23 00:00:00 [facility] Colonoscopy 2023-01-17 00:00[facility]00 [facility] ASSIGNMENT OF BENEFITS 2022-12-23 13:31:30 Docto r Unassigned, [place] [facility] Plan of Care Planned Activity Planned Date Details Comments Source Diagnostic Test Pending 2023-05-16 00:00:00 calprotectin, stool [code = calprotectin, stool] [facility] Diagnostic Test Pending 2023-05-16 00:00:00 inflammatory bowel disease Ab panel, serum [code = inflammatory bowel disease Ab panel, serum] [facility] Diagnostic Test Pending 2023-05-16 00:00:00 urinalysis, dipstick, reflex micro [code = urinalysis, dipstick, reflex micro] [facility] Future Appointment 2023-06-13 09:00:00 Mendoza Shepherd, [address]; , [place] [address] [facility] Encounters Start Date/Time End Date/Time Encounter Type Admission Type Attending [facility] Care Facility Care Department Encounter ID Source 2023-05-12 14:02:02 Outpatient [facility] [id number] [facility] 2023-05-16 00:00:00 2023-05-16 00:00:00 Outpatient Philly mcnally [facility] [id number] [place] [facility] 2023-05-16 00:00:00 2023-05-16 00:00:00 Mendoza Shepherd MD: [address], [place] [address] , Ph[facility] [id number] [facility] 2023-05-14 00:00:00 2023-05-14 00:00[facility]00 [facility] [id number] 2023-05-13 00:00:00 2023-05-13 00:00:00 Outpatient Ferguson_Ro bin MEHOP NDHOP [id number] [facility] 2023-05-12 00:00:00 2023-05-12 00:00:00 OFFICE VISIT NEW PT LEVEL 3 STLMLC STLMLC [id number] [facility] 2022-12-23 08:32:37 2022-12-23 23:59:00 Outpatient R RADIOLOGY [facility] [id number] [facility] 2022-12-23 08:00:00 2022-12-23 23:59:00 Hospital Encounter Radiology [facility] [id number] [facility] 2022-12-23 00:00:00 2022-12-23 00:00:00 Orders Only Doctor Unassigned, [place] [facility] [id number] [facility] 2022-08-08 00:00:00 2022-08-08 00:00:00 Outpatient GC_SWKIKIOMC_ Tej_G PRIV PRIV [id number] [facility] 2022-08-06 00:00:00 2022-08-06 00:00:00 Outpatient PRIV PRIV [id number] [facility] 2022-08-05 00:00:00 2022-08-05 00:00:00 Outpatient PRIV PRIV [id number] [facility] 2022-07-11 00:00:00 2022-07-11 00:00:00 Outpatient Rutledge_L MMG MMG [id number] [facility] 2022-07-11 00:00:00 2022-07-11 00:00:00 Outpatient PRIV PRIV [id number] [facility]
[2023-05-31 17:43] LABS: Absolute Lymphocytes (CBC) 1.8 K/uL (0.7-4.9); Hematocrit 40.6 % (36.0-45.0); Lymphocytes % 17.2 % (15.3-44.8); MCV 86.8 fL (80-100); MPV 9.5 fL (7.6-11.3); Platelets 221 thou/uL (152-406); RBC Red Blood Cell Count 4.67 M/uL (3.86-4.86)
[2023-05-31 17:46] LABS: Specific Gravity 1.024 (1.005-1.030)
[2023-05-31 17:47] LABS: Specific Gravity 1.024 (1.005-1.030); Urine Bacteria <20 /HPF (<20); Urine Bilirubin NEGATIVE (Negative); Urine Blood Trace (Negative); Urine Clarity Extremely Turbid (Clear); Urine Color Light-Yellow (Yellow); Urine Glucose NEGATIVE (Negative); Urine Mucus Slight /HPF (None Seen); Urine Protein NEGATIVE (Negative); Urine Urobilinogen Normal (Normal)
[2023-05-31 18:01] LABS: Albumin 3.7 g/dL (3.4-5.0); Bilirubin Total 0.8 mg/dL (0.2-1.0); Potassium 3.5 mEq/L (3.5-5.1); Protein, Total 7.4 g/dL (6.4-8.2)
--- NOTE | 2023-05-31 18:40 | RAD REPORT ---
EXAM DESCRIPTION: CT - Abdomen Pelvis W Contrast - 05/31/2023 6:17 pm CLINICAL HISTORY: ABD PAIN COMPARISON: Abdomen Pelvis W Contrast dated 05/06/2023; Abdomen Pelvis W Contrast dated 04/20/2023 ; Abdomen Pelvis W Contrast dated 04/03/2023; Abdomen Pelvis W Contrast dated 03/21/2023; Abdomen Pelvis Wo Contrast dated 05/13/2023 TECHNIQUE: Thin cut axial CT imaging of the abdomen and pelvis was performed following intravenous a dministration of iodinated contrast. Multiplanar reformats were generated and reviewed. All CT scans are performed using dose optimization technique as appropriate and may include automated exposure control or mA/KV adjustment according to patient size. FINDINGS: No suspicious findings in the lung bases. The liver, spleen, adrenal glands, and pancreas show no suspicious findings. Gallbladder was surgical ly removed. Symmetric renal function is seen with no hydronephrosis or suspicious renal mass. No dilated bowel loops. Bowel wall thickening and perhaps mild edema with intramural mild fat deposit ion along the hepatic flexure and ascending colon. The appearance is more conspicuous than on prior e xams. No free air, free fluid or inflammatory stranding. No abnormal fluid collections or evidence of fistula formation. No hernia, mass or bulky lymphadenopathy. The urinary bladder is without signific ant finding. No suspicious bony findings. IMPRESSION: Bowel wall thickening and perhaps mild edema with some intramural fat deposition along t he hepatic flexure and ascending colon. Findings suggest sequelae of acute or prior segmental colitis .
--- NOTE | 2023-05-31 20:15 | EDPHYS ---
Physician Documentation [facility] Name: Verna Paredes Age: 47 yrs Sex: Female : 1975 Arrival Date: 05/31/2023 Time: 16:43 Bed 17 Private MD: ED Physician Charlie Zamora HPI: 05/31 17:10 This 47 yrs old Female presents to ER via Ambulatory with complaints of Diarrhea, cp Abdominal Pain. 17:10 The patient presents to the emergency department with diarrhea, that is continuous, cp abdominal pain, of the mid and lower abdomen. Onset: The symptoms/episode began/occurred this morning. Possible causes: flare up of bowel problem, ulcerative colitis, diverticulitis. Associated signs and symptoms: Pertinent positives: mucous in stool and blood after wiping, Pertinent negatives: constipation, fever, active vomiting. 17:10 Severity of symptoms: in the emergency department the symptoms are unchanged despite cp home interventions. Historical: - Allergies: 17:10 Cipro; cm10 17:10 HYDROCODONE; cm10 17:10 Prednisone; cm10 - PMHx: 17:10 ulcertive colitis; Diverticulitis; cm10 - PSHx: 17:10 Cholecystectomy; hernia repair; cm10 - Immunization history:: Adult Immunizations up to date. - Social history:: Smoking status: Patient denies any tobacco usage or history of. ROS: 17:15 Constitutional: Positive for poor PO intake, Negative for body aches, chills, fever, cp 17:15 Eyes: Negative for injury, pain, redness, and discharge, cp 17:15 ENT: Negative for drainage from ear(s), ear pain, sore throat, difficulty swallowing, difficulty handling secretions, 17:15 Cardiovascular: Negative for chest pain, palpitations, 17:15 Respiratory: Negative for cough, shortness of breath, wheezing, 17:15 Abdomen/GI: Positive for abdominal pain, nausea, diarrhea, 17:15 : Negative for urinary symptoms, 17:15 Neuro: Negative for altered mental status, dizziness, headache, weakness, 17:15 All other systems are negative, Exam: 17:20 Constitutional: The patient appears in no acute distress, alert, awake, non-toxic, well cp developed, well nourished, uncomfortable, 17:20 Head/Face: Normocephalic, atraumatic. cp 17:20 Eyes: Periorbital structures: appear normal, Conjunctiva: normal, no exudate, no injection, Sclera: no appreciated abnormality, Lids and lashes: appear normal, bilaterally, 17:20 ENT: External ear(s): are unremarkable, Nose: is normal, Mouth: Lips: moist, Oral mucosa: pink and intact, moist, Posterior pharynx: is normal, airway is patent, no erythema, no exudate, 17:20 Chest/axilla: Inspection: normal, 17:20 Cardiovascular: Rate: normal, Rhythm: regular, 17:20 Respiratory: the patient does not display signs of respiratory distress, Respirations: normal, no use of accessory muscles, no retractions, labored breathing, is not present, Breath sounds: are clear throughout, no decreased breath sounds, no stridor, no wheezing, 17:20 Abdomen/GI: Inspection: abdomen appears normal, Bowel sounds: active, all quadrants, Palpation: soft, in all quadrants, moderate abdominal tenderness, in the right lower quadrant and left lower quadrant, rebound tenderness, is not appreciated, involuntary guarding, is not appreciated, 17:20 Back: CVA tenderness, is absent, 17:20 Neuro: Orientation: to person, place \T\ time. Mentation: is normal, Motor: moves all fours, strength is normal, Sensation: is normal, Vital Signs: 17:08 BP 126 / 65; Pulse 91; Resp 16; Temp 97.8; Pulse Ox 97% on R/A; Weight 92.08 kg; Height cm10 5 ft. 6 in. ; Pain 7/10; 18:48 BP 127 / 66; Pulse 86; Resp 17 S; Pulse Ox 98% on R/A; kc6 19:31 BP 125 / 57; tm6 20:45 BP 122 / 63; Pulse 87; Resp 19; Temp 97.7(TE); Pulse Ox 99% on R/A; tm6 17:08 Body Mass Index 32.76 (92.08 kg, 167.64 cm) cm10 17:08 Pain Scale: Adult cm10 MDM: 17:11 Patient medically screened. cp 18:00 Differential diagnosis: gastritis, diverticulitis, viral gastroenteritis, cp gastroenteritis, colitis, dehydration, electrolyte abnormality. 20:13 Data reviewed: vital signs, nurses notes, lab test result(s), radiologic studies, CT cp scan, and as a result, I will discharge patient. 20:13 I considered the following discharge prescriptions or medication management in the emergency department Medications were administered in the Emergency Department. See MAR. Counseling: I had a detailed discussion with the patient and/or guardian regarding the historical points, exam findings, and any diagnostic results supporting the discharge/admit diagnosis, lab results, radiology results, the need for outpatient follow up, a alcohol still operator, to return to the emergency department if symptoms worsen or persist or if there are any questions or concerns that arise at home. Response to treatment: the patient's symptoms have mildly improved after treatment, and as a result, I will discharge patient. Special discussion: Based on the patient's Hx, exam, and Dx evaluation, there is no indication for emergent surgery or inpatient Tx. It is understood by the patient/guardian that if the Sx's persist or worsen they need to return immediately for re-evaluation. 05/31 17:17 Order name: CBC with Diff; Complete Time: 18:53 cp 05/31 17:17 Order name: CMP; Complete Time: 18:53 cp 05/31 17:17 Order name: Lipase; Complete Time: 18:53 cp 05/31 17:17 Order name: Test, Urine; Complete Time: 18:53 cp 05/31 17:17 Order name: Urinalysis w/ reflexes; Complete Time: 18:53 cp 05/31 17:17 Order name: CT Abd/Pelvis - IV Contrast Only; Complete Time: 18:53 cp 05/31 17:17 Order name: IV Saline Lock; Complete Time: 17:39 cp 05/31 17:17 Order name: Labs collected and sent; Complete Time: 17:39 cp Administered Medications: 17:39 Drug: NS 0.9% IV 1000 ml IV at 1 bolus Per protocol; 1000 mL bolus Route: IV; Rate: 1 kc6 bolus; Site: right antecubital; 17:40 Not Given (Patient Refused): [id number] mg IVP once; dilute with 10 mL 0.9% NaCl; kc6 give over 2 minutes 17:40 Drug: TORadol - Ketorolac IVP 15 mg IVP once Route: IVP; Site: right antecubital; kc6 18:07 Follow up: Response: No adverse reaction; Pain is decreased kc6 17:40 Drug: Ondansetron IVP 4 mg IVP once; over 2 minutes Route: IVP; Site: right antecubital;kc6 18:07 Follow up: Response: No adverse reaction; Nausea is decreased kc6 20:11 Drug: Amoxicillin-Clavulanate PO 875 mg PO once Route: PO; tm6 20:11 Drug: Dicyclomine IM 20 mg IM once Route: IM; Site: Other; tm6 20:12 Drug: Decadron - Dexamethasone IVP 10 mg IVP once Route: IVP; Site: right antecubital; tm6 Disposition Summary: 05/31/23 20:14 Discharge Ordered Notes: Location: Home cp Problem: new cp Symptoms: have improved cp Condition: Stable cp Diagnosis - Indeterminate colitis cp Followup: cp - With: Private Physician - When: 2 - 3 days - Reason: Recheck today's complaints Discharge Instructions: - Discharge Summary Sheet cp - Colitis cp Forms: - Medication Reconciliation Form cp - Thank You Letter cp - Antibiotic Education cp - Prescription Opioid Use cp - Patient Portal Instructions cp - Leadership Thank You Letter cp Prescriptions: - Augmentin 875-125 mg Oral Tablet - take 1 tablet ORAL route every 12 hours for 10 days; 20 tablet; Refills: 0, cp Product Selection Permitted - Zofran 4 mg Oral Tablet - take 1 tablet ORAL route every 12 hours As needed; 20 tablet; Refills: 0, cp Product Selection Permitted - dicyclomine 20 mg Oral tablet - take 1 tablet ORAL route 4 times per day; 30 tablet; Refills: 0, Product cp Selection Permitted Signatures: Dispatcher [employer] Eric Hernandez PA PA cp Osiris Davies RN RN kc6 Maria Isabel Anders RN RN cm10 Yobani French RN RN tm6
--- NOTE | 2023-05-31 20:15 | ER ---
Nurse's Notes [facility] Name: Verna Paredes Age: 47 yrs Sex: Female : 1975 Arrival Date: 05/31/2023 Time: 16:43 Bed 17 Private MD: Diagnosis: Indeterminate colitis Presentation: 05/31 17:08 Chief complaint: Patient states: lower abdominal pain onset today. Pt also reports cm10 diarrhea. Pt states that she normally has diarrhea due to having colitis and the diarrhea got worse today. Coronavirus screen: Vaccine status: Patient reports receiving the 2nd dose of the covid vaccine. Client denies travel out of the [place] in the last 14 days. Ebola Screen: Patient denies travel to an Ebola-affected area in the 21 days before illness onset. No symptoms or risks identified at this time. Initial Sepsis Screen: Does the patient meet any 2 criteria? HR > 90 bpm. Does the patient have a suspected source of infection? No. Patient's initial sepsis screen is negative. Risk Assessment: Do you want to hurt yourself or someone else? Patient reports no desire to harm self or others. Onset of symptoms was May 31, 2023. 17:08 Method Of Arrival: Ambulatory cm10 17:08 Acuity: SERA 3 cm10 Triage Assessment: 17:10 General: Appears in no apparent distress. comfortable, Behavior is calm, cooperative. cm10 Pain: Complains of pain in suprapubic area, right lower quadrant and left lower quadrant. Historical: - Allergies: 17:10 Cipro; cm10 17:10 HYDROCODONE; cm10 17:10 Prednisone; cm10 - PMHx: 17:10 ulcertive colitis; Diverticulitis; cm10 - PSHx: 17:10 Cholecystectomy; hernia repair; cm10 - Immunization history:: Adult Immunizations up to date. - Social history:: Smoking status: Patient denies any tobacco usage or history of. Screenin:40 [facility] ED Fall Risk Assessment (Adult) History of falling in the last 3 months, kc6 including since admission No falls in past 3 months (0 pts) Confusion or Disorientation No (0 pts) Intoxicated or Sedated No (0 pts) Impaired Gait No (0 pts) Mobility Assist Device Used No (0 pt) Altered Elimination No (0 pt) Score/Fall Risk Level 0 - 2 = Low Risk. Abuse screen: Denies threats or abuse. Denies injuries from another. Nutritional screening: No deficits noted. Tuberculosis screening: No symptoms or risk factors identified. Assessment: 17:43 General: Appears in no apparent distress. uncomfortable, well groomed, well developed, kc6 Behavior is calm, cooperative, appropriate for age. Pain: Complains of pain in abdomen Quality of pain is described as crampy. Neuro: Level of Consciousness is awake, alert, obeys commands, Oriented to person, place, time, situation, Appropriate for age. Cardiovascular: Capillary refill < 3 seconds. Respiratory: Airway is patent Trachea midline Respiratory effort is even, unlabored, Respiratory pattern is regular, symmetrical. GI: Abdomen is flat, non-distended, Bowel sounds present X 4 quads. Abd is soft X 4 quads Reports diarrhea, nausea, Patient currently denies vomiting. : No signs and/or symptoms were reported regarding the genitourinary system. Urine is clear. EENT: No signs and/or symptoms were reported regarding the EENT system. Derm: No signs and/or symptoms reported regarding the dermatologic system. Skin is intact, is healthy with good turgor, Skin is pink, warm \T\ dry. Musculoskeletal: No signs and/or symptoms reported regarding the musculoskeletal system. Circulation, motion, and sensation intact. Capillary refill < 3 seconds, Range of motion: intact in all extremities. 18:48 Reassessment: Patient appears in no apparent distress at this time. No changes from kc6 previously documented assessment. Patient and/or family updated on plan of care and expected duration. Pain level reassessed. Patient is alert, oriented x 3, equal unlabored respirations, skin warm/dry/pink. 19:31 Reassessment: Patient appears in no apparent distress at this time. No changes from tm6 previously documented assessment. Patient and/or family updated on plan of care and expected duration. Pain level reassessed. Patient is alert, oriented x 3, equal unlabored respirations, skin warm/dry/pink. Vital Signs: 17:08 BP 126 / 65; Pulse 91; Resp 16; Temp 97.8; Pulse Ox 97% on R/A; Weight 92.08 kg; Height cm10 5 ft. 6 in. ; Pain 7/10; 18:48 BP 127 / 66; Pulse 86; Resp 17 S; Pulse Ox 98% on R/A; kc6 19:31 BP 125 / 57; tm6 20:45 BP 122 / 63; Pulse 87; Resp 19; Temp 97.7(TE); Pulse Ox 99% on R/A; tm6 17:08 Body Mass Index 32.76 (92.08 kg, 167.64 cm) cm10 17:08 Pain Scale: Adult cm10 ED Course: 16:46 Patient arrived in ED. ra3 16:47 Eric Arauz PA is PHCP. cp 16:47 Charlie Zamora MD is Attending Physician. cp 17:09 Triage completed. cm10 17:10 Arm band placed on Patient placed in an exam room, on a stretcher. cm10 17:11 Osiris Davies, ALISSA is Primary Nurse. kc6 17:40 Patient has correct armband on for positive identification. Bed in low position. Call kc6 light in reach. Side rails up X 1. Adult w/ patient. Client placed on continuous cardiac and pulse oximetry monitoring. NIBP monitoring applied. 17:40 Inserted saline lock: 20 gauge in right antecubital area, using aseptic technique. kc6 Blood collected. Patient maintains SpO2 saturation greater than 95% on room air. 18:18 CT Abd/Pelvis - IV Contrast Only In Process Unspecified. EDMS 20:46 No provider procedures requiring assistance completed. IV discontinued, intact, tm6 bleeding controlled, No redness/swelling at site. Pressure dressing applied. 20:47 Provided Education on: follow up with doc and med usage. tm6 Administered Medications: 17:39 Drug: NS 0.9% IV 1000 ml IV at 1 bolus Per protocol; 1000 mL bolus Route: IV; Rate: 1 kc6 bolus; Site: right antecubital; 17:40 Not Given (Patient Refused): [id number] mg IVP once; dilute with 10 mL 0.9% NaCl; kc6 give over 2 minutes 17:40 Drug: TORadol - Ketorolac IVP 15 mg IVP once Route: IVP; Site: right antecubital; kc6 18:07 Follow up: Response: No adverse reaction; Pain is decreased kc6 17:40 Drug: Ondansetron IVP 4 mg IVP once; over 2 minutes Route: IVP; Site: right antecubital;kc6 18:07 Follow up: Response: No adverse reaction; Nausea is decreased kc6 20:11 Drug: Amoxicillin-Clavulanate PO 875 mg PO once Route: PO; tm6 20:11 Drug: Dicyclomine IM 20 mg IM once Route: IM; Site: Other; tm6 20:12 Drug: Decadron - Dexamethasone IVP 10 mg IVP once Route: IVP; Site: right antecubital; tm6 Medication: 20:47 VIS not applicable for this client. tm6 Outcome: 20:14 Discharge ordered by MD. cp 20:46 Discharged to home ambulatory, tm6 20:46 Condition: stable 20:46 Discharge instructions given to patient, Instructed on discharge instructions, follow up and referral plans. medication usage, Demonstrated understanding of instructions, follow-up care, medications, Prescriptions given X 3, 20:47 Patient left the ED. tm6 Signatures: Dispatcher [employer] EDMS Eric Arauz PA PA cp Campbell, Kaitlyn, RN RN kc6 Maria Isabel Anders RN RN 10 Yobani French RN RN tm6 Maribel Siddiqui ra3 Corrections: (The following items were deleted from the chart) 17:39 17:39 Famotidine IVP 20 mg IVP in right antecubital kc6 kc6
[2023-05-31 21:16] VITALS: BP 122/63; TEMP 97.7; O2SAT 99
== END ==
LOC: ER 16:43
DX: K52.3 Indeterminate colitis (principal); Z88.1 Allergy status to other antibiotic agents; Z88.5 Allergy status to narcotic agent; Z88.8 Allergy status to other drugs, medicaments and biological substances
CPT/HCPCS: 85025; 81001; 36415; 81025; 83690; 80053; 74177; Q9967; J0500; J1100; J2405; J7030; 96372; 96374; 96375; 99285

== ENCOUNTER 2023-08-01 10:27 | Day surgery (SDC) | payer BC ==
[2023-07-31 10:12] LABS: Anion Gap 8.1 mEq/L (5.0-15.0); Potassium 4.1 mEq/L (3.5-5.1)
--- NOTE | 2023-07-31 16:42 | EKG ---
Test Date: 2023-07-31 Test Time: 09:32:48 Restaurant Mgr: CIARRA MEASUREMENT RESULTS: Intervals: Rate: 65 MI: 160 QRSD: 88 QT: 426 QTc: 443 Gibson: P: 49 MI: 160 QRS: -27 T: 5 INTERPRETIVE STATEMENTS: Normal sinus rhythm Minimal voltage criteria for LVH, may be normal variant Anterior infarct, age undetermined Abnormal ECG Compared to ECG 01/16/2023 12:15:53 No significant changes Electronically Signed On 07-31-23 16:41:30 CDT by Paulino Hoover
[2023-08-01] MEDS: Ringers Lactate 1,000 ML IV ONE (11:00)
[2023-08-01] MEDS: MEPERIDINE HCL 25 MG/ML SYR ONE (12:57)
[2023-08-01] MEDS ORDERED: METHYLENE BLUE 1% 10 ML VIAL ONE (12:58)
[2023-08-01] MEDS ORDERED: MIDAZOLAM HCL 2 MG/2 ML INJ ONE (13:16)
[2023-08-01] MEDS ORDERED: propofoL 200 MG/20 ML VIAL IV ONE (13:23)
[2023-08-01] MEDS ORDERED: FENTANYL CITR 100 MCG/2 ML ONE ×2 (13:23→13:57)
[2023-08-01] MEDS: CEFOXITIN SODIUM 2 GM/VIAL ONE (13:31)
[2023-08-01] MEDS ORDERED: ONDANSETRON 4 MG/2 ML VIAL ONE (13:32)
[2023-08-01] MEDS ORDERED: dexAMETHasone 10 MG/ML VIAL ONE (13:32)
[2023-08-01] MEDS: LIDOCAINE HCL/EPINEPHRINE 20 ML MDV ONE (14:06)
[2023-08-01] MEDS: LIDOCAINE JELLY 2% 5 ML SYRINGE TOP ONE (14:10)
[2023-08-01] MEDS ORDERED: SUCCINYLCHOLINE 20 MG/ML (10 ML) IV ONE (14:19)
[2023-08-01] MEDS ORDERED: SUGAMMADEX SODIUM 200 MG/2 ML VIAL IV ONE (14:19)
--- NOTE | 2023-08-01 14:33 | P.OP ---
Preoperative diagnosis: Grade IV internal and External Hemorrhoids Postoperative diagnosis: Grade IV internal and External Hemorrhoids Primary procedure: Exam under anesthesia Secondary procedure: Hemorrhoidectomy Anesthesia: GETA + Local Estimated blood loss: <5cc Specimen: Hemorrhoids Findings: Large Internal Hemorrhoids Complications: None Transferred to: Recovery Room Condition: Good
[2023-08-01] MEDS: HYDROMORPHONE HCL 1 MG/ML INJ ONE (14:53)
[2023-08-01] MEDS ORDERED: HYDROCODONE/APAP 7.5/325 MG TAB ONE (15:37)
--- NOTE | 2023-08-01 15:53 | OP ---
Date of Procedure: 08/01/2023 Surgeon: Jason Stevens MD, Preoperative Diagnosis: Grade 4 internal and external anal hemorrhoids. Postoperative Diagnosis: Grade 4 internal and external anal hemorrhoids. Procedures Performed: 1.Exam under anesthesia. 2.Hemorrhoidectomy. Anesthesia: General endotracheal plus local with 1% lidocaine with epinephrine. Estimated Blood Loss: Less than 5 cc. Specimen: Hemorrhoids. Findings: Large internal anal hemorrhoids among all 3 columns greater than 2 cm each. Complications: None. Disposition: Patient transferred to recovery room in good condition. Procedure In Detail: After informed consent was obtained, patient was brought to the operating room, prepped and draped in the usual sterile fashion after adequate anesthesia was achieved, patient will ined in lithotomy position, anesthetized the area of the perianal tissue with Allis extruded grade 4 prolapsed hemorrhoids of all 3 columns. They were approximately the size of a lemon. At this time, after injection of epinephrine, there was some shrinkage of the area allowing for easier manipulation of these hemorrhoids using the lidocaine and epinephrine mix. At this point, I scored the skin over lying these hemorrhoids and entered the subdermal plane the skin from the muscular planes and using the LigaSure device, I was able to ligate the hemorrhoids and sent it off for pathologic ex amination from all 3 columns. At this point, I then reapproximated the mucosa and submucosa to the r emaining anal skin using a running 3-0 chromic suture with good approximation of tissues. At this po int, the anal canal was irrigated copiously until completely dry. A Gelfoam was placed into the anus , after properly hydrating, which was soaked in lidocaine, I placed additional anesthesia in the charles anal region and the procedure was completed. The patient tolerated the procedure without incident or complication, transferred to PACU in good condition. All counts were correct at the end of the case . TK/MODL Voice ID: [id number] Report ID: [id number]
[2023-08-01] MEDS: CODEINE 30MG/APAP 300MG TAB ONE (16:00)
[2023-08-01 16:57] VITALS: BP 141/68; TEMP 99; O2SAT 96
== END 2023-08-01 16:37 | disposition home or self-care (01) ==
LOC: OR 10:27
PROVIDERS: ATTEND Surgery
PROC: 06BY0ZC Excision of Hemorrhoidal Plexus, Open Approach (ICD-10-PCS; principal; 2023-08-01 12:45)
DX: K64.3 Fourth degree hemorrhoids (principal); K64.9 Unspecified hemorrhoids
CPT/HCPCS: 93005; 80048; 36415; 84703; 88304; 46260; J2704; J2250; J3010 ×2; J1100; J2175; J1170; J0694; J2405; J7120

== ENCOUNTER 2023-10-03 21:16 | Emergency (ER) | payer BC ==
[2023-10-03] MEDS ORDERED: ONDANSETRON 4 MG/2 ML VIAL ONE (22:24)
[2023-10-03] MEDS ORDERED: NA CHLORIDE 0.9% 1,000 ML ONE (22:24)
[2023-10-03] MEDS ORDERED: FAMOTIDINE 20 MG/2 ML VIAL IV ONE (22:24)
[2023-10-03 22:30] LABS: Absolute Basophils 0.1 K/uL (0-0.5); Absolute Eosinophils 0.2 K/uL (0-0.5); Absolute Monocytes 0.6 K/uL (0.1-1.3); Absolute Neutrophil 6.6 K/uL (1.8-8.0); Basophils % 0.6 % (0-1.3); Eosinophils % 2.2 % (0-4.4); Hematocrit 41.5 % (36.0-45.0); Hemoglobin 14.2 g/dL (12.0-15.0); Lymphocytes % 21.4 % (15.3-44.8); MCH 29.7 pg (27.0-35.0); MCHC 34.2 g/dL (32.0-36.0); MCV 86.8 fL (80-100); Monocytes % 6.4 % (3.3-12.3); Neutrophils % 69.4 % (41.7-73.7); Nucleated Red Blood Cells % 0.1 % (0-0); Platelets 272 thou/uL (152-406); RBC Red Blood Cell Count 4.78 M/uL (3.86-4.86); Red Cell Distribution Width 13.4 % (12.1-15.2)
[2023-10-03 22:43] LABS: ALT/SGPT 26 U/L (13-56); Albumin 3.7 g/dL (3.4-5.0); Alkaline Phosphatase 72 U/L (45-117); Anion Gap 8.4 mEq/L (5.0-15.0); BUN Blood Urea Nitrogen 15 mg/dL (7-18); Bicarbonate 30 mEq/L (21-32); Bilirubin Total 0.8 mg/dL (0.2-1.0); Globulin 3.6 g/dL (2.3-3.5); Glomerular Filtration Rate 91 ml/min (=/>90); Glucose Level 108 mg/dL (74-106); Lipase 27 U/L (13-75); Potassium 3.4 mEq/L (3.5-5.1); Protein, Total 7.3 g/dL (6.4-8.2); Sodium Level 142 mEq/L (136-145)
[2023-10-03 22:54] LABS: AST/SGOT < 10 U/L (15-37)
[2023-10-03 23:05] LABS: Specific Gravity > 1.030 (1.005-1.030)
[2023-10-03 23:20] LABS: Calcium Oxalate Crystals- Ur Few /HPF (None Seen); Specific Gravity > 1.030 (1.005-1.030); Sqamous Epithelial 20-50 /HPF (None Seen); Urine Bacteria <20 /HPF (<20); Urine Bilirubin NEGATIVE (Negative); Urine Blood Negative (Negative); Urine Clarity Extremely Turbid (Clear); Urine Color Yellow (Yellow); Urine Culture Reflex Order NOT NEEDED; Urine Glucose NEGATIVE (Negative); Urine Ketones NEGATIVE (Negative); Urine Microscopic Reflex YN ORDER UMIC; Urine Mucus 2+ /HPF (None Seen); Urine Nitrite NEGATIVE (Negative); Urine Protein TRACE (Negative); Urine Urobilinogen Normal (Normal); Urine WBC 20-50 /HPF (<5); Urine pH 6.5 (5.0-7.0)
[2023-10-03] MEDS ORDERED: CEFTRIAXONE 1000 MG/VIAL ONE (23:29)
--- NOTE | 2023-10-04 00:11 | EDPHYS ---
Physician Documentation [facility] Name: Verna Paredes Age: 47 yrs Sex: Female : 1975 Arrival Date: 10/03/2023 Time: 21:16 Bed 6 Private MD: Eric Maher HPI: 10/03 00:03 This 47 yrs old Female presents to ER via Ambulatory with complaints of adrienne Abdominal Pain. 00:03 The patient presents with abdominal pain in the left upper quadrant, in the left lower adrienne quadrant, abdominal distention in the upper abdomen, in the lower abdomen. Onset: The symptoms/episode began/occurred 3 day(s) ago. The patient presents to the emergency department with nausea, diarrhea, abdominal pain, of the left upper quadrant and left lower quadrant. Onset: The symptoms/episode began/occurred 3 day(s) ago. Possible causes: unknown. The symptoms are aggravated by nothing. The symptoms are alleviated by nothing. The symptoms do not radiate. Modifying factors: The symptoms are alleviated by nothing, the symptoms are aggravated by nothing. MEDICATION AIDE: 10/02 22:15 LMP N/A - Post-menopause, Not rg5 Historical: - Allergies: 21:38 Cipro; al5 21:38 dicyclomine; al5 21:38 HYDROCODONE; al5 21:38 Prednisone; al5 - Home Meds: 21:38 mesalamine 1.2 gram Oral tablet 2 tabs daily for ulcerative colitis [Active]; al5 - PMHx: 21:38 Diverticulitis; ulcertive colitis; al5 - PSHx: 21:38 Cholecystectomy; hernia repair; al5 - Immunization history:: Adult Immunizations up to date. - Infectious Disease History:: Denies. - Social history:: Smoking status: Patient denies any tobacco usage or history of. - Family history:: not pertinent. ROS: 10/03 00:03 Constitutional: Negative for fever, chills, and weight loss, Eyes: Negative for injury, adrienne pain, redness, and discharge, ENT: Negative for injury, pain, and discharge, Neck: Negative for injury, pain, and swelling, Cardiovascular: Negative for chest pain, palpitations, and edema, Respiratory: Negative for shortness of breath, cough, wheezing, and pleuritic chest pain, Back: Negative for injury and pain, : Negative for injury, bleeding, discharge, and swelling, MS/Extremity: Negative for injury and deformity, Skin: Negative for injury, rash, and discoloration, Neuro: Negative for headache, weakness, numbness, tingling, and seizure, Psych: Negative for depression, anxiety, suicide ideation, homicidal ideation, and hallucinations, Allergy/Immunology: Negative for hives, rash, and allergies, Endocrine: Negative for neck swelling, polydipsia, polyuria, polyphagia, and marked weight changes, Hematologic/Lymphatic: Negative for swollen nodes, abnormal bleeding, and unusual bruising, Abdomen/GI: Positive for abdominal pain, abdominal cramps, abdominal distension, of the left upper quadrant and left lower quadrant, Exam: 00:03 Constitutional: This is a well developed, well nourished patient who is awake, alert, adrienne and in no acute distress. Head/Face: Normocephalic, atraumatic. Eyes: Pupils equal round and reactive to light, extra-ocular motions intact. Lids and lashes normal. Conjunctiva and sclera are non-icteric and not injected. Cornea within normal limits. Periorbital areas with no swelling, redness, or edema. ENT: Nares patent. No nasal discharge, no septal abnormalities noted. Tympanic membranes are normal and external auditory canals are clear. Oropharynx with no redness, swelling, or masses, exudates, or evidence of obstruction, uvula midline. Mucous membranes moist. Neck: Trachea midline, no thyromegaly or masses palpated, and no cervical lymphadenopathy. Supple, full range of motion without nuchal rigidity, or vertebral point tenderness. No Meningismus. Chest/axilla: Normal chest wall appearance and motion. Nontender with no deformity. No lesions are appreciated. Cardiovascular: Regular rate and rhythm with a normal S1 and S2. No gallops, murmurs, or rubs. Normal PMI, no JVD. No pulse deficits. Respiratory: Lungs have equal breath sounds bilaterally, clear to auscultation and percussion. No rales, rhonchi or wheezes noted. No increased work of breathing, no retractions or nasal flaring. Back: No spinal tenderness. No costovertebral tenderness. Full range of motion. Skin: Warm, dry with normal turgor. Normal color with no rashes, no lesions, and no evidence of cellulitis. MS/ Extremity: Pulses equal, no cyanosis. Neurovascular intact. Full, normal range of motion. Neuro: Awake and alert, GCS 15, oriented to person, place, time, and situation. Cranial nerves II-XII grossly intact. Motor strength 5/5 in all extremities. Sensory grossly intact. Cerebellar exam normal. Normal gait. Psych: Awake, alert, with orientation to person, place and time. Behavior, mood, and affect are within normal limits. 00:03 Abdomen/GI: Inspection: abdomen appears normal, distension, that is mild, Bowel sounds: normal, Palpation: mild abdominal tenderness, in the left upper quadrant and left lower quadrant, Liver: no appreciated palpable abnormalities, Hernia: not appreciated, Vital Signs: 10/02 21:36 BP 123 / 71; Pulse 90; Resp 18; Temp 97.5(TE); Pulse Ox 100% on R/A; Weight 97.07 kg; al5 Height 5 ft. 6 in. ; Pain 6/10; 22:15 BP 120 / 65; Pulse 89; Resp 18; Pain 8/10; rg5 22:57 BP 118 / 77; Pulse 76; Resp 18; Pulse Ox 98% on R/A; Pain 5/10; pc2 10/03 00:02 BP 129 / 71; Pulse 76; Resp 17; Temp 98; Pulse Ox 100% on R/A; Pain 4/10; rg5 10/02 21:36 Body Mass Index 34.54 (97.07 kg, 167.64 cm) al5 10/02 21:36 Pain Scale: Adult al5 22:15 Pain Scale: Adult rg5 22:57 Pain Scale: Adult pc2 10/03 00:02 Pain Scale: Adult rg5 Jose Coma Score: 00:02 Eye Response: spontaneous(4). Motor Response: obeys commands(6). Verbal Response: rg5 oriented(5). Total: 15. MDM: 10/02 21:44 Patient medically screened. [facility] 10/03 00:06 Differential diagnosis: Nonspecific abd pain, gastritis, pancreatitis, appendicitis, adrienne diverticulitis, viral gastroenteritis, gastroenteritis, bowel obstruction, diverticulitis, Dysmenorrhea, gastritis, gastroesophageal reflux disease, GI Bleed, Mesenteric ischemia or infarction, non-specific abd pain, pancreatitis, Peptic Ulcer Disease, Ureterolithiasis, urinary tract infection. Data reviewed: vital signs, nurses notes, lab test result(s), EKG, radiologic studies, CT scan. Consideration of Admission/Observation Escalation of care including admission/observation considered. I considered the following discharge prescriptions or medication management in the emergency department Medications were administered in the Emergency Department. See MAR. Independent interpretation of the following test(s) in the Emergency Department CT Scan: My interpretation is ct a/p with iv. Test considered but Not performed: Ultrasound no abd usg. Historians other than the Patient: Family Member: family well informed. Care significantly affected by the following chronic conditions: Obesity, uc and diverticulitis. 10/02 21:45 Order name: CBC with Diff; Complete Time: 23:22 [facility] 10/02 21:45 Order name: CMP; Complete Time: 23:22 [facility] 10/02 21:45 Order name: Lipase; Complete Time: 23:22 [facility] 10/02 21:45 Order name: Test, Urine; Complete Time: 23:22 [facility] 10/02 21:45 Order name: Urinalysis w/ reflexes; Complete Time: 23:22 [facility] 10/02 21:45 Order name: CT Abd/Pelvis - IV Contrast Only [facility] 10/02 21:45 Order name: IV Saline Lock; Complete Time: 22:23 [facility] 10/02 21:45 Order name: Labs collected and sent; Complete Time: 22:23 [facility] Administered Medications: 10/02 22:31 Drug: NS 0.9% IV 1000 ml IV at 1 bolus Per protocol; 1000 mL bolus Route: IV; Rate: 1 rg5 bolus; Site: right antecubital; 23:28 Follow up: IV Status: Completed infusion; IV Intake: 1000ml pc2 23:28 Follow up: Response: No adverse reaction pc2 10/03 00:15 Follow up: IV Status: Completed infusion rg5 00:16 Follow up: IV Status: Completed infusion rg5 10/02 22:57 Drug: Ondansetron IVP 4 mg IVP once; over 2 minutes Route: IVP; Site: right antecubital;rg5 23:28 Follow up: Response: No adverse reaction pc2 22:57 Not Given (Patient Refused): morphineor iv 4 mg IVP once over 4 mins rg5 22:58 Not Given (Patient Refused): [id number] mg IVP once; dilute with 10 mL 0.9% NaCl; rg5 give over 2 minutes 23:40 Drug: Rocephin IV 1 grams IV at per protocol once; Given slow IV push per pharmacy pc2 instructions Route: IV; Rate: per protocol; Site: right antecubital; 10/03 00:15 Follow up: IV Status: Completed infusion rg5 00:24 Drug: Cefdinir PO Suspension 300 mg PO once Route: PO; rg5 00:25 Follow up: Response: No adverse reaction rg5 00:25 Not Given (Patient Refused): potassiumeffervescent tablet 25 meq PO once; dissolve in 4 rg5 ounces of water or juice Disposition Summary: 10/04/23 00:10 Discharge Ordered Notes: Location: Home [facility] Problem: new adrienne Symptoms: have improved adrienne Condition: Stable adrienne Diagnosis - Other viral enteritis adrienne - UTI/ Urinary tract infection, site not specified adrienne - Abdominal tenderness adrienne - Hypokalemia adrienne Followup: adrienne - With: Private Physician - When: 2 - 3 days - Reason: Recheck today's complaints, Continuance of care, Re-evaluation by your physician Discharge Instructions: - Discharge Summary Sheet adrienne - Abdominal Pain, Adult adrienne - Food Choices to Help Relieve Diarrhea, Adult adrienne - Diarrhea, Adult adrienne - Potassium Content of Foods adrienne - Urinary Tract Infection, Adult adrienne - Urinary Tract Infection, Adult, [id number] adrienne - Abdominal Pain, Adult, [id number] adrienne - Diarrhea, Adult, [id number] adrienne - Hypokalemia [facility] Forms: - Medication Reconciliation Form [facility] - Antibiotic Education adrienne - Prescription Opioid Use adrienne - Patient Portal Instructions [facility] - Leadership Thank You Letter [facility] Prescriptions: - cefdinir 300 mg Oral capsule - take 1 capsule ORAL route every 12 hours; 10 capsule; Refills: 0, Product adrienne Selection Permitted - ondansetron 4 mg Oral Tablet,disintegrating - take 1 tablet ORAL route every 6-8 hours; 20 tablet; Refills: 0, Product adrienne Selection Permitted - Potassium Chloride 20 meq Oral Packet - take 1 packet ORAL route once daily 1 packet in 6 (six) ounces of water or adrienne juice; Take after meal; 14 packet; Refills: 0, Product Selection Permitted Signatures: Dispatcher [employer] Eric Fernando MD MD cha Gallardo, Rommel RN RN rg5 Francy Terry RN RN al5 Hannah martin, RN RN pc2 Corrections: (The following items were deleted from the chart) 10/02 21:46 21:46 CBC+H.LAB.BRZ ordered. EDMS EDMS 21:46 21:46 COMPREHENSIVE METABOLIC PANEL+C.LAB.BRZ ordered. EDMS EDMS 21:46 21:46 LIPASE+C.LAB.BRZ ordered. EDMS EDMS 21:46 21:46 Test, Urine+UC.LAB.BRZ ordered. EDMS EDMS 21:46 21:46 Urinalysis+U.LAB.BRZ ordered. EDMS EDMS
--- NOTE | 2023-10-04 00:11 | ER ---
Nurse's Notes [facility] Name: Verna Paredes Age: 47 yrs Sex: Female : 1975 Arrival Date: 10/03/2023 Time: 21:16 Bed 6 Private MD: Diagnosis: Other viral enteritis;UTI/ Urinary tract infection, site not specified;Abdominal tenderness;Hypokalemia Presentation: 10/02 21:36 Chief complaint: Patient states: LUQ pain radiates to gastric area x2 months. al5 Coronavirus screen: Client denies travel out of the [place] in the last 14 days. Ebola Screen: Patient denies exposure to infectious person. Patient denies travel to an Ebola-affected area in the 21 days before illness onset. No symptoms or risks identified at this time. Initial Sepsis Screen: Does the patient meet any 2 criteria? No. Patient's initial sepsis screen is negative. Does the patient have a suspected source of infection? No. Patient's initial sepsis screen is negative. Risk Assessment: Do you want to hurt yourself or someone else? Patient reports no desire to harm self or others. Onset of symptoms was August 06, 2023. 21:36 Method Of Arrival: Ambulatory al5 21:36 Acuity: SERA 3 al5 Triage Assessment: 21:39 General: Appears uncomfortable, Behavior is calm, cooperative. Pain: Complains of pain al5 in left upper quadrant Pain radiates to umbilical area Pain currently is 6 out of 10 on a pain scale. Quality of pain is described as dull, sharp, Pain began 2 months ago Is continuous. Neuro: Level of Consciousness is awake, alert, obeys commands, Oriented to person, place, time, situation, Speech is normal, Facial symmetry appears normal. Cardiovascular: Patient's skin is warm and dry. Respiratory: Airway is patent Trachea midline Respiratory effort is even, unlabored, Respiratory pattern is regular, symmetrical. GI: Abdomen is obese, Reports upper abdominal pain, nausea, Pain is 7 out of 10 on a pain scale. GI: Reports. Derm: Skin is intact, Skin is pink, warm \T\ dry. normal, Skin temperature is warm. BURNISHER: 22:15 LMP N/A - Post-menopause, Not rg5 Historical: - Allergies: 21:38 Cipro; al5 21:38 dicyclomine; al5 21:38 HYDROCODONE; al5 21:38 Prednisone; al5 - Home Meds: 21:38 mesalamine 1.2 gram Oral tablet 2 tabs daily for ulcerative colitis [Active]; al5 - PMHx: 21:38 Diverticulitis; ulcertive colitis; al5 - PSHx: 21:38 Cholecystectomy; hernia repair; al5 - Immunization history:: Adult Immunizations up to date. - Infectious Disease History:: Denies. - Social history:: Smoking status: Patient denies any tobacco usage or history of. - Family history:: not pertinent. Screenin:20 [facility] ED Fall Risk Assessment (Adult) History of falling in the last 3 months, pc2 including since admission No falls in past 3 months (0 pts) Confusion or Disorientation No (0 pts) Intoxicated or Sedated No (0 pts) Impaired Gait No (0 pts) Mobility Assist Device Used No (0 pt) Altered Elimination No (0 pt) Score/Fall Risk Level 0 - 2 = Low Risk Oriented to surroundings, Maintained a safe environment, Hourly rounding (assess needs \T\ fall precautionary measures) done. Abuse screen: Denies threats or abuse. Denies injuries from another. Nutritional screening: No deficits noted. Tuberculosis screening: No symptoms or risk factors identified. Assessment: 22:19 General: Appears in no apparent distress. uncomfortable, obese, Behavior is calm, pc2 cooperative, appropriate for age. Pain: Complains of pain in left upper quadrant Pain radiates to umbilical area Pain currently is 6 out of 10 on a pain scale. Quality of pain is described as aching, dull, sharp, Is episodic. Neuro: Level of Consciousness is awake, alert, obeys commands, Oriented to person, place, time, situation, Appropriate for age. Neuro: Reports dizziness, hx of vertigo. took meclizine at 5pm. Cardiovascular: Patient's skin is warm and dry. Respiratory: Airway is patent Respiratory effort is even, unlabored, Respiratory pattern is regular, symmetrical. GI: Abdomen is round non-distended, Bowel sounds present X 4 quads. Abd is soft. GI: Patient reports hx of colitis. Denies diarrhea or constipation at this time. : No signs and/or symptoms were reported regarding the genitourinary system. EENT: No signs and/or symptoms were reported regarding the EENT system. Derm: No signs and/or symptoms reported regarding the dermatologic system. Derm: Skin is pink, warm \T\ dry. Musculoskeletal: No signs and/or symptoms reported regarding the musculoskeletal system. Circulation, motion, and sensation intact. 23:05 Reassessment: Patient is alert, oriented x 3, equal unlabored respirations, skin pc2 warm/dry/pink. Patient states symptoms have improved. Vital Signs: 21:36 BP 123 / 71; Pulse 90; Resp 18; Temp 97.5(TE); Pulse Ox 100% on R/A; Weight 97.07 kg; al5 Height 5 ft. 6 in. ; Pain 6/10; 22:15 BP 120 / 65; Pulse 89; Resp 18; Pain 8/10; rg5 22:57 BP 118 / 77; Pulse 76; Resp 18; Pulse Ox 98% on R/A; Pain 5/10; pc2 10/03 00:02 BP 129 / 71; Pulse 76; Resp 17; Temp 98; Pulse Ox 100% on R/A; Pain 4/10; rg5 10/02 21:36 Body Mass Index 34.54 (97.07 kg, 167.64 cm) al5 10/02 21:36 Pain Scale: Adult al5 22:15 Pain Scale: Adult rg5 22:57 Pain Scale: Adult pc2 10/03 00:02 Pain Scale: Adult rg5 [place] Coma Score: 00:02 Eye Response: spontaneous(4). Motor Response: obeys commands(6). Verbal Response: rg5 oriented(5). Total: 15. ED Course: 10/02 21:20 Patient arrived in ED. jj6 21:38 Triage completed. al5 21:39 Arm band placed on right wrist. Patient placed in an exam room, on a stretcher. al5 21:44 Eric Varela MD is Attending Physician. adrienne 22:09 Hannah martin, RN is Primary Nurse. pc2 22:19 Inserted saline lock: 20 gauge in right antecubital area, using aseptic technique. pc2 Blood collected. 22:59 Patient has correct armband on for positive identification. Bed in low position. Call pc2 light in reach. Side rails up X2. Provided Education on: POC and time frame. 23:00 No provider procedures requiring assistance completed. pc2 23:10 CT Abd/Pelvis - IV Contrast Only In Process Unspecified. EDOR 10/03 00:02 Door closed. Warm blanket given. rg5 00:02 IV is intact. rg5 00:39 IV discontinued, bleeding controlled. rg5 Administered Medications: 10/02 22:31 Drug: NS 0.9% IV 1000 ml IV at 1 bolus Per protocol; 1000 mL bolus Route: IV; Rate: 1 rg5 bolus; Site: right antecubital; 23:28 Follow up: IV Status: Completed infusion; IV Intake: 1000ml pc2 23:28 Follow up: Response: No adverse reaction pc2 10/03 00:15 Follow up: IV Status: Completed infusion rg5 00:16 Follow up: IV Status: Completed infusion rg5 10/02 22:57 Drug: Ondansetron IVP 4 mg IVP once; over 2 minutes Route: IVP; Site: right antecubital;rg5 23:28 Follow up: Response: No adverse reaction pc2 22:57 Not Given (Patient Refused): morphineor iv 4 mg IVP once over 4 mins rg5 22:58 Not Given (Patient Refused): [id number] mg IVP once; dilute with 10 mL 0.9% NaCl; rg5 give over 2 minutes 23:40 Drug: Rocephin IV 1 grams IV at per protocol once; Given slow IV push per pharmacy pc2 instructions Route: IV; Rate: per protocol; Site: right antecubital; 10/03 00:15 Follow up: IV Status: Completed infusion rg5 00:24 Drug: Cefdinir PO Suspension 300 mg PO once Route: PO; rg5 00:25 Follow up: Response: No adverse reaction rg5 00:25 Not Given (Patient Refused): potassiumeffervescent tablet 25 meq PO once; dissolve in 4 rg5 ounces of water or juice Medication: 10/02 23:00 VIS not applicable for this client. pc2 Intake: 23:28 IV: 1000ml; Total: 1000ml. pc2 Outcome: 10/03 00:10 Discharge ordered by . adrienne 00:39 Discharged to home ambulatory, with family, rg5 00:39 Condition: stable 00:39 Discharge instructions given to patient, Instructed on discharge instructions, follow up and referral plans. medication usage, 00:40 Patient left the ED. rg5 Signatures: Dispatcher [employer] EDOR Eric Varela MD MD cha Jeffries, Jennifer jj6 Bj Alvarado, RN RN rg5 Francy Terry, RN RN al5 Hannah martin, RN RN pc2
[2023-10-04] MEDS ORDERED: CEFDINIR 300 MG CAP PO ONE (00:21)
[2023-10-04 01:12] VITALS: O2SAT 100
[2023-10-04 01:35] VITALS: BP 129/71
[2023-10-04 01:36] VITALS: TEMP 98
--- NOTE | 2023-10-05 12:22 | RAD REPORT ---
EXAM DESCRIPTION: CT - Abdomen Pelvis W Contrast - 10/04/2023 7:13 am CLINICAL HISTORY: 47-year-old female with abdominal pain. COMPARISON: 08/27/2023. TECHNIQUE: CT of the abdomen and pelvis was performed following intravenous administration of contra st. Oral contrast was not administered. Multiplanar reformatted images were provided. This exam was p erformed according to our departmental dose optimization program which includes use of automated expo sure control, adjustment of the mA and/or kV according to patient size and/or use of iterative recons truction technique. FINDINGS: Chest: Evaluation through the lung bases reveals no focal opacity, pleural effusion or pne umothorax. Heart size is within normal limits. No pericardial effusion. Abdomen and pelvis: The liver, pancreas, spleen, bilateral kidneys and bilateral adrenal glands are w ithin normal limits. Surgical clips at the level of the gallbladder fossa status post cholecystectomy. The vessels are patent and normal in caliber. No abdominopelvic lymph nodes are noted to be pathologically enlarged by CT measurement criteria. The bowel is within normal limits without abnormal bowel wall thickness or bowel dilation. Unformed s tool present throughout the large and small bowel compatible with liquid fecal content/diarrhea, rais ing the question of enteritis. No free air. No free abdominopelvic fluid collections. The appendix is within normal limits. The osseous structures demonstrate degenerative change of L4-5 with near-complete loss of disc height , endplate sclerosis and vacuum disc phenomenon with severe left-sided neural foraminal narrowing sec ondary to bony osseous spurring/disc calcification and facet hypertrophy. Moderate to severe neurofor aminal narrowing on the right secondary to posterior osseous spurring and disc bulge. IMPRESSION: 1. No specific acute intra-abdominal findings are noted to suggest etiology of the pat ient's abdominal pain. 2. Unformed stool present throughout the large and small bowel compatible with liquid fecal content /diarrhea, raising the question of enteritis. 3. Lower lumbar spine degenerative changes as detailed above may be further evaluated with MRI Electronically signed by: Laquita Mcnamara MD 10/03/2023 11:35 PM CDT RP Due to temporary technical issues with the PACS/Fluency reporting system, reports are being signed by the in house radiologist without review as a courtesy to ensure prompt reporting. The interpreting r adiologist is fully responsible for the content of the report.
== END 2023-10-04 00:40 | disposition home or self-care (01) ==
LOC: ER 21:16
DX: A08.39 Other viral enteritis (principal); N39.0 Urinary tract infection, site not specified; E87.6 Hypokalemia; Z88.1 Allergy status to other antibiotic agents; Z88.5 Allergy status to narcotic agent; Z88.8 Allergy status to other drugs, medicaments and biological substances
CPT/HCPCS: 85025; 81001; 36415; 81025; 83690; 80053; 74177; Q9967; J2405; J7030; J0696; 96361; 96365; 96375; 99284

== ENCOUNTER 2023-12-24 18:14 | Emergency (ER) | payer BC ==
[2023-12-24] MEDS ORDERED: NA CHLORIDE 0.9% 1,000 ML ONE (20:36)
[2023-12-24] MEDS ORDERED: ONDANSETRON 4 MG/2 ML VIAL ONE (20:36)
[2023-12-24] MEDS ORDERED: MORPHINE 4 MG/ML SYR ONE ×2 (20:36→22:54)
[2023-12-24 21:11] LABS: Absolute Basophils 0.1 K/uL (0-0.5); Absolute Eosinophils 0.2 K/uL (0-0.5); Absolute Lymphocytes (CBC) 2.1 K/uL (0.7-4.9); Absolute Monocytes 0.5 K/uL (0.1-1.3); Absolute Neutrophil 5.5 K/uL (1.8-8.0); Basophils % 0.7 % (0-1.3); Eosinophils % 2.3 % (0-4.4); Hematocrit 40.3 % (36.0-45.0); Hemoglobin 13.8 g/dL (12.0-15.0); Lymphocytes % 25.5 % (15.3-44.8); MCH 30.3 pg (27.0-35.0); MCHC 34.2 g/dL (32.0-36.0); MCV 88.7 fL (80-100); MPV 9.6 fL (7.6-11.3); Monocytes % 6.4 % (3.3-12.3); Neutrophils % 65.1 % (41.7-73.7); Nucleated Red Blood Cells % 0.1 % (0-0); Platelets 213 thou/uL (152-406); RBC Red Blood Cell Count 4.54 M/uL (3.86-4.86); Red Cell Distribution Width 13.6 % (12.1-15.2)
[2023-12-24 21:13] LABS: Specific Gravity > 1.030 (1.005-1.030); Sqamous Epithelial <5 /HPF (None Seen); Urine Bacteria None Seen /HPF (<20); Urine Bilirubin NEGATIVE (Negative); Urine Blood Negative (Negative); Urine Clarity Turbid (Clear); Urine Color Yellow (Yellow); Urine Culture Reflex Order NOT NEEDED; Urine Glucose NEGATIVE (Negative); Urine Ketones NEGATIVE (Negative); Urine Microscopic Reflex YN ORDER UMIC; Urine Mucus 1+ /HPF (None Seen); Urine Nitrite NEGATIVE (Negative); Urine Protein TRACE (Negative); Urine Urobilinogen Normal (Normal); Urine pH 6.5 (5.0-7.0)
[2023-12-24 21:26] LABS: ALT/SGPT 23 U/L (13-56); Albumin 3.6 g/dL (3.4-5.0); Alkaline Phosphatase 58 U/L (45-117); Anion Gap 10.1 mEq/L (5.0-15.0); BUN Blood Urea Nitrogen 13 mg/dL (7-18); Bicarbonate 27 mEq/L (21-32); Globulin 3.5 g/dL (2.3-3.5); Glomerular Filtration Rate 110 ml/min (=/>90); Glucose Level 86 mg/dL (74-106); Lipase 34 U/L (13-75); Potassium 4.1 mEq/L (3.5-5.1); Protein, Total 7.1 g/dL (6.4-8.2); Sodium Level 141 mEq/L (136-145)
[2023-12-24 21:38] LABS: AST/SGOT < 10 U/L (15-37)
--- NOTE | 2023-12-24 22:32 | RAD REPORT ---
EXAMINATION: CT ABDOMEN AND PELVIS WITH CONTRAST CLINICAL INDICATION: Abdominal pain. Lower abdominal pain TECHNIQUE: CT abdomen and pelvis was performed, after the administration of 100 cc Isovue-300.. Sagit eliot and coronal reconstructions were obtained. One or more of the following dose reduction techniques were used: Automated exposure control, adjustment of the mA and/or kV according to patien t size, and/or iterative reconstruction. Unless otherwise specified, incidental findings do not require dedicated imaging follow-up. [id number]. COMPARISON: September 2023 FINDINGS: The liver, spleen, pancreas, adrenals and kidneys appear unremarkable There is no evidence of diverticulitis Cholecystectomy. No adnexal mass Appendix not seen. No stranding adjacent to the cecum. 1.1 cm area of increased density has developed within the left aspect of the uterus. : IMPRESSION: 1.1 cm area of increased density within the uterus may represent a small bleed in this patient status post recent biopsy.. It appears contained within the uterine parenchyma. No free fluid noted.
--- NOTE | 2023-12-24 22:48 | ER ---
Nurse's Notes [facility] Name: Verna Paredes Age: 48 yrs Sex: Female : 1975 Arrival Date: 12/24/2023 Time: 18:14 Bed 26 Private MD: Diagnosis: Abdominal pain, unspecified Presentation: 12/23 18:51 Chief complaint: Patient states: had procedure done at 2pm yesterday at obgyn -- tm6 removed samples from uterine lining. Doctor said my cramping was supposed to stop by last night, but it has not. Coronavirus screen: Vaccine status: Patient reports receiving the 2nd dose of the covid vaccine. Ebola Screen: Patient negative for fever greater than or equal to 101.5 degrees Fahrenheit, and additional compatible Ebola Virus Disease symptoms Patient denies exposure to infectious person. Patient denies travel to an Ebola-affected area in the 21 days before illness onset. No symptoms or risks identified at this time. Initial Sepsis Screen: Does the patient meet any 2 criteria? No. Patient's initial sepsis screen is negative. Does the patient have a suspected source of infection? No. Patient's initial sepsis screen is negative. Risk Assessment: Do you want to hurt yourself or someone else? Patient reports no desire to harm self or others. Onset of symptoms was December 23, 2023. 18:51 Method Of Arrival: Ambulatory tm6 18:51 Acuity: SERA 3 tm6 Triage Assessment: 18:51 General: Appears in no apparent distress. uncomfortable, Behavior is calm, cooperative. tm6 Pain: Complains of pain in suprapubic area Pain currently is 7 out of 10 on a pain scale. Quality of pain is described as stabbing, squeezing, Pain began 1 day ago. EENT: No signs and/or symptoms were reported regarding the EENT system. Neuro: Level of Consciousness is awake, alert, obeys commands, Oriented to person, place, time, situation. Cardiovascular: Patient's skin is warm and dry. Respiratory: Airway is patent Respiratory effort is even, unlabored, Respiratory pattern is regular, symmetrical. GI: No signs and/or symptoms were reported involving the gastrointestinal system. : Reports cramping, pain in suprapubic area. Derm: No signs and/or symptoms reported regarding the dermatologic system. Musculoskeletal: No signs and/or symptoms reported regarding the musculoskeletal system. 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 - Infectious Disease History:: Denies. - Social history:: Smoking status: Patient denies any tobacco usage or history of. Patient/guardian denies using alcohol. Screenin:06 [facility] ED Fall Risk Assessment (Adult) History of falling in the last 3 months, tl4 including since admission No falls in past 3 months (0 pts) Confusion or Disorientation No (0 pts) Intoxicated or Sedated No (0 pts) Impaired Gait No (0 pts) Mobility Assist Device Used No (0 pt) Altered Elimination No (0 pt) Score/Fall Risk Level 0 - 2 = Low Risk Oriented to surroundings, Maintained a safe environment, Educated pt \T\ family on fall prevention, incl call for assistance when getting out of bed, Assessed \T\ reinforced patient's understanding of fall precautions. Abuse screen: Denies threats or abuse. Denies injuries from another. Nutritional screening: No deficits noted. Tuberculosis screening: No symptoms or risk factors identified. Assessment: 21:05 General: Appears in no apparent distress. Behavior is calm, cooperative. Pain: tl4 Complains of pain in pelvis and suprapubic area. Neuro: Level of Consciousness is awake, alert, obeys commands, Oriented to person, place, time, situation. Cardiovascular: Capillary refill < 3 seconds Patient's skin is warm and dry. Respiratory: Airway is patent Respiratory effort is even, unlabored, Respiratory pattern is regular, symmetrical, Breath sounds are clear bilaterally. GI: Bowel sounds present X 4 quads. Abd is soft and non tender Reports lower abdominal pain. : No signs and/or symptoms were reported regarding the genitourinary system. EENT: No signs and/or symptoms were reported regarding the EENT system. Derm: No signs and/or symptoms reported regarding the dermatologic system. Musculoskeletal: No signs and/or symptoms reported regarding the musculoskeletal system. Vital Signs: 18:48 Pulse 59; Resp 19; Temp 98.5(O); Pulse Ox 99% on R/A; Weight 92.53 kg; Height 5 ft. 6 tm6 in. ; Pain 7/10; 18:48 BP 120 / 67; tm6 19:30 BP 121 / 69; Pulse 61; Resp 17; Pulse Ox 98% on R/A; tl4 20:00 BP 128 / 72; Pulse 66; Resp 16; Pulse Ox 99% on R/A; tl4 20:30 BP 119 / 74; Pulse 60; Resp 19; Pulse Ox 99% on R/A; Pain 7/10; tl4 21:00 BP 137 / 72; Pulse 56; Resp 18; Pulse Ox 98% on R/A; tl4 21:30 BP 127 / 64; Pulse 58; Resp 16; Pulse Ox 99% on R/A; tl4 22:48 BP 122 / 73; Pulse 70; Resp 18; Temp 97.8(O); Pulse Ox 97% on R/A; tl4 18:48 Body Mass Index 32.93 (92.53 kg, 167.64 cm) tm6 18:48 Pain Scale: Adult tm6 20:30 Pain Scale: Adult tl4 ED Course: 18:16 Patient arrived in ED. im 18:51 Arm band placed on right wrist. tm6 18:52 Triage completed. tm6 19:00 Eric Arauz PA is PHCP. cp 19:00 Eric Varela MD is Attending Physician. cp 20:29 Jas Swanson, ALISSA is Primary Nurse. tl4 20:59 CBC with Diff Sent. tl4 20:59 CMP Sent. tl4 20:59 Lipase Sent. tl4 20:59 Urinalysis w/ reflexes Sent. tl4 21:06 Patient has correct armband on for positive identification. Placed in gown. Bed in low tl4 position. Call light in reach. Side rails up X 1. Adult w/ patient. Provided Education on: ed process, call [facility]. Client placed on continuous cardiac and pulse oximetry monitoring. NIBP monitoring applied. Door closed. Noise minimized. Lights dimmed. Moved to private room. Warm blanket given. 21:07 No provider procedures requiring assistance completed. Initial lab(s) drawn, by me, tl4 sent to lab. Urine collected: clean catch specimen. Inserted saline lock: 22 gauge in left upper arm, using aseptic technique. Blood collected. Flushed with 10 mL NS. 22:03 CT Abd/Pelvis - IV Contrast Only In Process Unspecified. EDMS 23:01 IV discontinued, intact, bleeding controlled, No redness/swelling at site. Pressure tl4 dressing applied. Administered Medications: 20:59 Drug: NS 0.9% IV 1000 ml IV at 1 bolus Per protocol; 1000 mL bolus Route: IV; Rate: 1 tl4 bolus; Site: left upper arm; Delivery: Primary tubing; 22:47 Follow up: Response: No adverse reaction; IV Status: Completed infusion; IV Intake: tl4 1000ml 20:59 Drug: Ondansetron IVP 4 mg IVP once; over 2 minutes Route: IVP; Infused Over: 2 mins; tl4 Site: left upper arm; 22:47 Follow up: Response: No adverse reaction tl4 20:59 Drug: morphine IVP or IV 4 mg IVP once over 4 mins Route: IVP; Infused Over: 4 mins; tl4 Site: left upper arm; 22:47 Follow up: Response: No adverse reaction; Pain is decreased tl4 22:55 Drug: morphine IVP or IV 4 mg IVP once over 4 mins Route: IVP; Infused Over: 4 mins; tl4 Site: left upper arm; 23:05 Follow up: Response: No adverse reaction; Pain is decreased tl4 Medication: 21:05 VIS not applicable for this client. tl4 Intake: 22:47 IV: 1000ml; Total: 1000ml. tl4 Outcome: 22:48 Discharge ordered by . jairo 23:01 Discharged to home ambulatory, with family, tl4 23:01 Condition: stable 23:01 Discharge instructions given to patient, Instructed on discharge instructions, follow up and referral plans. Demonstrated understanding of instructions, follow-up care, 23:05 Patient left the ED. tl4 Signatures: Dispatcher [employer] EDOH Eric Arauz PA PA cp Mendoza, Itzel im Masterson, Tawney, RN RN tm6 Logdahl, Jas, RN RN tl4
--- NOTE | 2023-12-24 22:48 | EDPHYS ---
Physician Documentation [facility] Name: Verna Paredes Age: 48 yrs Sex: Female : 1975 Arrival Date: 12/24/2023 Time: 18:14 Bed 26 Private MD: TANI Physician Eric Varela HPI: 12/23 19:30 This 48 yrs old Female presents to ER via Ambulatory with complaints of Abdominal cp Cramping. 19:30 The patient presents with lower abdominal cramping and pain. cp 19:30 Onset: The symptoms/episode began/occurred yesterday, and became worse today. cp Associated signs and symptoms: Pertinent negatives: fever, vaginal bleeding, urinary symptoms. Severity of symptoms: in the emergency department the symptoms are unchanged, despite home interventions. 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 - Infectious Disease History:: Denies. - Social history:: Smoking status: Patient denies any tobacco usage or history of. Patient/guardian denies using alcohol. ROS: 19:35 Constitutional: Negative for body aches, chills, fever, poor PO intake, cp 19:35 Eyes: Negative for injury, pain, redness, and discharge, cp 19:35 Cardiovascular: Negative for chest pain, palpitations, 19:35 Respiratory: Negative for cough, shortness of breath, wheezing, 19:35 Abdomen/GI: Positive for abdominal pain, nausea, Negative for vomiting, diarrhea, constipation, 19:35 : Negative for urinary symptoms, vaginal bleeding, 19:35 Neuro: Negative for altered mental status, dizziness, headache, weakness, 19:35 All other systems are negative, Exam: 19:40 Constitutional: The patient appears in no acute distress, alert, awake, non-toxic, well cp developed, well nourished, uncomfortable, 19:40 Head/Face: Normocephalic, atraumatic. cp 19:40 Eyes: Periorbital structures: appear normal, Conjunctiva: normal, no acute changes, Sclera: no appreciated abnormality, Lids and lashes: appear normal, bilaterally, 19:40 ENT: External ear(s): are unremarkable, Nose: is normal, Mouth: Lips: moist, Oral mucosa: pink and intact, moist, Posterior pharynx: is normal, airway is patent, no erythema, no exudate, 19:40 Chest/axilla: Inspection: normal, 19:40 Cardiovascular: Rate: bradycardic, Rhythm: regular, 19:40 Respiratory: the patient does not display signs of respiratory distress, Respirations: normal, no use of accessory muscles, no retractions, labored breathing, is not present, Breath sounds: are clear throughout, no decreased breath sounds, no stridor, no wheezing, 19:40 Abdomen/GI: Inspection: abdomen appears normal, Bowel sounds: active, all quadrants, Palpation: soft, in all quadrants, moderate abdominal tenderness, in the right lower quadrant and left lower quadrant, rebound tenderness, is not appreciated, voluntary guarding, is elicited in the right lower quadrant and left lower quadrant, 19:40 Back: CVA tenderness, is absent, Vital Signs: 18:48 Pulse 59; Resp 19; Temp 98.5(O); Pulse Ox 99% on R/A; Weight 92.53 kg; Height 5 ft. 6 tm6 in. ; Pain 7/10; 18:48 BP 120 / 67; tm6 19:30 BP 121 / 69; Pulse 61; Resp 17; Pulse Ox 98% on R/A; tl4 20:00 BP 128 / 72; Pulse 66; Resp 16; Pulse Ox 99% on R/A; tl4 20:30 BP 119 / 74; Pulse 60; Resp 19; Pulse Ox 99% on R/A; Pain 7/10; tl4 21:00 BP 137 / 72; Pulse 56; Resp 18; Pulse Ox 98% on R/A; tl4 21:30 BP 127 / 64; Pulse 58; Resp 16; Pulse Ox 99% on R/A; tl4 22:48 BP 122 / 73; Pulse 70; Resp 18; Temp 97.8(O); Pulse Ox 97% on R/A; tl4 18:48 Body Mass Index 32.93 (92.53 kg, 167.64 cm) tm6 18:48 Pain Scale: Adult tm6 20:30 Pain Scale: Adult tl4 MDM: 19:00 Patient medically screened. 22:47 Data reviewed: vital signs, nurses notes, lab test result(s), radiologic studies, cp ultrasound, and as a result, I will discharge patient. 22:47 Differential diagnosis: urinary tract infection, sepsis. I considered the following cp discharge prescriptions or medication management in the emergency department Medications were administered in the Emergency Department. See MAR. Counseling: I had a detailed discussion with the patient and/or guardian regarding the historical points, exam findings, and any diagnostic results supporting the discharge/admit diagnosis, lab results, radiology results, to return to the emergency department if symptoms worsen or persist or if there are any questions or concerns that arise at home. 12/23 19:24 Order name: CBC with Diff; Complete Time: 21:44 12/23 21:44 Interpretation: Reviewed. 12/23 19:24 Order name: CMP; Complete Time: 21:44 12/23 21:44 Interpretation: Normal except: CL 108; AST < 10; A/G 1.0. 12/23 19:24 Order name: Lipase; Complete Time: 21:44 12/23 19:24 Order name: Urinalysis w/ reflexes; Complete Time: 21:44 12/23 21:44 Interpretation: Normal except: UCLA Turbid; Urine SG > 1.030; UPROT TRACE; UESTR 75; cp URBC 5-10. 12/23 19:24 Order name: CT Abd/Pelvis - IV Contrast Only; Complete Time: 22:37 cp 12/23 19:24 Order name: IV Saline Lock; Complete Time: 20:59 12/23 19:24 Order name: Labs collected and sent; Complete Time: 20:59 cp Administered Medications: 20:59 Drug: NS 0.9% IV 1000 ml IV at 1 bolus Per protocol; 1000 mL bolus Route: IV; Rate: 1 tl4 bolus; Site: left upper arm; Delivery: Primary tubing; 22:47 Follow up: Response: No adverse reaction; IV Status: Completed infusion; IV Intake: tl4 1000ml 20:59 Drug: Ondansetron IVP 4 mg IVP once; over 2 minutes Route: IVP; Infused Over: 2 mins; tl4 Site: left upper arm; 22:47 Follow up: Response: No adverse reaction tl4 20:59 Drug: morphine IVP or IV 4 mg IVP once over 4 mins Route: IVP; Infused Over: 4 mins; tl4 Site: left upper arm; 22:47 Follow up: Response: No adverse reaction; Pain is decreased tl4 22:55 Drug: morphine IVP or IV 4 mg IVP once over 4 mins Route: IVP; Infused Over: 4 mins; tl4 Site: left upper arm; 23:05 Follow up: Response: No adverse reaction; Pain is decreased tl4 Disposition Summary: 12/24/23 22:48 Discharge Ordered Notes: Location: Home cp Problem: new cp Symptoms: have improved cp Condition: Stable cp Diagnosis - Abdominal pain, unspecified cp Followup: cp - With: Private Physician - When: 2 - 3 days - Reason: Recheck today's complaints Discharge Instructions: - Discharge Summary Sheet cp - Abdominal Pain, Adult cp Forms: - Medication Reconciliation Form cp - Antibiotic Education cp - Prescription Opioid Use cp - Patient Portal Instructions cp - Leadership Thank You Letter cp Signatures: Dispatcher [employer] EDMS Eric Arauz PA PA cp Yobani French RN RN tm6 Jas Swanson RN RN tl4 Corrections: (The following items were deleted from the chart) 19:24 19:24 Abdomen Pelvis W Con+CT.RAD.BRZ ordered. EDMS EDMS
[2023-12-24 23:15] VITALS: BP 122/73; TEMP 97.8; O2SAT 97
== END 2023-12-24 23:05 | disposition home or self-care (01) ==
LOC: ER 18:14
DX: R10.30 Lower abdominal pain, unspecified (principal); Z88.5 Allergy status to narcotic agent; Z88.8 Allergy status to other drugs, medicaments and biological substances
CPT/HCPCS: 96361; 85025; 81001; 36415; 83690; 80053; 74177; 96375; 96374; 99284; Q9967; J2405; J7030

== ENCOUNTER 2024-01-16 09:23 | Day surgery (SDC) | payer BC ==
[2024-01-16 09:07] LABS: Specific Gravity 1.021 (1.005-1.030)
[2024-01-16] MEDS: Ringers Lactate 1,000 ML IV ONE (10:10)
[2024-01-16] MEDS ORDERED: propofoL 200 MG/20 ML VIAL IV ONE ×2 (10:56)
[2024-01-16 12:55] VITALS: O2SAT 100
--- NOTE | 2024-01-16 13:36 | RAD REPORT ---
Procedure: Chest Single View History: Chest pain Comparison: May 2023 Findings: The lungs appear clear of acute infiltrate. No significant pleural effusion noted. The heart is normal size. Free air is not visualized beneath the diaphragm. IMPRESSION: No acute abnormality is displayed.
[2024-01-16] MEDS ORDERED: HYDROCODONE/APAP 7.5/325 MG TAB ONE (14:32)
[2024-01-16 15:06] VITALS: BP 151/83; TEMP 99
== END 2024-01-16 14:40 | disposition home or self-care (01) ==
LOC: OR 09:23
PROVIDERS: ATTEND Surgery
PROC: 0DBN8ZX Excision of Sigmoid Colon, Via Natural or Artificial Opening Endoscopic, Diagnostic (ICD-10-PCS; 2024-01-16)
PROC: 0DBC8ZX Excision of Ileocecal Valve, Via Natural or Artificial Opening Endoscopic, Diagnostic (ICD-10-PCS; 2024-01-16)
PROC: 0DBH8ZX Excision of Cecum, Via Natural or Artificial Opening Endoscopic, Diagnostic (ICD-10-PCS; 2024-01-16)
PROC: 0DBK8ZX Excision of Ascending Colon, Via Natural or Artificial Opening Endoscopic, Diagnostic (ICD-10-PCS; principal; 2024-01-16 11:00)
DX: Z12.11 Encounter for screening for malignant neoplasm of colon (principal); K51.90 Ulcerative colitis, unspecified, without complications; K60.1 Chronic anal fissure; K64.8 Other hemorrhoids; D12.2 Benign neoplasm of ascending colon; D12.0 Benign neoplasm of cecum; D12.5 Benign neoplasm of sigmoid colon; Z86.0100 Personal history of colon polyps, unspecified
CPT/HCPCS: 45385; 45380; 81025; 88305; 71045; J2704 ×2; J7120

== ENCOUNTER 2024-01-16 14:49 | Emergency (ER) | payer BC ==
[2024-01-16 15:32] LABS: Absolute Basophils 0.1 K/uL (0-0.5); Absolute Eosinophils 0.1 K/uL (0-0.5); Absolute Lymphocytes (CBC) 1.8 K/uL (0.7-4.9); Absolute Monocytes 0.5 K/uL (0.1-1.3); Absolute Neutrophil 6.9 K/uL (1.8-8.0); Basophils % 0.7 % (0-1.3); Eosinophils % 0.9 % (0-4.4); Hematocrit 44.3 % (36.0-45.0); Hemoglobin 14.9 g/dL (12.0-15.0); Lymphocytes % 19.4 % (15.3-44.8); MCH 29.6 pg (27.0-35.0); MCHC 33.7 g/dL (32.0-36.0); MCV 87.9 fL (80-100); MPV 9.9 fL (7.6-11.3); Monocytes % 5.3 % (3.3-12.3); Neutrophils % 73.7 % (41.7-73.7); Platelets 234 thou/uL (152-406); RBC Red Blood Cell Count 5.04 M/uL (3.86-4.86); Red Cell Distribution Width 13.6 % (12.1-15.2)
[2024-01-16] MEDS ORDERED: ONDANSETRON 4 MG/2 ML VIAL ONE (15:35)
[2024-01-16] MEDS ORDERED: NA CHLORIDE 0.9% 1,000 ML ONE (15:36)
[2024-01-16] MEDS ORDERED: FENTANYL CITR 100 MCG/2 ML ONE (15:36)
--- NOTE | 2024-01-16 15:38 | RAD REPORT ---
EXAMINATION: CT ABDOMEN AND PELVIS WITHOUT CONTRAST CLINICAL INDICATION: Abdominal pain status post colonoscopy TECHNIQUE: CT abdomen and pelvis was performed, as per department protocol. IV contrast and oral was not administered.Axial, sagittal and coronal reconstructions were obtained. One or more of the following dose reduction techniques were used: Automated exposure control, adjustment of the mA and/o r kV according to the patient size, and/or iterative reconstruction. Unless otherwise specified, incidental findings do not require dedicated imaging follow-up. [id number]. COMPARISON: December 2023 FINDINGS: The lack of intravenous and contrast limits the sensitivity of this exam for evaluation of solid visc eral organs, vascular structures, and bowel. The liver, spleen, pancreas, adrenals and kidneys appear grossly normal No evidence of diverticulitis. Cholecystectomy. No adnexal mass. No free air seen IMPRESSION: No acute abnormality displayed
[2024-01-16 15:45] LABS: Albumin 3.8 g/dL (3.4-5.0); Anion Gap 9.4 mEq/L (5.0-15.0); Bilirubin Total 1.8 mg/dL (0.2-1.0); Globulin 3.7 g/dL (2.3-3.5); Potassium 3.4 mEq/L (3.5-5.1); Protein, Total 7.5 g/dL (6.4-8.2)
--- NOTE | 2024-01-16 16:22 | EDPHYS ---
Physician Documentation [facility] Name: Verna Paredes Age: 48 yrs Sex: Female : 1975 Arrival Date: 01/16/2024 Time: 14:49 Bed 26 Private MD: ED Physician Isaac Lara HPI: 01/15 15:15 This 48 yrs old Female presents to ER via Wheelchair with complaints of ec2 Abdominal Pain. 15:15 Patient arrives today d/t concern for abd pain after recent colonoscopy. Pt reports ec2 having issues w/ distention. some nausea, no vomiting. Hx of UC. 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 - Infectious Disease History:: Denies. - Social history:: Smoking status: Patient denies any tobacco usage or history of. Patient/guardian denies using alcohol. ROS: 15:16 Constitutional: as per hpi ec2 Exam: 15:16 Constitutional: GEN: NAD Head: atraumatic Eyes: EOMI Ears: External ears are ec2 normal. CV: regular rate LUNGS: no respiratory distress ABD: Soft, generally tender, distended SKIN: no evidence of rashes MSK: no evidence of trauma Vital Signs: 14:55 Pulse 69; Resp 17; Temp 98.2(O); Pulse Ox 100% ; Weight 89.81 kg; Height 5 ft. 6 in. ; tm6 Pain 9/10; 14:56 BP 130 / 56; MAP 78 mmHg; tm6 16:02 BP 134 / 60; Pulse 61; Resp 18; Pulse Ox 98% on R/A; Pain 8/10; tl4 17:00 BP 119 / 65; Pulse 69; Resp 16; Temp 97.8(O); Pulse Ox 99% on R/A; tl4 14:55 Body Mass Index 31.96 (89.81 kg, 167.64 cm) tm6 14:55 Pain Scale: Adult tm6 16:02 Pain Scale: Adult tl4 MDM: 15:16 Data reviewed: vital signs. ED course: Patient arrives today d/t concern for abd pain ec2 and distention. Exam remarkable for abd findings as above. will obtain labs, ct imaging and treat pt's symptoms. . 15:42 ED course: CBC reassuring, CT abdomen pelvis shows no acute intra-abdominal process. . ec2 16:21 Patient medically screened. ec2 01/15 15:03 Order name: CBC with Diff; Complete Time: 15:42 ec2 01/15 15:03 Order name: CMP; Complete Time: 15:53 ec2 01/15 15:09 Order name: CT Abd/Pelvis - Without Contrast; Complete Time: 15:42 ec2 01/15 15:03 Order name: IV Saline Lock; Complete Time: 15:08 ec2 01/15 15:03 Order name: Labs collected and sent; Complete Time: 15:21 ec2 Administered Medications: 16:04 Drug: NS 0.9% IV 1000 ml IV at 1000 ml once; to be given as a bolus over 60 minutes tl4 Route: IV; Rate: 1000 ml; Site: right hand; Delivery: Primary tubing; 17:04 Follow up: Response: No adverse reaction; IV Status: Completed infusion; IV Intake: tl4 1000ml 16:04 Drug: Ondansetron IVP 4 mg IVP once; over 2 minutes Route: IVP; Infused Over: 2 mins; tl4 Site: right hand; 17:03 Follow up: Response: No adverse reaction; Nausea is decreased tl4 16:05 Drug: fentaNYL (PF) IVP 25 mcg IVP once Route: IVP; Site: right hand; tl4 17:04 Follow up: Response: No adverse reaction; Pain is decreased tl4 Disposition Summary: 01/16/24 16:21 Discharge Ordered Notes: Location: Home ec2 Condition: Stable ec2 Diagnosis - Abdominal distension (gaseous) ec2 Followup: ec2 - With: Private Physician - When: - Reason: Re-evaluation by your physician Discharge Instructions: - Discharge Summary Sheet ec2 - Abdominal Pain, Adult ec2 Forms: - Medication Reconciliation Form ec2 - Antibiotic Education ec2 - Prescription Opioid Use ec2 - Patient Portal Instructions ec2 - Leadership Thank You Letter ec2 Prescriptions: - simethicone 180 mg Oral capsule - take 1 capsule ORAL route daily; 30 capsule; Refills: 0, Product Selection ec2 Permitted - acetaminophen-codeine 300-30 mg Oral tablet - take 1 tablet ORAL route every 12 hours; 10 tablet; Refills: 0, Product ec2 Selection Permitted Signatures: Dispatcher [employer] EDMS Isaac Lara MD MD ec2 Yobani French RN RN tm6 Jas Swanson RN RN tl4 Corrections: (The following items were deleted from the chart) 15:03 15:03 CBC+H.LAB.BRZ ordered. EDMS EDMS 15:03 15:03 COMPREHENSIVE METABOLIC PANEL+C.LAB.BRZ ordered. EDMS EDMS 15:10 15:10 Abdomen Pelvis Wo Con+CT.RAD.BRZ ordered. EDMS EDMS
--- NOTE | 2024-01-16 16:22 | ER ---
Nurse's Notes [facility] Name: Verna Paredes Age: 48 yrs Sex: Female : 1975 Arrival Date: 01/16/2024 Time: 14:49 Bed 26 Private MD: Diagnosis: Abdominal distension (gaseous) Presentation: 01/15 14:56 Chief complaint: Patient states: came in for colonoscopy today, post procedure has not tm6 passed gas for several hours and having severe abdominal pain (hurts worse on the left). Was sent over from same day surgery. IV in place due to being a difficult stick. Coronavirus screen: Client denies travel out of the [place] in the last 14 days. Ebola Screen: Patient negative for fever greater than or equal to 101.5 degrees Fahrenheit, and additional compatible Ebola Virus Disease symptoms Patient denies exposure to infectious person. Patient denies travel to an Ebola-affected area in the 21 days before illness onset. No symptoms or risks identified at this time. Initial Sepsis Screen: Does the patient meet any 2 criteria? No. Patient's initial sepsis screen is negative. Does the patient have a suspected source of infection? No. Patient's initial sepsis screen is negative. Risk Assessment: Do you want to hurt yourself or someone else? Patient reports no desire to harm self or others. Onset of symptoms was January 16, 2024. 14:56 Method Of Arrival: Wheelchair tm6 14:56 Acuity: SERA 3 tm6 Triage Assessment: 14:58 General: Appears uncomfortable, Behavior is cooperative. Pain: Complains of pain in tm6 abdomen Pain currently is 9 out of 10 on a pain scale. Quality of pain is described as sharp, stabbing, Pain began 2 hours ago. EENT: No signs and/or symptoms were reported regarding the EENT system. Neuro: Level of Consciousness is awake, alert, obeys commands, Oriented to person, place, time, situation. Cardiovascular: Patient's skin is warm and dry. Respiratory: Airway is patent Respiratory effort is even, unlabored. GI: Reports lower abdominal pain, upper abdominal pain, nausea. : No signs and/or symptoms were reported regarding the genitourinary system. Derm: No signs and/or symptoms reported regarding the dermatologic system. Musculoskeletal: No signs and/or symptoms reported regarding the musculoskeletal system. 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 - Infectious Disease History:: Denies. - Social history:: Smoking status: Patient denies any tobacco usage or history of. Patient/guardian denies using alcohol. Screenin:03 [facility] ED Fall Risk Assessment (Adult) History of falling in the last 3 months, tl4 including since admission No falls in past 3 months (0 pts) Confusion or Disorientation No (0 pts) Intoxicated or Sedated No (0 pts) Impaired Gait No (0 pts) Mobility Assist Device Used No (0 pt) Altered Elimination No (0 pt) Score/Fall Risk Level 0 - 2 = Low Risk Oriented to surroundings, Maintained a safe environment, Educated pt \T\ family on fall prevention, incl call for assistance when getting out of bed, Assessed \T\ reinforced patient's understanding of fall precautions. Abuse screen: Denies threats or abuse. Denies injuries from another. Nutritional screening: No deficits noted. Tuberculosis screening: No symptoms or risk factors identified. Assessment: 16:00 General: Appears uncomfortable, Behavior is calm, cooperative. Pain: Complains of pain tl4 in abdomen. Neuro: Level of Consciousness is awake, alert, obeys commands, Oriented to person, place, time, situation, Speech is normal. Cardiovascular: Capillary refill < 3 seconds Patient's skin is warm and dry. Respiratory: Airway is patent Respiratory effort is even, unlabored, Respiratory pattern is regular, symmetrical, Breath sounds are clear bilaterally. GI: Bowel sounds present X 4 quads. Abd is soft and non tender X 4 quads. GI: Reports passing large blood clot from her rectum s/p colonoscopy. : No signs and/or symptoms were reported regarding the genitourinary system. EENT: No signs and/or symptoms were reported regarding the EENT system. Derm: No signs and/or symptoms reported regarding the dermatologic system. Musculoskeletal: No signs and/or symptoms reported regarding the musculoskeletal system. Vital Signs: 14:55 Pulse 69; Resp 17; Temp 98.2(O); Pulse Ox 100% ; Weight 89.81 kg; Height 5 ft. 6 in. ; tm6 Pain 9/10; 14:56 BP 130 / 56; MAP 78 mmHg; tm6 16:02 BP 134 / 60; Pulse 61; Resp 18; Pulse Ox 98% on R/A; Pain 8/10; tl4 17:00 BP 119 / 65; Pulse 69; Resp 16; Temp 97.8(O); Pulse Ox 99% on R/A; tl4 14:55 Body Mass Index 31.96 (89.81 kg, 167.64 cm) tm6 14:55 Pain Scale: Adult tm6 16:02 Pain Scale: Adult tl4 ED Course: 14:51 Patient arrived in ED. mg5 14:58 Triage completed. tm6 14:58 Arm band placed on right wrist. tm6 15:00 Maintain EMS IV. Dressing intact. Site clean \T\ dry. Gauge \T\ site: 22g r hand, placed by tm 6 same day surgery. 15:02 Isaac Lara MD is Attending Physician. ec2 15:20 Jas Swanson, RN is Primary Nurse. tl4 15:21 CBC with Diff Sent. ap3 15:21 CMP Sent. ap3 15:32 CT Abd/Pelvis - Without Contrast In Process Unspecified. EDMS 16:03 Patient has correct armband on for positive identification. Placed in gown. Bed in low tl4 position. Call light in reach. Side rails up X2. Adult w/ patient. Provided Education on: ed process, call [facility]. Client placed on continuous cardiac and pulse oximetry monitoring. NIBP monitoring applied. Door closed. Noise minimized. Lights dimmed. Moved to private room. Warm blanket given. 16:04 No provider procedures requiring assistance completed. tl4 17:05 IV discontinued, intact, bleeding controlled, No redness/swelling at site. Pressure tl4 dressing applied. Administered Medications: 16:04 Drug: NS 0.9% IV 1000 ml IV at 1000 ml once; to be given as a bolus over 60 minutes tl4 Route: IV; Rate: 1000 ml; Site: right hand; Delivery: Primary tubing; 17:04 Follow up: Response: No adverse reaction; IV Status: Completed infusion; IV Intake: tl4 1000ml 16:04 Drug: Ondansetron IVP 4 mg IVP once; over 2 minutes Route: IVP; Infused Over: 2 mins; tl4 Site: right hand; 17:03 Follow up: Response: No adverse reaction; Nausea is decreased tl4 16:05 Drug: fentaNYL (PF) IVP 25 mcg IVP once Route: IVP; Site: right hand; tl4 17:04 Follow up: Response: No adverse reaction; Pain is decreased tl4 Medication: 16:03 VIS not applicable for this client. tl4 Intake: 17:04 IV: 1000ml; Total: 1000ml. tl4 Outcome: 16:21 Discharge ordered by . ec2 17:05 Discharged to home via wheelchair, with family, tl4 17:05 Condition: stable 17:05 Discharge instructions given to patient, Instructed on discharge instructions, follow up and referral plans. medication usage, Demonstrated understanding of instructions, follow-up care, medications, Prescriptions given X 2, 17:10 Patient left the ED. tl4 Signatures: Dispatcher [employer] Francy Cordova RN RN ap3 Farida Nice mg5 Isaac Lara MD MD ec2 Yobani French RN RN tm6 Jas Swanson RN RN tl4
[2024-01-16 20:23] VITALS: TEMP 98.2
[2024-01-16 20:25] VITALS: BP 134/60; O2SAT 98
== END 2024-01-16 17:10 | disposition home or self-care (01) ==
LOC: ER 14:49
DX: R14.0 Abdominal distension (gaseous) (principal); Z98.890 Other specified postprocedural states
CPT/HCPCS: 85025; 36415; 80053; 74176; J3010; J2405; J7030; 96361; 96374; 96375; 99284

== ENCOUNTER 2024-01-23 17:06 | Emergency (ER) | payer BC ==
[2024-01-23] MEDS ORDERED: FAMOTIDINE 20 MG/2 ML VIAL IV ONE (18:06)
[2024-01-23] MEDS ORDERED: ONDANSETRON 4 MG/2 ML VIAL ONE (18:06)
[2024-01-23] MEDS ORDERED: NA CHLORIDE 0.9% 2,000 ML ONE (18:06)
[2024-01-23 18:10] LABS: Absolute Eosinophils 0.2 K/uL (0-0.5); Absolute Lymphocytes (CBC) 0.9 K/uL (0.7-4.9); Absolute Monocytes 0.5 K/uL (0.1-1.3); Absolute Neutrophil 5.4 K/uL (1.8-8.0); Basophils % 0.5 % (0-1.3); Eosinophils % 2.6 % (0-4.4); Hematocrit 42.1 % (36.0-45.0); Hemoglobin 14.5 g/dL (12.0-15.0); Lymphocytes % 13.1 % (15.3-44.8); MCH 30.3 pg (27.0-35.0); MCHC 34.5 g/dL (32.0-36.0); MCV 87.9 fL (80-100); MPV 9.8 fL (7.6-11.3); Monocytes % 6.8 % (3.3-12.3); Platelets 225 thou/uL (152-406); RBC Red Blood Cell Count 4.79 M/uL (3.86-4.86); Red Cell Distribution Width 13.1 % (12.1-15.2)
[2024-01-23 18:13] LABS: Sqamous Epithelial <5 /HPF (None Seen); Urine Bacteria <20 /HPF (<20); Urine Bilirubin NEGATIVE (Negative); Urine Blood Negative (Negative); Urine Clarity Extremely Turbid (Clear); Urine Color Yellow (Yellow); Urine Crystals Unidentified Few /HPF (None Seen); Urine Culture Reflex Order REFLEXED; Urine Glucose NEGATIVE (Negative); Urine Ketones NEGATIVE (Negative); Urine Microscopic Reflex YN ORDER UMIC; Urine Mucus 1+ /HPF (None Seen); Urine Nitrite NEGATIVE (Negative); Urine Protein TRACE (Negative); Urine Urobilinogen Normal (Normal); Urine WBC Clump Occasional /HPF (None Seen); Urine Yeast (Budding) Moderate /HPF (None Seen); Urine pH 8.5 (5.0-7.0)
[2024-01-23 18:27] LABS: ALT/SGPT 20 U/L (13-56); Albumin 3.8 g/dL (3.4-5.0); Alkaline Phosphatase 74 U/L (45-117); Anion Gap 6.7 mEq/L (5.0-15.0); BUN Blood Urea Nitrogen 10 mg/dL (7-18); Bicarbonate 29 mEq/L (21-32); Bilirubin Total 1.2 mg/dL (0.2-1.0); Globulin 3.8 g/dL (2.3-3.5); Glomerular Filtration Rate 91 ml/min (=/>90); Glucose Level 96 mg/dL (74-106); Lipase 21 U/L (13-75); Potassium 3.7 mEq/L (3.5-5.1); Protein, Total 7.6 g/dL (6.4-8.2); Sodium Level 138 mEq/L (136-145)
[2024-01-23 18:30] LABS: AST/SGOT < 10 U/L (15-37)
[2024-01-23] MEDS ORDERED: CEFTRIAXONE 1000 MG/VIAL ONE (19:20)
[2024-01-23] MEDS ORDERED: CEFDINIR 300 MG CAP PO ONE (19:20)
--- NOTE | 2024-01-23 19:44 | RAD REPORT ---
EXAMINATION: CT ABDOMEN AND PELVIS WITH CONTRAST CLINICAL INDICATION: Abdominal pain TECHNIQUE: CT abdomen and pelvis was performed, after the administration of 100 cc Isovue-300.. Sagit eliot and coronal reconstructions were obtained. One or more of the following dose reduction techniques were used: Automated exposure control, adjustment of the mA and kV according to patient si ze, and iterative reconstruction. Unless otherwise specified, incidental findings do not require dedicated imaging follow-up. [id number]. Oral contrast was not given which limits evaluation of bowel and appendix. COMPARISON: December 2023 FINDINGS: Liver, spleen, pancreas, adrenals and kidneys appear unremarkable Cholecystectomy. No evidence of diverticulitis. No adnexal mass. Fluid within large and small bowel : IMPRESSION: Fluid within large and small bowel may indicate an enteritis
--- NOTE | 2024-01-23 21:24 | ER ---
Nurse's Notes [facility] Name: Verna Paredes Age: 48 yrs Sex: Female : 1975 Arrival Date: 01/23/2024 Time: 17:06 Bed 18 Private MD: Diagnosis: Diarrhea, unspecified;Abdominal tenderness;UTI/ Urinary tract infection, site not specified Presentation: 01/22 17:18 Chief complaint: Patient states: she has had diarrhea since 1700 yesterday. patient ap3 denies any nausea or vomiting. patient states she had a colonoscopy on 01/16/24. Coronavirus screen: At this time, the client does not indicate any symptoms associated with coronavirus-19. Ebola Screen: No symptoms or risks identified at this time. Initial Sepsis Screen: Does the patient meet any 2 criteria? No. Patient's initial sepsis screen is negative. Does the patient have a suspected source of infection? No. Patient's initial sepsis screen is negative. Risk Assessment: Do you want to hurt yourself or someone else? Patient reports no desire to harm self or others. Onset of symptoms was January 22, 2024 at 17:00. 17:18 Method Of Arrival: Ambulatory ap3 17:18 Acuity: SERA 3 ap3 Triage Assessment: 17:19 General: Appears in no apparent distress. Behavior is calm, cooperative, appropriate ap3 for age. Pain: Complains of pain in abdomen Pain currently is 1 out of 10 on a pain scale. Quality of pain is described as sore. Neuro: Level of Consciousness is awake, alert, obeys commands, Oriented to person, place, time, situation, Appropriate for age. Cardiovascular: Patient's skin is warm and dry. Respiratory: Airway is patent Respiratory effort is even, unlabored, Respiratory pattern is regular, symmetrical. GI: Reports diarrhea. 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 - Infectious Disease History:: Denies. - Social history:: Smoking status: Patient denies any tobacco usage or history of. Screenin:20 [facility] ED Fall Risk Assessment (Adult) History of falling in the last 3 months, ap3 including since admission No falls in past 3 months (0 pts) Confusion or Disorientation No (0 pts) Intoxicated or Sedated No (0 pts) Impaired Gait No (0 pts) Mobility Assist Device Used No (0 pt) Altered Elimination No (0 pt) Score/Fall Risk Level 0 - 2 = Low Risk Oriented to surroundings, Maintained a safe environment, Educated pt \T\ family on fall prevention, incl call for assistance when getting out of bed, Assessed \T\ reinforced patient's understanding of fall precautions, Hourly rounding (assess needs \T\ fall precautionary measures) done, Used ambulatory aids as needed (educated on \T\ assisted with), Used gait belt as appropriate. Abuse screen: Denies threats or abuse. Nutritional screening: No deficits noted. Tuberculosis screening: No symptoms or risk factors identified. Assessment: 17:45 General: Appears comfortable, ill, well groomed, well developed, well nourished, me1 Behavior is calm, cooperative, appropriate for age, Reports she has had diarrhea since 1700 yesterday. patient denies any nausea or vomiting. patient states she had a colonoscopy on 01/16/24. 17:45 Pain: Denies pain. Neuro: Level of Consciousness is awake, alert, obeys commands, me1 Oriented to person, place, time, situation, Appropriate for age. Cardiovascular: Patient's skin is warm and dry. Respiratory: Airway is patent Respiratory effort is even, unlabored, Respiratory pattern is regular, symmetrical. GI: Abdomen is round Bowel sounds present X 4 quads. Reports diarrhea. : No signs and/or symptoms were reported regarding the genitourinary system. EENT: No signs and/or symptoms were reported regarding the EENT system. Derm: Skin is intact, is healthy with good turgor, Skin is pink, warm \T\ dry. Musculoskeletal: No signs and/or symptoms reported regarding the musculoskeletal system. 19:09 Reassessment: Patient appears in no apparent distress at this time. Patient and/or kj2 family updated on plan of care and expected duration. Pain level reassessed. Patient is alert, oriented x 3, equal unlabored respirations, skin warm/dry/pink. 20:36 Reassessment: Patient appears in no apparent distress at this time. Patient and/or kj2 family updated on plan of care and expected duration. Pain level reassessed. Patient is alert, oriented x 3, equal unlabored respirations, skin warm/dry/pink. 21:41 Reassessment: Patient appears in no apparent distress at this time. Patient and/or kj2 family updated on plan of care and expected duration. Pain level reassessed. Patient is alert, oriented x 3, equal unlabored respirations, skin warm/dry/pink. Vital Signs: 17:18 BP 123 / 87; Pulse 77; Resp 16; Temp 97.2; Pulse Ox 98% ; Weight 90.26 kg; Height 2 ft. ap3 6 in. ; 18:15 BP 116 / 71; Pulse 65; Resp 16; Pulse Ox 98% ; me1 18:55 BP 147 / 70; Pulse 61; Resp 16; Pulse Ox 98% ; me1 20:36 BP 137 / 70; Pulse 62; Resp 16; Pulse Ox 98% on R/A; kj2 21:41 BP 132 / 78; Pulse 64; Resp 18; Temp 97.9; Pulse Ox 100% on R/A; kj2 17:18 Body Mass Index 155.46 (90.26 kg, 76.2 cm) ap3 ED Course: 17:08 Patient arrived in ED. im 17:09 Eric Varela MD is Attending Physician. adrienne 17:19 Triage completed. ap3 17:20 Arm band placed on left wrist. ap3 17:45 Patient has correct armband on for positive identification. Bed in low position. Call me1 light in reach. Side rails up X2. Provided Education on: POC. Verbalized understanding. . Client placed on continuous cardiac and pulse oximetry monitoring. NIBP monitoring applied. Pulse ox on. NIBP on. 17:45 No provider procedures requiring assistance completed. me1 18:03 CBC with Diff Sent. nh2 18:03 CMP Sent. nh2 18:03 Lipase Sent. nh2 18:03 Test, Urine Sent. nh2 18:03 Urinalysis w/ reflexes Sent. nh2 18:03 Inserted saline lock: 24 gauge in right antecubital area, using aseptic technique. nh2 Blood collected. Flushed with 10 mL NS Accessed. 18:04 Sirisha Patel RN is Primary Nurse. me1 18:12 Eric Arauz PA is PHCP. cp 19:00 CT Abd/Pelvis - IV Contrast Only In Process Unspecified. EDMS 19:02 Urine Culture Sent. me1 19:09 Report received from ALISSA Grimm. kj2 20:36 Fecal Leukocyte Stain Sent. kj2 20:36 Stool Culture Sent. kj2 21:24 Jason Stevens MD is Referral Physician. cp 21:41 IV discontinued, intact, bleeding controlled, No redness/swelling at site. Pressure kj2 dressing applied. Administered Medications: 18:16 Not Given (Patient Refused): [id number] mg IVP once; dilute with 10 mL 0.9% NaCl; me1 give over 2 minutes 18:16 Drug: Ondansetron IVP 4 mg IVP once; over 2 minutes Route: IVP; Site: right antecubital;me1 19:02 Follow up: Response: No adverse reaction; Nausea is decreased me1 18:16 Drug: NS 0.9% IV 1000 ml IV at 1 bolus Per protocol; to be given as a bolus over 60 me1 minutes Route: IV; Rate: 1 bolus; Site: right antecubital; 21:41 Follow up: Response: No adverse reaction; IV Status: Completed infusion; IV Intake: ha1 1000ml 18:16 Drug: NS 0.9% IV 1000 ml IV at 1000 ml once; to be given as a bolus over 60 minutes me1 Route: IV; Rate: 1000 ml; Site: right antecubital; 19:16 Follow up: IV Status: Completed infusion; IV Intake: 1000ml kj2 19:45 Drug: Rocephin IV 1 grams IV at per protocol once; Given slow IV push per pharmacy kj2 instructions Route: IV; Rate: per protocol; Site: right antecubital; 21:39 Follow up: IV Status: Completed infusion; IV Intake: 10ml kj2 21:39 Follow up: Response: No adverse reaction kj2 19:45 Drug: Cefdinir PO 300 mg PO once Route: PO; kj2 21:38 Follow up: Response: No adverse reaction kj2 Medication: 17:45 VIS not applicable for this client. me1 Intake: 19:16 IV: 1000ml; Total: 1000ml. kj2 21:39 IV: 10ml; Total: 1010ml. kj2 21:41 IV: 1000ml; Total: 2010ml. ha1 Outcome: 21:24 Discharge ordered by MD. cp 21:40 Discharged to home ambulatory, kj2 21:40 Condition: stable 21:40 Discharge instructions given to patient, Instructed on discharge instructions, follow up and referral plans. medication usage, Demonstrated understanding of instructions, follow-up care, medications, Prescriptions given X 4, 21:42 Patient left the ED. ha1 Signatures: Dispatcher [employer] EDMS Eric Varela MD MD cha Page, Corey, PA PA cp Prokisch, Amanda RN RN ap3 Meagan Piedra RN RN ha1 Rose Mark Michelle RN RN co1 Tamar Bran RN RN kj2 Gustabo Griffin, Wicho [facility] Corrections: (The following items were deleted from the chart) 18:56 17:18 Chief complaint: Patient states: she has had diarrhea since 1700 yesterday. me1 patient denies any nausea or vomiting. patient states she had a colonoscopy on 01/16/24. 3 18:58 17:18 Chief complaint: Patient states: she has had diarrhea since 1700 yesterday. me1 patient denies any nausea or vomiting. patient states she had a colonoscopy on 01/16/24. co1 18:59 17:45 General: Appears comfortable, ill, well groomed, well developed, well nourished, me1 Behavior is calm, cooperative, appropriate for age, Reports me1 19:00 18:58 Pain: Denies pain. me1 co1 19:00 18:58 Neuro: Level of Consciousness is awake, alert, obeys commands, Oriented to me1 person, place, time, situation, Appropriate for age me1 19:00 18:58 Cardiovascular: Patient's skin is warm and dry. me1 co1 19:00 18:58 Respiratory: Airway is patent Respiratory effort is even, unlabored, Respiratory co1 pattern is regular, symmetrical, co1 19:00 18:58 GI: Abdomen is round Bowel sounds present X 4 quads. Reports diarrhea, me1 co1 19:00 18:58 : No signs and/or symptoms were reported regarding the genitourinary system. [facility] 18:58 EENT: No signs and/or symptoms were reported regarding the EENT system. me1 me1 19:00 18:58 Derm: Skin is intact, is healthy with good turgor, Skin is pink, warm \T\ dry. me1 me1 19:00 18:58 Musculoskeletal: No signs and/or symptoms reported regarding the musculoskeletal me1 system. me1
--- NOTE | 2024-01-23 21:25 | EDPHYS ---
Physician Documentation [facility] Name: Verna Paredes Age: 48 yrs Sex: Female : 1975 Arrival Date: 01/23/2024 Time: 17:06 Bed 18 Private MD: Eric Maher HPI: 01/22 17:24 This 48 yrs old Female presents to ER via Ambulatory with complaints of adrienne Diarrhea. 17:24 The patient presents to the emergency department with diarrhea, abdominal pain, of the adrienne right upper quadrant, left upper quadrant, right lower quadrant and left lower quadrant. Onset: The symptoms/episode began/occurred 5 day(s) ago. Possible causes: unknown. The symptoms are aggravated by nothing. The symptoms are alleviated by nothing. Associated signs and symptoms: Pertinent positives: abdominal pain. Severity of symptoms: At their worst the symptoms were mild in the emergency department the symptoms are unchanged. The patient has experienced similar episodes in the past, several times. BEATER HEAD: 19:15 Not kj2 Historical: - Allergies: 17:19 Cipro; ap3 17:19 dicyclomine; ap3 17:19 HYDROCODONE; ap3 17:19 Prednisone; ap3 - PMHx: 17:19 Diverticulitis; thickening of uterine lining and cyst (hernia repair); ulcertive ap3 colitis; - PSHx: 17:19 Cholecystectomy; hernia repair; ap3 - Immunization history:: Client reports receiving the 2nd dose of the Covid vaccine. - Infectious Disease History:: Denies. - Social history:: Smoking status: Patient denies any tobacco usage or history of. ROS: 17:25 Constitutional: Negative for fever, chills, and weight loss, Eyes: Negative for injury, adrienne pain, redness, and discharge, ENT: Negative for injury, pain, and discharge, Neck: Negative for injury, pain, and swelling, Cardiovascular: Negative for chest pain, palpitations, and edema, Respiratory: Negative for shortness of breath, cough, wheezing, and pleuritic chest pain, Back: Negative for injury and pain, : Negative for injury, bleeding, discharge, and swelling, MS/Extremity: Negative for injury and deformity, Skin: Negative for injury, rash, and discoloration, Neuro: Negative for headache, weakness, numbness, tingling, and seizure, Psych: Negative for depression, anxiety, suicide ideation, homicidal ideation, and hallucinations, Allergy/Immunology: Negative for hives, rash, and allergies, Endocrine: Negative for neck swelling, polydipsia, polyuria, polyphagia, and marked weight changes, Hematologic/Lymphatic: Negative for swollen nodes, abnormal bleeding, and unusual bruising, 17:25 Abdomen/GI: Positive for abdominal pain, diarrhea, abdominal cramps, Exam: 17:25 Constitutional: This is a well developed, well nourished patient who is awake, alert, adrienne and in no acute distress. Head/Face: Normocephalic, atraumatic. Eyes: Pupils equal round and reactive to light, extra-ocular motions intact. Lids and lashes normal. Conjunctiva and sclera are non-icteric and not injected. Cornea within normal limits. Periorbital areas with no swelling, redness, or edema. ENT: Nares patent. No nasal discharge, no septal abnormalities noted. Tympanic membranes are normal and external auditory canals are clear. Oropharynx with no redness, swelling, or masses, exudates, or evidence of obstruction, uvula midline. Mucous membranes moist. Neck: Trachea midline, no thyromegaly or masses palpated, and no cervical lymphadenopathy. Supple, full range of motion without nuchal rigidity, or vertebral point tenderness. No Meningismus. Chest/axilla: Normal chest wall appearance and motion. Nontender with no deformity. No lesions are appreciated. Cardiovascular: Regular rate and rhythm with a normal S1 and S2. No gallops, murmurs, or rubs. Normal PMI, no JVD. No pulse deficits. Respiratory: Lungs have equal breath sounds bilaterally, clear to auscultation and percussion. No rales, rhonchi or wheezes noted. No increased work of breathing, no retractions or nasal flaring. Back: No spinal tenderness. No costovertebral tenderness. Full range of motion. Skin: Warm, dry with normal turgor. Normal color with no rashes, no lesions, and no evidence of cellulitis. MS/ Extremity: Pulses equal, no cyanosis. Neurovascular intact. Full, normal range of motion. Neuro: Awake and alert, GCS 15, oriented to person, place, time, and situation. Cranial nerves II-XII grossly intact. Motor strength 5/5 in all extremities. Sensory grossly intact. Cerebellar exam normal. Normal gait. Psych: Awake, alert, with orientation to person, place and time. Behavior, mood, and affect are within normal limits. 17:25 Abdomen/GI: Inspection: distension, that is mild, Bowel sounds: normal, Palpation: mild abdominal tenderness, in all quadrants, Liver: no appreciated palpable abnormalities, Hernia: not appreciated, Vital Signs: 17:18 BP 123 / 87; Pulse 77; Resp 16; Temp 97.2; Pulse Ox 98% ; Weight 90.26 kg; Height 2 ft. ap3 6 in. ; 18:15 BP 116 / 71; Pulse 65; Resp 16; Pulse Ox 98% ; me1 18:55 BP 147 / 70; Pulse 61; Resp 16; Pulse Ox 98% ; me1 20:36 BP 137 / 70; Pulse 62; Resp 16; Pulse Ox 98% on R/A; kj2 21:41 BP 132 / 78; Pulse 64; Resp 18; Temp 97.9; Pulse Ox 100% on R/A; kj2 17:18 Body Mass Index 155.46 (90.26 kg, 76.2 cm) ap3 MDM: 17:10 Medical Screening Exam initiated adrienne 17:21 Medical Screening Exam initiated adrienne 17:33 Differential diagnosis: Nonspecific abd pain, gastritis, pancreatitis, viral adrienne gastroenteritis, gastroenteritis. Data reviewed: vital signs, nurses notes, lab test result(s), radiologic studies, CT scan. Consideration of Admission/Observation Escalation of care including admission/observation considered. I considered the following discharge prescriptions or medication management in the emergency department Medications were administered in the Emergency Department. See MAR. Independent interpretation of the following test(s) in the Emergency Department CT Scan: My interpretation is ct ab/pel. Test considered but Not performed: Ultrasound no abd /usg. Historians other than the Patient: pt well informed. Care significantly affected by the following chronic conditions: Obesity, uc, diverticulitis. Counseling: I had a detailed discussion with the patient and/or guardian regarding the historical points, exam findings, and any diagnostic results supporting the discharge/admit diagnosis, lab results, radiology results, the need for outpatient follow up, for definitive care, a family practitioner, a general surgeon. 01/22 17:12 Order name: CBC with Diff; Complete Time: 18:19 [facility] 01/22 17:12 Order name: CMP; Complete Time: 21:23 [facility] 01/22 17:12 Order name: Lipase; Complete Time: 21:23 [facility] 01/22 17:12 Order name: Test, Urine; Complete Time: 18:19 [facility] 01/22 17:12 Order name: Urinalysis w/ reflexes; Complete Time: 18:19 [facility] 01/22 17:12 Order name: Fecal Leukocyte Stain [facility] 01/22 17:12 Order name: Stool Culture [facility] 01/22 18:16 Order name: Urine Culture [facility] 01/22 17:12 Order name: CT Abd/Pelvis - IV Contrast Only; Complete Time: 21:23 [facility] 01/22 17:12 Order name: IV Saline Lock; Complete Time: 18:03 [facility] 01/22 17:12 Order name: Labs collected and sent; Complete Time: 18:03 [facility] Administered Medications: 18:16 Not Given (Patient Refused): [id number] mg IVP once; dilute with 10 mL 0.9% NaCl; me1 give over 2 minutes 18:16 Drug: Ondansetron IVP 4 mg IVP once; over 2 minutes Route: IVP; Site: right antecubital;me1 19:02 Follow up: Response: No adverse reaction; Nausea is decreased me1 18:16 Drug: NS 0.9% IV 1000 ml IV at 1 bolus Per protocol; to be given as a bolus over 60 me1 minutes Route: IV; Rate: 1 bolus; Site: right antecubital; 21:41 Follow up: Response: No adverse reaction; IV Status: Completed infusion; IV Intake: ha1 1000ml 18:16 Drug: NS 0.9% IV 1000 ml IV at 1000 ml once; to be given as a bolus over 60 minutes me1 Route: IV; Rate: 1000 ml; Site: right antecubital; 19:16 Follow up: IV Status: Completed infusion; IV Intake: 1000ml kj2 19:45 Drug: Rocephin IV 1 grams IV at per protocol once; Given slow IV push per pharmacy kj2 instructions Route: IV; Rate: per protocol; Site: right antecubital; 21:39 Follow up: IV Status: Completed infusion; IV Intake: 10ml kj2 21:39 Follow up: Response: No adverse reaction kj2 19:45 Drug: Cefdinir PO 300 mg PO once Route: PO; kj2 21:38 Follow up: Response: No adverse reaction kj2 Disposition Summary: 10/18/24 21:24 Discharge Ordered Notes: Location: Home cp Problem: new cp Symptoms: have improved cp Condition: Stable cp Diagnosis - Diarrhea, unspecified cp - Abdominal tenderness cp - UTI/ Urinary tract infection, site not specified cp Followup: adrienne - With: Private Physician - When: 2 - 3 days - Reason: Recheck today's complaints, Continuance of care, Re-evaluation by your physician Followup: adrienne - With: Jason Stevens MD - When: 2 - 3 days - Reason: Recheck today's complaints, Re-evaluation by your physician Discharge Instructions: - Discharge Summary Sheet adrienne - Abdominal Pain, Adult adrienne - Food Choices to Help Relieve Diarrhea, Adult adrienne - Diarrhea, Adult adrienne - Urinary Tract Infection, Adult adrienne - Urinary Tract Infection, Adult, [id number] adrienne - Abdominal Pain, Adult, [id number] adrienne - Diarrhea, Adult, [id number] adrienne Forms: - Medication Reconciliation Form cp - Antibiotic Education cp - Prescription Opioid Use cp - Patient Portal Instructions cp - Leadership Thank You Letter cp Prescriptions: - ondansetron 4 mg Oral Tablet,disintegrating - take 1 tablet ORAL route every 8 hours for 5 days; 20 tablet; Refills: 0, [facility] Product Selection Permitted - cefdinir 300 mg Oral capsule - take 1 capsule ORAL route 2 times per day; 14 capsule; Refills: 0, Product [facility] Selection Permitted - Pepcid 20 mg Oral tablet - take 1 tablet ORAL route every 12 hours for 21 days; 42 tablet; Refills: 0, [facility] Product Selection Permitted - Bactrim DS 800-160 mg Oral Tablet - take 1 tablet ORAL route every 12 hours for 3 days; 6 tablet; Refills: 0, [facility] Product Selection Permitted Signatures: Dispatcher [employer] Eric Fernando MD MD cha Page, Corey, PA PA cp Francy Conodn RN RN ap3 Sirisha Patel RN RN me1 Tamar Bran RN RN kj2 Meagan Piedra RN ha1
[2024-01-24 03:22] VITALS: BP 132/78; TEMP 97.9; O2SAT 100
== END 2024-01-23 21:42 | disposition home or self-care (01) ==
LOC: ER 17:06
DX: R19.7 Diarrhea, unspecified (principal); N39.0 Urinary tract infection, site not specified
CPT/HCPCS: 96365; 96361; 87088; 87045; 85025; 81001; 87086; 36415; 89055; 81025; 87046; 83690; 80053; 74177; 96375; 99285; 96366; Q9967; J2405; J7030; J0696

== ENCOUNTER 2024-01-29 16:05 | Emergency (ER) | payer BC ==
[2024-01-29 19:33] LABS: Absolute Basophils 0.1 K/uL (0-0.5); Absolute Eosinophils 0.1 K/uL (0-0.5); Absolute Lymphocytes (CBC) 2.3 K/uL (0.7-4.9); Absolute Monocytes 0.7 K/uL (0.1-1.3); Absolute Neutrophil 7.5 K/uL (1.8-8.0); Basophils % 0.7 % (0-1.3); Eosinophils % 1.4 % (0-4.4); Hematocrit 43.7 % (36.0-45.0); Hemoglobin 15.3 g/dL (12.0-15.0); Lymphocytes % 21.4 % (15.3-44.8); MCH 30.4 pg (27.0-35.0); MCV 86.9 fL (80-100); MPV 9.9 fL (7.6-11.3); Monocytes % 6.5 % (3.3-12.3); Nucleated RBC Absolute Count 0.1 (0-0); Nucleated Red Blood Cells % 1.2 % (0-0); Platelets 242 thou/uL (152-406); RBC Red Blood Cell Count 5.03 M/uL (3.86-4.86); Red Cell Distribution Width 13.6 % (12.1-15.2)
[2024-01-29 19:39] LABS: Specific Gravity 1.016 (1.005-1.030); Sqamous Epithelial <5 /HPF (None Seen); Urine Bacteria <20 /HPF (<20); Urine Bilirubin NEGATIVE (Negative); Urine Blood Negative (Negative); Urine Clarity Turbid (Clear); Urine Color Light-Yellow (Yellow); Urine Culture Reflex Order REFLEXED; Urine Glucose NEGATIVE (Negative); Urine Ketones NEGATIVE (Negative); Urine Microscopic Reflex YN ORDER UMIC; Urine Mucus Slight /HPF (None Seen); Urine Nitrite NEGATIVE (Negative); Urine Protein NEGATIVE (Negative); Urine RBC <5 /HPF (None Seen); Urine Urobilinogen Normal (Normal); Urine WBC 20-50 /HPF (<5)
[2024-01-29 19:49] LABS: Albumin 4.1 g/dL (3.4-5.0); Anion Gap 9.6 mEq/L (5.0-15.0); Bilirubin Total 1.3 mg/dL (0.2-1.0); Globulin 4.1 g/dL (2.3-3.5); Magnesium 2.2 mg/dL (1.6-2.4); Potassium 3.6 mEq/L (3.5-5.1); Protein, Total 8.2 g/dL (6.4-8.2)
[2024-01-29] MEDS ORDERED: NA CHLORIDE 0.9% 1,000 ML ONE (20:32)
[2024-01-29] MEDS ORDERED: KETOROLAC 30 MG/ML INJ ONE (20:32)
[2024-01-29] MEDS ORDERED: ONDANSETRON 4 MG/2 ML VIAL ONE (20:32)
--- NOTE | 2024-01-29 21:18 | RAD REPORT ---
EXAMINATION: CT Abdomen Pelvis W Contrast CLINICAL INDICATION: Female, 48 years old. ABD PAIN TECHNIQUE: CT abdomen and pelvis was performed, after the administration of IV contrast, as per [facility] protocol. Axial, sagittal and coronal reconstructions were obtained. One or more of the following dose reduction techniques were used: Automated exposure control, adjustment of the mA and k V according to patient size, and iterative reconstruction. Unless otherwise specified, incidental findings do not require dedicated imaging follow-up. COMPARISON: 01/13/2024 FINDINGS: LOWER CHEST: The visualized lung bases are clear. LIVER: Normal in size and contour. No focal lesion. BILIARY SYSTEM: Status post cholecystectomy. SPLEEN: Normal size. No focal lesion. PANCREAS: No mass, ductal dilation, or charles-pancreatic fluid. ADRENALS: Normal; no mass. KIDNEYS: Normal size and contour. No hydronephrosis. URINARY BLADDER: Unremarkable. GASTROINTESTINAL TRACT: No evidence of free air, significant intra-abdominal free fluid, bowel obstru ction or abscess. APPENDIX: Appendix not visualized, but no inflammatory changes in region of appendix. LYMPH NODES: No lymphadenopathy. MUSCULOSKELETAL: No acute or suspicious osseous abnormality. ADDITIONAL FINDINGS: None. IMPRESSION: No acute or concerning abnormalities seen in the abdomen or pelvis.
[2024-01-29] MEDS ORDERED: MORPHINE 4 MG/ML SYR ONE (21:38)
--- NOTE | 2024-01-29 21:46 | ER ---
Nurse's Notes [facility] Name: Verna Paredes Age: 48 yrs Sex: Female : 1975 Arrival Date: 01/29/2024 Time: 16:05 Bed 24 Private MD: Diagnosis: Abdominal pain, unspecified Presentation: 01/28 16:37 Chief complaint: Patient states: ABD PAIN NAUSEA PAIN STARTED FRIDAY. DENIES VOMITING. db DENIES FEVER. Coronavirus screen: Client denies travel out of the [place] in the last 14 days. At this time, the client does not indicate any symptoms associated with coronavirus-19. Ebola Screen: Patient negative for fever greater than or equal to 101.5 degrees Fahrenheit, and additional compatible Ebola Virus Disease symptoms Patient denies exposure to infectious person. Patient denies travel to an Ebola-affected area in the 21 days before illness onset. No symptoms or risks identified at this time. Initial Sepsis Screen: Does the patient meet any 2 criteria? No. Patient's initial sepsis screen is negative. Does the patient have a suspected source of infection? No. Patient's initial sepsis screen is negative. Risk Assessment: Do you want to hurt yourself or someone else? Patient reports no desire to harm self or others. Onset of symptoms was January 29, 2024. 16:37 Method Of Arrival: Ambulatory db 16:37 Acuity: SERA 3 db Triage Assessment: 16:37 General: Appears in no apparent distress. comfortable, Behavior is calm, cooperative. db Pain: Complains of pain in abdomen. Neuro: Level of Consciousness is awake, alert, obeys commands, Oriented to person, place, time, situation. GI: Abdomen is distended, Abdomen is tender to palpation. 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 - Infectious Disease History:: Denies. - Social history:: Smoking status: Patient denies any tobacco usage or history of. Screenin:10 [facility] ED Fall Risk Assessment (Adult) History of falling in the last 3 months, tl4 including since admission No falls in past 3 months (0 pts) Confusion or Disorientation No (0 pts) Intoxicated or Sedated No (0 pts) Impaired Gait No (0 pts) Mobility Assist Device Used No (0 pt) Altered Elimination No (0 pt) Score/Fall Risk Level 0 - 2 = Low Risk Oriented to surroundings, Maintained a safe environment, Educated pt \T\ family on fall prevention, incl call for assistance when getting out of bed, Assessed \T\ reinforced patient's understanding of fall precautions. Abuse screen: Denies threats or abuse. Denies injuries from another. Nutritional screening: No deficits noted. Tuberculosis screening: No symptoms or risk factors identified. Assessment: 21:07 General: Appears in no apparent distress. Behavior is calm, cooperative. Pain: tl4 Complains of pain in abdomen Pain currently is 4 out of 10 on a pain scale. Neuro: Level of Consciousness is awake, alert, obeys commands, Oriented to person, place, time, situation, Moves all extremities. Full function Speech is normal, Facial symmetry appears normal. Cardiovascular: Capillary refill < 3 seconds Patient's skin is warm and dry. Respiratory: Airway is patent Respiratory effort is even, unlabored, Respiratory pattern is regular, symmetrical, Breath sounds are clear bilaterally. GI: Bowel sounds present X 4 quads. Abd is soft X 4 quads Abdomen is tender to palpation X 4 quads. Reports upper abdominal pain, bloating. : No signs and/or symptoms were reported regarding the genitourinary system. EENT: No signs and/or symptoms were reported regarding the EENT system. Derm: No signs and/or symptoms reported regarding the dermatologic system. Musculoskeletal: No signs and/or symptoms reported regarding the musculoskeletal system. Vital Signs: 16:37 BP 120 / 74; Pulse 61; Resp 18; Temp 98.6(O); Pulse Ox 98% ; Weight 85.28 kg; Height 5 db ft. 6 in. ; Pain 7/10; 19:03 BP 154 / 98; Pulse 63; Resp 16; Pulse Ox 100% on R/A; tl4 20:00 BP 140 / 90; Pulse 67; Resp 18; Pulse Ox 100% on R/A; tl4 21:09 BP 143 / 77; Pulse 70; Resp 18; Temp 98(O); Pulse Ox 98% on R/A; tl4 21:46 BP 141 / 79; Pulse 77; Resp 18; Temp 97.9(O); Pulse Ox 100% on R/A; tl4 16:37 Body Mass Index 30.35 (85.28 kg, 167.64 cm) db 16:37 Pain Scale: Adult db ED Course: 16:07 Patient arrived in ED. mr 16:37 Eric Arauz PA is PHCP. db 16:37 Arm band placed on Patient placed. db 16:39 Eric Varela MD is Attending Physician. cp 16:39 Triage completed. db 19:27 Inserted saline lock: 20 gauge in right antecubital area, using aseptic technique. [facility] Blood collected. Flushed with 10 mL NS. 19:27 Initial lab(s) drawn, by ok, sent to lab. Urine collected: clean catch specimen, clear. f 19:29 CBC with Diff Sent. f 19:29 CMP Sent. f 19:29 Lipase Sent. f 19:29 Test, Urine Sent. f 19:29 Urinalysis w/ reflexes Sent. f 19:29 Magnesium Sent. f 20:19 Jas Swanson, RN is Primary Nurse. tl4 20:42 CT Abd/Pelvis - IV Contrast Only In Process Unspecified. EDMS 21:11 Patient has correct armband on for positive identification. Placed in gown. Bed in low tl4 position. Call light in reach. Side rails up X 1. Provided Education on: ed process, call [facility]. Client placed on continuous cardiac and pulse oximetry monitoring. NIBP monitoring applied. Door closed. Noise minimized. Lights dimmed. Moved to private room. Warm blanket given. 21:11 No provider procedures requiring assistance completed. tl4 21:46 IV discontinued, intact, bleeding controlled, No redness/swelling at site. Pressure tl4 dressing applied. Administered Medications: 21:07 Not Given (Patient Refused): [id number] mg IVP once tl4 21:07 Drug: NS 0.9% IV 1000 ml IV at 1000 ml once; to be given as a bolus over 60 minutes tl4 Route: IV; Rate: 1000 ml; Site: right antecubital; 21:39 Follow up: Response: No adverse reaction tl4 22:00 Follow up: IV Status: Completed infusion; IV Intake: 1000ml tl4 21:07 Drug: Ondansetron IVP 4 mg IVP once; over 2 minutes Route: IVP; Infused Over: 2 mins; tl4 Site: right antecubital; 21:39 Follow up: Response: No adverse reaction tl4 21:43 Not Given (Patient Refused): morphineor iv 4 mg IVP once over 4 mins tl4 Medication: 21:10 VIS not applicable for this client. tl4 Intake: 22:00 IV: 1000ml; Total: 1000ml. tl4 Outcome: 21:45 Discharge ordered by MD. cp 22:00 Discharged to home ambulatory, tl4 22:00 Condition: stable 22:00 Discharge instructions given to patient, Instructed on discharge instructions, follow up and referral plans. Demonstrated understanding of instructions, follow-up care, 22:00 Patient left the ED. tl4 Signatures: Dispatcher [employer] EDMS DotyElba guidry, Reg Reg mr Eric Arauz PA PA cp Benton, Danielle, RN RN Caryl Buitrago [facility] Jas Swanson RN RN tl4 Corrections: (The following items were deleted from the chart) 16:40 16:37 Pulse 61bpm; Resp 18bpm; Pulse Ox 98%; Temp 98.6F Oral; 85.28 kg; Height 5 ft. 6 db in.; BMI: 30.3; Pain 7/10, Adult; db 21:11 21:09 BP 143 / 77; Pulse 70bpm; Resp 18bpm; Pulse Ox 98% RA; tl4 tl4 21:43 21:39 morphine IVP or IV 4 mg IVP in right antecubital over 4 mins tl4 tl4
--- NOTE | 2024-01-29 21:46 | EDPHYS ---
Physician Documentation [facility] Name: Verna Paredes Age: 48 yrs Sex: Female : 1975 Arrival Date: 01/29/2024 Time: 16:05 Bed 24 Private MD: TANI Physician Eric Varela HPI: 01/28 16:45 This 48 yrs old Female presents to ER via Ambulatory with complaints of Abdominal Pain, cp Abdominal Swelling. 16:45 The patient presents with abdominal pain that is diffuse. cp 16:45 Onset: The symptoms/episode began/occurred 3 day(s) ago. cp 16:45 The symptoms do not radiate. Associated signs and symptoms: Pertinent positives: cp nausea, Pertinent negatives: blood in stools, chest pain, constipation, diarrhea, fever, vomiting. The symptoms are described as constant. Severity of pain: in the emergency department the pain is unchanged despite home interventions. 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 - Infectious Disease History:: Denies. - Social history:: Smoking status: Patient denies any tobacco usage or history of. ROS: 16:50 Constitutional: Negative for body aches, chills, fever, poor PO intake, cp 16:50 Eyes: Negative for injury, pain, redness, and discharge, cp 16:50 ENT: Negative for drainage from ear(s), ear pain, sore throat, difficulty swallowing, difficulty handling secretions, 16:50 Cardiovascular: Negative for chest pain, palpitations, 16:50 Respiratory: Negative for cough, shortness of breath, wheezing, 16:50 Abdomen/GI: Positive for abdominal pain, nausea, abdominal distension, Negative for vomiting, diarrhea, constipation, 16:50 Back: Negative for decreased range of motion, 16:50 : Negative for urinary symptoms, 16:50 Neuro: Negative for altered mental status, dizziness, headache, weakness, 16:50 All other systems are negative, Exam: 16:55 Constitutional: The patient appears in no acute distress, alert, awake, cp non-diaphoretic, non-toxic, well developed, well nourished, uncomfortable, 16:55 Head/Face: Normocephalic, atraumatic. cp 16:55 Eyes: Periorbital structures: appear normal, Conjunctiva: normal, no exudate, no injection, Sclera: no appreciated abnormality, Lids and lashes: appear normal, bilaterally, 16:55 ENT: External ear(s): are unremarkable, Nose: is normal, Mouth: Lips: moist, Oral mucosa: pink and intact, moist, Posterior pharynx: is normal, airway is patent, no erythema, no exudate, 16:55 Chest/axilla: Inspection: normal, 16:55 Cardiovascular: Rate: normal, Rhythm: regular, Edema: is not appreciated, JVD: is not appreciated, 16:55 Respiratory: the patient does not display signs of respiratory distress, Respirations: normal, no use of accessory muscles, no retractions, labored breathing, is not present, Breath sounds: are clear throughout, no decreased breath sounds, no stridor, no wheezing, 16:55 Abdomen/GI: Inspection: abdomen appears normal, Bowel sounds: active, all quadrants, Palpation: soft, in all quadrants, moderate abdominal tenderness, in all quadrants, rebound tenderness, is not appreciated, involuntary guarding, is not appreciated, 16:55 Back: CVA tenderness, is absent, 16:55 Skin: no rash present. Vital Signs: 16:37 BP 120 / 74; Pulse 61; Resp 18; Temp 98.6(O); Pulse Ox 98% ; Weight 85.28 kg; Height 5 db ft. 6 in. ; Pain 7/10; 19:03 BP 154 / 98; Pulse 63; Resp 16; Pulse Ox 100% on R/A; tl4 20:00 BP 140 / 90; Pulse 67; Resp 18; Pulse Ox 100% on R/A; tl4 21:09 BP 143 / 77; Pulse 70; Resp 18; Temp 98(O); Pulse Ox 98% on R/A; tl4 21:46 BP 141 / 79; Pulse 77; Resp 18; Temp 97.9(O); Pulse Ox 100% on R/A; tl4 16:37 Body Mass Index 30.35 (85.28 kg, 167.64 cm) db 16:37 Pain Scale: Adult db MDM: 16:38 Medical Screening Exam initiated cp 21:45 Data reviewed: vital signs, nurses notes, lab test result(s), radiologic studies, CT cp scan, and as a result, I will discharge patient. 21:45 Differential diagnosis: non-specific abd pain, pancreatitis, Peptic Ulcer Disease, cp Perf. Duodenal Ulcer, Perf. Gastric Ulcer, Peritonitis, Pyelonephritis, Ureterolithiasis, urinary tract infection. I considered the following discharge prescriptions or medication management in the emergency department Medications were administered in the Emergency Department. See MAR. Response to treatment: the patient's symptoms have mildly improved after treatment, and as a result, I will discharge patient. Special discussion: Based on the patient's Hx, exam, and Dx evaluation, there is no indication for emergent surgery or inpatient Tx. It is understood by the patient/guardian that if the Sx's persist or worsen they need to return immediately for re-evaluation. 01/28 16:39 Order name: CBC with Diff; Complete Time: 19:55 cp 01/28 21:20 Interpretation: Reviewed. cp 01/28 16:39 Order name: CMP; Complete Time: 19:55 cp 01/28 16:39 Order name: Lipase; Complete Time: 19:55 cp 01/28 16:39 Order name: Test, Urine; Complete Time: 19:55 cp 01/28 16:39 Order name: Urinalysis w/ reflexes; Complete Time: 19:55 cp 01/28 16:39 Order name: Magnesium; Complete Time: 19:55 cp 01/28 19:43 Order name: Urine Culture EDMS 01/28 19:56 Order name: CT Abd/Pelvis - IV Contrast Only; Complete Time: 21:19 cp 01/28 16:39 Order name: IV Saline Lock; Complete Time: 19:29 cp 01/28 16:39 Order name: Labs collected and sent; Complete Time: 19:29 cp Administered Medications: 21:07 Not Given (Patient Refused): [id number] mg IVP once tl4 21:07 Drug: NS 0.9% IV 1000 ml IV at 1000 ml once; to be given as a bolus over 60 minutes tl4 Route: IV; Rate: 1000 ml; Site: right antecubital; 21:39 Follow up: Response: No adverse reaction tl4 22:00 Follow up: IV Status: Completed infusion; IV Intake: 1000ml tl4 21:07 Drug: Ondansetron IVP 4 mg IVP once; over 2 minutes Route: IVP; Infused Over: 2 mins; tl4 Site: right antecubital; 21:39 Follow up: Response: No adverse reaction tl4 21:43 Not Given (Patient Refused): morphineor iv 4 mg IVP once over 4 mins tl4 Disposition Summary: 01/29/24 21:45 Discharge Ordered Notes: Location: Home cp Problem: new cp Symptoms: have improved cp Condition: Stable cp Diagnosis - Abdominal pain, unspecified cp Followup: cp - With: Private Physician - When: 2 - 3 days - Reason: Recheck today's complaints Discharge Instructions: - Discharge Summary Sheet cp - Abdominal Pain, Adult cp Forms: - Medication Reconciliation Form cp - Antibiotic Education cp - Prescription Opioid Use cp - Patient Portal Instructions cp - Leadership Thank You Letter cp Prescriptions: - Zofran 4 mg Oral Tablet - take 1 tablet ORAL route every 12 hours As needed; 20 tablet; Refills: 0, cp Product Selection Permitted Signatures: Dispatcher [employer] EDMS Eric Arauz PA PA cp Benton, Danielle RN RN db Jas Swanson RN RN tl4 Corrections: (The following items were deleted from the chart) 16:40 16:40 CBC+H.LAB.BRZ ordered. EDMS EDMS 16:40 16:40 COMPREHENSIVE METABOLIC PANEL+C.LAB.BRZ ordered. EDMS EDMS 16:40 16:40 LIPASE+C.LAB.BRZ ordered. EDMS EDMS 16:40 16:40 Test, Urine+UC.LAB.BRZ ordered. EDMS EDMS 16:40 16:40 Urinalysis+U.LAB.BRZ ordered. EDMS EDMS 16:40 16:40 MAGNESIUM+C.LAB.BRZ ordered. EDMS EDMS
[2024-01-30 06:01] VITALS: BP 141/79; TEMP 97.9; O2SAT 100
== END 2024-01-29 22:00 | disposition home or self-care (01) ==
LOC: ER 16:05
DX: R10.9 Unspecified abdominal pain (principal); R11.0 Nausea
CPT/HCPCS: 96361; 87088; 85025; 81001; 87086; 36415; 83735; 81025; 83690; 80053; 74177; 96374; 99284; Q9967; J2405; J7030

== ENCOUNTER 2024-02-03 17:01 | Emergency (ER) | payer BC ==
[2024-02-03 18:22] LABS: Absolute Basophils 0.1 K/uL (0-0.5); Absolute Eosinophils 0.2 K/uL (0-0.5); Absolute Lymphocytes (CBC) 1.8 K/uL (0.7-4.9); Absolute Monocytes 0.6 K/uL (0.1-1.3); Basophils % 0.5 % (0-1.3); Eosinophils % 1.6 % (0-4.4); Hematocrit 41.7 % (36.0-45.0); Hemoglobin 14.1 g/dL (12.0-15.0); Lymphocytes % 18.8 % (15.3-44.8); MCH 29.8 pg (27.0-35.0); MCHC 33.7 g/dL (32.0-36.0); MCV 88.3 fL (80-100); Monocytes % 6.3 % (3.3-12.3); Neutrophils % 72.8 % (41.7-73.7); Nucleated Red Blood Cells % 0.1 % (0-0); Platelets 203 thou/uL (152-406); RBC Red Blood Cell Count 4.72 M/uL (3.86-4.86); Red Cell Distribution Width 13.8 % (12.1-15.2)
[2024-02-03 18:36] LABS: Specific Gravity > 1.030 (1.005-1.030); Urine Bacteria <20 /HPF (<20); Urine Bilirubin NEGATIVE (Negative); Urine Blood Negative (Negative); Urine Clarity Extremely Turbid (Clear); Urine Color Yellow (Yellow); Urine Culture Reflex Order REFLEXED; Urine Glucose NEGATIVE (Negative); Urine Ketones TRACE (Negative); Urine Microscopic Reflex YN ORDER UMIC; Urine Mucus 3+ /HPF (None Seen); Urine Nitrite NEGATIVE (Negative); Urine Protein TRACE (Negative); Urine Urobilinogen Normal (Normal); Urine WBC 20-50 /HPF (<5); Urine pH 5.5 (5.0-7.0)
[2024-02-03 18:40] LABS: ALT/SGPT 22 U/L (13-56); Albumin 3.8 g/dL (3.4-5.0); Alkaline Phosphatase 66 U/L (45-117); Anion Gap 7.5 mEq/L (5.0-15.0); BUN Blood Urea Nitrogen 16 mg/dL (7-18); Bicarbonate 28 mEq/L (21-32); Bilirubin Total 0.7 mg/dL (0.2-1.0); Globulin 3.8 g/dL (2.3-3.5); Glomerular Filtration Rate 95 ml/min (=/>90); Glucose Level 99 mg/dL (74-106); Lipase 46 U/L (13-75); Potassium 3.5 mEq/L (3.5-5.1); Protein, Total 7.6 g/dL (6.4-8.2); Sodium Level 143 mEq/L (136-145)
[2024-02-03 18:44] LABS: AST/SGOT < 10 U/L (15-37)
--- NOTE | 2024-02-03 20:06 | ER ---
Nurse's Notes [facility] Name: Verna Paredes Age: 48 yrs Sex: Female : 1975 Arrival Date: 02/03/2024 Time: 17:01 Bed 15 Private MD: Diagnosis: Presentation: 02/02 17:37 Chief complaint: Patient states: I am having lower abdominal pain. Last time I had this jb4 type of pain it was one of my ovaries or uterus. Coronavirus screen: At this time, the client does not indicate any symptoms associated with coronavirus-19. Ebola Screen: No symptoms or risks identified at this time. Initial Sepsis Screen: Does the patient meet any 2 criteria? No. Patient's initial sepsis screen is negative. Does the patient have a suspected source of infection? No. Patient's initial sepsis screen is negative. Risk Assessment: Do you want to hurt yourself or someone else? Patient reports no desire to harm self or others. Onset of symptoms was February 03, 2024. Transition of care: patient was not received from another setting of care. 17:37 Method Of Arrival: Ambulatory jb4 17:37 Acuity: SERA 3 jb4 Triage Assessment: 17:39 General: Appears in no apparent distress. uncomfortable, Behavior is calm, cooperative, jb4 appropriate for age. Pain: Complains of pain in right lower quadrant and left lower quadrant Pain does not radiate. Pain currently is 5 out of 10 on a pain scale. Neuro: Level of Consciousness is awake, alert, obeys commands, Oriented to person, place, time, situation. Cardiovascular: Patient's skin is warm and dry. Respiratory: Airway is patent Respiratory effort is even, unlabored, Respiratory pattern is regular, symmetrical. GI: Abdomen is non-distended, obese, Reports lower abdominal pain, nausea. Derm: Skin is intact, Skin is pink, warm \T\ dry. Historical: - Allergies: 17:39 Cipro; jb4 17:39 dicyclomine; jb4 17:39 HYDROCODONE; jb4 17:39 Prednisone; jb4 - PMHx: 17:39 Diverticulitis; thickening of uterine lining and cyst (hernia repair); ulcertive jb4 colitis; - PSHx: 17:39 Cholecystectomy; hernia repair; hemroid surgery (hernia repair); jb4 - Immunization history:: Adult Immunizations up to date. - Infectious Disease History:: Denies. - Social history:: Smoking status: Patient denies any tobacco usage or history of. Screenin:55 [facility] ED Fall Risk Assessment (Adult) History of falling in the last 3 months, ph including since admission Yes- single mechanical fall (1 pt) Confusion or Disorientation No (0 pts) Intoxicated or Sedated No (0 pts) Impaired Gait No (0 pts) Mobility Assist Device Used No (0 pt) Altered Elimination No (0 pt) Score/Fall Risk Level 0 - 2 = Low Risk Oriented to surroundings, Maintained a safe environment, Hourly rounding (assess needs \T\ fall precautionary measures) done. Abuse screen: Denies threats or abuse. Denies injuries from another. Nutritional screening: No deficits noted. Tuberculosis screening: No symptoms or risk factors identified. Assessment: 18:00 General: Appears in no apparent distress. Behavior is calm, cooperative. Pain: ph Complains of pain in suprapubic area, right lower quadrant and left lower quadrant. Neuro: Level of Consciousness is awake, alert, obeys commands, Oriented to person, place, time, situation. Cardiovascular: Capillary refill < 3 seconds in bilateral fingers Patient's skin is warm and dry. Respiratory: Airway is patent Respiratory effort is even, unlabored. GI: Bowel sounds present X 4 quads. Abd is soft X 4 quads Reports lower abdominal pain, Patient currently denies diarrhea, nausea, vomiting. : Reports pain in suprapubic area. Derm: Skin is pink, warm \T\ dry. Musculoskeletal: Circulation, motion, and sensation intact. Range of motion: intact in all extremities. 19:30 General: Appears in no apparent distress. Behavior is. rg5 19:30 Pain: Complains of pain in abdomen. Neuro: Level of Consciousness is awake, alert, rg5 obeys commands, Oriented to person, place, time. Cardiovascular: Capillary refill < 3 seconds Patient's skin is warm and dry. Respiratory: Airway is patent Respiratory effort is even, unlabored, Respiratory pattern is regular, symmetrical. GI: Abdomen is round non-distended, Bowel sounds present X 4 quads. Abd is soft and non tender. : No signs and/or symptoms were reported regarding the genitourinary system. EENT: No deficits noted. Derm: Skin is intact, Skin is dry, Skin is normal. Musculoskeletal: Circulation, motion, and sensation intact. Range of motion: intact in all extremities. 19:55 Reassessment: pt wanted to leave early on AMA for reason that she ws needed by her rg5 family for emergent reason. Vital Signs: 17:37 BP 123 / 75; Pulse 67; Resp 15; Temp 98.7(O); Pulse Ox 100% on R/A; Weight 88.45 kg jb4 (R); Height 5 ft. 6 in. (R); Pain 5/10; 18:56 BP 118 / 72; Pulse 68; Resp 18; Pulse Ox 98% on R/A; ph 19:36 BP 148 / 96; Pulse 71; Resp 17; Temp 98(O); Pulse Ox 99% on R/A; Pain 0/10; rg5 17:37 Body Mass Index 31.47 (88.45 kg, 167.64 cm) jb4 17:37 Pain Scale: Adult jb4 19:36 Pain Scale: Adult [facility] ED Course: 17:03 Patient arrived in ED. im 17:04 Leti Aaron MD is Attending Physician. sp3 17:38 Triage completed. jb4 17:40 Arm band placed on right wrist. jb4 17:59 Guerline Colon, RN is Primary Nurse. ph 18:03 CBC with Diff Sent. bc6 18:03 CMP Sent. bc6 18:03 Lipase Sent. bc6 18:03 Initial lab(s) drawn, by [facility], sent to lab. Inserted saline lock: 20 gauge in right bc6 antecubital area, using aseptic technique. Blood collected. Flushed with 10 mL NS. 18:55 Patient has correct armband on for positive identification. Bed in low position. Call ph light in reach. Side rails up X 1. Pulse ox on. NIBP on. Door closed. Noise minimized. Warm blanket given. Pillow given. 19:41 CT Abd/Pelvis - IV Contrast Only In Process Unspecified. EDMS 20:09 No provider procedures requiring assistance completed. rg5 20:10 IV discontinued. rg5 Administered Medications: No medications were administered Medication: 18:55 VIS not applicable for this client. ph Outcome: 20:10 AMA AMA form signed rg5 20:10 Condition: stable rg5 20:11 Patient left the ED. rg5 Signatures: Dispatcher [employer] Guerline Mota, RN RN ph Brody García RN RN jb4 Leti Aaron MD MD sp3 Sabiha Miller6 Rose Mark Rommel, RN RN rg5
--- NOTE | 2024-02-03 20:06 | EDPHYS ---
Physician Documentation [facility] Name: Verna Paredes Age: 48 yrs Sex: Female : 1975 Arrival Date: 02/03/2024 Time: 17:01 Bed 15 Private MD: ED Physician Leti Aaron HPI: 02/02 17:59 This 48 yrs old Female presents to ER via Ambulatory with complaints of Abdominal Pain, sp3 Nausea. 17:59 48-year-old female with history of ulcerative colitis, diverticulitis, s/p sp3 cholecystectomy status post mesh placement now presents with left lower quadrant abdominal pain for 24 hours. 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 Historical: - Allergies: 17:39 Cipro; jb4 17:39 dicyclomine; jb4 17:39 HYDROCODONE; jb4 17:39 Prednisone; jb4 - PMHx: 17:39 Diverticulitis; thickening of uterine lining and cyst (hernia repair); ulcertive jb4 colitis; - PSHx: 17:39 Cholecystectomy; hernia repair; hemroid surgery (hernia repair); jb4 - Immunization history:: Adult Immunizations up to date. - Infectious Disease History:: Denies. - Social history:: Smoking status: Patient denies any tobacco usage or history of. ROS: 17:59 Constitutional: Negative for fever, chills, and weight loss, Eyes: Negative for injury, sp3 pain, redness, and discharge, ENT: Negative for injury, pain, and discharge, Neck: Negative for injury, pain, and swelling, Cardiovascular: Negative for chest pain, palpitations, and edema, Respiratory: Negative for shortness of breath, cough, wheezing, and pleuritic chest pain, Back: Negative for injury and pain, : Negative for injury, bleeding, discharge, and swelling, MS/Extremity: Negative for injury and deformity, Skin: Negative for injury, rash, and discoloration, Neuro: Negative for headache, weakness, numbness, tingling, and seizure, Psych: Negative for depression, anxiety, suicide ideation, homicidal ideation, and hallucinations, Allergy/Immunology: Negative for hives, rash, and allergies, Endocrine: Negative for neck swelling, polydipsia, polyuria, polyphagia, and marked weight changes, 17:59 All other systems are negative, Exam: 18:00 Constitutional: This is a well developed, well nourished patient who is awake, alert, sp3 and in no acute distress. Head/Face: Normocephalic, atraumatic. Eyes: Pupils equal round and reactive to light, extra-ocular motions intact. Lids and lashes normal. Conjunctiva and sclera are non-icteric and not injected. Cornea within normal limits. Periorbital areas with no swelling, redness, or edema. ENT: Nares patent. No nasal discharge, no septal abnormalities noted. External auditory canals are clear. Oropharynx with no redness, swelling, or masses, exudates, or evidence of obstruction, uvula midline. Mucous membranes moist. Neck: Trachea midline, no thyromegaly or masses palpated, and no cervical lymphadenopathy. Supple, full range of motion without nuchal rigidity, or vertebral point tenderness. No Meningismus. Chest/axilla: Normal chest wall appearance and motion. Nontender with no deformity. No lesions are appreciated. Cardiovascular: Regular rate and rhythm with a normal S1 and S2. No gallops, murmurs, or rubs. Normal PMI, no JVD. No pulse deficits. Respiratory: Lungs have equal breath sounds bilaterally, clear to auscultation and percussion. No rales, rhonchi or wheezes noted. No increased work of breathing, no retractions or nasal flaring. Back: No spinal tenderness. No costovertebral tenderness. Full range of motion. Skin: Warm, dry with normal turgor. Normal color with no rashes, no lesions, and no evidence of cellulitis. MS/ Extremity: Pulses equal, no cyanosis. Neurovascular intact. Full, normal range of motion. Neuro: Awake and alert, GCS 15, oriented to person, place, time, and situation. Cranial nerves II-XII grossly intact. Motor strength 5/5 in all extremities. Sensory grossly intact. Cerebellar exam normal. Normal gait. Psych: Awake, alert, with orientation to person, place and time. Behavior, mood, and affect are within normal limits. 18:00 Abdomen/GI: Left lower quadrant abdominal pain to palpation without peritoneal signs, rebound or guarding. No CVA tenderness. Vital signs normal., Vital Signs: 17:37 BP 123 / 75; Pulse 67; Resp 15; Temp 98.7(O); Pulse Ox 100% on R/A; Weight 88.45 kg jb4 (R); Height 5 ft. 6 in. (R); Pain 5/10; 18:56 BP 118 / 72; Pulse 68; Resp 18; Pulse Ox 98% on R/A; ph 19:36 BP 148 / 96; Pulse 71; Resp 17; Temp 98(O); Pulse Ox 99% on R/A; Pain 0/10; rg5 17:37 Body Mass Index 31.47 (88.45 kg, 167.64 cm) jb4 17:37 Pain Scale: Adult jb4 19:36 Pain Scale: Adult rg5 MDM: 17:52 Medical Screening Exam initiated sp3 18:00 Data reviewed: vital signs, nurses notes, lab test result(s), radiologic studies. ED sp3 course: 48-year-old female with PMH above now with left lower quadrant abdominal pain. Differential diagnosis includes diverticulitis, ulcerative colitis flare, other GI pathology, adhesions, UTI/pyelonephritis spectrum, musculoskeletal pain, food related, among others. Workup will include CT scan of the abdomen pelvis with IV contrast, general labs, UA and supportive care. Patient declined pain or nausea medication at this time until workup is complete. Will reevaluate and final disposition will be based on workup and patient course.. 02/02 18:01 Order name: CBC with Diff; Complete Time: 19:32 sp3 02/02 18:01 Order name: CMP; Complete Time: 19:32 sp3 02/02 18:01 Order name: Lipase; Complete Time: 19:32 sp3 02/02 18:01 Order name: Test, Urine; Complete Time: 19:32 sp3 02/02 18:01 Order name: Urinalysis w/ reflexes; Complete Time: 19:32 sp3 02/02 18:41 Order name: Urine Culture EDIL 02/02 18:01 Order name: CT Abd/Pelvis - IV Contrast Only sp3 02/02 18:01 Order name: IV Saline Lock; Complete Time: 18:03 sp3 02/02 18:01 Order name: Labs collected and sent; Complete Time: 18:03 sp3 02/02 18:01 Order name: NPO; Complete Time: 18:03 sp3 Administered Medications: No medications were administered Disposition Summary: 02/03/24 20:05 Left Against Medical Advice Notes: Location: Home vc1 Condition: Stable vc1 Signatures: Dispatcher [employer] EDMS Riky PaulinaBrody Coe RN RN jb4 Leti Aaron MD MD sp3 Nelda Tejada RN RN vc1 Corrections: (The following items were deleted from the chart) 18:02 18:02 CBC+H.LAB.BRZ ordered. EDMS EDMS 18:02 18:02 COMPREHENSIVE METABOLIC PANEL+C.LAB.BRZ ordered. EDMS EDMS 18:02 18:02 LIPASE+C.LAB.BRZ ordered. EDMS EDMS 18:02 18:02 Test, Urine+UC.LAB.BRZ ordered. EDMS EDMS 18:02 18:02 Urinalysis+U.LAB.BRZ ordered. EDMS EDMS 18:02 18:02 LACTATE+C.LAB.BRZ ordered. EDMS EDMS 18:56 18:17 Labs - recollect needed ordered. bd ph
[2024-02-03 20:25] VITALS: TEMP 98.7
--- NOTE | 2024-02-03 20:29 | RAD REPORT ---
EXAMINATION: CT Abdomen Pelvis W Contrast CLINICAL INDICATION: Female, 48 years old. ABD PAIN TECHNIQUE: CT abdomen and pelvis was performed, after the administration of IV contrast, as per [facility] protocol. Axial, sagittal and coronal reconstructions were obtained. One or more of the following dose reduction techniques were used: Automated exposure control, adjustment of the mA and k V according to patient size, and iterative reconstruction. Unless otherwise specified, incidental findings do not require dedicated imaging follow-up. COMPARISON: 01/29/2024. FINDINGS: LOWER CHEST: The visualized lung bases are clear. LIVER: Normal in size and contour. No focal lesion. BILIARY SYSTEM: Status post cholecystectomy. SPLEEN: Normal size. No focal lesion. PANCREAS: No mass, ductal dilation, or charles-pancreatic fluid. ADRENALS: Normal; no mass. KIDNEYS: Normal size and contour. No hydronephrosis. URINARY BLADDER: Suboptimally distended limiting evaluation. GASTROINTESTINAL TRACT: No evidence of free air, significant intra-abdominal free fluid, bowel obstru ction or abscess. APPENDIX: Normal appendix. LYMPH NODES: No lymphadenopathy. MUSCULOSKELETAL: No acute or suspicious osseous abnormality. ADDITIONAL FINDINGS: None. IMPRESSION: No acute or concerning abnormalities seen in the abdomen or pelvis.
[2024-02-03 20:31] VITALS: BP 118/72; O2SAT 98
== END 2024-02-03 20:11 | disposition left against medical advice (07) ==
LOC: ER 17:01
DX: R10.32 Left lower quadrant pain (principal); Z90.49 Acquired absence of other specified parts of digestive tract; Z98.890 Other specified postprocedural states
CPT/HCPCS: 87088; 85025; 81001; 87086; 36415; 81025; 83690; 80053; 74177; Q9967

== ENCOUNTER 2024-03-11 18:43 | Emergency (ER) | payer BC ==
[2024-03-11] MEDS ORDERED: ONDANSETRON 4 MG/2 ML VIAL ONE (19:54)
[2024-03-11] MEDS ORDERED: NA CHLORIDE 0.9% 1,000 ML ONE (19:54)
[2024-03-11] MEDS ORDERED: MORPHINE 4 MG/ML SYR ONE (19:54)
[2024-03-11 20:00] LABS: Absolute Eosinophils 0.1 K/uL (0-0.5); Absolute Lymphocytes (CBC) 1.8 K/uL (0.7-4.9); Absolute Monocytes 0.5 K/uL (0.1-1.3); Absolute Neutrophil 4.8 K/uL (1.8-8.0); Basophils % 0.5 % (0-1.3); Eosinophils % 1.7 % (0-4.4); Hematocrit 40.5 % (36.0-45.0); Hemoglobin 13.5 g/dL (12.0-15.0); MCH 29.8 pg (27.0-35.0); MCHC 33.4 g/dL (32.0-36.0); MCV 89.1 fL (80-100); MPV 10.3 fL (7.6-11.3); Monocytes % 6.6 % (3.3-12.3); Neutrophils % 66.2 % (41.7-73.7); Platelets 185 thou/uL (152-406); RBC Red Blood Cell Count 4.55 M/uL (3.86-4.86); Red Cell Distribution Width 13.6 % (12.1-15.2)
[2024-03-11 20:01] LABS: Sqamous Epithelial <5 /HPF (None Seen); Urine Bacteria <20 /HPF (<20); Urine Bilirubin NEGATIVE (Negative); Urine Blood 2+ (Negative); Urine Clarity Extremely Turbid (Clear); Urine Color Yellow (Yellow); Urine Crystals Unidentified Few /HPF (None Seen); Urine Culture Reflex Order NOT NEEDED; Urine Glucose NEGATIVE (Negative); Urine Ketones 1+ (Negative); Urine Microscopic Reflex YN ORDER UMIC; Urine Mucus 1+ /HPF (None Seen); Urine Nitrite NEGATIVE (Negative); Urine Protein TRACE (Negative); Urine Urobilinogen Normal (Normal); Urine Yeast (Budding) Trace /HPF (None Seen); Urine pH 6.5 (5.0-7.0)
[2024-03-11 20:14] LABS: Albumin 3.5 g/dL (3.4-5.0); Anion Gap 8.3 mEq/L (5.0-15.0); Bilirubin Total 1.3 mg/dL (0.2-1.0); Globulin 3.6 g/dL (2.3-3.5); Potassium 3.3 mEq/L (3.5-5.1); Protein, Total 7.1 g/dL (6.4-8.2)
--- NOTE | 2024-03-11 20:42 | RAD REPORT ---
EXAMINATION: US Transvaginal Study Probe CLINICAL INDICATION: Female 48 years old.[facility] 1 year ago Abd pain;Vaginal bleeding Bed Name: IW1 TECHNIQUE: Real-time ultrasonography of the pelvis was performed transvaginally. Color and spectral D oppler evaluation of the ovaries was performed. COMPARISON: 01/04/2024. FINDINGS: UTERUS AND CERVIX: The uterus measures 8.2 cm in length. Small posterior wall hypoechoic 1.3 cm fibro id. Incidentally noted small nabothian cysts. The endometrium is normal, 0.6 cm in thickness. RIGHT OVARY: Normal The right ovary measures 2.1 x 2.4 x 1.9 cm. Normal color and spectral Doppler evaluation of the right ovary.. LEFT OVARY: Not visualized which limits evaluation. FREE FLUID: No free fluid. IMPRESSION: Small posterior wall uterine 1.3 cm fibroid. Left ovary is not visualized which limits evaluation.
--- NOTE | 2024-03-11 20:57 | ER ---
Nurse's Notes [facility] Name: Verna Paredes Age: 48 yrs Sex: Female : 1975 Arrival Date: 03/11/2024 Time: 18:43 Bed 8 Private MD: Diagnosis: Uterine fibroid Presentation: 03/11 18:47 Chief complaint: Patient states: a couple of hours ago I started having vaginal ko1 bleeding and cramping, went through menopause 12 years ago, had D\T\C done in January. Coronavirus screen: At this time, the client does not indicate any symptoms associated with coronavirus-19. Ebola Screen: No symptoms or risks identified at this time. Initial Sepsis Screen: Does the patient meet any 2 criteria? No. Patient's initial sepsis screen is negative. Does the patient have a suspected source of infection? No. Patient's initial sepsis screen is negative. Risk Assessment: Do you want to hurt yourself or someone else? Patient reports no desire to harm self or others. Onset of symptoms was March 11, 2024. 18:47 Method Of Arrival: Ambulatory ko1 18:47 Acuity: SERA 3 ko1 Triage Assessment: 18:51 General: Appears in no apparent distress. Behavior is calm, cooperative, appropriate ko1 for age. Pain: Complains of pain in suprapubic area, right lower quadrant and left lower quadrant. GI: Reports lower abdominal pain, nausea. 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 - Infectious Disease History:: Denies. - Social history:: Smoking status: Patient denies any tobacco usage or history of. Screenin:[address] [facility] ED Fall Risk Assessment (Adult) History of falling in the last 3 months, al5 including since admission No falls in past 3 months (0 pts) Confusion or Disorientation No (0 pts) Intoxicated or Sedated No (0 pts) Impaired Gait No (0 pts) Mobility Assist Device Used No (0 pt) Altered Elimination No (0 pt) Score/Fall Risk Level 0 - 2 = Low Risk Oriented to surroundings, Maintained a safe environment, Hourly rounding (assess needs \T\ fall precautionary measures) done. Abuse screen: Denies threats or abuse. Denies injuries from another. Nutritional screening: No deficits noted. Tuberculosis screening: No symptoms or risk factors identified. Assessment: 20:03 General: Appears in no apparent distress. Behavior is calm, cooperative. Pain: al5 Complains of pain in left lower quadrant and right lower quadrant and suprapubic area Pain currently is 8 out of 10 on a pain scale. Neuro: Level of Consciousness is awake, alert, obeys commands, Oriented to person, place, time, situation. Cardiovascular: Capillary refill < 3 seconds Patient's skin is warm and dry. Respiratory: Airway is patent Respiratory effort is even, unlabored, Respiratory pattern is regular, symmetrical. GI: Abdomen is flat, non-distended, Bowel sounds present X 4 quads. Abd is soft X 4 quads Abdomen is tender to palpation in suprapubic area, right lower quadrant and left lower quadrant. : Reports pain with urination, vaginal bleeding that is bright red, with clots. EENT: No signs and/or symptoms were reported regarding the EENT system. Derm: Skin is intact, is healthy with good turgor, Skin is pink, warm \T\ dry. normal. Musculoskeletal: No signs and/or symptoms reported regarding the musculoskeletal system. Vital Signs: 18:47 BP 121 / 68; Pulse 78; Resp 16; Temp 97.3; Pulse Ox 100% ; ko1 19:37 BP 107 / 79; Pulse 70; Resp 18; Pulse Ox 96% on R/A; al5 21:05 BP 123 / 78; Pulse 74; Resp 18; Pulse Ox 98% ; cp4 ED Course: 18:45 Patient arrived in ED. im 18:47 Chyna Narayanan PA-C is PHCP. sb4 18:47 Nader Craig MD is Attending Physician. sb4 18:51 Triage completed. ko1 18:51 Arm band placed on right wrist. Patient placed in an exam room, on a stretcher, on ko1 pulse oximetry, Patient notified of wait time. 19:37 Francy Terry, ALISSA is Primary Nurse. al5 20:05 No provider procedures requiring assistance completed. Inserted saline lock: 20 gauge al5 in right antecubital area, using aseptic technique. Blood collected. Flushed with 10 mL NS. 20:06 Patient has correct armband on for positive identification. Bed in low position. Call al5 light in reach. Side rails up X 1. Provided Education on: plan of care. 20:30 Transvaginal Study (probe) In Process Unspecified. EDMS 21:06 intact, bleeding controlled, No redness/swelling at site. Pressure dressing applied. cp4 Administered Medications: 20:02 Drug: Ondansetron IVP 4 mg IVP once; over 2 minutes Route: IVP; Site: right antecubital;al5 21:06 Follow up: Response: No adverse reaction cp4 20:02 Drug: morphine IVP or IV 4 mg IVP once over 4 mins Route: IVP; Infused Over: 4 mins; al5 Site: right antecubital; 21:06 Follow up: Response: No adverse reaction; Pain is decreased cp4 20:02 Drug: NS 0.9% IV 1000 ml IV at 1 bolus Per protocol; to be given as a bolus over 60 al5 minutes Route: IV; Rate: 1 bolus; Site: right antecubital; 21:07 Follow up: IV Status: Completed infusion cp4 Medication: 20:06 VIS not applicable for this client. al5 Outcome: 20:56 Discharge ordered by . sb4 21:06 Discharged to home ambulatory, cp4 21:06 Condition: stable 21:06 Discharge instructions given to patient, family, Instructed on discharge instructions, follow up and referral plans. Demonstrated understanding of instructions, follow-up care, 21:07 Patient left the ED. cp4 Signatures: Dispatcher [employer] EDMS Waleska Medina RN RN ko1 Chyna Narayanan PA-C PA-C sb4 Rose Mark Christina cp4 Francy Terry RN RN al5 Corrections: (The following items were deleted from the chart) 53 18:51 Home Meds: Zepbound subcutaneous; ko1 ko1 53 18:51 Home Meds: Oxybutynin Chloride Oral; ko1 ko1
--- NOTE | 2024-03-11 20:57 | EDPHYS ---
Physician Documentation [facility] Name: Verna Paredes Age: 48 yrs Sex: Female : 1975 Arrival Date: 03/11/2024 Time: 18:43 Bed 8 Private MD: ED Physician Nader Craig HPI: 03/11 19:35 This 48 yrs old Female presents to ER via Ambulatory with complaints of Abdominal Pain, sb4 Vaginal Bleeding. 19:35 The patient presents with abdominal pain in the lower abdomen. Onset: The sb4 symptoms/episode began/occurred this morning. The symptoms radiate to back. Associated signs and symptoms: Pertinent positives: vaginal bleeding. abdominal pain began this morning, thought it was a colitis flare up. went to the restroom, wiped and saw bright red blood with clots from vagina. states she went through menopause 12 months ago, had a D\T\C 3 months ago for a uterine fibroid, hasn't had any issues since. 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 - Infectious Disease History:: Denies. - Social history:: Smoking status: Patient denies any tobacco usage or history of. ROS: 19:35 Constitutional: Negative for fever, chills, and weight loss, sb4 19:35 Abdomen/GI: Positive for abdominal pain, nausea, 19:35 : Positive for vaginal bleeding, 19:35 All other systems are negative, Exam: 19:35 Head/Face: Normocephalic, atraumatic. Eyes: Extra-ocular motions intact. Periorbital sb4 areas with no swelling, redness, or edema. ENT: Mucous membranes moist. Cardiovascular: Regular rate and rhythm with a normal S1 and S2. Respiratory: No increased work of breathing, no retractions or nasal flaring. Abdomen/GI: Soft, non-tender, no distension. Skin: Warm, dry with normal turgor. Normal color with no rashes, no lesions, and no evidence of cellulitis. 19:35 Constitutional: The patient appears alert, awake, uncomfortable, Vital Signs: 18:47 BP 121 / 68; Pulse 78; Resp 16; Temp 97.3; Pulse Ox 100% ; ko1 19:37 BP 107 / 79; Pulse 70; Resp 18; Pulse Ox 96% on R/A; al5 21:05 BP 123 / 78; Pulse 74; Resp 18; Pulse Ox 98% ; cp4 MDM: 19:11 Medical Screening Exam initiated sb4 20:55 Data reviewed: vital signs, nurses notes, lab test result(s), radiologic studies, and sb4 as a result, I will discharge patient. Counseling: I had a detailed discussion with the patient and/or guardian regarding the historical points, exam findings, and any diagnostic results supporting the discharge/admit diagnosis, lab results, radiology results, the need for outpatient follow up, an OB/Gyne specialist, to return to the emergency department if symptoms worsen or persist or if there are any questions or concerns that arise at home. 03/11 19:12 Order name: CBC with Diff; Complete Time: 20:12 sb4 03/11 19:12 Order name: CMP; Complete Time: 20:14 sb4 03/11 19:12 Order name: Lipase; Complete Time: 20:14 sb4 03/11 19:12 Order name: Test, Urine; Complete Time: 19:59 sb4 03/11 19:12 Order name: Urinalysis w/ reflexes; Complete Time: 20:04 sb4 03/11 19:12 Order name: Transvaginal Study (probe); Complete Time: 20:44 sb4 03/11 19:12 Order name: IV Saline Lock; Complete Time: 19:51 sb4 03/11 19:12 Order name: Labs collected and sent; Complete Time: 19:51 sb4 Administered Medications: 20:02 Drug: Ondansetron IVP 4 mg IVP once; over 2 minutes Route: IVP; Site: right antecubital;al5 21:06 Follow up: Response: No adverse reaction cp4 20:02 Drug: morphine IVP or IV 4 mg IVP once over 4 mins Route: IVP; Infused Over: 4 mins; al5 Site: right antecubital; 21:06 Follow up: Response: No adverse reaction; Pain is decreased cp4 20:02 Drug: NS 0.9% IV 1000 ml IV at 1 bolus Per protocol; to be given as a bolus over 60 al5 minutes Route: IV; Rate: 1 bolus; Site: right antecubital; 21:07 Follow up: IV Status: Completed infusion cp4 Disposition Summary: 03/11/24 20:56 Discharge Ordered Notes: Location: Home sb4 Problem: new sb4 Symptoms: have improved sb4 Condition: Stable sb4 Diagnosis - Uterine fibroid sb4 Followup: sb4 - With: Private Physician - When: As needed - Reason: Recheck today's complaints, Re-evaluation by your physician Discharge Instructions: - Discharge Summary Sheet sb4 - Uterine Fibroids, [id number] sb4 Forms: - Patient Portal Instructions sb4 - Leadership Thank You Letter sb4 Addendum: 03/13/2024 07:24 Co-signature as Attending Physician, Nader Craig MD I reviewed the patient's care r n provided by the Advanced Practice Provider and agree with the diagnosis and treatment plan. Signatures: Dispatcher [employer] Nader Ruiz MD MD rn Oliver, Kathy, RN RN ko1 Chyna Narayanan PA-C PAElliott sb4 Francy Terry RN RN al5 Melinda Cordero cp4 Corrections: (The following items were deleted from the chart) 03/11 18:53 18:51 Home Meds: Zepbound subcutaneous; ko1 ko1 18:53 18:51 Home Meds: Oxybutynin Chloride Oral; ko1 ko1 19:12 19:12 CBC+H.LAB.BRZ ordered. EDMS EDMS 19:12 19:12 COMPREHENSIVE METABOLIC PANEL+C.LAB.BRZ ordered. EDMS EDMS 19:13 19:12 LIPASE+C.LAB.BRZ ordered. EDMS EDMS 19:13 19:12 Test, Urine+UC.LAB.BRZ ordered. EDMS EDMS 19: 19:12 Urinalysis+U.LAB.BRZ ordered. EDMS EDMS 19:13 Transvaginal Study (Probe)+US.RAD.BRZ ordered. EDMS EDMS
[2024-03-12 05:10] VITALS: TEMP 97.3
[2024-03-12 05:19] VITALS: BP 123/78; O2SAT 98
== END 2024-03-11 21:07 | disposition home or self-care (01) ==
LOC: ER 18:43
DX: D25.9 Leiomyoma of uterus, unspecified (principal); R10.30 Lower abdominal pain, unspecified
CPT/HCPCS: 96361; 85025; 81001; 36415; 81025; 83690; 80053; 76830; 96375; 96374; 99284; J2405; J7030

== ENCOUNTER 2024-03-26 16:44 | Emergency (ER) | payer BC ==
[2024-03-26] MEDS ORDERED: droPERidol 5 MG/2 ML VIAL ONE (17:22)
[2024-03-26] MEDS ORDERED: ONDANSETRON 4 MG/2 ML VIAL ONE (17:22)
[2024-03-26] MEDS ORDERED: NA CHLORIDE 0.9% 1,000 ML ONE (17:22)
[2024-03-26 17:29] LABS: Absolute Eosinophils 0.1 K/uL (0-0.5); Absolute Lymphocytes (CBC) 1.3 K/uL (0.7-4.9); Absolute Monocytes 0.4 K/uL (0.1-1.3); Basophils % 0.6 % (0-1.3); Eosinophils % 1.9 % (0-4.4); Hematocrit 42.6 % (36.0-45.0); Hemoglobin 14.4 g/dL (12.0-15.0); Lymphocytes % 18.4 % (15.3-44.8); MCH 29.8 pg (27.0-35.0); MCHC 33.9 g/dL (32.0-36.0); MCV 88.1 fL (80-100); MPV 9.7 fL (7.6-11.3); Monocytes % 6.3 % (3.3-12.3); Neutrophils % 72.8 % (41.7-73.7); Platelets 194 thou/uL (152-406); RBC Red Blood Cell Count 4.84 M/uL (3.86-4.86); Red Cell Distribution Width 13.8 % (12.1-15.2)
[2024-03-26 17:45] LABS: Specific Gravity > 1.030 (1.005-1.030); Sqamous Epithelial 20-50 /HPF (None Seen); Urine Bacteria 20-50 /HPF (<20); Urine Bilirubin NEGATIVE (Negative); Urine Blood Negative (Negative); Urine Clarity Extremely Turbid (Clear); Urine Color Yellow (Yellow); Urine Crystals Unidentified Few /HPF (None Seen); Urine Culture Reflex Order NOT NEEDED; Urine Glucose NEGATIVE (Negative); Urine Ketones NEGATIVE (Negative); Urine Microscopic Reflex YN ORDER UMIC; Urine Mucus 4+ /HPF (None Seen); Urine Nitrite NEGATIVE (Negative); Urine Protein 1+ (Negative); Urine RBC >50 /HPF (None Seen); Urine Urobilinogen Normal (Normal); Urine WBC 20-50 /HPF (<5); Urine pH 5.5 (5.0-7.0)
[2024-03-26 17:50] LABS: Specific Gravity > 1.030 (1.005-1.030)
[2024-03-26 17:53] LABS: ALT/SGPT 16 U/L (13-56); Albumin 3.5 g/dL (3.4-5.0); Alkaline Phosphatase 58 U/L (45-117); Anion Gap 7.3 mEq/L (5.0-15.0); BUN Blood Urea Nitrogen 12 mg/dL (7-18); Bicarbonate 26 mEq/L (21-32); Bilirubin Total 1.2 mg/dL (0.2-1.0); Globulin 3.5 g/dL (2.3-3.5); Glomerular Filtration Rate 97 ml/min (=/>90); Glucose Level 130 mg/dL (74-106); Lipase 33 U/L (13-75); Potassium 3.3 mEq/L (3.5-5.1); Sodium Level 141 mEq/L (136-145)
[2024-03-26 17:55] LABS: AST/SGOT < 10 U/L (15-37)
--- NOTE | 2024-03-26 19:03 | EDPHYS ---
Physician Documentation [facility] Name: Verna Paredes Age: 48 yrs Sex: Female : 1975 Arrival Date: 03/26/2024 Time: 16:44 Bed 20 Private MD: ED Physician Leti Aaron HPI: 03/26 17:10 This 48 yrs old Female presents to ER via Ambulatory with complaints of Abdominal Pain. cp 17:10 The patient presents with abdominal pain in the lower abdomen. cp 17:10 Onset: The symptoms/episode began/occurred this morning. cp 17:10 Associated signs and symptoms: Pertinent positives: vaginal bleeding, Pertinent cp negatives: blood in stools, chest pain, constipation, diarrhea, fever, vomiting. 17:10 The symptoms are described as crampy. 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 - Infectious Disease History:: Denies. - Social history:: Smoking status: Patient denies any tobacco usage or history of. ROS: 17:15 Abdomen/GI: Positive for abdominal pain, nausea, cp 17:15 Constitutional: Negative for body aches, chills, fever, poor PO intake, cp 17:15 Eyes: Negative for injury, pain, redness, and discharge, cp 17:15 Cardiovascular: Negative for chest pain, palpitations, 17:15 Respiratory: Negative for cough, shortness of breath, wheezing, 17:15 : Positive for vaginal bleeding, Negative for urinary symptoms, 17:15 Neuro: Negative for altered mental status, dizziness, headache, weakness, 17:15 All other systems are negative, Exam: 17:20 Constitutional: The patient appears in no acute distress, alert, awake, non-toxic, well cp developed, well nourished, uncomfortable, 17:20 Head/Face: Normocephalic, atraumatic. cp 17:20 Eyes: Periorbital structures: appear normal, Conjunctiva: normal, no exudate, no injection, Sclera: no appreciated abnormality, Lids and lashes: appear normal, bilaterally, 17:20 ENT: External ear(s): are unremarkable, Nose: is normal, Mouth: Lips: moist, Oral mucosa: moist, Posterior pharynx: Airway: no evidence of obstruction, patent, 17:20 Chest/axilla: Inspection: normal, 17:20 Cardiovascular: Rate: normal, Rhythm: regular, 17:20 Respiratory: the patient does not display signs of respiratory distress, Respirations: normal, no use of accessory muscles, no retractions, labored breathing, is not present, Breath sounds: are clear throughout, no decreased breath sounds, no stridor, no wheezing, 17:20 Abdomen/GI: Inspection: abdomen appears normal, Bowel sounds: active, all quadrants, Palpation: soft, in all quadrants, moderate abdominal tenderness, in the suprapubic area, rebound tenderness, is not appreciated, involuntary guarding, is not appreciated, 17:20 Back: CVA tenderness, is absent, Vital Signs: 16:55 BP 108 / 74; Pulse 91; Resp 16; Temp 97.9(O); Pulse Ox 100% on R/A; Weight 83.46 kg; cm10 Height 5 ft. 6 in. ; Pain 6/10; 17:30 BP 135 / 76; Pulse 89; Resp 16; Pulse Ox 97% ; me1 18:00 BP 136 / 81; Pulse 88; Resp 16; Pulse Ox 97% ; me1 19:30 BP 132 / 78; Pulse 80; Resp 18; Temp 98; Pulse Ox 100% ; kj2 16:55 Body Mass Index 29.70 (83.46 kg, 167.64 cm) cm10 16:55 Pain Scale: Adult cm10 MDM: 17:01 Medical Screening Exam initiated cp 19:03 Data reviewed: vital signs, nurses notes, lab test result(s), and as a result, I will cp discharge patient. 19:03 Differential diagnosis: bowel obstruction, non-specific abd pain, pancreatitis, cp Pyelonephritis, Ureterolithiasis, urinary tract infection. I considered the following discharge prescriptions or medication management in the emergency department Medications were administered in the Emergency Department. See MAR. Special discussion: Based on the patient's Hx, exam, and Dx evaluation, there is no indication for emergent surgery or inpatient Tx. It is understood by the patient/guardian that if the Sx's persist or worsen they need to return immediately for re-evaluation. ED course: VSS. Patient has been seen on multiple occasions for similar complaints with CT performed. Labs reviewed and unremarkable. Pain improved with meds. Will discharge to home for continued monitoring. 03/26 17:06 Order name: CBC with Diff; Complete Time: 17:49 cp 03/26 17:06 Order name: CMP; Complete Time: 18:13 cp 03/26 18:20 Interpretation: Normal except: K 3.3; CL 111; GLUC 130; AST < 10; BILIT 1.2; A/G 1.0. cp 03/26 17:06 Order name: Lipase; Complete Time: 18:13 cp 03/26 17:06 Order name: Test, Urine; Complete Time: 17:51 cp 03/26 17:51 Interpretation: Normal except: Urine SG > 1.030. cp 03/26 17:06 Order name: Urinalysis w/ reflexes; Complete Time: 17:49 cp 03/26 17:50 Interpretation: Normal except: [facility] Extremely Turbid; Urine SG > 1.030; UPROT 1+; UESTR cp 500; UWBC 20-50; URBC >50; UBACT 20-50; SQEPI 20-50; MUCUS 4+. 03/26 17:06 Order name: IV Saline Lock; Complete Time: 17:19 cp 03/26 17:06 Order name: Labs collected and sent; Complete Time: 17:19 cp Administered Medications: 17:28 Drug: Ondansetron IVP 4 mg IVP once; over 2 minutes Route: IVP; Site: right antecubital;me1 17:46 Follow up: Response: No adverse reaction; Nausea is decreased me1 17:28 Drug: NS 0.9% IV 1000 ml IV at 1 bolus Per protocol; to be given as a bolus over 60 me1 minutes Route: IV; Rate: 1 bolus; Site: right antecubital; 19:05 Follow up: Response: No adverse reaction; IV Status: Completed infusion; IV Intake: me1 1000ml 17:28 Drug: Droperidol IVP 1.25 mg IVP once Route: IVP; Site: right antecubital; me1 17:47 Follow up: Response: No adverse reaction; Nausea is decreased me1 18:23 Not Given (Patient Refused): potassiumeffervescent tablet 50 meq PO once; dissolve in 4 me1 ounces of water or juice Disposition Summary: 03/26/24 19:03 Discharge Ordered Notes: Location: Home cp Problem: an ongoing problem cp Symptoms: have improved cp Condition: Stable cp Diagnosis - Lower abdominal pain, unspecified cp - Hypokalemia cp Followup: cp - With: Private Physician - When: 5 - 6 days - Reason: Recheck today's complaints Discharge Instructions: - Discharge Summary Sheet cp - Abdominal Pain, Adult cp - Potassium Content of Foods cp - Hypokalemia cp Forms: - Medication Reconciliation Form cp - Antibiotic Education cp - Prescription Opioid Use cp - Patient Portal Instructions cp - Leadership Thank You Letter cp Signatures: Dispatcher [employer] EDMS Eric Arauz PA PA cp Maria Isabel Anders RN RN cm10 Sirisha Patel RN RN me1 Tamar Bran RN RN kj2 Corrections: (The following items were deleted from the chart) 17:07 17:07 CBC+H.LAB.BRZ ordered. EDMS EDMS 17:07 17:07 COMPREHENSIVE METABOLIC PANEL+C.LAB.BRZ ordered. EDMS EDMS 17:07 17:07 LIPASE+C.LAB.BRZ ordered. EDMS EDMS 17:07 17:07 Test, Urine+UC.LAB.BRZ ordered. EDMS EDMS 17:07 17:07 Urinalysis+U.LAB.BRZ ordered. EDMS EDMS
--- NOTE | 2024-03-26 19:03 | ER ---
Nurse's Notes [facility] Name: Verna Paredes Age: 48 yrs Sex: Female : 1975 Arrival Date: 03/26/2024 Time: 16:44 Bed 20 Private MD: Diagnosis: Lower abdominal pain, unspecified;Hypokalemia Presentation: 03/26 16:55 Chief complaint: Patient states: lower abdominal pain onset today. pt also reports cm10 vaginal bleeding onset today. pt reports that she was told she had uterine fibroids 2 weeks ago. Coronavirus screen: Client denies travel out of the [place] in the last 14 days. Ebola Screen: Patient denies travel to an Ebola-affected area in the 21 days before illness onset. No symptoms or risks identified at this time. Initial Sepsis Screen: Does the patient meet any 2 criteria? No. Patient's initial sepsis screen is negative. Does the patient have a suspected source of infection? No. Patient's initial sepsis screen is negative. Risk Assessment: Do you want to hurt yourself or someone else? Patient reports no desire to harm self or others. Onset of symptoms was March 26, 2024. 16:55 Method Of Arrival: Ambulatory cm10 16:55 Acuity: SERA 3 cm10 Triage Assessment: 16:58 General: Appears in no apparent distress. uncomfortable, Behavior is calm, cooperative. cm10 Neuro: No deficits noted. Level of Consciousness is awake, alert, obeys commands, Oriented to person, place, time, situation, Appropriate for age. Respiratory: No deficits noted. Airway is patent Respiratory effort is even, unlabored, Respiratory pattern is regular, symmetrical. 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 - Infectious Disease History:: Denies. - Social history:: Smoking status: Patient denies any tobacco usage or history of. Screenin:15 [facility] ED Fall Risk Assessment (Adult) History of falling in the last 3 months, me1 including since admission No falls in past 3 months (0 pts) Confusion or Disorientation No (0 pts) Intoxicated or Sedated No (0 pts) Impaired Gait No (0 pts) Mobility Assist Device Used No (0 pt) Altered Elimination No (0 pt) Score/Fall Risk Level 0 - 2 = Low Risk Maintained a safe environment, Provided non-skid footwear, Hourly rounding (assess needs \T\ fall precautionary measures) done. Abuse screen: Denies threats or abuse. Nutritional screening: No deficits noted. Tuberculosis screening: No symptoms or risk factors identified. Assessment: 17:15 General: Appears uncomfortable, well groomed, well developed, well nourished, Behavior me1 is calm, cooperative, appropriate for age, Reports lower abdominal pain onset today. pt also reports vaginal bleeding onset today. pt reports that she was told she had uterine fibroids 2 weeks ago. Pain: Complains of pain in suprapubic area, right lower quadrant and left lower quadrant Pain does not radiate. Pain currently is 6 out of 10 on a pain scale. Quality of pain is described as crampy, Pain began gradually, Is continuous. Neuro: Level of Consciousness is awake, alert, obeys commands, Oriented to person, place, time, situation, Appropriate for age. Cardiovascular: Patient's skin is warm and dry. Respiratory: Airway is patent Respiratory effort is even, unlabored, Respiratory pattern is regular, symmetrical. GI: Abdomen is round non-distended, Bowel sounds present X 4 quads. Abd is soft X 4 quads Reports lower abdominal pain, nausea. : Reports cramping, in bilateral lower quadrant(s) since this morning. vaginal bleeding that is spotty. EENT: No signs and/or symptoms were reported regarding the EENT system. Derm: Skin is intact, is healthy with good turgor, Skin is pink, warm \T\ dry. Musculoskeletal: No signs and/or symptoms reported regarding the musculoskeletal system. 18:25 Reassessment: Patient refused po potassium replacement, states she has potassium at mt1 home that she will take when her stomach isnt upset. Informed PATRIA Younger. 19:00 Reassessment: Patient appears in no apparent distress at this time. Patient and/or kj2 family updated on plan of care and expected duration. Pain level reassessed. Patient is alert, oriented x 3, equal unlabored respirations, skin warm/dry/pink. Vital Signs: 16:55 BP 108 / 74; Pulse 91; Resp 16; Temp 97.9(O); Pulse Ox 100% on R/A; Weight 83.46 kg; cm10 Height 5 ft. 6 in. ; Pain 6/10; 17:30 BP 135 / 76; Pulse 89; Resp 16; Pulse Ox 97% ; me1 18:00 BP 136 / 81; Pulse 88; Resp 16; Pulse Ox 97% ; me1 19:30 BP 132 / 78; Pulse 80; Resp 18; Temp 98; Pulse Ox 100% ; kj2 16:55 Body Mass Index 29.70 (83.46 kg, 167.64 cm) cm10 16:55 Pain Scale: Adult cm10 ED Course: 16:46 Patient arrived in ED. ra3 16:48 Eric Arauz PA is PHCP. cp 16:48 Leti Aaron MD is Attending Physician. cp 16:57 Triage completed. cm10 16:58 Arm band placed on right wrist. Patient placed in an exam room, on a stretcher. cm10 17:03 Sirisha Patel, RN is Primary Nurse. me1 17:15 Patient has correct armband on for positive identification. Bed in low position. Call me1 light in reach. Side rails up X2. Provided Education on: POC. Verbalized understanding.. Client placed on continuous cardiac and pulse oximetry monitoring. NIBP monitoring applied. Pulse ox on. NIBP on. 17:15 No provider procedures requiring assistance completed. me1 17:18 Initial lab(s) drawn, by mt, sent to lab. Urine collected: clean catch specimen, mt1 cloudy, tea colored. Inserted saline lock: 22 gauge in right antecubital area, using aseptic technique. 17:19 CBC with Diff Sent. me1 17:19 CMP Sent. me1 17:19 Lipase Sent. me1 17:19 Test, Urine Sent. me1 17:19 Urinalysis w/ reflexes Sent. me1 19:32 IV discontinued, intact, bleeding controlled, No redness/swelling at site. Pressure kj2 dressing applied. Administered Medications: 17:28 Drug: Ondansetron IVP 4 mg IVP once; over 2 minutes Route: IVP; Site: right antecubital;me1 17:46 Follow up: Response: No adverse reaction; Nausea is decreased me1 17:28 Drug: NS 0.9% IV 1000 ml IV at 1 bolus Per protocol; to be given as a bolus over 60 me1 minutes Route: IV; Rate: 1 bolus; Site: right antecubital; 19:05 Follow up: Response: No adverse reaction; IV Status: Completed infusion; IV Intake: me1 1000ml 17:28 Drug: Droperidol IVP 1.25 mg IVP once Route: IVP; Site: right antecubital; me1 17:47 Follow up: Response: No adverse reaction; Nausea is decreased me1 18:23 Not Given (Patient Refused): potassiumeffervescent tablet 50 meq PO once; dissolve in 4 me1 ounces of water or juice Medication: 17:15 VIS not applicable for this client. me1 Intake: 19:05 IV: 1000ml; Total: 1000ml. me1 Outcome: 19:03 Discharge ordered by . cp 19:32 Discharged to home ambulatory, kj2 19:32 Condition: stable 19:32 Discharge instructions given to patient, Instructed on discharge instructions, follow up and referral plans. Demonstrated understanding of instructions, follow-up care, 19:42 Patient left the ED. kj2 Signatures: Eric Arauz PA PA cp Maria Isabel Anders RN RN cm10 Sirisha Patel RN RN me1 Maribel Siddiqui ra3 Tamar Bran RN RN kj2 Corrections: (The following items were deleted from the chart) 17:47 16:55 Chief complaint: Patient states: lower abdominal pain onset today. pt also me1 reports vaginal bleeding onset today. pt reports that she was told she had uterine fibroids 2 weeks ago. cm10
[2024-03-26 20:46] VITALS: BP 132/78; TEMP 98; O2SAT 100
== END 2024-03-26 19:42 | disposition home or self-care (01) ==
LOC: ER 16:44
DX: R10.30 Lower abdominal pain, unspecified (principal); N93.8 Other specified abnormal uterine and vaginal bleeding; E87.6 Hypokalemia; Z88.1 Allergy status to other antibiotic agents; Z88.6 Allergy status to analgesic agent
CPT/HCPCS: 96361; 85025; 81001; 36415; 81025; 83690; 80053; 96375; 96374; 99284; J2405; J1790; J7030

== ENCOUNTER 2024-06-18 17:21 | Emergency (ER) | payer BC ==
[2024-06-18 18:12] LABS: Absolute Basophils 0.1 K/uL (0-0.5); Absolute Eosinophils 0.2 K/uL (0-0.5); Absolute Lymphocytes (CBC) 1.8 K/uL (0.7-4.9); Absolute Monocytes 0.5 K/uL (0.1-1.3); Basophils % 0.9 % (0-1.3); Eosinophils % 2.5 % (0-4.4); Hemoglobin 14.2 g/dL (12.0-15.0); MCH 30.1 pg (27.0-35.0); MCHC 34.5 g/dL (32.0-36.0); MCV 87.1 fL (80-100); MPV 10.1 fL (7.6-11.3); Monocytes % 6.3 % (3.3-12.3); Neutrophils % 66.3 % (41.7-73.7); Platelets 195 thou/uL (152-406); RBC Red Blood Cell Count 4.71 M/uL (3.86-4.86); Red Cell Distribution Width 14.3 % (12.1-15.2)
[2024-06-18] MEDS ORDERED: NA CHLORIDE 0.9% 1,000 ML ONE (18:12)
[2024-06-18 18:27] LABS: Specific Gravity 1.027 (1.005-1.030); Urine Bacteria <20 /HPF (<20); Urine Bilirubin NEGATIVE (Negative); Urine Blood Negative (Negative); Urine Clarity Extremely Turbid (Clear); Urine Color Yellow (Yellow); Urine Crystals Unidentified Few /HPF (None Seen); Urine Culture Reflex Order REFLEXED; Urine Glucose NEGATIVE (Negative); Urine Ketones NEGATIVE (Negative); Urine Microscopic Reflex YN ORDER UMIC; Urine Mucus 3+ /HPF (None Seen); Urine Nitrite NEGATIVE (Negative); Urine Protein TRACE (Negative); Urine Urobilinogen Normal (Normal); Urine WBC Clump Rare /HPF (None Seen); Urine Yeast (Budding) Trace /HPF (None Seen); Urine pH 5.5 (5.0-7.0)
[2024-06-18 18:29] LABS: Albumin 3.5 g/dL (3.4-5.0); Albumin/Globulin Ratio 0.9 (1.1-1.8); Bilirubin Direct 0.2 mg/dL (0-0.2); Bilirubin Indirect, Calculated 0.8 mg/dL (0.2-0.8); Globulin 3.8 g/dL (2.3-3.5); Protein, Total 7.3 g/dL (6.4-8.2)
[2024-06-18 18:49] LABS: Influenza A Ag Negative; Influenza B Ag Negative; SARS-CoV-2 Antigen Rapid Res Negative (Negative)
--- NOTE | 2024-06-18 19:39 | EDPHYS ---
Physician Documentation [facility] Name: Verna Paredes Age: 48 yrs Sex: Female : 1975 Arrival Date: 06/18/2024 Time: 17:21 Bed 13 Private MD: ED Physician Nader Craig HPI: 06/18 17:42 This 48 yrs old Female presents to ER via Ambulatory with complaints of Dizziness, rn fatigue. 17:42 The patient presents with dizziness, generalized weakness, lightheadedness, sense of rn spinning. 17:42 Onset: The symptoms/episode began/occurred this morning. Modifying factors: The rn symptoms are alleviated by nothing, the symptoms are aggravated by nothing. Severity of symptoms: At their worst the symptoms were very mild in the emergency department the symptoms are unchanged. The patient has not experienced similar symptoms in the past. The patient has been recently seen by a physician:. Patient reports generalized weakness and malaise. Woke up this morning feeling dizzy lightheaded and feeling a sense of spinning. Patient with history of vertigo. States took vertigo medicine and did not help like it usually does. Patient's status post hysterectomy last week. States bleeding has stopped and pain overall improving. Denies fever or chills. No cough or shortness of breath. No chest pain. Improving abdominal pain. No urinary symptoms. No new medication.. 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 - Infectious Disease History:: Denies. - Social history:: Smoking status: Patient denies any tobacco usage or history of. - Family history:: not pertinent. ROS: 17:42 Constitutional: Negative for fever, chills, and weight loss, Cardiovascular: Negative rn for chest pain, palpitations, and edema, Respiratory: Negative for shortness of breath, cough, wheezing, and pleuritic chest pain, Abdomen/GI: Negative for abdominal pain, nausea, vomiting, diarrhea, and constipation, Back: Negative for injury and pain, MS/Extremity: Negative for injury and deformity, Skin: Negative for injury, rash, and discoloration, Neuro: Negative for headache, numbness, tingling, and seizure, Exam: 17:42 Constitutional: This is a well developed, well nourished patient who is awake, alert, rn and in no acute distress. Head/Face: Normocephalic, atraumatic. Eyes: Normal conjunctiva ENT: Dry mucous membranes Cardiovascular: Regular rate and rhythm. No pulse deficits. Respiratory: No increased work of breathing, no retractions or nasal flaring. Abdomen/GI: Soft, non-tender Skin: Warm, dry MS/ Extremity: Pulses equal, no cyanosis Neuro: Awake and alert, GCS 15 Vital Signs: 17:29 BP 107 / 74; Pulse 84; Resp 18; Temp 97.8(O); Pulse Ox 99% on R/A; Weight 72.57 kg; ld1 Height 5 ft. 6 in. ; Pain 0/10; 19:36 BP 117 / 66; Pulse 80; Resp 20; Pulse Ox 100% ; kj2 17:29 Body Mass Index 25.82 (72.57 kg, 167.64 cm) ld1 17:29 Pain Scale: Adult ld1 MDM: 17:32 Medical Screening Exam initiated rn 19:36 Differential diagnosis: generalized weakness, hypovolemia, idiopathic dizziness, rn vertigo, Anemia, renal insufficiency, dehydration. Data reviewed: vital signs, nurses notes, lab test result(s), and as a result, I will discharge patient. Counseling: I had a detailed discussion with the patient and/or guardian regarding the historical points, exam findings, and any diagnostic results supporting the discharge/admit diagnosis, lab results, the need for outpatient follow up, to return to the emergency department if symptoms worsen or persist or if there are any questions or concerns that arise at home. Response to treatment: the patient's symptoms have mildly improved after treatment, and as a result, I will discharge patient. Special discussion: I discussed with the patient/guardian in detail that at this point there is no indication for admission to the hospital. It is understood, however, that if the symptoms persist or worsen the patient needs to return immediately for re-evaluation. Based on the history and exam findings, there is no indication for further emergent testing or inpatient evaluation. ED course: No acute findings and workup. No anemia. No renal insufficiency or electrolyte problems. Urinalysis negative for nitrate or bacteria. Patient states always has slightly atypical urine and is not a true urinary tract infection she has been told. Does not have any urinary symptoms to justify antibiotics at this time. Blood pressure improved to 117/66 with fluids. Patient feels a little better. Will discharge home as could just be too early in her presentation. I have personally reviewed all of the results, including but not limited to blood tests and imaging deemed necessary to safely discharge this patient at this time. All results given to and printed out for patient. I personally went over all the results with the patient and answered all questions. Patient will follow-up with PCP and or specialist as discussed. Return precautions given and understood.. 06/18 17:38 Order name: COVID-19 Ag + Flu A+B Ag; Complete Time: 19:31 ld06/18 17:38 Order name: CBC with Diff; Complete Time: 18:21 ld06/18 17:38 Order name: Basic Metabolic Panel; Complete Time: 19:31 ld06/18 17:38 Order name: Urinalysis w/ reflexes; Complete Time: 19:31 ld06/18 17:38 Order name: LFT's; Complete Time: 19:31 ld1 06/18 17:38 Order name: Lipase; Complete Time: 19:31 ld06/18 18:35 Order name: Urine Culture [facility] 06/18 17:38 Order name: IV Start; Complete Time: 18:11 ld1 Administered Medications: 18:24 Drug: NS 0.9% IV 1000 ml IV at 1000 ml once; to be given as a bolus over 60 minutes kj2 Route: IV; Rate: 1000 ml; Site: left antecubital; 19:49 Follow up: IV Status: Completed infusion; IV Intake: 1000ml kj2 Disposition Summary: 06/18/24 19:39 Discharge Ordered Notes: Location: Home rn Problem: new rn Symptoms: have improved rn Condition: Stable rn Diagnosis - Dizziness and giddiness rn Followup: rn - With: Private Physician - When: As needed - Reason: Recheck today's complaints, Re-evaluation by your physician Discharge Instructions: - Discharge Summary Sheet rn - Dizziness rn Forms: - Medication Reconciliation Form rn - Antibiotic internet architect - Prescription Opioid Use rn - Patient Portal Instructions rn - Leadership Thank You Letter rn Signatures: Dispatcher [employer] EDMS Nader Craig MD MD rn Sims, Lauren, RN RN ld1 Tamar Bran RN RN kj2 Corrections: (The following items were deleted from the chart) 17:38 17:38 COVID-19 Ag + Flu A+B Ag+I.LAB.BRZ ordered. EDMS EDMS 17:38 17:38 CBC+H.LAB.BRZ ordered. EDMS EDMS 17:38 17:38 BASIC METABOLIC PANEL+C.LAB.BRZ ordered. EDMS EDMS 17:38 17:38 Urinalysis+U.LAB.BRZ ordered. EDMS EDMS 17:38 17:38 HEPATIC FUNCTION+C.LAB.BRZ ordered. EDMS EDMS 17:38 17:38 LIPASE+C.LAB.BRZ ordered. EDMS EDMS
--- NOTE | 2024-06-18 19:39 | ER ---
Nurse's Notes [facility] Name: Verna Paredes Age: 48 yrs Sex: Female : 1975 Arrival Date: 06/18/2024 Time: 17:21 Bed 13 Private MD: Diagnosis: Dizziness and giddiness Presentation: 06/18 17:29 Chief complaint: Patient states: Hysterectomy 06/08/24. Denies pain. Woke up today ld1 feeling weak, dizziness. Hot/Cold flashes. Coronavirus screen: At this time, the client does not indicate any symptoms associated with coronavirus-19. Ebola Screen: No symptoms or risks identified at this time. Initial Sepsis Screen: Does the patient meet any 2 criteria? No. Patient's initial sepsis screen is negative. Does the patient have a suspected source of infection? No. Patient's initial sepsis screen is negative. Risk Assessment: Do you want to hurt yourself or someone else? Patient reports no desire to harm self or others. Onset of symptoms was June 18, 2024. 17:29 Method Of Arrival: Ambulatory ld1 17:29 Acuity: SERA 3 ld1 Triage Assessment: 17:29 General: Appears in no apparent distress. comfortable, Behavior is calm, cooperative, ld1 appropriate for age. Pain: Denies pain. EENT: No signs and/or symptoms were reported regarding the EENT system. Neuro: Level of Consciousness is awake, alert, obeys commands, Oriented to person, place, time, situation. Cardiovascular: Capillary refill < 3 seconds Patient's skin is warm and dry. Respiratory: Airway is patent Respiratory effort is even, unlabored. GI: Abdomen is round non-distended. : No signs and/or symptoms were reported regarding the genitourinary system. Derm: No signs and/or symptoms reported regarding the dermatologic system. Musculoskeletal: No signs and/or symptoms reported regarding the musculoskeletal system. 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 - Infectious Disease History:: Denies. - Social history:: Smoking status: Patient denies any tobacco usage or history of. - Family history:: not pertinent. Screenin:50 [facility] ED Fall Risk Assessment (Adult) History of falling in the last 3 months, kj2 including since admission No falls in past 3 months (0 pts) Confusion or Disorientation No (0 pts) Intoxicated or Sedated No (0 pts) Impaired Gait No (0 pts) Mobility Assist Device Used No (0 pt) Altered Elimination No (0 pt) Score/Fall Risk Level 0 - 2 = Low Risk Maintained a safe environment, Hourly rounding (assess needs \T\ fall precautionary measures) done. Abuse screen: Denies threats or abuse. Denies injuries from another. Nutritional screening: No deficits noted. Tuberculosis screening: No symptoms or risk factors identified. Assessment: 17:50 General: Appears in no apparent distress. Behavior is calm, cooperative. Pain: Denies kj2 pain. Neuro: Level of Consciousness is awake, alert, obeys commands, Oriented to person, place, time, situation. Cardiovascular: Patient's skin is warm and dry. Respiratory: Airway is patent Respiratory effort is even, unlabored. GI: No signs and/or symptoms were reported involving the gastrointestinal system. : No signs and/or symptoms were reported regarding the genitourinary system. 19:00 Reassessment: Patient appears in no apparent distress at this time. Patient and/or kj2 family updated on plan of care and expected duration. Pain level reassessed. Patient is alert, oriented x 3, equal unlabored respirations, skin warm/dry/pink. 19:48 Reassessment: Patient appears in no apparent distress at this time. Patient and/or kj2 family updated on plan of care and expected duration. Pain level reassessed. Patient is alert, oriented x 3, equal unlabored respirations, skin warm/dry/pink. Vital Signs: 17:29 BP 107 / 74; Pulse 84; Resp 18; Temp 97.8(O); Pulse Ox 99% on R/A; Weight 72.57 kg; ld1 Height 5 ft. 6 in. ; Pain 0/10; 19:36 BP 117 / 66; Pulse 80; Resp 20; Pulse Ox 100% ; kj2 17:29 Body Mass Index 25.82 (72.57 kg, 167.64 cm) ld1 17:29 Pain Scale: Adult ld1 ED Course: 17:23 Patient arrived in ED. mr 17:29 Arm band placed on right wrist. ld1 17:30 Triage completed. ld1 17:32 Nader Craig MD is Attending Physician. rn 17:50 Patient has correct armband on for positive identification. Placed in gown. Bed in low kj2 position. Adult w/ patient. Provided Education on: call light. 17:50 Inserted saline lock: 20 gauge in left antecubital area, using aseptic technique. Blood kj2 collected. Flushed with 10 mL NS. 18:10 Tamar Bran, RN is Primary Nurse. kj2 18:11 Urinalysis w/ reflexes Sent. kj2 18:11 Basic Metabolic Panel Sent. kj2 18:11 CBC with Diff Sent. kj2 18:11 COVID-19 Ag + Flu A+B Ag Sent. kj2 19:48 No provider procedures requiring assistance completed. IV discontinued, intact, kj2 bleeding controlled, No redness/swelling at site. Pressure dressing applied. Administered Medications: 18:24 Drug: NS 0.9% IV 1000 ml IV at 1000 ml once; to be given as a bolus over 60 minutes kj2 Route: IV; Rate: 1000 ml; Site: left antecubital; 19:49 Follow up: IV Status: Completed infusion; IV Intake: 1000ml kj2 Medication: 19:48 VIS not applicable for this client. kj2 Intake: 19:49 IV: 1000ml; Total: 1000ml. kj2 Outcome: 19:39 Discharge ordered by . rn 19:49 Discharged to home ambulatory, kj2 19:49 Condition: stable 19:49 Discharge instructions given to patient, Instructed on discharge instructions, follow up and referral plans. Demonstrated understanding of instructions, follow-up care, 20:01 Patient left the ED. kj2 Signatures: Elba Doty, Reg Reg mr Nader Craig MD MD rn Val Carballo RN RN ld1 Tamar Bran RN RN kj2
[2024-06-18 20:06] VITALS: TEMP 97.8
[2024-06-18 20:07] VITALS: BP 117/66; O2SAT 100
== END 2024-06-18 20:01 | disposition home or self-care (01) ==
LOC: ER 17:21
DX: R42 Dizziness and giddiness (principal); R53.1 Weakness; Z90.710 Acquired absence of both cervix and uterus; Z11.52 Encounter for screening for COVID-19
CPT/HCPCS: 87088; 85025; 81001; 87086; 80048; 36415; 80076; 83690; 96360; 99284; 87428; J7030

== ENCOUNTER 2024-12-25 16:47 | Emergency (ER) | payer BC ==
--- NOTE | 2024-12-25 17:47 | RAD REPORT ---
EXAMINATION: CT ABDOMEN AND PELVIS WITHOUT CONTRAST CLINICAL INDICATION: ABD PAIN TECHNIQUE: CT abdomen and pelvis was performed, without IV contrast, as per department protocol. Axia l, sagittal and coronal reconstructions were obtained. One or more of the following dose reduction techniques were used: Automated exposure control, adjustment of the mA and kV according to the patien t size, and iterative reconstruction. Unless otherwise specified, incidental findings do not require dedicated imaging follow-up. COMPARISON: 09/25/2024 FINDINGS: The lack of intravenous contrast limits the sensitivity of this exam for evaluation of solid visceral organs, vascular structures, and retroperitoneum. LOWER CHEST: The visualized lung bases are clear. LIVER:Normal in size and contour. No focal lesion. Cholecystectomy clips. SPLEEN: Normal size. No focal lesion. PANCREAS: No mass, ductal dilation, or charles-pancreatic fluid. ADRENALS: Normal; no mass. KIDNEYS AND URETERS: Normal size and contour. No hydronephrosis. URINARY BLADDER: Normal contour. GASTROINTESTINAL TRACT: No evidence of bowel obstruction, significant free fluid, free air or abscess . APPENDIX: Normal appendix. LYMPH NODES: No lymphadenopathy. MUSCULOSKELETAL: Moderate lower lumbar spondylosis. ADDITIONAL FINDINGS: None. IMPRESSION: No acute abnormalities in the abdomen or pelvis, with evaluation limited by lack of IV contrast.
[2024-12-25] MEDS ORDERED: MORPHINE 2 MG/ML SYR ONE (17:59)
[2024-12-25] MEDS ORDERED: ONDANSETRON 4 MG/2 ML VIAL ONE (17:59)
[2024-12-25 18:04] LABS: Absolute Lymphocytes (CBC) 1.6 K/uL (0.7-4.9); Hematocrit 42.8 % (36.0-45.0); Hemoglobin 14.6 g/dL (12.0-15.0); MCH 30.2 pg (27.0-35.0); MCHC 34.1 g/dL (32.0-36.0); MCV 88.6 fL (80-100); MPV 8.9 fL (7.6-11.3); Nucleated RBC Absolute Count 0.0 (0-0); Nucleated Red Blood Cells % 0.3 % (0-0); RBC Red Blood Cell Count 4.83 M/uL (3.86-4.86); White Blood Count 7.10 thou/uL (4.3-10.9)
[2024-12-25 18:10] LABS: Sqamous Epithelial <5 /HPF (None Seen); Urine Culture Reflex Order NOT NEEDED; Urine Microscopic Reflex YN ORDER UMIC; Urine WBC Clump Rare /HPF (None Seen); Urine Yeast (Budding) Trace /HPF (None Seen)
[2024-12-25 18:29] LABS: ALT/SGPT 21 U/L (13-56); Albumin 3.8 g/dL (3.4-5.0); Albumin/Globulin Ratio 1.2 (1.1-1.8); Alkaline Phosphatase 45 U/L (45-117); Anion Gap 6.5 mEq/L (5.0-15.0); BUN Blood Urea Nitrogen 16 mg/dL (7-18); Globulin 3.3 g/dL (2.3-3.5); Glucose Level 85 mg/dL (74-106); Lipase 43 U/L (13-75); Potassium 3.5 mEq/L (3.5-5.1)
[2024-12-25 18:35] LABS: AST/SGOT < 10 U/L (15-37)
--- NOTE | 2024-12-25 18:49 | ER ---
Nurse's Notes [facility] Name: Verna Paredes Age: 49 yrs Sex: Female : 1975 Arrival Date: 12/25/2024 Time: 16:47 Bed 19 Private MD: Diagnosis: Abdominal pain, unspecified Presentation: 12/25 17:23 Chief complaint: Intermittent abdominal pain and nausea z 3 weeks. Coronavirus screen: hb At this time, the client does not indicate any symptoms associated with coronavirus-19. Ebola Screen: No symptoms or risks identified at this time. Initial Sepsis Screen: Does the patient meet any 2 criteria? No. Patient's initial sepsis screen is negative. Does the patient have a suspected source of infection? No. Patient's initial sepsis screen is negative. Risk Assessment: Do you want to hurt yourself or someone else? Patient reports no desire to harm self or others. Onset of symptoms was December 04, 2024. 17:23 Method Of Arrival: Ambulatory hb 17:23 Acuity: SERA 3 hb Historical: - Allergies: 17:24 Cipro; hb 17:24 dicyclomine; hb 17:24 HYDROCODONE; hb 17:24 NSAIDS; hb 17:24 Prednisone; hb - PMHx: 17:24 Diverticulitis; thickening of uterine lining and cyst (hernia repair); ulcertive hb colitis; uterine fibroids; - PSHx: 17:24 Cholecystectomy; hemroid surgery; hernia repair; Total abdominal hysterectomy; hb - Family history:: not pertinent. - Hospitalizations: : No recent hospitalization is reported. Screenin:00 [facility] ED Fall Risk Assessment (Adult) History of falling in the last 3 months, rg5 including since admission No falls in past 3 months (0 pts) Confusion or Disorientation No (0 pts) Intoxicated or Sedated No (0 pts) Impaired Gait No (0 pts) Mobility Assist Device Used No (0 pt) Altered Elimination No (0 pt) Score/Fall Risk Level 0 - 2 = Low Risk Oriented to surroundings, Maintained a safe environment. Abuse screen: Denies threats or abuse. Denies injuries from another. Nutritional screening: No deficits noted. Tuberculosis screening: No symptoms or risk factors identified. Assessment: 18:00 General: Appears in no apparent distress. comfortable, Behavior is calm, cooperative, rg5 appropriate for age. Pain: Complains of pain in abdomen Quality of pain is described as aching. Neuro: Level of Consciousness is awake, alert, obeys commands, Oriented to person, place, time. Cardiovascular: Denies chest pain. Respiratory: Airway is patent Trachea midline. GI: Bowel sounds present in left lower quadrant Abd is soft and non tender Reports lower abdominal pain, upper abdominal pain. : No signs and/or symptoms were reported regarding the genitourinary system. EENT: No signs and/or symptoms were reported regarding the EENT system. Derm: Skin is intact, Skin is dry, Skin is normal, Skin temperature is warm. Musculoskeletal: Circulation, motion, and sensation intact. Range of motion: intact in all extremities. 19:00 Reassessment: Patient and/or family updated on plan of care and expected duration. Pain rg5 level reassessed. Patient is alert, oriented x 3, equal unlabored respirations, skin warm/dry/pink. Patient states feeling better. Patient states symptoms have improved. Vital Signs: 17:23 BP 114 / 70; Pulse 80; Resp 16; Temp 98(O); Pulse Ox 99% on R/A; Weight 64.41 kg; hb Height 5 ft. 6 in. ; Pain 6/10; 18:00 BP 95 / 58; Pulse 75; Resp 18; Pulse Ox 96% ; rg5 19:00 BP 105 / 60; Pulse 75; Pulse Ox 100% ; Pain 0/10; rg5 17:23 Body Mass Index 22.92 (64.41 kg, 167.64 cm) hb 17:23 Pain Scale: Adult hb 19:00 Pain Scale: Adult rg5 ED Course: 16:50 Patient arrived in ED. ts1 16:50 Chyna Narayanan PA-C is PHCP. sb4 16:50 Nader Craig MD is Attending Physician. sb4 17:24 Triage completed. hb 17:24 Bj Alvarado, ALISSA is Primary Nurse. rg5 17:40 CT Abd/Pelvis - Without Contrast In Process Unspecified. EDMS 18:00 Patient has correct armband on for positive identification. Bed in low position. Call rg5 light in reach. Side rails up X 1. 18:00 No provider procedures requiring assistance completed. Inserted saline lock: 20 gauge rg5 in right antecubital area, using aseptic technique. Blood collected. Flushed with 10 mL NS. 19:35 IV discontinued, bleeding controlled, No redness/swelling at site. Pressure dressing rg5 applied. Administered Medications: 17:11 CANCELLED (Physician Discretion): TORadol - [id number] mg IVP once sb4 17:11 CANCELLED (Physician Discretion): ondansetron 4 mg IVP once; over 2 minutes sb4 17:11 CANCELLED (Physician Discretion): ns 0.9% 1000 ml IV at 1 bolus Per protocol; to be sb4 given as a bolus over 60 minutes 18:06 Drug: Ondansetron IVP 4 mg IVP once; over 2 minutes Route: IVP; Site: right antecubital;hb 18:21 Follow up: Response: No adverse reaction rg5 18:06 Drug: NS 0.9% IV 1000 ml IV at 1000 ml once; to be given as a bolus over 60 minutes hb Route: IV; Rate: 1000 ml; Site: right antecubital; 19:00 Follow up: IV Status: Completed infusion; IV Intake: 1000ml rg5 18:07 Drug: morphine IVP or IV 2 mg IVP once over 4 mins Route: IVP; Infused Over: 4 mins; hb Site: right antecubital; 18:21 Follow up: Response: No adverse reaction; Pain is decreased rg5 Medication: 18:00 VIS not applicable for this client. rg5 Intake: 19:00 IV: 1000ml; Total: 1000ml. rg5 Outcome: 18:48 Discharge ordered by . rn 19:35 Discharged to home ambulatory, rg5 19:35 Condition: stable 19:35 Discharge instructions given to patient, 19:36 Patient left the ED. rg5 Signatures: Dispatcher [employer] EDMS Nader Craig MD MD rn Baxter, Heather RN RN Warner Aviles RN RN [id number] Chyna Narayanan PAElliott PA-C [id number] Bethanie Jimenez PAS PAS ts1 Bj Alvarado RN RN rg5 Corrections: (The following items were deleted from the chart) 17:10 17:05 Chief complaint: Patient states: standing in the kitchen at 1430 and felt a pop jl7 in left lower back, radiates around to LLQ jl7
--- NOTE | 2024-12-25 18:49 | EDPHYS ---
Physician Documentation [facility] Name: Verna Paredes Age: 49 yrs Sex: Female : 1975 Arrival Date: 12/25/2024 Time: 16:47 Bed 19 Private MD: ED Physician Nader Craig HPI: 12/25 17:30 This 49 yrs old Female presents to ER via Ambulatory with complaints of Abdominal Pain. rn 17:30 The patient presents with abdominal pain. Patient reports 2 weeks of diffuse abdominal rn pain, worse in the mid abdomen. Patient with history of ulcerative colitis. Denies any fever/vomiting/blood in stool. Is having bowel movements and eating well with good appetite.. Historical: - Allergies: 17:24 Cipro; hb 17:24 dicyclomine; hb 17:24 HYDROCODONE; hb 17:24 NSAIDS; hb 17:24 Prednisone; hb - PMHx: 17:24 Diverticulitis; thickening of uterine lining and cyst (hernia repair); ulcertive hb colitis; uterine fibroids; - PSHx: 17:24 Cholecystectomy; hemroid surgery; hernia repair; Total abdominal hysterectomy; hb - Family history:: not pertinent. - Hospitalizations: : No recent hospitalization is reported. ROS: 17:30 Constitutional: Negative for fever, chills, and weight loss, Neck: Negative for injury, rn pain, and swelling, Cardiovascular: Negative for chest pain, palpitations, and edema, Respiratory: Negative for shortness of breath, cough, wheezing, and pleuritic chest pain, Abdomen/GI: Positive for abdominal pain Back: Negative for injury and pain, : Negative for injury, bleeding, discharge, and swelling, MS/Extremity: Negative for injury and deformity, Skin: Negative for injury, rash, and discoloration, Neuro: Negative for headache, weakness, numbness, tingling, and seizure, Exam: 17:30 Constitutional: This is a well developed, well nourished patient who is awake, alert, rn and in no acute distress. Cardiovascular: Regular rate and rhythm. No pulse deficits. Respiratory: No increased work of breathing, no retractions or nasal flaring. Abdomen/GI: Soft, mid abdominal tenderness without rebound or guarding. No distention Vital Signs: 17:23 BP 114 / 70; Pulse 80; Resp 16; Temp 98(O); Pulse Ox 99% on R/A; Weight 64.41 kg; hb Height 5 ft. 6 in. ; Pain 6/10; 18:00 BP 95 / 58; Pulse 75; Resp 18; Pulse Ox 96% ; rg5 19:00 BP 105 / 60; Pulse 75; Pulse Ox 100% ; Pain 0/10; rg5 17:23 Body Mass Index 22.92 (64.41 kg, 167.64 cm) hb 17:23 Pain Scale: Adult hb 19:00 Pain Scale: Adult rg5 MDM: 16:51 Medical Screening Exam initiated sb4 17:26 ED course: Patient states has had hysterectomy. Will obtain labs and CT imaging.. rn 18:45 Differential diagnosis: appendicitis, diverticulitis, gastritis, gastroesophageal rn reflux disease, non-specific abd pain, pancreatitis, Peptic Ulcer Disease, Perf. Duodenal Ulcer, Perf. Gastric Ulcer, Ureterolithiasis, urinary tract infection. Data reviewed: vital signs, nurses notes, lab test result(s), radiologic studies, CT scan, and as a result, I will discharge patient. Counseling: I had a detailed discussion with the patient and/or guardian regarding the historical points, exam findings, and any diagnostic results supporting the discharge/admit diagnosis, lab results, radiology results, the need for outpatient follow up, to return to the emergency department if symptoms worsen or persist or if there are any questions or concerns that arise at home. Special discussion: Based on the patient's Hx, exam, and Dx evaluation, there is no indication for emergent surgery or inpatient Tx. It is understood by the patient/guardian that if the Sx's persist or worsen they need to return immediately for re-evaluation. I discussed with the patient/guardian in detail that at this point there is no indication for admission to the hospital. It is understood, however, that if the symptoms persist or worsen the patient needs to return immediately for re-evaluation. Based on the history and exam findings, there is no indication for further emergent testing or inpatient evaluation. I discussed with the patient/guardian the need to see the primary care provider for further evaluation of the symptoms. 18:48 ED course: Patient does not have urinary symptoms. No acute findings and workup. 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 12/25 17:03 Order name: CBC with Diff; Complete Time: 18:16 sb4 12/25 17:03 Order name: CMP; Complete Time: 18:39 sb4 12/25 17:03 Order name: Lipase; Complete Time: 18:39 sb4 12/25 17:03 Order name: Test, Urine sb4 12/25 17:03 Order name: UA Rfx Kelvin Cult if indicated; Complete Time: 18:16 sb4 12/25 17:13 Order name: CT Abd/Pelvis - Without Contrast; Complete Time: 17:48 rn 12/25 17:03 Order name: IV Saline Lock; Complete Time: 17:58 sb4 12/25 17:03 Order name: Labs collected and sent; Complete Time: 18:05 sb4 Administered Medications: 17:11 CANCELLED (Physician Discretion): TORadol - [id number] mg IVP once sb4 17:11 CANCELLED (Physician Discretion): ondansetron 4 mg IVP once; over 2 minutes sb4 17:11 CANCELLED (Physician Discretion): ns 0.9% 1000 ml IV at 1 bolus Per protocol; to be sb4 given as a bolus over 60 minutes 18:06 Drug: Ondansetron IVP 4 mg IVP once; over 2 minutes Route: IVP; Site: right antecubital;hb 18:21 Follow up: Response: No adverse reaction rg5 18:06 Drug: NS 0.9% IV 1000 ml IV at 1000 ml once; to be given as a bolus over 60 minutes hb Route: IV; Rate: 1000 ml; Site: right antecubital; 19:00 Follow up: IV Status: Completed infusion; IV Intake: 1000ml rg5 18:07 Drug: morphine IVP or IV 2 mg IVP once over 4 mins Route: IVP; Infused Over: 4 mins; hb Site: right antecubital; 18:21 Follow up: Response: No adverse reaction; Pain is decreased rg5 Disposition Summary: 12/25/24 18:48 Discharge Ordered Notes: Location: Home rn Problem: new rn Symptoms: have improved rn Condition: Stable rn Diagnosis - Abdominal pain, unspecified rn Followup: rn - With: Private Physician - When: As needed - Reason: Recheck today's complaints, Re-evaluation by your physician Discharge Instructions: - Discharge Summary Sheet rn - Abdominal Pain, Adult rn - Pain Without a Known Cause rn Forms: - Medication Reconciliation Form rn - Antibiotic architect internship - Prescription Opioid Use rn - Patient Portal Instructions rn - Leadership Thank You Letter rn Signatures: Dispatcher [employer] Nader Ruiz MD MD rn Baxter, Heather, RN RN hb Brown, Sophia, PA-C PA-C sb4 Bj Alvarado RN RN rg5 Corrections: (The following items were deleted from the chart) 17:11 17:03 TORadol - Ketorolac IVP 15 mg IVP once ordered. sb4 sb4 17:11 17:03 Ondansetron IVP 4 mg IVP once; over 2 minutes ordered. sb4 sb4 17:11 17:03 NS 0.9% IV 1000 ml IV at 1 bolus Per protocol; to be given as a bolus over 60 sb4 minutes ordered. sb4 17:30 17:30 Constitutional: Negative for fever, chills, and weight loss, Cardiovascular: rn Negative for chest pain, palpitations, and edema, Respiratory: Negative for shortness of breath, cough, wheezing, and pleuritic chest pain, Abdomen/GI: Positive for abdominal pain MS/Extremity: Negative for injury and deformity, Skin: Negative for injury, rash, and discoloration, Neuro: Negative for headache, weakness, numbness, tingling, and seizure, rn
[2024-12-25 19:51] VITALS: TEMP 98
[2024-12-25 19:54] VITALS: BP 105/60; O2SAT 100
== END 2024-12-25 19:36 | disposition home or self-care (01) ==
LOC: ER 16:47
DX: R10.9 Unspecified abdominal pain (principal); Z88.1 Allergy status to other antibiotic agents; Z88.5 Allergy status to narcotic agent
CPT/HCPCS: 96361; 85025; 81001; 36415; 81025; 83690; 80053; 74176; 96375; 96374; 99284; J2270; J2405

== ENCOUNTER 2025-01-14 06:56 | Day surgery (SDC) | payer BC ==
[2025-01-14] MEDS ORDERED: LIDOCAINE 1% MPF 5 ML VIAL ONE (07:11)
[2025-01-14] MEDS: Ringers Lactate 1,000 ML IV ONE (07:15)
[2025-01-14 09:13] VITALS: BP 125/64; TEMP 97.3; O2SAT 99
== END 2025-01-14 09:17 | disposition home or self-care (01) ==
LOC: OR 06:56
PROVIDERS: ATTEND Surgery
PROC: 0DBL8ZX Excision of Transverse Colon, Via Natural or Artificial Opening Endoscopic, Diagnostic (ICD-10-PCS; 2025-01-14)
PROC: 0DBN8ZX Excision of Sigmoid Colon, Via Natural or Artificial Opening Endoscopic, Diagnostic (ICD-10-PCS; 2025-01-14)
PROC: 0DBP8ZX Excision of Rectum, Via Natural or Artificial Opening Endoscopic, Diagnostic (ICD-10-PCS; 2025-01-14)
PROC: 0DBM8ZX Excision of Descending Colon, Via Natural or Artificial Opening Endoscopic, Diagnostic (ICD-10-PCS; 2025-01-14)
PROC: 0DBH8ZX Excision of Cecum, Via Natural or Artificial Opening Endoscopic, Diagnostic (ICD-10-PCS; principal; 2025-01-14 08:00)
DX: Z12.11 Encounter for screening for malignant neoplasm of colon (principal); K51.90 Ulcerative colitis, unspecified, without complications; K62.4 Stenosis of anus and rectum; Z86.0100 Personal history of colon polyps, unspecified
CPT/HCPCS: 93005; 88305; 45380; J2704; J2003; J7120

== ENCOUNTER 2025-01-23 16:46 | Emergency (ER) | payer BC ==
[2025-01-23] MEDS ORDERED: DERMABOND SKIN ADHESIVE TOP ONE (17:27)
--- NOTE | 2025-01-23 17:56 | EDPHYS ---
Physician Documentation [facility] Name: Verna Paredes Age: 49 yrs Sex: Female : 1975 Arrival Date: 01/23/2025 Time: 16:46 Bed 13 Private MD: ED Physician Eric Varela HPI: 01/23 17:56 This 49 yrs old Female presents to ER via Ambulatory with complaints of Wound dr5 Check. 17:56 Patient presents to ED for recheck of: laceration. The affected area is on the dr5 umbilical area. Patient is a 49-year-old female history of ulcerative colitis, diverticulitis coming in with mild bleeding from incision site from appendectomy/oophorectomy last Friday. Patient reports that she has had bleeding that started this afternoon. Patient denies pain, fever, abdominal pain. 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 - Infectious Disease History:: Denies. - Social history:: Smoking status: Patient denies any tobacco usage or history of. ROS: 17:56 Constitutional: as per hpi dr5 Exam: 17:56 Constitutional: This is a well developed, well nourished patient who is awake, alert, dr5 and in no acute distress. Head/Face: Normocephalic, atraumatic. Eyes: Pupils equal round and reactive to light, extra-ocular motions intact. Lids and lashes normal. Conjunctiva and sclera are non-icteric and not injected. Cornea within normal limits. Periorbital areas with no swelling, redness, or edema. Neck: Trachea midline, no thyromegaly or masses palpated, and no cervical lymphadenopathy. Supple, full range of motion without nuchal rigidity, or vertebral point tenderness. No Meningismus. Chest/axilla: Normal chest wall appearance and motion. Nontender with no deformity. No lesions are appreciated. Cardiovascular: Regular rate and rhythm with a normal S1 and S2. Normal PMI, no JVD. No pulse deficits. Respiratory: Lungs have equal breath sounds bilaterally, clear to auscultation. No rales, rhonchi or wheezes noted. No increased work of breathing, no retractions or nasal flaring. Back: No spinal tenderness. No costovertebral tenderness. Full range of motion. MS/ Extremity: Pulses equal, no cyanosis. Neurovascular intact. Full, normal range of motion. Neuro: Awake and alert, GCS 15, oriented to person, place, time, and situation. Cranial nerves II-XII grossly intact. Motor strength 5/5 in all extremities. Sensory grossly intact. Cerebellar exam normal. Normal gait. 17:56 Skin: Dermabond noted over laceration with underlying small opening below it which is because of bleeding. Not bleeding at this time.. Vital Signs: 17:09 BP 143 / 80; Pulse 75; Resp 16; Pulse Ox 100% on R/A; Weight 63.5 kg; Height 5 ft. 6 iw in. ; Pain 0/10; 17:09 Body Mass Index 22.60 (63.50 kg, 167.64 cm) iw 17:09 Pain Scale: Adult iw Laceration: 17:56 Wound Repair of 1cm ( 0.4in ) subcutaneous laceration to umbilical area. Distal dr5 neuro/vascular/tendon intact. Skin closed with 1 thin layer Adhesive skin closure using Dermabond. Dressed with non-adherent dressing. Patient tolerated well. MDM: 16:55 Medical Screening Exam initiated dr5 17:56 Differential diagnosis: Mechanical incision malfunction, abrasion, contusion. Data dr5 reviewed: vital signs, nurses notes. Consideration of Admission/Observation Escalation of care including admission/observation considered. Escalation considered patient had purulent drainage or fever. I considered the following discharge prescriptions or medication management in the emergency department I discussed and recommended Over The Counter medications, Medications were administered in the Emergency Department. See MAR. Test considered but Not performed: CT: CT considered but patient not having abdominal pain. Care significantly affected by the following chronic conditions: Ulcerative colitis, uterine fibroids, diverticulitis. Care significantly affected by the following Social Determinants of Health: Poor access to healthcare and/or lack of insurance, Poor access to transportation, Problems related to employment. Counseling: I had a detailed discussion with the patient and/or guardian regarding the historical points, exam findings, and any diagnostic results supporting the discharge/admit diagnosis, the presence of at least one elevated blood pressure reading (>120/80) during this emergency department visit, the need for outpatient follow up, for definitive care, a family practitioner, to return to the emergency department if symptoms worsen or persist or if there are any questions or concerns that arise at home. Special discussion: I discussed with the patient/guardian in detail that at this point there is no indication for admission to the hospital. It is understood, however, that if the symptoms persist or worsen the patient needs to return immediately for re-evaluation. Based on the history and exam findings, there is no indication for further emergent testing or inpatient evaluation. I discussed with the patient/guardian the need to see the primary care provider for further evaluation of the symptoms. ED course: Patient has appoint with Dr. Stevens tomorrow. Dermabond used to close opening below Dermabond and Steri-Strips placed on top to help with keeping a close. Recommended keeping appointment tomorrow. All questions are. Strict ER precautions given.. 01/23 17:35 Order name: Dermabond; Complete Time: 17:37 ap3 Administered Medications: No medications were administered Disposition Summary: 01/23/25 17:55 Discharge Ordered Notes: Location: Home dr5 Condition: Stable dr5 Diagnosis - Postprocedural hemorrhage of skin and subcutaneous tissue following other procedure dr5 Followup: dr5 - With: Emergency Department - When: As needed - Reason: Worsening of condition Followup: dr5 - With: Private Physician - When: 1 - 2 days - Reason: Recheck today's complaints, Continuance of care, Re-evaluation by your physician Discharge Instructions: - Discharge Summary Sheet dr5 - Incision Care, Adult, [id number] dr5 Forms: - Medication Reconciliation Form dr5 - Patient Portal Instructions dr5 - Leadership Thank You Letter dr5 Signatures: Naty Parsons RN RN iw Prokisch, Amanda, RN RN ap3 Domo Fiore, ANGELICA-C CREDIT NEGOTIATOR-Cdr5
--- NOTE | 2025-01-23 17:56 | ER ---
Nurse's Notes [facility] Name: Verna Paredes Age: 49 yrs Sex: Female : 1975 Arrival Date: 01/23/2025 Time: 16:46 Bed 13 Private MD: Diagnosis: Postprocedural hemorrhage of skin and subcutaneous tissue following other procedure Presentation: 01/23 17:09 Chief complaint: Patient states: had right ovary and appendix removed on Friday at [facility] , today she noticed the surgical site in her belly button was bleeding. Coronavirus screen: At this time, the client does not indicate any symptoms associated with coronavirus-19. Ebola Screen: No symptoms or risks identified at this time. Initial Sepsis Screen: Does the patient meet any 2 criteria? RR > 20 per min. No. Patient's initial sepsis screen is negative. Does the patient have a suspected source of infection? No. Patient's initial sepsis screen is negative. Risk Assessment: Do you want to hurt yourself or someone else? Patient reports no desire to harm self or others. Onset of symptoms was January 23, 2025. 17:09 Method Of Arrival: Ambulatory iw 17:09 Acuity: SERA 3 iw Triage Assessment: 17:09 General: Appears in no apparent distress. Behavior is calm, cooperative, appropriate iw for age. Pain: Denies pain. Neuro: Level of Consciousness is awake, alert, obeys commands, Oriented to person, place, time, situation, Moves all extremities. Full function. 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 - Infectious Disease History:: Denies. - Social history:: Smoking status: Patient denies any tobacco usage or history of. Screenin:16 [facility] ED Fall Risk Assessment (Adult) History of falling in the last 3 months, ap3 including since admission No falls in past 3 months (0 pts) Confusion or Disorientation No (0 pts) Intoxicated or Sedated No (0 pts) Impaired Gait No (0 pts) Mobility Assist Device Used No (0 pt) Altered Elimination No (0 pt) Score/Fall Risk Level 0 - 2 = Low Risk Oriented to surroundings, Maintained a safe environment, Educated pt \T\ family on fall prevention, incl call for assistance when getting out of bed, Assessed \T\ reinforced patient's understanding of fall precautions, Hourly rounding (assess needs \T\ fall precautionary measures) done, Used ambulatory aids as needed (educated on \T\ assisted with). Abuse screen: Denies threats or abuse. Nutritional screening: No deficits noted. Tuberculosis screening: No symptoms or risk factors identified. Vital Signs: 17:09 BP 143 / 80; Pulse 75; Resp 16; Pulse Ox 100% on R/A; Weight 63.5 kg; Height 5 ft. 6 iw in. ; Pain 0/10; 17:09 Body Mass Index 22.60 (63.50 kg, 167.64 cm) iw 17:09 Pain Scale: Adult iw ED Course: 16:51 Patient arrived in ED. cj3 16:55 Domo Fiore FNP-C [facility]. dr5 16:55 Eric Varela MD is Attending Physician. dr5 17:11 Triage completed. iw 17:24 Francy Condon, RN is Primary Nurse. ap3 17:57 Arm band placed on. iw 18:16 No provider procedures requiring assistance completed. Patient did not have IV access ap3 during this emergency room visit. 18:17 Patient has correct armband on for positive identification. Provided Education on: ap3 wound care. Pulse ox on. NIBP on. Administered Medications: No medications were administered Medication: 18:17 VIS not applicable for this client. ap3 Outcome: 17:55 Discharge ordered by . dr5 18:17 Discharged to home ambulatory, ap3 18:17 Condition: good 18:17 Discharge instructions given to patient, Instructed on discharge instructions, follow up and referral plans. Demonstrated understanding of instructions, follow-up care, 18:17 Patient left the ED. ap3 Signatures: Naty Parsons RN RN iw Francy Condon RN RN ap3 Domo Fiore FNP-C FNP-Cdr5 Angela Rascon cj3
[2025-01-23 22:10] VITALS: BP 143/80; O2SAT 100
== END 2025-01-23 18:17 | disposition home or self-care (01) ==
LOC: ER 16:46
DX: L76.22 Postprocedural hemorrhage of skin and subcutaneous tissue following other procedure (principal)
CPT/HCPCS: 12001; 99283

== ENCOUNTER 2025-01-30 13:34 | Emergency (ER) | payer BC ==
[2025-01-30] MEDS ORDERED: ONDANSETRON 4 MG/2 ML VIAL ONE (15:16)
[2025-01-30] MEDS ORDERED: NA CHLORIDE 0.9% 1,000 ML ONE (15:16)
[2025-01-30 15:19] LABS: Absolute Lymphocytes (CBC) 1.6 K/uL (0.7-4.9); Hematocrit 40.3 % (36.0-45.0); Hemoglobin 13.7 g/dL (12.0-15.0); MCH 30.6 pg (27.0-35.0); MCHC 34.1 g/dL (32.0-36.0); MCV 89.8 fL (80-100); MPV 9.3 fL (7.6-11.3); Nucleated RBC Absolute Count 0.0 (0-0); Nucleated Red Blood Cells % 0.0 % (0-0); RBC Red Blood Cell Count 4.49 M/uL (3.86-4.86); White Blood Count 9.20 thou/uL (4.3-10.9)
[2025-01-30 15:21] LABS: Sqamous Epithelial <5 /HPF (None Seen); Urine Crystals Unidentified Few /HPF (None Seen); Urine Culture Reflex Order REFLEXED; Urine Microscopic Reflex YN ORDER UMIC; Urine WBC Clump Rare /HPF (None Seen); Urine Yeast (Budding) Occasional /HPF (None Seen)
[2025-01-30] MEDS ORDERED: CEFTRIAXONE 1000 MG/VIAL ONE (15:28)
[2025-01-30] MEDS ORDERED: NA CHLORIDE 0.9% 50 ML ONE (15:28)
[2025-01-30 15:41] LABS: ALT/SGPT 18 U/L (13-56); Albumin 3.1 g/dL (3.4-5.0); Albumin/Globulin Ratio 0.9 (1.1-1.8); Alkaline Phosphatase 52 U/L (45-117); Anion Gap 7.9 mEq/L (5.0-15.0); BUN Blood Urea Nitrogen 11 mg/dL (7-18); Globulin 3.5 g/dL (2.3-3.5); Glucose Level 93 mg/dL (74-106); Lipase 48 U/L (13-75); Potassium 3.9 mEq/L (3.5-5.1)
[2025-01-30 15:42] LABS: AST/SGOT < 10 U/L (15-37)
--- NOTE | 2025-01-30 16:23 | EDPHYS ---
Physician Documentation [facility] Name: Verna Paredes Age: 49 yrs Sex: Female : 1975 Arrival Date: 01/30/2025 Time: 13:34 Bed 7 Private MD: ED Physician Nader Craig HPI: 01/30 16:50 This 49 yrs old Female presents to ER via Ambulatory with complaints of dr5 Abdominal Pain, Nausea, Urinary Problem. 16:50 Onset: The symptoms/episode began/occurred 2 day(s) ago. Patient is a 49 female with dr5 history of diverticulitis, ulcerative colitis coming in with dysuria and generalized weakness for the past 2 days. Patient reports that the burning with urination worsened this morning. Patient denies chest pain, shortness of breath, fever, diarrhea.. 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 - Infectious Disease History:: Denies. - Social history:: Smoking status: Patient denies any tobacco usage or history of. ROS: 16:50 Constitutional: as per hpi dr5 Exam: 16:50 Constitutional: This is a well developed, well nourished patient who is awake, alert, dr5 and in no acute distress. Head/Face: Normocephalic, atraumatic. Eyes: Pupils equal round and reactive to light, extra-ocular motions intact. Lids and lashes normal. Conjunctiva and sclera are non-icteric and not injected. Cornea within normal limits. Periorbital areas with no swelling, redness, or edema. Neck: Trachea midline, no thyromegaly or masses palpated, and no cervical lymphadenopathy. Supple, full range of motion without nuchal rigidity, or vertebral point tenderness. No Meningismus. Chest/axilla: Normal chest wall appearance and motion. Nontender with no deformity. No lesions are appreciated. Cardiovascular: Regular rate and rhythm with a normal S1 and S2. Normal PMI, no JVD. No pulse deficits. Respiratory: Lungs have equal breath sounds bilaterally, clear to auscultation. No rales, rhonchi or wheezes noted. No increased work of breathing, no retractions or nasal flaring. Back: No spinal tenderness. No costovertebral tenderness. Full range of motion. Skin: Warm, dry with normal turgor. Normal color with no rashes, no lesions, and no evidence of cellulitis. MS/ Extremity: Pulses equal, no cyanosis. Neurovascular intact. Full, normal range of motion. Neuro: Awake and alert, GCS 15, oriented to person, place, time, and situation. Cranial nerves II-XII grossly intact. Motor strength 5/5 in all extremities. Sensory grossly intact. Cerebellar exam normal. Normal gait. 16:50 Abdomen/GI: Inspection: abdomen appears normal, Bowel sounds: normal, Palpation: mild abdominal tenderness, in the suprapubic area, Vital Signs: 13:46 BP 97 / 72; Pulse 85; Resp 16; Temp 97.9; Pulse Ox 100% ; Weight 63.96 kg; Height 5 ft. ss 6 in. ; Pain 4/10; 16:36 BP 109 / 76; Pulse 81; Resp 16; Temp 98.2; Pulse Ox 100% on R/A; kj2 13:46 Body Mass Index 22.76 (63.96 kg, 167.64 cm) ss 13:46 Pain Scale: Adult ss Jose Coma Score: 15:14 Eye Response: spontaneous(4). Motor Response: obeys commands(6). Verbal Response: kj2 oriented(5). Total: 15. MDM: 13:51 Medical Screening Exam initiated dr5 16:50 Differential diagnosis: non-specific abd pain, urinary tract infection, Electrolyte dr5 abnormality, , acute kidney injury. Data reviewed: vital signs, nurses notes, lab test result(s), CBC, white blood cell count, hemoglobin, hematocrit, platelets, electrolytes, sodium, potassium, chloride, serum bicarbonate, BUN, creatinine, serum glucose, urinalysis, bacteruria. Consideration of Admission/Observation Escalation of care including admission/observation considered. Escalation considered patient found to have pyelonephritis. I considered the following discharge prescriptions or medication management in the emergency department I discussed and recommended Over The Counter medications, Medications were administered in the Emergency Department. See MAR. Test considered but Not performed: CT: CT considered if patient did not have urinary tract infection or source of abdominal discomfort.. Care significantly affected by the following chronic conditions: Diverticulitis, ulcerative colitis. Care significantly affected by the following Social Determinants of Health: Poor access to healthcare and/or lack of insurance, Poor access to transportation, Problems related to employment. Counseling: I had a detailed discussion with the patient and/or guardian regarding the historical points, exam findings, and any diagnostic results supporting the discharge/admit diagnosis, the presence of at least one elevated blood pressure reading (>120/80) during this emergency department visit, lab results, the need for outpatient follow up, for definitive care, a family practitioner, to return to the emergency department if symptoms worsen or persist or if there are any questions or concerns that arise at home. Medication response: Rocephin. Response to treatment: Symptom-free and did not develop rash. Special discussion: I discussed with the patient/guardian in detail that at this point there is no indication for admission to the hospital. It is understood, however, that if the symptoms persist or worsen the patient needs to return immediately for re-evaluation. Based on the history and exam findings, there is no indication for further emergent testing or inpatient evaluation. I discussed with the patient/guardian the need to see the primary care provider for further evaluation of the symptoms. ED course: Labs and UA were printed and given to patient. Rocephin was given IV in ER. Will place patient on antibiotics. All questions answered. Strict ER precautions given. 01/30 13:58 Order name: CBC with Diff; Complete Time: 15:49 dr5 01/30 13:58 Order name: CMP; Complete Time: 15:49 dr5 01/30 13:58 Order name: Lipase; Complete Time: 15:49 dr5 01/30 13:58 Order name: UA Rfx Kelvin Cult if indicated; Complete Time: 15:23 dr5 01/30 13:58 Order name: Test, Urine; Complete Time: 15:23 dr5 01/30 15:25 Order name: Urine Culture EDSD 01/30 13:58 Order name: IV Saline Lock; Complete Time: 15:12 dr5 01/30 13:58 Order name: Labs collected and sent; Complete Time: 15:12 dr5 Administered Medications: 15:25 Drug: Ondansetron IVP 4 mg IVP once; over 2 minutes Route: IVP; Site: left antecubital; kj2 15:40 Follow up: Response: No adverse reaction kj2 15:25 Not Given (Patient Refused): morphineor iv 4 mg IVP once over 4 mins kj2 15:25 Drug: NS 0.9% IV 1000 ml IV at 1 bolus Per protocol; to be given as a bolus over 60 kj2 minutes Route: IV; Rate: 1 bolus; Site: left antecubital; 15:30 Follow up: IV Status: Completed infusion kj2 15:34 Drug: Rocephin IV 1 grams IV at per protocol once; Given slow IV push per pharmacy kj2 instructions Route: IV; Rate: per protocol; Site: left antecubital; 15:45 Follow up: IV Status: Completed infusion kj2 Disposition: 18:21 Co-signature as Attending Physician, Nader Craig MD I reviewed the patient's care rn provided by the Advanced Practice Provider and agree with the diagnosis and treatment plan. Disposition Summary: 01/30/25 16:22 Discharge Ordered Notes: Location: Home dr5 Condition: Stable dr5 Diagnosis - UTI/ Urinary tract infection, site not specified dr5 Followup: dr5 - With: Emergency Department - When: As needed - Reason: Worsening of condition Followup: dr5 - With: Private Physician - When: 1 - 2 days - Reason: Recheck today's complaints, Continuance of care, Re-evaluation by your physician Discharge Instructions: - Discharge Summary Sheet dr5 - Urinary Tract Infection, Adult, [id number] dr5 Forms: - Medication Reconciliation Form dr5 - Antibiotic Education dr5 - Patient Portal Instructions dr5 - Leadership Thank You Letter dr5 Prescriptions: - Cephalexin 500 mg Oral Capsule - take 1 capsule ORAL route every 12 hours for 10 days; 20 capsule; Refills: 0, dr5 Product Selection Permitted - Fluconazole 150 mg Oral tablet - take 1 tablet ORAL route once daily; 1 tablet; Refills: 0, Product Selection dr5 Permitted Signatures: Dispatcher [employer] EDNader Phillips MD MD rn Blanchard, Shelby, RN RN ss Jordan, Krystal, RN RN kj2 Domo Fiore FNP-C C JAVA DEVELOPER-5 Corrections: (The following items were deleted from the chart) 13:59 13:59 CBC+H.LAB.BRZ ordered. EDMS EDMS : 13:59 COMPREHENSIVE METABOLIC PANEL+C.LAB.BRZ ordered. EDMS EDMS 13:59 LIPASE+C.LAB.BRZ ordered. EDMS EDMS 13:59 UA Rfx Kelvin Cult if indicated+U.LAB.BRZ ordered. EDMS EDMS : 13:59 Test, Urine+UC.LAB.BRZ ordered. EDMS EDMS
--- NOTE | 2025-01-30 16:23 | ER ---
Nurse's Notes [facility] Name: Verna Paredes Age: 49 yrs Sex: Female : 1975 Arrival Date: 01/30/2025 Time: 13:34 Bed 7 Private MD: Diagnosis: UTI/ Urinary tract infection, site not specified Presentation: 01/30 13:46 Chief complaint: Patient states: Dizziness started Friday. Nausea and malaise since ss Friday. Abdominal pain with dysuria today. No fever. Coronavirus screen: Client denies travel out of the [place] in the last 14 days. At this time, the client does not indicate any symptoms associated with coronavirus-19. Ebola Screen: Patient denies travel to an Ebola-affected area in the 21 days before illness onset. Initial Sepsis Screen: Does the patient meet any 2 criteria? No. Patient's initial sepsis screen is negative. Does the patient have a suspected source of infection? No. Patient's initial sepsis screen is negative. Risk Assessment: Do you want to hurt yourself or someone else? Patient reports no desire to harm self or others. Onset of symptoms was January 21, 2025. 13:46 Method Of Arrival: Ambulatory ss 13:46 Acuity: SERA 3 ss Triage Assessment: 13:46 General: Appears in no apparent distress. Behavior is calm, cooperative, appropriate ll1 for age. Pain: Complains of pain in L abdomen Quality of pain is described as aching, crampy. Neuro: No deficits noted. Cardiovascular: No deficits noted. GI: Reports lower abdominal pain, upper abdominal pain, nausea. : Reports burning with urination. [employer]: 16:38 LMP N/A - Hysterectomy, Not kj2 Historical: - Allergies: 13:45 Cipro; ss 13:45 dicyclomine; ss 13:45 HYDROCODONE; ss 13:45 NSAIDS; ss 13:45 Prednisone; ss - PMHx: 13:45 Diverticulitis; thickening of uterine lining and cyst (hernia repair); ulcertive ss colitis; uterine fibroids; - PSHx: 13:45 Appendectomy; Cholecystectomy; hemroid surgery; hernia repair; ovary; Total abdominal ss hysterectomy; R ovary removed (Total abdominal hysterectomy); - Immunization history:: Adult Immunizations up to date. - Infectious Disease History:: Denies. - Social history:: Smoking status: Patient denies any tobacco usage or history of. Screenin:14 [facility] ED Fall Risk Assessment (Adult) History of falling in the last 3 months, kj2 including since admission No falls in past 3 months (0 pts) Confusion or Disorientation No (0 pts) Intoxicated or Sedated No (0 pts) Impaired Gait No (0 pts) Mobility Assist Device Used No (0 pt) Altered Elimination No (0 pt) Score/Fall Risk Level 0 - 2 = Low Risk Oriented to surroundings, Maintained a safe environment, Educated pt \T\ family on fall prevention, incl call for assistance when getting out of bed, Assessed \T\ reinforced patient's understanding of fall precautions. Abuse screen: Denies threats or abuse. Denies injuries from another. Nutritional screening: No deficits noted. Tuberculosis screening: No symptoms or risk factors identified. Assessment: 15:14 General: Appears in no apparent distress. uncomfortable, Behavior is calm, cooperative, kj2 appropriate for age. Pain: Complains of pain in left lower quadrant. Neuro: No deficits noted. Cardiovascular: No deficits noted. Respiratory: No deficits noted. GI: Abdomen is non-distended, Bowel sounds present X 4 quads. Abd is soft X 4 quads Abdomen is tender to palpation in left lower quadrant Reports lower abdominal pain. : Urine is cloudy, Reports burning with urination, pain in left lower quadrant(s) with urination. EENT: No deficits noted. No signs and/or symptoms were reported regarding the EENT system. Derm: No deficits noted. No signs and/or symptoms reported regarding the dermatologic system. Musculoskeletal: No deficits noted. No signs and/or symptoms reported regarding the musculoskeletal system. Circulation, motion, and sensation intact. Range of motion: intact in all extremities. Vital Signs: 13:46 BP 97 / 72; Pulse 85; Resp 16; Temp 97.9; Pulse Ox 100% ; Weight 63.96 kg; Height 5 ft. ss 6 in. ; Pain 4/10; 16:36 BP 109 / 76; Pulse 81; Resp 16; Temp 98.2; Pulse Ox 100% on R/A; kj2 13:46 Body Mass Index 22.76 (63.96 kg, 167.64 cm) ss 13:46 Pain Scale: Adult ss [place] Coma Score: 15:14 Eye Response: spontaneous(4). Motor Response: obeys commands(6). Verbal Response: kj2 oriented(5). Total: 15. ED Course: 13:37 Patient arrived in ED. im 13:47 Triage completed. ss 13:47 Arm band placed on. ss 13:51 Domo Fiore [facility]C [facility] 13:51 Nader Craig MD is Attending Physician. dr5 14:25 Patient placed in an exam room, on a stretcher. ph 15:12 CBC with Diff Sent. kj2 15:12 CMP Sent. kj2 15:12 Lipase Sent. kj2 15:13 Patient has correct armband on for positive identification. Bed in low position. Call kj2 light in reach. Side rails up X 1. Client placed on continuous cardiac and pulse oximetry monitoring. NIBP monitoring applied. Door closed. Noise minimized. Warm blanket given. Pillow given. Verbal reassurance given. 15:13 No provider procedures requiring assistance completed. Initial lab(s) drawn, by hi, kj2 sent to lab. Urine collected: clean catch specimen, holly colored. Inserted saline lock: 20 gauge in left antecubital area, using aseptic technique. Blood collected. Flushed with 10 mL NS. Patient maintains SpO2 saturation greater than 95% on room air. 16:36 Tamar Bran, RN is Primary Nurse. kj2 16:36 Provided Education on: d/c education. kj2 16:36 IV discontinued, intact, bleeding controlled, No redness/swelling at site. Pressure kj2 dressing applied. Administered Medications: 15:25 Drug: Ondansetron IVP 4 mg IVP once; over 2 minutes Route: IVP; Site: left antecubital; kj2 15:40 Follow up: Response: No adverse reaction kj2 15:25 Not Given (Patient Refused): morphineor iv 4 mg IVP once over 4 mins kj2 15:25 Drug: NS 0.9% IV 1000 ml IV at 1 bolus Per protocol; to be given as a bolus over 60 kj2 minutes Route: IV; Rate: 1 bolus; Site: left antecubital; 15:30 Follow up: IV Status: Completed infusion kj2 15:34 Drug: Rocephin IV 1 grams IV at per protocol once; Given slow IV push per pharmacy kj2 instructions Route: IV; Rate: per protocol; Site: left antecubital; 15:45 Follow up: IV Status: Completed infusion kj2 Medication: 15:14 VIS not applicable for this client. kj2 Outcome: 16:22 Discharge ordered by . dr5 16:36 Discharged to home ambulatory, kj2 16:36 Condition: stable 16:36 Discharge instructions given to patient, Instructed on discharge instructions, follow up and referral plans. medication usage, Demonstrated understanding of instructions, follow-up care, medications, Prescriptions given X 2, 16:39 Patient left the ED. kj2 Signatures: Jodie Sinha, RN RN Guerline Colon RN RN Darby Shi RN RN ll1 Rose Mark Krystal, RN RN kj2 Domo Fiore, REGIONAL MERCHANDISING MANAGER-C REGIONAL MERCHANDISING MANAGER-[id number]
[2025-01-30 18:01] VITALS: O2SAT 100
[2025-01-30 18:02] VITALS: BP 109/76; TEMP 98.2
== END 2025-01-30 16:39 | disposition home or self-care (01) ==
LOC: ER 13:34
DX: N39.0 Urinary tract infection, site not specified (principal)
CPT/HCPCS: 87088; 85025; 81001; 87086; 36415; 81025; 83690; 80053; 96375; 96374; 99284; J2405; J7030; J0696; 87077; 87186